=== PATIENT | male | born 1935 | race Caucasian/White ===

== ENCOUNTER 2019-12-26 06:04 | Outpatient (REF) | payer MEDICARE, SELFPAY | END 2019-12-26 06:05 | disposition home or self-care (01) | LOC: HO.LAB 06:04 | PROVIDERS: PCP Physician Assistant; Visit Provider Internal Medicine | DX: Z20.828 Contact with and (suspected) exposure to other viral communicable diseases (principal) | CPT/HCPCS: 36415; 87635 ==

== ENCOUNTER → 2020-01-07 12:23 | Outpatient (BNVA) | payer MEDICARE, SELFPAY | PROVIDERS: Visit Provider Urology | DX: C61 Malignant neoplasm of prostate (principal); N32.0 Bladder-neck obstruction; R35.0 Frequency of micturition; Z79.899 Other long term (current) drug therapy | CPT/HCPCS: 51798; 99214 ==

== ENCOUNTER → 2020-04-07 14:11 | Outpatient (BNVA) | payer MEDICARE, SELFPAY | PROVIDERS: Visit Provider Urology | DX: C61 Malignant neoplasm of prostate (principal); N32.0 Bladder-neck obstruction; R35.0 Frequency of micturition | CPT/HCPCS: 51798; 81002; 99212 ==

== ENCOUNTER → 2020-08-10 09:31 | Outpatient (BNVA) | payer MEDICARE, SELFPAY | PROVIDERS: Visit Provider Surgery | DX: K40.90 Unilateral inguinal hernia, without obstruction or gangrene, not specified as recurrent (principal) | CPT/HCPCS: 99212 ==

== ENCOUNTER 2020-10-23 09:36 | Outpatient (REF) | payer MEDICARE, SELFPAY ==
[2020-10-23 11:34] LABS: Prostate Specific Antigen 0.54 ng/mL (<0.05-4.0)
== END 2020-10-23 09:37 | disposition home or self-care (01) ==
LOC: HO.LAB 09:36
PROVIDERS: Visit Provider Urology
DX: Z12.5 Encounter for screening for malignant neoplasm of prostate (principal); C61 Malignant neoplasm of prostate
CPT/HCPCS: 36415; 84153

== ENCOUNTER → 2020-10-30 08:39 | Outpatient (BNVA) | payer MEDICARE, SELFPAY | PROVIDERS: Visit Provider Urology | DX: R97.20 Elevated prostate specific antigen [PSA] (principal); C61 Malignant neoplasm of prostate; R35.0 Frequency of micturition; N32.81 Overactive bladder; R39.15 Urgency of urination; N32.0 Bladder-neck obstruction | CPT/HCPCS: 51798; 99212 ==

== ENCOUNTER → 2020-12-01 09:46 | Outpatient (BNVA) | payer MEDICARE, SELFPAY | PROVIDERS: Visit Provider Urology | DX: C61 Malignant neoplasm of prostate (principal); N32.0 Bladder-neck obstruction; R35.0 Frequency of micturition | CPT/HCPCS: 52000; 99212 ==

== ENCOUNTER 2020-12-26 09:47 | Observation (INO) | payer MEDICARE, SELFPAY ==
[2020-12-26] VITALS (9 sets, daily range): BP systolic 118–190; BP diastolic 64–139; PULSE 36–92; RESP 12–19; TEMP 36.2–36.9; O2SAT 95–100; BMI 19.3
--- NOTE | ~2020-12-26 | MR_ITS ---
EXAMINATION: MRI OF THE BRAIN WITHOUT CONTRAST CLINICAL INFORMATION: Right lower extremity weakness. COMPARISON: CT scan of the head 12/26/2020. MRI scan the brain 02/12/2016. TECHNIQUE: MRI of the brain was obtained using routine sequences without contrast. FINDINGS: No diffusion abnormalities are identified to suggest an acute or subacute infarct. No mass effect or midline shift is seen. There is commensurate prominence of the ventricles and sulci consistent with moderate diffuse volume loss. There has been interval increase in the periventricular and subcortical white matter hyperintense T2 and FLAIR areas consistent with progressive chronic microvascular ischemic disease. The study demonstrates chronic lacunar infarcts in the basal ganglia and mai. No extra-axial fluid collections are seen. The cerebellum appears normal. No pathologic magnetic susceptibility artifact is identified on the gradient refocused acquisition. The craniovertebral junction, marrow signal, and midline structures are normal. The study redemonstrates multiple small nodules in the right parotid gland. The major intracranial flow-voids at the level of the [place] are preserved. The dural venous sinus flow-voids are maintained. There is no significant fluid in the mastoid air cells. There are bilateral maxillary sinus retention cysts. There is a cyst in the high left nasopharynx. MR/MR head/brain wo con IMPRESSION: 1. There are no acute bleeds or territorial infarcts. No masses are demonstrated. 2. There are chronic microvascular ischemic changes and there are multifocal lacunar infarcts. There is diffuse volume loss. 3. The study redemonstrates small nodules in the right parotid gland.
--- NOTE | ~2020-12-26 | CT_ITS ---
EXAMINATION: CT CERVICAL SPINE WITHOUT CONTRAST CLINICAL INFORMATION: Fall COMPARISON: None TECHNIQUE: CT cervical spine Department standard protocol without contrast. This CT examination was performed using dose optimization techniques as appropriate, variously including the following: *Automated exposure control *Adjustment of mA and/or kV according to patient size (this includes techniques or standardized protocols for targeted exams where dose is matched to indication/reason for exam; i.e. extremities or head) *Use of iterative reconstruction technique DLP: 1025 mGy-cm FINDINGS: All 7 cervical vertebrae identified maintaining proper height and alignments. The vertebrae, the pedicles, spinous processes all are intact. No fracture. Loss of disc height narrowing of intervertebral disc spaces suggest underlying degenerative disc disease at all levels. Spinal levels: C2-C3: No fracture. No central or foraminal stenosis. C3-C4: No fracture. No central or foraminal stenosis. There is DJD of facet joints. C4-C5: Bilateral facet joints arthropathy. No fracture. No central or foraminal stenosis. C5-C6: Bilateral facet joints arthropathy. No stenosis. No fracture. No central or foraminal stenosis. C6-C7: No acute fracture. Extensive facet joints arthropathy. No central or foraminal stenosis. C7-T1: No fracture. There is bilateral facet joints arthropathy. No central or foraminal stenosis. CT/CT cervical spine wo con IMPRESSION: Study somewhat limited, oblique imaging, the axials are not aligned to the bone anatomic alignment's. 1. No fracture. 2. There is extensive facet joints arthropathy at almost all levels. 3. Narrowing of disc spaces suggest underlying degenerative disc disease.
--- NOTE | ~2020-12-26 | XR_ITS ---
EXAMINATION: XR CHEST CLINICAL INFORMATION: Status post fall with dizziness. COMPARISON: 06/28/2017 chest radiographs. TECHNIQUE: Frontal view of the chest was obtained. FINDINGS: The lungs are clear. Tiny radiopaque densities are again seen overlying the right lower lung without interval change. The heart and mediastinal structures are unremarkable. XR/XR chest 1V IMPRESSION: Stable chest. No acute cardiopulmonary process.
--- NOTE | ~2020-12-26 | CT_ITS ---
CT head/brain wo con CLINICAL INFORMATION: Reason for Exam fall ?hit head COMPARISON: Prior CT January 2016 TECHNIQUE: Department standard protocol. This CT examination was performed using dose optimization techniques as appropriate, variously including the following: *Automated exposure control *Adjustment of mA and/or kV according to patient size (this includes techniques or standardized protocols for targeted exams where dose is matched to indication/reason for exam; i.e. extremities or head) *Use of iterative reconstruction technique DLP: 1025 mGy-cm FINDINGS: CEREBRAL HEMISPHERES: There is no evidence of intra-axial or extra-axial mass, hemorrhage or acute infarct. 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 SUBDURAL SPACE: No bleed. BASAL GANGLIA AND PINEAL GLAND: Lacunar infarcts in the left thalamus chronic unchanged. Lacunar infarct in the left lentiform nucleus probably old. Lacunar infarct right lentiform nucleus. VENTRICLES: Symmetric and normal in size. CEREBELLUM AND BRAINSTEM: Lacunar infarct left pontine this is old. CEREBELLOPONTINE ANGLES: No lesion found. ORBITS: No intraorbital mass. VESSELS: Unremarkable SKULL BASE: Unremarkable INCLUDED SINUSES AT SKULL BASE: Clear SKULL AND SKIN: No fracture or bone lesion found. 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 Multiple small lacunar infarct in the basal ganglia and pontine old. No intracranial hemorrhage. Normal CT scan does not rule out the possibility of hyperacute infarct in the first 12 hours. If patient symptoms persist may consider correlation with MRI, which is more sensitive for early acute infarct.
[2020-12-26 10:00] LABS: Glucose, Whole Blood 88 mg/dL (60-115)
--- NOTE | 2020-12-26 10:00 | ECG_ITS ---
Test Reason : FALL Blood Pressure : / mmHG Vent. Rate : 063 BPM Atrial Rate : 063 BPM P-R Int : 186 ms QRS Dur : 130 ms QT Int : 446 ms P-R-T Axes : 071 -77 020 degrees QTc Int : 456 ms Normal sinus rhythm Left axis deviation Right bundle branch block Abnormal ECG When compared with ECG of 28-JUN-2017 06:18, Sinus rhythm has replaced Atrial fibrillation Referred By: Marce Dozier Electronically Signed By:EH FIGUEROA
--- NOTE | 2020-12-26 10:03 | ED_ITS ---
HPI - Fall General Chief Complaint: Fall Stated Complaint: fall Time Seen by Provider: 12/26/20 09:54 Source: patient and EMS Mode of arrival: EMS Limitations: other (poor historian) History of Present Illness HPI Narrative: 85-year-old male pmhx HTN, prostate cancer, hx CVAs presents to the emergency department after a witnessed fall. He states he was walking to the department store, he felt lightheaded weak and he felt like his right knee gave out on him so he fell. He states he always has problems with his right knee. It is unclear whether not he hit his head. He is not on blood thinners. He denies pain. He denies chest pain, shortness of breath, weakness, nausea, vomiting, fevers, chills. complaint: fall Onset (ago): hour(s) (1) Fall from: standing Fall witnessed: yes, by bystander Place fall occurred: other Loss of consciousness: unsure Prolonged down time: no Symptoms prior to fall: lightheadedness and dizziness Context: tripped/slipped Associated symptoms (after fall): weakness Related Data Previous Rx's Medication Instructions Recorded oxybutynin chloride 10 mg 10 mg PO DAILY 30 Days #30 tab 10/30/20 tablet,extended release 24 hr terazosin 5 mg capsule 10 mg PO BEDTIME 30 Days #60 cap 10/30/20 Allergies Allergy/AdvReac Type Severity Reaction Status Date / Time No Known Allergies Allergy Verified 12/01/20 10:02 [No Known Allergies*] Review of Systems Review of Systems: Constitutional: No Fever, No Chills ENT/Mouth: No sore throat, No Rhinorrhea, No Swallowing Difficulty Eyes: No Eye Pain, No Swelling, No Redness Cardiovascular: No Chest Pain, No SOB, No Orthopnea, No Edema Respiratory: No Cough, No Sputum, No Wheezing, No dyspnea Gastrointestinal: No Nausea, No Vomiting, No Diarrhea, No abdominal Pain, No Hematochezia, No Melena Genitourinary: No Dysuria, No Urinary Frequency, No Hematuria Musculoskeletal: No joint pain, No Myalgias, + fall, ?LOC Skin: No Skin Lesions, No rash Neuro: No Weakness, No Numbness, No Dizziness, No Headache PMFSH Past Medical History Medical History (Updated 12/26/20 @ 16:18 by Ludin Dawson MD) Bladder outlet obstruction Bradycardia CKD (chronic kidney disease), stage III CVA (cerebral vascular accident) Hypertension Right inguinal pain Urinary frequency Surgical History History of knee replacement History of surgery Social History Social History Alcohol intake: current Alcohol intake frequency: holidays/special occasions only Alcohol type: beer Patient Tobacco Use Status: Current everyday Tobacco user Smoked in Last 30 Days: Yes Use of substances other than those prescribed or required for medical reasons: No Advance Directives: No Advance Directives Information Provided: No Physical Exam Vital Signs: Vital Signs: Last Vital Signs Temp 97.9 F 12/26/20 14:16 Pulse 42 L 12/26/20 14:16 Resp 14 12/26/20 14:16 BP 188/64 H 12/26/20 14:16 Pulse Ox 100 12/26/20 14:16 Body Mass Index 19.3 Appearance: Alert. Oriented X3. No acute distress. Eyes: Pupils equal, round and reactive to light. mild right upper eyelid droop ENT: Pharynx normal. minor abrasion on the bridge of the nose Neck: Normal inspection. Neck supple. CVS: Normal heart rate and rhythm. Pulses normal. Respiratory: No respiratory distress. Breath sounds normal. Abdomen: Soft and nontender. +BS x4 Skin: Skin warm and dry. Normal skin color. Normal skin turgor. No rashes. Extremities: No lower extremity edema. Atraumatic Neuro: Oriented to person and place. + States the president at this time is Obama. No motor deficit. No sensory deficit. Mild, intermittent, Slurred speech noted Course Course Course Narrative: 1256-Upon re-evaluation, he is still feeling well, he is denying chest pain, headaches, vision changes, shortness of breath. He denies extremity pain. He states he wants to leave. His lab show no acute infection. No UTI His EKG sinus rhythm with a RBBB which he has had before. X-ray shows no acute findings. CT scan of the head, and C-spine show no signs of bleed no fr actures. Patient ambulating with a steady gait. VSS. Reevaluation(s) Reevaluation #1: CT head without acute stroke, old lacunar infacts are noted. no focal deficits on exam. Upon re-evaluation of the patient it is noted that he is bradycardic to low 40's His orthostatic vital signs were also positive with 20 point increase in his HR. Concern for cardiac etiology of fall. A repeat EKG has been done, which shows marked sinus bradycardia, with left axis deviation and right bundle branch block. HR 30-40's. He does have a history of bradycardia to the 50s years ago. Given this patient's living situation, he lives at home by himself, it is not safe to discharge the patient home. Will reach out to hospitalist, to keep him overnight for observation, and further evaluation by Cardiology. Dr. Huff aware of patient, not concerned about troponin. TT Dr. Dawson who will admit the patient for further observation. MDM - Fall MDM Narrative Medical decision making narrative: 85-year-old male past medical history of hypertension and prostate cancer presents to the emergency department after a witnessed fall. It is unclear whether not he has had. He denies any pain. States he fell because his right knee gave out on him, but before the fall he also reports transient weakness, and dizziness. He is not on blood thinners but he is a poor historian. Upon physical examination there are no evident signs of trauma. Slurred speech is noted. There is no neuro deficits, no weakness. Pupils are equal round reactive to light. Patient keeps stating he wants to leave, and he feels okay. However due to the history, and physical exam findings a full workup will be done which includes labs, EKG, CT non-contrast of the head, and C-spine, UA. Symptoms are nondebilitating, not a tPA candidate. Lab Data Result diagrams: 12/26/20 10:30 12/26/20 10:30 Labs: Lab Results 12/26/20 12/26/20 12/26/20 Range/Units 09:56 10:30 10:30 WBC 5.4 (4.8-10.8) X10*3/uL RBC 3.89 L (4.60-5.80) X10*6/uL Hgb 12.8 L (14.0-18.0) g/dl Hct 37.9 L (42-52) % MCV 97.4 (80-98) fL MCH 32.9 (27.0-33.0) pg MCHC 33.8 (31.0-36.0) g/dl RDW 12.9 (11.0-16.0) % Plt Count 141 L (160-400) X10*3/uL MPV 10.7 (9.4-12.4) fL Immature Gran % (Auto) 0.6 H (0.0-0.4) % Neut % (Auto) 79.3 H (45-73) % Lymph % (Auto) 13.4 L (20-40) % Lyon % (Auto) 4.6 (2-11) % Eos % (Auto) 1.5 (0-4) % Baso % (Auto) 0.6 (0-2) % Lymph # (Auto) 0.7 L (1.2-4.9) X10*3/uL Lyon # (Auto) 0.3 (0.1-1.2) X10*3/uL Eos # (Auto) 0.1 (0.0-0.4) X10*3/uL Baso # (Auto) 0.0 (0.0-0.2) X10*3/uL Abs Immat Gran (auto) 0.03 (0.00-0.03) X10*3/uL Absolute Neuts (auto) 4.3 (2.0-8.3) X10*3/uL Absolute Nucleated RBC 0.000 (0.0-0.012) X10*3/uL Nucleated RBC % (auto) 0.0 (0.0-0.2) /100WBC Sodium 141 (135-145) mmol/L Potassium 4.0 (3.3-5.1) mmol/L Chloride 108 (96-108) mmol/L Carbon Dioxide 23 (22-29) mmol/L Anion Gap 14 (12-20) BUN 17 H (9-16) mg/dL Creatinine 1.45 H (0.5-1.4) mg/dL Estim Creat Clear Calc 31.7 Estimated GFR 46 POC Glucose 88 (60-115) mg/dL Random Glucose 94 (60-115) mg/dL Calcium 9.2 (8.4-10.2) mg/dL Magnesium 2.1 (1.6-2.6) mg/dL Total Bilirubin 0.7 (0.0-1.0) mg/dL Direct Bilirubin 0.3 (0.0-0.5) mg/dL AST 19 (5-37) U/L ALT 14 (0-40) U/L Alkaline Phosphatase 90 (39-117) U/L Troponin I High Sens (<3.5-35.0) ng/L Total Protein 6.2 L (6.5-8.0) g/dL Albumin 3.9 (3.5-5.0) g/dL Urine Color Urine Appearance Urine pH (5.0-8.0) Ur Specific Delta (1.005-1.025) Urine Protein (NEG-TRACE) MG/DL Urine Glucose (UA) (NEG) MG/DL Urine Ketones (NEG) MG/DL Urine Blood (NEG) Urine Nitrite (NEG) Ur Leukocyte Esterase (NEG) COVID-19 (KIRBY) (Negative) COVID-19 Clin Com 12/26/20 12/26/20 12/26/20 Range/Units 10:30 10:30 12:24 WBC (4.8-10.8) X10*3/uL RBC (4.60-5.80) X10*6/uL Hgb (14.0-18.0) g/dl Hct (42-52) % MCV (80-98) fL MCH (27.0-33.0) pg MCHC (31.0-36.0) g/dl RDW (11.0-16.0) % Plt Count (160-400) X10*3/uL MPV (9.4-12.4) fL Immature Gran % (Auto) (0.0-0.4) % Neut % (Auto) (45-73) % Lymph % (Auto) (20-40) % Lyon % (Auto) (2-11) % Eos % (Auto) (0-4) % Baso % (Auto) (0-2) % Lymph # (Auto) (1.2-4.9) X10*3/uL Lyon # (Auto) (0.1-1.2) X10*3/uL Eos # (Auto) (0.0-0.4) X10*3/uL Baso # (Auto) (0.0-0.2) X10*3/uL Abs Immat Gran (auto) (0.00-0.03) X10*3/uL Absolute Neuts (auto) (2.0-8.3) X10*3/uL Absolute Nucleated RBC (0.0-0.012) X10*3/uL Nucleated RBC % (auto) (0.0-0.2) /100WBC Sodium (135-145) mmol/L Potassium (3.3-5.1) mmol/L Chloride (96-108) mmol/L Carbon Dioxide (22-29) mmol/L Anion Gap (12-20) BUN (9-16) mg/dL Creatinine (0.5-1.4) mg/dL Estim Creat Clear Calc Estimated GFR POC Glucose (60-115) mg/dL Random Glucose (60-115) mg/dL Calcium (8.4-10.2) mg/dL Magnesium (1.6-2.6) mg/dL Total Bilirubin (0.0-1.0) mg/dL Direct Bilirubin (0.0-0.5) mg/dL AST (5-37) U/L ALT (0-40) U/L Alkaline Phosphatase (39-117) U/L Troponin I High Sens 7.4 (<3.5-35.0) ng/L Total Protein (6.5-8.0) g/dL Albumin (3.5-5.0) g/dL Urine Color YELLOW Urine Appearance CLEAR Urine pH 7.0 (5.0-8.0) Ur Specific Delta 1.010 (1.005-1.025) Urine Protein NEG (NEG-TRACE) MG/DL Urine Glucose (UA) NEG (NEG) MG/DL Urine Ketones NEG (NEG) MG/DL Urine Blood NEG (NEG) Urine Nitrite NEG (NEG) Ur Leukocyte Esterase NEG (NEG) COVID-19 (KIRBY) Negative (Negative) COVID-19 Clin Com See Note 12/26/20 Range/Units 14:15 WBC (4.8-10.8) X10*3/uL RBC (4.60-5.80) X10*6/uL Hgb (14.0-18.0) g/dl Hct (42-52) % MCV (80-98) fL MCH (27.0-33.0) pg MCHC (31.0-36.0) g/dl RDW (11.0-16.0) % Plt Count (160-400) X10*3/uL MPV (9.4-12.4) fL Immature Gran % (Auto) (0.0-0.4) % Neut % (Auto) (45-73) % Lymph % (Auto) (20-40) % Lyon % (Auto) (2-11) % Eos % (Auto) (0-4) % Baso % (Auto) (0-2) % Lymph # (Auto) (1.2-4.9) X10*3/uL Lyon # (Auto) (0.1-1.2) X10*3/uL Eos # (Auto) (0.0-0.4) X10*3/uL Baso # (Auto) (0.0-0.2) X10*3/uL Abs Immat Gran (auto) (0.00-0.03) X10*3/uL Absolute Neuts (auto) (2.0-8.3) X10*3/uL Absolute Nucleated RBC (0.0-0.012) X10*3/uL Nucleated RBC % (auto) (0.0-0.2) /100WBC Sodium (135-145) mmol/L Potassium (3.3-5.1) mmol/L Chloride (96-108) mmol/L Carbon Dioxide (22-29) mmol/L Anion Gap (12-20) BUN (9-16) mg/dL Creatinine (0.5-1.4) mg/dL Estim Creat Clear Calc Estimated GFR POC Glucose (60-115) mg/dL Random Glucose (60-115) mg/dL Calcium (8.4-10.2) mg/dL Magnesium (1.6-2.6) mg/dL Total Bilirubin (0.0-1.0) mg/dL Direct Bilirubin (0.0-0.5) mg/dL AST (5-37) U/L ALT (0-40) U/L Alkaline Phosphatase (39-117) U/L Troponin I High Sens 15.2 D (<3.5-35.0) ng/L Total Protein (6.5-8.0) g/dL Albumin (3.5-5.0) g/dL Urine Color Urine Appearance Urine pH (5.0-8.0) Ur Specific Delta (1.005-1.025) Urine Protein (NEG-TRACE) MG/DL Urine Glucose (UA) (NEG) MG/DL Urine Ketones (NEG) MG/DL Urine Blood (NEG) Urine Nitrite (NEG) Ur Leukocyte Esterase (NEG) COVID-19 (KIRBY) (Negative) COVID-19 Clin Com ECG Data Attestation: I personally reviewed and interpreted this ECG as follows: ECG interpretation date: 12/26/20 Prior ECG tracings: available for review Interpretation: 1012-normal sinus rhythm, HR 63 bpm, left axis deviation, RBBB (old) 1324- Sinus bradycardia, HR 40, left axis deviation, RBBB Discharge Plan Discharge Clinical Impression: Dizziness, Symptomatic bradycardia Fall Qualifiers: Encounter type: initial encounter Qualified Code(s): W19.XXXA - Unspecified fa ll, initial encounter Patient Disposition: Admitted As Inpatient Instructions: Fall Prevention for Older Adults (ED), Dizziness (ED), Fall Prevention (ED) Prescriptions: No Action terazosin 5 mg capsule 10 mg PO BEDTIME 30 Days Qty: 60 RF: 1 oxybutynin chloride 10 mg tablet extended release 24hr 10 mg PO DAILY 30 Days Qty: 30 RF: 1
[2020-12-26 10:36] LABS: MANUAL DIFF FLAG NO
[2020-12-26 10:39] LABS: Basophils Percent Auto 0.6 % (0-2); Eosinophils Absolute Auto 0.1 X10*3/uL (0.0-0.4); Eosinophils Percent Auto 1.5 % (0-4); Hematocrit 37.9 % (42-52); Hemoglobin 12.8 g/dl (14.0-18.0); Imm Gran Abs Auto 0.03 X10*3/uL (0.00-0.03); Imm Gran Pct Auto 0.6 % (0.0-0.4); Lymphocytes Absolute Auto 0.7 X10*3/uL (1.2-4.9); Lymphocytes Percent Auto 13.4 % (20-40); Mean Corpuscular HGB Conc 33.8 g/dl (31.0-36.0); Mean Corpuscular Hemoglobin 32.9 pg (27.0-33.0); Mean Corpuscular Volume 97.4 fL (80-98); Mean Platelet Volume 10.7 fL (9.4-12.4); Monocytes Absolute Auto 0.3 X10*3/uL (0.1-1.2); Monocytes Percent Auto 4.6 % (2-11); Neutrophils Absolute Auto 4.3 X10*3/uL (2.0-8.3); Neutrophils Percent Auto 79.3 % (45-73); Platelet Count 141 X10*3/uL (160-400); Red Blood Count 3.89 X10*6/uL (4.60-5.80); Red Cell Distribution Width 12.9 % (11.0-16.0); White Blood Count 5.4 X10*3/uL (4.8-10.8)
[2020-12-26 10:55] LABS: COVID-19 Test Negative (Negative); IDNOW Serial# 9DD0AD1C
[2020-12-26 11:06] LABS: Troponin-I High Sensitivity 7.4 ng/L (<3.5-35.0)
[2020-12-26 12:35] LABS: Appearance Urine CLEAR; Color Urine YELLOW; Glucose Urine UA NEG (NEG); Leukocyte Esterase Urine NEG (NEG); Nitrite Urine NEG (NEG); Urine Blood NEG (NEG); Urine Ketones NEG (NEG); Urine Protein NEG (NEG-TRACE)
--- NOTE | 2020-12-26 13:17 | ECG_ITS ---
Test Reason : BRADYCARDIA Blood Pressure : / mmHG Vent. Rate : 040 BPM Atrial Rate : 040 BPM P-R Int : 188 ms QRS Dur : 130 ms QT Int : 494 ms P-R-T Axes : 066 -73 002 degrees QTc Int : 402 ms Marked sinus bradycardia Left axis deviation Right bundle branch block Abnormal ECG When compared with ECG of 26-DEC-2020 10:12, Vent. rate has decreased BY 23 BPM Nonspecific T wave abnormality now evident in Lateral leads Referred By: Marce Dozier Electronically Signed By:EH FIGUEROA
[2020-12-26 14:05] LABS: Alanine Aminotransferase 14 U/L (0-40); Albumin Level 3.9 g/dL (3.5-5.0); Alkaline Phosphatase 90 U/L (39-117); Anion Gap 14 (12-20); Aspartate Amino Transferase 19 U/L (5-37); Bilirubin Direct 0.3 mg/dL (0.0-0.5); Bilirubin Total 0.7 mg/dL (0.0-1.0); Blood Urea Nitrogen 17 mg/dL (9-16); Calcium 9.2 mg/dL (8.4-10.2); Carbon Dioxide 23 mmol/L (22-29); Chloride 108 mmol/L (96-108); Creatinine Clr Calc Pharmacy 31.7; Estimated Glomerular Filt Rate 46; Glucose Random 94 mg/dL (60-115); Magnesium 2.1 mg/dL (1.6-2.6); Sodium 141 mmol/L (135-145); Total Protein 6.2 g/dL (6.5-8.0)
[2020-12-26 15:00] LABS: Troponin-I High Sensitivity 15.2 ng/L (<3.5-35.0)
--- NOTE | 2020-12-26 16:11 | PM.IMHP ---
History of Present Illness Date of Service: 12/26/20 Chief Complaint: Fall 85-year-old male presented with fall. Patient states that he was outside walking with a cart and all of sudden felt right lower extremity weakness. He has history of right knee replacement and it does bother infrequently. He felt give out on him and fell. He denies any weakness or dizziness or chest pain or shortness of breath. Denies any significant injury. He had some trouble getting up right away so bystanders called EMS and brought him to the ED. in the ED he was able to ambulate. Of note patient does have old lacunar infarcts in the left thalamus and left lentiform nucleus. He was also noticed to have sinus bradycardia in the low 40s. This was also noted on his stroke admission in 2016. And his heart rate does improve to the 60s on ambulation. Review of Systems Review of Systems: Constitutional: Denies fever, denies Chills Eyes: denies blurry vision ENT: denies sore throat CVS: denies chest pain Respiratory: Denies dyspnea GI: no abdominal pain : denies dysuria MSK: denies neck pain Skin: denies rash Neuro: denies specific motor weakness Psych: denies suicidal ideation Endocrine: denies heat/cold intolerance Hematologic: denies easy bleeding Allergy: denies hives [facility] Medical History (Updated 12/26/20 @ 16:18 by Ludin Dawson MD) Bladder outlet obstruction Bradycardia CKD (chronic kidney disease), stage III CVA (cerebral vascular accident) Hypertension Right inguinal pain Urinary frequency Pertinent family history: Denies history of stroke in either parents Surgical History History of knee replacement History of surgery Social History Alcohol intake: current Alcohol intake frequency: holidays/special occasions only Alcohol type: beer Patient Tobacco Use Status: Current everyday Tobacco user Smoked in Last 30 Days: Yes Use of substances other than those prescribed or required for medical reasons: No Advance Directives: No Advance Directives Information Provided: No Meds Allergies Allergy/AdvReac Type Severity Reaction Status Date / Time No Known Allergies Allergy Verified 12/01/20 10:02 [No Known Allergies*] Active Medications: Current Medications Non-Formulary Medication (Terazosin) 10 mg PO BEDTIME BLANCA Oxybutynin Chloride (Oxybutynin Chloride Er 5 Mg Tab.Er.24) 10 mg PO DAILY BLANCA Physical Exam Vital Signs and Narrative: Vital Signs: Last Vital Signs Temp 97.9 F 12/26/20 14:16 Pulse 42 L 12/26/20 14:16 Resp 14 12/26/20 14:16 BP 188/64 H 12/26/20 14:16 Pulse Ox 100 12/26/20 14:16 Body Mass Index 19.3 General: no acute distress HEENT: atraumatic Neck: normal to visual inspection CVS: S1, S2, RRR Resp: CTA bilateral Chest: non tender GI: soft, non tender, non distended : no CVA tenderness Skin: no rashes Extremities: no edema Neuro: Oriented X3, dysarthric, no obvious motor defecits Psych: cooperative Results Labs CBC and Chem 7: 12/26/20 10:30 12/26/20 10:30 Labs: Laboratory Results - last 24 hr 12/26/20 12/26/20 12/26/20 09:56 10:30 10:30 MCV 97.4 MCH 32.9 MCHC 33.8 RDW 12.9 Plt Count 141 L MPV 10.7 Immature Gran % (Auto) 0.6 H Neut % (Auto) 79.3 H Lymph % (Auto) 13.4 L [place] % (Auto) 4.6 Eos % (Auto) 1.5 Baso % (Auto) 0.6 Lymph # (Auto) 0.7 L [place] # (Auto) 0.3 Eos # (Auto) 0.1 Baso # (Auto) 0.0 Abs Immat Gran (auto) 0.03 Absolute Neuts (auto) 4.3 Absolute Nucleated RBC 0.000 Nucleated RBC % (auto) 0.0 Anion Gap 14 Estim Creat Clear Calc 31.7 Estimated GFR 46 POC Glucose 88 Random Glucose 94 Calcium 9.2 Magnesium 2.1 Total Bilirubin 0.7 Direct Bilirubin 0.3 AST 19 ALT 14 Alkaline Phosphatase 90 Troponin I High Sens Total Protein 6.2 L Albumin 3.9 Urine Color Urine Appearance Urine pH Ur Specific [place] Urine Protein Urine Glucose (UA) Urine Ketones Urine Blood Urine Nitrite Ur Leukocyte Esterase COVID-19 (KIRBY) COVID-19 Clin Com 12/26/20 12/26/20 12/26/20 10:30 10:30 12:24 MCV MCH MCHC RDW Plt Count MPV Immature Gran % (Auto) Neut % (Auto) Lymph % (Auto) [place] % (Auto) Eos % (Auto) Baso % (Auto) Lymph # (Auto) [place] # (Auto) Eos # (Auto) Baso # (Auto) Abs Immat Gran (auto) Absolute Neuts (auto) Absolute Nucleated RBC Nucleated RBC % (auto) Anion Gap Estim Creat Clear Calc Estimated GFR POC Glucose Random Glucose Calcium Magnesium Total Bilirubin Direct Bilirubin AST ALT Alkaline Phosphatase Troponin I High Sens 7.4 Total Protein Albumin Urine Color YELLOW Urine Appearance CLEAR Urine pH 7.0 Ur Specific [place] 1.010 Urine Protein NEG Urine Glucose (UA) NEG Urine Ketones NEG Urine Blood NEG Urine Nitrite NEG Ur Leukocyte Esterase NEG COVID-19 (KIRBY) Negative COVID-19 Clin Com See Note 12/26/20 14:15 MCV MCH MCHC RDW Plt Count MPV Immature Gran % (Auto) Neut % (Auto) Lymph % (Auto) [place] % (Auto) Eos % (Auto) Baso % (Auto) Lymph # (Auto) [place] # (Auto) Eos # (Auto) Baso # (Auto) Abs Immat Gran (auto) Absolute Neuts (auto) Absolute Nucleated RBC Nucleated RBC % (auto) Anion Gap Estim Creat Clear Calc Estimated GFR POC Glucose Random Glucose Calcium Magnesium Total Bilirubin Direct Bilirubin AST ALT Alkaline Phosphatase Troponin I High Sens 15.2 D Total Protein Albumin Urine Color Urine Appearance Urine pH Ur Specific [place] Urine Protein Urine Glucose (UA) Urine Ketones Urine Blood Urine Nitrite Ur Leukocyte Esterase COVID-19 (KIRBY) COVID-19 Clin Com Imaging Radiologist's Impressions: Impressions Cervical Spine CT 12/26/20 10:00 IMPRESSION: Study somewhat limited, oblique imaging, the axials are not aligned to the bone anatomic alignment's. 1. No fracture. 2. There is extensive facet joints arthropathy at almost all levels. 3. Narrowing of disc spaces suggest underlying degenerative disc disease. Chest X-Ray 12/26/20 10:01 IMPRESSION: Stable chest. No acute cardiopulmonary process. Head CT 12/26/20 10:01 IMPRESSION: Deep white matter and periventricular hypoattenuation, nonspecific; most likely sequela of chronic microvascular angiopathy ischemia. Multiple small lacunar infarct in the basal ganglia and pontine old. No intracranial hemorrhage. Normal CT scan does not rule out the possibility of hyperacute infarct in the first 12 hours. If patient symptoms persist may consider correlation with MRI, which is more sensitive for early acute infarct. Assessment and Plan (1) Bradycardia: Status: Acute 85M presented with fall fall, right leg giving out could be mechanical given history rule out TIA/CVA will place on observation tele, mri, asa, statin sinus bradycardia was noted in 2016 as well, with HR 40-70 on telemetry then appears to increase appropriately on exertion doubt this is the cause of fall will monitor hypertension uncontrolled continue terazosin add amlodipnie BPH terazosin CKD III appears to be stable, monitor history of CVA with residual dysarthria does not appear to be on meds will start asa, statin dvt prohpyalxis - lovenox full code Quality Stroke Does the patient have a stroke diagnosis?: No VTE Prior VTE?: No VTE Risk Level:: Medical - moderate - high VTE Device Contraindication: Treatment Not Indicated VTE Drug Contraindication: N/A - Med Ordered
[2020-12-26] MEDS: Enoxaparin Sodium 40 MG/0.4 ML SYRINGE SUBCUT (19:40)
[2020-12-26] MEDS: Doxazosin Mesylate 2 MG TABLET 8 MG PO (20:51)
[2020-12-26] MEDS: Atorvastatin Calcium 40 MG TABLET PO (20:51)
[2020-12-27] VITALS (7 sets, daily range): BP systolic 135–178; BP diastolic 67–72; PULSE 43–54; RESP 14–18; TEMP 36.5–36.9; O2SAT 96–98
[2020-12-27] MEDS: 0.9 % Sodium Chloride Flush 3 ML SYRINGE IVFLUSH ×4 (00:40→20:45)
[2020-12-27 06:38] LABS: Hematocrit 40.7 % (42-52); Hemoglobin 13.6 g/dl (14.0-18.0); Mean Corpuscular HGB Conc 33.4 g/dl (31.0-36.0); Mean Corpuscular Hemoglobin 32.6 pg (27.0-33.0); Mean Corpuscular Volume 97.6 fL (80-98); Platelet Count 149 X10*3/uL (160-400); Red Blood Count 4.17 X10*6/uL (4.60-5.80); White Blood Count 5.3 X10*3/uL (4.8-10.8)
[2020-12-27 07:01] LABS: Anion Gap 15 (12-20); Blood Urea Nitrogen 17 mg/dL (9-16); Calcium 9.1 mg/dL (8.4-10.2); Carbon Dioxide 23 mmol/L (22-29); Chloride 108 mmol/L (96-108); Creatinine Clr Calc Pharmacy 34.3; Estimated Glomerular Filt Rate 51; Glucose Random 91 mg/dL (60-115); Sodium 142 mmol/L (135-145)
[2020-12-27] MEDS: Aspirin Enteric Coated 81 MG TABLET.DR PO (08:46)
[2020-12-27] MEDS: amLODIPine Besylate 5 MG TABLET PO (08:46)
--- NOTE | 2020-12-27 11:36 | MHC.CM.PN ---
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 hcp filed naming aria spears as his agent [phone]
[2020-12-27] MEDS: Enoxaparin Sodium 40 MG/0.4 ML SYRINGE SUBCUT (15:05)
--- NOTE | 2020-12-27 15:06 | HO.PM.IMPN ---
Subjective Subjective Date of Service: 12/27/20 Interval History: cc: fall still unsteady on feet Respiratory Respiratory: Reports no additional respiratory complaints Gastrointestinal Gastrointestinal: Reports no additional gastrointestinal complaints Physical Exam Vital Signs: Vital Signs: Last Vital Signs Temp 98.3 F 12/27/20 12:00 Pulse 50 12/27/20 12:00 Resp 18 12/27/20 12:00 BP 170/67 H 12/27/20 12:00 Pulse Ox 98 12/27/20 12:00 Body Mass Index 19.3 General: AO X 3, no acute distress Resp: CTA bilateral, no accessory muscles used CVS: S1,S2,RRR GI: soft, non tender, non distended Neuro: motor grossly intact, unsteady gait Psych: appropriate affect, appropriate insight Objective Data Active Medications Acetaminophen (Acetaminophen 325 Mg Tablet) 650 mg PO Q6H PRN PRN Reason: Pain, Mild (Pain Scale 1-3) Amlodipine Besylate (Amlodipine Besylate 5 Mg Tablet) 5 mg PO DAILY [facility]; Protocol Last Admin: 12/27/20 08:46 Dose: 5 mg Documented by: ELISE Aspirin (Aspirin Enteric Coated 81 Mg Tablet.Dr) 81 mg PO DAILY [facility] Last Admin: 12/27/20 08:46 Dose: 81 mg Documented by: ELISE Atorvastatin Calcium (Atorvastatin Calcium 40 Mg Tablet) 40 mg PO BEDTIME [facility] Last Admin: 12/26/20 20:51 Dose: 40 mg Documented by: MARK Atropine Sulfate (Atropine Sulfate 1 Mg/Ml Vial) 0.5 mg IVPUSH Q2H PRN PRN Reason: symptomatic bradycardia Doxazosin Mesylate (Doxazosin Mesylate 2 Mg Tablet) 8 mg PO BEDTIME [facility] Last Admin: 12/26/20 20:51 Dose: 8 mg Documented by: MARK Enoxaparin Sodium (Enoxaparin Sodium 40 Mg/0.4 Ml Syringe) 40 mg SUBCUT Q24H [facility] Last Admin: 12/27/20 15:05 Dose: 40 mg Documented by: ELISE Oxybutynin Chloride (Oxybutynin Chloride Er 5 Mg Tab.Er.24) 10 mg PO DAILY [facility] Last Admin: 12/27/20 08:46 Dose: 10 mg Documented by: ELISE Sodium Chloride (0.9 % Sodium Chloride Flush 3 Ml Syringe) 3 ml IVFLUSH QSHIFT [facility] Last Admin: 12/27/20 15:05 Dose: 3 ml Documented by: ELISE Labs CBC & Chem 7: 12/27/20 06:12 12/27/20 06:12 Labs: Laboratory Results - last 24 hr 12/27/20 12/27/20 06:12 06:12 MCV 97.6 MCH 32.6 MCHC 33.4 RDW 13.0 Plt Count 149 L MPV 11.0 Absolute Nucleated RBC 0.000 Nucleated RBC % (auto) 0.0 Anion Gap 15 Estim Creat Clear Calc 34.3 Estimated GFR 51 Random Glucose 91 Calcium 9.1 Assessment and Plan (1) CKD (chronic kidney disease), stage III: Status: Acute (2) Bradycardia: Status: Acute (3) Hypertension: Status: Acute Assessment and Plan: ?85M presented with fall fall, right leg giving out likely mechanical friend reports patient has been declining, thinks he needs rehab MRI negative for stroke PT eval sinus bradycardia was noted in 2016 as well, with HR 40-70 on telemetry then patient heart rate appropriately increases on ambulation, noted to be unsteady even with heart rate in 90s while standing doubt this is the cause of fall will monitor hypertension uncontrolled continue terazosin added amlodipnie BPH terazosin CKD III appears to be stable, monitor history of CVA with residual dysarthria does not appear to be on meds at home started asa, statin dvt prohpyalxis - lovenox full code Quality Stroke Does the patient have a stroke diagnosis?: No VTE Prior VTE?: No VTE Risk Level:: Medical - moderate - high VTE Device Contraindication: Treatment Not Indicated VTE Drug Contraindication: N/A - Med Ordered
[2020-12-27] MEDS: Doxazosin Mesylate 2 MG TABLET 8 MG PO (20:44)
[2020-12-27] MEDS: Atorvastatin Calcium 40 MG TABLET PO (20:44)
[2020-12-28] VITALS: BP 180/78; PULSE 53; RESP 18; O2SAT 95
[2020-12-28 04:00] VITALS: BP 180/72; PULSE 45; RESP 18; TEMP 36.7; O2SAT 95
[2020-12-28 07:50] VITALS: BP 182/84; PULSE 45; RESP 18; TEMP 36.1; O2SAT 95
[2020-12-28] MEDS: 0.9 % Sodium Chloride Flush 3 ML SYRINGE IVFLUSH (08:34)
[2020-12-28 08:35] VITALS: BP 182/84; PULSE 45
[2020-12-28] MEDS: amLODIPine Besylate 5 MG TABLET PO (08:35)
[2020-12-28] MEDS: Aspirin Enteric Coated 81 MG TABLET.DR PO (08:35)
--- NOTE | 2020-12-28 09:31 | PM.DS ---
DS: Providers Provider Date of Service: 12/28/20 Date of admission: 12/26/20 16:08 Primary care physician: None Physician DS: Diagnosis Discharge Diagnosis (1) CKD (chronic kidney disease), stage III: Status: Acute (2) Bradycardia: Status: Acute (3) Hypertension: Status: Acute DS: Summary Hospital Course Hospital Course: patient was admitted for fall and feeling of legs giving out. he was observed for concern over possible tia/cva. mri was done which did not show acute infarct. His sinus bradycardia was also noted again, similar to last admission 2016. His heart rate clearly increased appropriately on ambulation and is not the cause of his symptoms. his hypertension was noted to be uncontrolled and amlodipine 5 mg daily was added. Most likely this is due to ongoing debility due to age and previous stroke. There is concern about patient's fall risk at home and need for rehab. However, patient is not interested and wants to go home. Time Spent with Patient Time attestation: Total time spent providing and/or coordinating discharge services: Discharge coordination time: Greater than 30 minutes Quality: Stroke Does the patient have a stroke diagnosis?: No Physical Exam Vital Signs: Vital Signs: Last Vital Signs Temp 97.0 F 12/28/20 07:50 Pulse 45 L 12/28/20 08:35 Resp 18 12/28/20 07:50 BP 182/84 H 12/28/20 08:35 Pulse Ox 95 12/28/20 07:50 Body Mass Index 19.3 General: AO X 3, no acute distress Resp:? CTA bilateral, no accessory muscles used CVS: S1,S2,RRR GI: soft, non tender, non distended Neuro:? motor grossly intact, unsteady gait Psych: appropriate affect, appropriate insight? Discharge Plan Discharge Patient Disposition: Home Health Service Discharge Diagnosis: fall Referrals: Physician,None [Primary Care Provider] - 1 Week Discharge Medications: New atorvastatin 40 mg Tablet 40 mg PO BEDTIME Qty: 30 RF: 0 amlodipine 5 mg Tablet 5 mg PO DAILY Qty: 30 RF: 0 aspirin 81 mg Tablet,Delayed Release (Dr/Ec) 81 mg PO DAILY Qty: 30 RF: 0 Continued terazosin 5 mg capsule 10 mg PO BEDTIME 30 Days Qty: 60 RF: 1 oxybutynin chloride 10 mg tablet extended release 24hr 10 mg PO DAILY 30 Days Qty: 30 RF: 1 Discharge Orders: Discharge Order (Routine); Ordered 12/28/20 Ordered By: Ludin Dawson Diet: advance to usual diet Activity on Discharge: As tolerated Stand Alone Forms: Patient Portal Discharge page Care Plan Goals: recovery Health Concerns: fall risk Plan of Treatment: asa, statin, Assessment: see above Patient Instructions: Fall Prevention for Older Adults (ED), Dizziness (ED), Fall Prevention (ED)
--- NOTE | 2020-12-28 09:52 | MHC.CM.PN ---
Patient has been medically cleared for dc to home today, with services. CM met with Patient at bedside, who is agreeable to a referral to [facility]. Patient states his PCP is from [facility] in [place].
[2020-12-28 10:08] VITALS: BP 182/84; PULSE 45
--- NOTE | 2020-12-28 11:05 | MHC.CM.PN ---
PCP is Dr. Ursula Floyd.
--- NOTE | 2020-12-28 13:38 | W.MHC.F2F ---
Service Date Service Date: 12/28/20 Encounter Date of encounter: 12/28/20 Reasons for Services Reason for halfway: medication management, medication treatment and teach disease management Reason for physical therapy: home safety and mobility, therapeutic exercises, gait/transfer training and energy conservation Homebound: Leaving the home is medically contraindicated at this time without the asist of a device and/or another person due th the listed conditions above and below. Certification: Based on the above findings, I certify that this patient is confined to the home and needs intermittent halfway care, physical therapy and/or speech therapy, or continues to need occupational therapy. The patient is under my care, and I have initiated the establishment of the plan of care. The patient will be followed by a physician who will periodically review the plan of care.
== END 2020-12-28 11:50 | disposition home health service (06) ==
LOC: HO.ED 16:13 → HO.EDOVER 16:20 → HO.S3 17:06 → HO.IMC 19:49
PROVIDERS: Physician Assistant; Admitting Provider Internal Medicine; Emergency Provider Emergency Medicine; PCP Internal Medicine; Visit Provider Internal Medicine
DX: R00.1 Bradycardia, unspecified (principal); S29.9XXA Unspecified injury of thorax, initial encounter; W01.0XXA Fall on same level from slipping, tripping and stumbling without subsequent striking against object, initial encounter; Y93.01 Activity, walking, marching and hiking; Y92.480 Sidewalk as the place of occurrence of the external cause; Y99.8 Other external cause status; N18.30 Chronic kidney disease, stage 3 unspecified; I10 Essential (primary) hypertension; Z20.822 Contact with and (suspected) exposure to COVID-19; Z86.73 Personal history of transient ischemic attack (TIA), and cerebral infarction without residual deficits
CPT/HCPCS: 36415; 70450; 70551; 71045; 72125; 80048; 80076; 81003; 82947; 83735; 84484; 85025; 85027; 87635; 93005; 96372; 96374; 97161; 99219; 99225; 99285; J1650

== ENCOUNTER → 2021-06-02 09:13 | Outpatient (BNVA) | payer MEDICARE, SELFPAY | PROVIDERS: Visit Provider Urology | DX: R35.0 Frequency of micturition (principal); N32.0 Bladder-neck obstruction; C61 Malignant neoplasm of prostate | CPT/HCPCS: 51798; 99212 ==

== ENCOUNTER 2021-08-06 10:47 | Outpatient (AMB) | payer MEDICARE, SELFPAY ==
--- NOTE | 2021-08-06 10:49 | MHC.OFFVIS ---
Intake Intake Visit Reasons: 6 to 8 week follow up PVR Intake Note: Patient is present for pvr follow up Inpatient Nursing Aide Required: No Accompanied by: Self / Same As Patient Allergies No Known Allergies [No Known Allergies*] Allergy (Verified 07/25/22 15:28) Medication List - Last Reconciled 08/06/21 by Vijay Serna MD amlodipine 5 mg See Protocol PO DAILY aspirin 81 mg PO DAILY atorvastatin 40 mg PO BEDTIME fesoterodine ER 8 mg PO DAILY 30 days prazosin mg PO terazosin 10 mg PO BEDTIME 90 days terazosin mg PO HPI HPI Comments History of Present Illness Details Ki is a pleasant male. He is seen for the following urologic issues - lower urinary tract symptoms - prostate cancer Continue to track PSA Persistent urinary urgency at night time Combination terazosin 10 mg and oxybutynin 10 mg Dry mouth side effects Will switch to trial of Toviaz 8 mg instead of oxybutynin Continue with terazosin 10 mg Lower urinary tract symptoms Longstanding cyst frequency Current medications terazosin 10g with Toviaz 8 mg Prior medications Flomax Cystoscopy 12/15 small bladder neck, moderate trabeculation with some diverticular Prostate cancer low-grade diagnose 2005 Initial treatment brachytherapy Has detectable PSA but remains low in acceptable range PSA 12/14 0.65, 10/14 0.54 PFSH Medical History Benign essential hypertension Bladder outlet obstruction Bradycardia CKD (chronic kidney disease), stage III CVA (cerebral vascular accident) (~2015) Hypertension Incidental pulmonary nodule Left-sided weakness Right inguinal pain Swallowing problem Urinary frequency UTI (urinary tract infection) Vitamin D deficiency Surgical History History of knee replacement History of surgery Social History Household Members: None Housing: Apartment Do you presently have visiting nurse or other home services: Yes Alcohol intake: current Alcohol intake frequency: 0-2 drinks per day Alcohol type: beer Patient Tobacco Use Status: Current someday Tobacco user Tobacco use type: Cigarette Cigarette Packs Per Day: 0.25 Cigarettes Per Day: 5 Years Smoked: 60 +/- e-Cigarette/Vaping Use: Never Used Second Hand Smoke Exposure: Yes Advance Directives Date on File: 06/06/22 service: No Current occupational status: retired Cognitive needs: No Hearing needs: No Vision needs: Yes Review of Systems Const Denies chills and Denies fever(s) Card Reports no additional complaints and Denies syncope Resp Denies cough GI Denies abdominal pain and Denies heartburn Reports as per HPI and Denies change in libido Neuro Denies syncope Psych Denies change in libido Endo Denies change in libido Physical Exam Const General: cooperative, healthy appearing, comfortable and no acute distress Orientation/consciousness: patient oriented x3 HEENT Face and sinus: Yes normal facial exam Mouth: moist mucous membranes Neck Neck: Yes normal visual inspection, Yes full ROM and Yes trachea midline Chest Chest palpation & inspection: normal inspection of the chest Resp Effort & Inspection: normal respiratory effort, able to speak in complete sentences and no respiratory distress GI Inspection: Yes normal to inspection Back/Spine/Pelvis Cervical Spine: normal cervical lordosis Thoracic/Lumbar Spine: thoracic and lumbar spine normal to inspection Skin General skin exam: no rashes or lesions noted Neuro General: patient oriented x3, gait normal, tone normal and moves all extremities Extrem General: Yes normal to inspection and Yes capillary refill normal Office Procedures Post Void Residual Post Residual Void Post Void Residual (PVR): 27 [id number]-[id number] Void Residual by ultrasound Results AMB Urinalysis, Automated UA Leukoctes 0 Azra/uL Last Edit by CORNEL Ruth on 08/06/21 10:59 UA Nitrite Negative Last Edit by Mary Shin Raciel on 08/06/21 10:59 UA Urobilinogen 0.2 mg/dL Last Edit by CORNEL Ruth on 08/06/21 10:59 UA Protein 30 mg/dL Last Edit by Mary Shin [facility] on 08/06/21 10:59 UA pH 6.0 Last Edit by CORNEL Ruth on 08/06/21 10:59 UA Blood 0 Galdino/uL Last Edit by Mary Shin [facility] on 08/06/21 10:59 UA Specific [place] 1.025 Last Edit by CORNEL Ruth on 08/06/21 10:59 UA Ketone Negative Last Edit by CORNEL Ruth on 08/06/21 10:59 UA Bilirubin 0 mg/dL Last Edit by CORNEL Ruth on 08/06/21 10:59 UA Glucose 0 mg/dL Last Edit by CORNEL Ruth on 08/06/21 10:59 Results Reviewed Results Reviewed: Laboratory Last Values Urine pH (Auto) 6.0 08/06/21 10:58 Specific [place] (Auto) 1.025 08/06/21 10:58 Urine Protein (Auto) 30 mg/dL 08/06/21 10:58 Glucose (UA)(Auto) 0 mg/dL 08/06/21 10:58 Urine Ketones (Auto) Negative 08/06/21 10:58 Urine Blood (Auto) 0 [place]/uL 08/06/21 10:58 Urine Nitrite (Auto) Negative 08/06/21 10:58 Urine Bilirubin (Auto) 0 mg/dL 08/06/21 10:58 Urine Urobilinogen (Auto) 0.2 mg/dL 08/06/21 10:58 Leukocyte Esterase (Auto) 0 Azra/uL 08/06/21 10:58 Assessment & Plan Assessment & Plan (1) Urinary frequency: Code(s): R35.0 - Frequency of micturition (2) Prostate cancer: Comment: PSA 5 Code(s): C61 - Malignant neoplasm of prostate Orders: Orders Prostate Specific Antigen 6 Months C61 - Malignant neoplasm of prostate AMB Urinalysis Automated 08/06/21 Z13.9 - Encounter for screening, unspecified AMB Post Void Residual by ultrasound 08/06/21 R32 - Unspecified urinary incontinence, N32.0 - Bladder-neck obstruction Medications: Changed From fesoterodine ER 8 mg PO DAILY 30 days 30 tabs 1RF R35.0 - Frequency of micturition To fesoterodine ER 8 mg PO DAILY 90 tabs 1RF 90 days R35.0 - Frequency of micturition Patient Instructions: Imaging studies, laboratory and physical exam results were discussed and reviewed in detail. No major barriers to patient understanding were identified. An opportunity to ask questions regarding the treatment plan was provided. All questions were answered. The patient expressed understanding and agreement with the above treatment plan. The patient is aware they should contact our office by phone for worsening of their current condition or the appearance of new urologic symptoms. Compliance is encouraged with any medications and followup testing that is ordered. It is a privilege to participate in the urologic care of your patient. If you have any questions or concerns regarding treatment for the above conditions, or other urologic issues, please do not hesitate to contact me. The office telephone contact is [phone]. This note is constructed using voice recognition software. While every effort has been made to ensure accuracy relocation counselor errors may have been included. Yours sincerely, Dr Vijay Serna MD, [facility] - Urology Providers of Expert, Compassionate Care for the Genitourinary System Coding Level of Care Code Est Pt Level 3 (46742) Diagnoses Urinary frequency R35.0 Prostate cancer C61 CPT Codes Post Residual Void - PVR CPT Code: 17035-Euam Void Residual by ultrasound ([id number])
== END 2021-08-06 12:08 | disposition home or self-care (01) ==
LOC: HO.HUSH 10:47
PROVIDERS: PCP Internal Medicine; Visit Provider Urology
DX: R35.0 Frequency of micturition (principal); C61 Malignant neoplasm of prostate
CPT/HCPCS: 99213

== ENCOUNTER → 2021-08-06 10:47 | Outpatient (BNVA) | payer MEDICARE, SELFPAY | PROVIDERS: PCP Internal Medicine; Visit Provider Urology | DX: R35.0 Frequency of micturition (principal); C61 Malignant neoplasm of prostate | CPT/HCPCS: 51798; 99212 ==

== ENCOUNTER 2021-09-17 11:43 | Outpatient (REF) | payer MEDICARE, SELFPAY ==
[2021-09-17 11:55] LABS: MANUAL DIFF FLAG NO
[2021-09-17 12:08] LABS: Basophils Absolute Auto 0.1 X10*3/uL (0.0-0.2); Basophils Percent Auto 0.8 % (0-2); Eosinophils Absolute Auto 0.1 X10*3/uL (0.0-0.4); Eosinophils Percent Auto 1.7 % (0-4); Hematocrit 42.6 % (42.0-52.0); Hemoglobin 14.2 g/dl (14.0-18.0); Imm Gran Abs Auto 0.02 X10*3/uL (0.00-0.03); Imm Gran Pct Auto 0.3 % (0.0-0.4); Lymphocytes Absolute Auto 1.4 X10*3/uL (1.2-4.9); Lymphocytes Percent Auto 21.9 % (20-40); Mean Corpuscular HGB Conc 33.3 g/dl (31.0-36.0); Mean Corpuscular Hemoglobin 32.8 pg (27.0-33.0); Mean Corpuscular Volume 98.4 fL (80.0-98.0); Mean Platelet Volume 10.4 fL (9.4-12.4); Monocytes Absolute Auto 0.3 X10*3/uL (0.1-1.2); Monocytes Percent Auto 5.1 % (2-11); Neutrophils Absolute Auto 4.5 x10*3/uL (2.0-8.3); Neutrophils Percent Auto 70.2 % (45-73); Platelet Count 185 X10*3/uL (160-400); Red Blood Count 4.33 X10*6/uL (4.60-5.80); Red Cell Distribution Width 13.2 % (11.0-16.0); White Blood Count 6.5 X10*3/uL (4.8-10.8)
[2021-09-17 13:13] LABS: Alanine Aminotransferase 14 U/L (0-40); Albumin Level 4.3 g/dL (3.5-5.0); Alkaline Phosphatase 104 U/L (39-117); Anion Gap 13 (12-20); Aspartate Amino Transferase 20 U/L (5-37); Bilirubin Total 0.9 mg/dL (0.0-1.0); Blood Urea Nitrogen 26 mg/dL (9-16); Calcium 9.5 mg/dL (8.4-10.2); Carbon Dioxide 26 mmol/L (22-29); Chloride 104 mmol/L (96-108); Cholesterol 167 mg/dL; Estimated Glomerular Filt Rate 40; Glucose Fasting 94 mg/dL (60-99); HDL Cholesterol 58 mg/dL; LDL Cholesterol Calculated 98 mg/dl; Potassium 4.9 mmol/L (3.3-5.1); Sodium 138 mmol/L (135-145); Total Protein 7.2 g/dL (6.5-8.0); Triglycerides 58 mg/dL
[2021-09-17 13:34] LABS: Vitamin D 25-OH Total 25.4 ng/mL (>30)
== END 2021-09-17 11:44 | disposition home or self-care (01) ==
LOC: HO.LAB 11:43
PROVIDERS: PCP Internal Medicine; Visit Provider Internal Medicine
DX: Z01.818 Encounter for other preprocedural examination (principal); I12.9 Hypertensive chronic kidney disease with stage 1 through stage 4 chronic kidney disease, or unspecified chronic kidney disease; N18.30 Chronic kidney disease, stage 3 unspecified; E55.9 Vitamin D deficiency, unspecified; E78.00 Pure hypercholesterolemia, unspecified
CPT/HCPCS: 36415; 80053; 80061; 82306; 85025

== ENCOUNTER 2022-01-13 06:11 | Outpatient (REF) | payer MEDICARE, SELFPAY ==
[2022-01-13 06:39] LABS: MANUAL DIFF FLAG NO
[2022-01-13 07:33] LABS: Basophils Percent Auto 0.6 % (0-2); Eosinophils Absolute Auto 0.2 X10*3/uL (0.0-0.4); Eosinophils Percent Auto 3.2 % (0-4); Hematocrit 39.6 % (42.0-52.0); Hemoglobin 13.5 g/dl (14.0-18.0); Imm Gran Abs Auto 0.02 X10*3/uL (0.00-0.03); Imm Gran Pct Auto 0.3 % (0.0-0.4); Lymphocytes Percent Auto 16.9 % (20-40); Mean Corpuscular HGB Conc 34.1 g/dl (31.0-36.0); Mean Corpuscular Hemoglobin 34.1 pg (27.0-33.0); Mean Platelet Volume 10.5 fL (9.4-12.4); Monocytes Absolute Auto 0.3 X10*3/uL (0.1-1.2); Monocytes Percent Auto 4.5 % (2-11); Neutrophils Absolute Auto 4.6 x10*3/uL (2.0-8.3); Neutrophils Percent Auto 74.5 % (45-73); Platelet Count 173 X10*3/uL (160-400); Red Blood Count 3.96 X10*6/uL (4.60-5.80); Red Cell Distribution Width 13.5 % (11.0-16.0); White Blood Count 6.2 X10*3/uL (4.8-10.8)
[2022-01-13 08:00] LABS: Alanine Aminotransferase 18 U/L (0-40); Albumin Level 4.3 g/dL (3.5-5.0); Alkaline Phosphatase 117 U/L (39-117); Anion Gap 16 (12-20); Aspartate Amino Transferase 24 U/L (5-37); Bilirubin Total 0.9 mg/dL (0.0-1.0); Blood Urea Nitrogen 20 mg/dL (9-16); Calcium 9.4 mg/dL (8.4-10.2); Carbon Dioxide 24 mmol/L (22-29); Chloride 107 mmol/L (96-108); Cholesterol 129 mg/dL; Estimated Glomerular Filt Rate 49; Glucose Fasting 93 mg/dL (60-99); HDL Cholesterol 61 mg/dL; LDL Cholesterol Calculated 59 mg/dl; Sodium 143 mmol/L (135-145); Triglycerides 46 mg/dL
[2022-01-13 08:22] LABS: TSH reflex Free T4 2.28 uIU/mL (0.32-4.0); Vitamin D 25-OH Total 20.9 ng/mL (>30)
[2022-01-13 08:26] LABS: Prostate Specific Antigen 0.26 ng/mL (<0.05-4.0)
== END 2022-01-13 06:12 | disposition home or self-care (01) ==
LOC: HO.LAB 06:11
PROVIDERS: Urology; PCP Internal Medicine; Visit Provider Internal Medicine
DX: C61 Malignant neoplasm of prostate (principal); I10 Essential (primary) hypertension; E78.00 Pure hypercholesterolemia, unspecified; E55.9 Vitamin D deficiency, unspecified
CPT/HCPCS: 36415; 80053; 80061; 82306; 84153; 84443; 85025

== ENCOUNTER 2022-01-14 10:43 | Outpatient (REF) | payer MEDICARE, SELFPAY ==
[2022-01-14 10:51] LABS: Appearance Urine Cloudy; Color Urine Yellow; Glucose Urine UA Negative (Negative); Leukocyte Esterase Urine Negative (Negative); Nitrite Urine Negative (Negative); PH 5.5 (5.0-9.0); Specific Gravity - Urine 1.015 (1.005-1.025); Urine Blood Negative (Negative); Urine Ketones Negative (Negative); Urine Protein Trace mg/dL (Neg-Trace)
== END 2022-01-14 10:44 | disposition home or self-care (01) ==
LOC: HO.LNP 10:43
PROVIDERS: Visit Provider Internal Medicine
DX: R30.0 Dysuria (principal)
CPT/HCPCS: 81003

== ENCOUNTER 2022-01-28 06:05 | Outpatient (REF) | payer MEDICARE, SELFPAY ==
[2022-01-28 08:23] LABS: Prostate Specific Antigen 0.26 ng/mL (<0.05-4.0)
== END 2022-01-28 06:06 | disposition home or self-care (01) ==
LOC: HO.LAB 06:05
PROVIDERS: PCP Internal Medicine; Visit Provider Urology
DX: Z12.5 Encounter for screening for malignant neoplasm of prostate (principal)
CPT/HCPCS: 36415; 84153

== ENCOUNTER → 2022-02-04 08:54 | Outpatient (BNVA) | payer MEDICARE, SELFPAY | PROVIDERS: PCP Internal Medicine; Visit Provider Urology | DX: C61 Malignant neoplasm of prostate (principal); R35.0 Frequency of micturition | CPT/HCPCS: 51798; 99212 ==

== ENCOUNTER 2022-06-03 10:49 | Observation (INO) | payer MEDICARE, SELFPAY ==
[2022-06-03] VITALS (7 sets, daily range): BP systolic 178–206; BP diastolic 73–108; PULSE 44–58; RESP 14–20; TEMP 36.3–36.9; O2SAT 93–98; BMI 22.8
--- NOTE | ~2022-06-03 | CT_ITS ---
EXAMINATION: CT ANGIOGRAM NECK WITH CONTRAST CT ANGIOGRAM BRAIN WITH CONTRAST CLINICAL INFORMATION: Left-sided weakness. Question TIA. COMPARISON: Brain MRI performed earlier today. TECHNIQUE: Test bolus sequences followed by intravenous administration 70 mL of Omnipaque 350. Helical imaging was performed in the axial plane from the thoracic inlet to the skull vertex. Delayed postcontrast imaging of the head was also performed. The data was processed at the medical technologist workstation for generation of MIP sequences. Angled MIPs and volume rendered reformatted images were also generated at an offline 3D workstation. Stenoses are assessed in accordance with NASCET criteria unless otherwise indicated. This CT examination was performed using dose optimization techniques as appropriate, variously including the following: *Automated exposure control *Adjustment of mA and/or kV according to patient size (this includes techniques or standardized protocols for targeted exams where dose is matched to indication/reason for exam; i.e. extremities or head) *Use of iterative reconstruction technique DLP: 1549 mGy-cm FINDINGS: Head CT: There is no intracranial hemorrhage, mass effect, extra-axial collection, or CT evidence of territorial infarction. There are changes of extensive chronic microangiopathy is noted. Chronic lacunar infarcts are seen within the left basal ganglia, left thalamus, and mai. There is mild degree of brain parenchymal volume loss. No abnormal enhancement is seen. The dural venous sinuses are normally opacified. The extracranial structures are within normal limits. Neck CTA: Atheromatous changes are seen involving the aortic arch. The great vessel origins are patent. Atheromatous changes are seen at the carotid bifurcations without significant stenosis of the proximal internal carotid arteries. The cervical ICAs are both patent. Mild atheromatous changes are seen in the right vertebral artery origin without associated stenosis. There is calcific plaque narrowing the left vertebral artery origin. Right vertebral artery appears significantly dominant. Head CTA: No large vessel occlusion is seen. The right vertebral artery is the predominant supply the basilar artery. There is -type origin of the right MINCING MACHINE OPERATOR. Both dolphin researcher are patent. Intracranial ICAs are patent. The ACAs and MCAs are patent. The collaterals appear symmetric. There is no aneurysm. Non-vascular findings: Multiple nodules are again demonstrated within the bilateral parotid glands. There is soft tissue nodularity within the left more than right paraglottic space extending into the left true vocal fold best seen on series 6 image [id number]/1346. There are small thyroid nodules for which no additional imaging follow-up is recommended based on size criteria. There is significant emphysema within the upper lungs. Multilevel degenerative changes are seen within the spine. CT/CT angio head neck IMPRESSION: No acute intracranial abnormality. Background changes of chronic microangiopathy. Chronic lacunar infarcts. No vascular occlusion or significant stenosis. Incidentally noted bilateral parotid nodules. Prominent soft tissue at the left more than right paraglottic space extending to the left true vocal fold. ENT follow-up is recommended for these findings.
--- NOTE | ~2022-06-03 | CT_ITS ---
EXAMINATION: CT HEAD/BRAIN WITHOUT IV CONTRAST CT CHEST WITHOUT IV CONTRAST CLINICAL INDICATION: Left-sided weakness, chest wall mass. COMPARISON: CT brain: Comparison is made to previous dated 12/26/2020. CT chest: No films to compare. TECHNIQUE: Axial imaging with coronal and sagittal reformatted images. DLP: 613 and 264 mGy-cm Axial imaging with coronal and sagittal reformatted images noncontrast. This CT examination was performed using dose optimization techniques as appropriate, variously including the following: *Automated exposure control *Adjustment of mA and/or kV according to patient size (this includes techniques or standardized protocols for targeted exams where dose is matched to indication/reason for exam; i.e. extremities or head) *Use of iterative reconstruction technique. FINDINGS: CT BRAIN: There is no midline shift. There is no mass effect. There is no hemorrhage. The basal cisterns appear patent. The posterior fossa is grossly within normal limits. Diffuse white matter ischemic changes. There is a new focal infarct centrally in the region of the genu of the internal capsule on left but this does not appear acute. Sinus disease is noted. Polyp formation in the maxillary sinuses. CT CHEST: The thoracic inlet is felt to be within normal limits. The axillary regions are unremarkable. Partially visualized upper abdominal structures grossly within normal limits. Some fullness of the adrenal glands is noted. Vascular calcifications are noted. Centrally coronary calcifications are noted. There is no bulky adenopathy. This is a noncontrast study but the hilar regions do not appear pathologically enlarged. Imaging of the lung lauren. Right lung: There is some apical scarring. There is no acute infiltrate or effusion. There is evidence of COPD. Scattered small nodules. There are also some small granulomas. No nodule over 3 mm. Left lung: There is no significant infiltrate or effusion. There is COPD. Scattered small nodules are noted. 5 mm nodule left base on image 441. Review of the bone windows demonstrates degenerative change in the thoracic spine. There is prominent costochondral tissue involving the fourth and fifth anterior ribs. This could be the palpable finding. As this involves two separate ribs I feel this is unlikely to represent a chondral growth/lesion but correlation would be recommended. CT/CT head/brain wo IV con IMPRESSION: Negative acute noncontrast CT of the brain. Moderate white matter ischemic changes are noted. In the chest there is no acute finding. Coronary calcifications are noted here. A few small scattered lung nodules the largest measuring 5 mm in left lower lung. Recommend low-dose noncontrast in 6 months for continued evaluation. As described prominent chondral tissue involving the fourth and fifth anterior ribs on the left. This may be posttraumatic. This may well be the palpable finding. As it does as stated involve the same appearance on two separate ribs this would be less likely to represent an underlying lesion. More likely posttraumatic deformity. Correlation however recommended clinically. If further evaluation is warranted recommend ultrasound or MR.
--- NOTE | ~2022-06-03 | MR_ITS ---
EXAMINATION: MR BRAIN WITHOUT CONTRAST CLINICAL INFORMATION: Question TIA. COMPARISON: Brain MRI 12/27/2020. TECHNIQUE: Multiplanar, multisequence imaging of the brain was performed without intravenous contrast. FINDINGS: There is no acute infarction, hemorrhage, mass, or extra-axial fluid collection. There is moderate to severe patchy T2/FLAIR hyperintensity throughout the cerebral white matter compatible with advanced chronic microangiopathy. Chronic lacunar infarcts are seen within the bilateral centrum semiovale ovale extending into the corpus callosum, left basal ganglia, left thalamus, and mai. There is mild brain parenchymal volume loss with commensurate prominence of ventricles and sulci. The major arterial flow voids appear preserved at the skull base. The left vertebral artery appears hypoplastic. Multiple nodules are again demonstrated within the left and right parotid gland, similar compared with 12/27/2020 with progressive compared with 2016. MR/MR head/brain wo con IMPRESSION: No acute intracranial abnormality identified. Specifically, no acute infarction is seen. Background changes of advanced chronic microangiopathy and chronic lacunar infarcts are seen within the bilateral centrum semiovale ovale extending into the corpus callosum, left basal ganglia, left thalamus, and mai. Redemonstration of small nodules within the right and left parotid gland, progressed compared with 2016. Nonemergent ENT follow-up could be considered.
--- NOTE | 2022-06-03 10:52 | ECG_ITS ---
Test Reason : chest pain Blood Pressure : / mmHG Vent. Rate : 049 BPM Atrial Rate : 049 BPM P-R Int : 182 ms QRS Dur : 132 ms QT Int : 486 ms P-R-T Axes : 051 -73 013 degrees QTc Int : 439 ms Sinus bradycardia Left axis deviation Right bundle branch block Abnormal ECG When compared with ECG of 26-DEC-2020 13:24, No significant change was found Referred By: Darci Madison Electronically Signed By:MAR DANIEL
--- NOTE | 2022-06-03 11:09 | ED_ITS ---
HPI - General Adult General Chief complaint: Weakness Stated complaint: Lower extremity weakness per EMS Time Seen by Provider: 06/03/22 10:52 Source: patient Mode of arrival: EMS Limitations: no limitations History of Present Illness HPI narrative: 86-year-old male with history of CVA presents with acute left lower extremity weakness. Patient woke up in his normal state of health. He went to the store cross the street using a walker or cart. Upon returning, he developed some left lower extremity weakness. He was found propped up against the wall and the stairs at his a boat. Patient denies any headache, nausea, vomiting, shortness of breath, palpitations, lightheadedness. He denies any syncope or presyncopal symptoms. He denies any other deficits neurologically. There is no clear relieving or exacerbating features. Patient reports the symptoms as severe. Patient reports the difficulty with ambulation. Related Data Previous Rx's Medication Instructions Recorded amlodipine 5 mg tablet 5 mg PO DAILY 90 days #90 tabs 09/17/21 cholecalciferol (vitamin D3) 25 25 mcg PO DAILY 90 days #90 caps 01/18/22 mcg (1,000 unit) capsule fesoterodine 8 mg tablet,extended 8 mg PO DAILY 90 days #90 tabs 02/04/22 release 24 hr terazosin 10 mg capsule 10 mg PO BEDTIME #90 caps 03/11/22 atorvastatin 40 mg tablet 40 mg PO BEDTIME 90 days #90 tabs 04/07/22 Allergies Allergy/AdvReac Type Severity Reaction Status Date / Time No Known Allergies Allergy Verified 01/31/22 15:06 [No Known Allergies*] Review of Systems Review of Systems: CONSTITUTIONAL: Denies weight loss, fever and chills. HEENT: Denies changes in vision and hearing. RESPIRATORY: Denies SOB and cough. CV: Denies palpitations no CP. GI: Denies abdominal pain, nausea, vomiting and diarrhea. : Denies dysuria and urinary frequency. MSK: Denies myalgia and joint pain. SKIN: Denies rash and pruritus. NEUROLOGICAL: Denies headache and syncope. PSYCHIATRIC: Denies recent changes in mood. Denies anxiety and depression. All other ROS are negative unless in HPI PMFSH Past Medical History Medical History Bladder outlet obstruction Bradycardia CKD (chronic kidney disease), stage III CVA (cerebral vascular accident) Hypertension Right inguinal pain Urinary frequency Vitamin D deficiency Surgical History History of knee replacement History of surgery Social History Social History Housing: Apartment Alcohol intake: current Alcohol intake frequency: 0-2 drinks per day Alcohol type: beer Patient Tobacco Use Status: Current everyday Tobacco user Tobacco use type: Cigarette Cigarette Packs Per Day: 0.5 Cigarettes Per Day: 10.0 Years Smoked: 60 Smoked in Last 30 Days: No Second Hand Smoke Exposure: Yes Advance Directives: No Advance Directives Information Provided: Yes service: No Current occupational status: retired Cognitive needs: No Hearing needs: No Vision needs: Yes Physical Exam ED Vital Signs: Vital Signs - 24 hr 06/03/22 10:57 06/03/22 13:31 06/03/22 13:42 Temperature 97.6 F 97.6 F Pulse Rate 53 53 48 L Respiratory Rate 18 16 Blood Pressure 180/73 H 180/73 H 189/108 H Pulse Oximetry 96 96 98 Oxygen Delivery Method Room Air Room Air BMI result Body Mass Index 22.8 GEN: Well developed, no acute distress, alert, oriented HEENT: Normocephalic, atraumatic, normal external ears, nose appears normal, no oropharyngeal edema or exudates Eyes: Normal to appearance Neck: Supple, no lymphadenopathy Respiratory: Talks in complete sentences, no respiratory distress, clear to auscultation bilaterally Cardiovascular: Regular rate and rhythm, no murmurs rubs or gallops Abdomen: Soft, nontender, nondistended, no guarding, no rebound Back: No CVA tenderness Extremities: No clubbing cyanosis or edema Neurologic: No focal neurologic deficits, cranial nerves 2-12 intact, strength is 5/5 bilaterally Skin: No rash Chest wall: Left-sided chest wall mass : Scrotal edema Course Course Course Narrative: 86-year-old male presents with left lower extremity weakness. Patient has h istory of CVA. Symptoms started prior to arrival. He woke up normal. My examination he has no focal neurologic deficits. Strength is 5/5 and symmetrical. Has no speech deficits. Obtain a CT scan of the head to rule out any acute intracranial process. He also is noted to have a left chest wall mass which I will review obtain a CT scan of the chest drop possible significant pathology. Patient has scrotal edema, no workup is indicated at this time. Will obtain routine laboratory analysis, EKG as well. Urinalysis has been ordered will have a straight catheter. Reevaluation(s) Reevaluation #1: Neurology will be consulted. Time: 12:46 Reevaluation #2: Will admit patient for TIA Time: 13:57 Medications Administered Discontinued Medications Generic Name Dose Route Start Last Admin Trade Name Freq PRN Reason Stop Dose Admin Lidocaine HCl 10 ml 06/03/22 12:18 06/03/22 12:27 Lidocaine Hcl 2 % Urojet 10 Ml Jel.Pf.Babita TOPICAL 06/03/22 12:19 10 ml ONCE ONE Administration Medical Decision Making Medical Decision Making [facility] Narrative: Patient presents with left lower extremity weakness. Examination revealed no focal neurologic deficits. There is no obvious stroke. Aside from obtaining CT scan of the head, routine laboratory analysis, urinalysis, CT scan of the chest for possible deformity noted on exam, will order a PT evaluation to consider our choices. Patient may require hospitalization for TIA. Differential Diagnosis Differential Diagnoses: The differential diagnosis associated with the presentation includes (TIA, CVA, intracranial mass, electrolyte abnormality, anemia, UTI) Admission/Observation Consideration of admission/observation: Escalation of care including admission/observation considered Consult Healthcare Provider Management of the patient was discussed with: Hospitalist Lab Data [facility] Lab Attestation statement: I reviewed the patient's lab results. 06/03/22 11:13 06/03/22 11:13 Labs: Lab Results 06/03/22 06/03/22 06/03/22 Range/Units 11:13 11:13 12:00 WBC 5.5 (4.8-10.8) X10*3/uL RBC 3.82 L (4.60-5.80) X10*6/uL Hgb 12.7 L (14.0-18.0) g/dl Hct 38.2 L (42.0-52.0) % MCV 100.0 H (80.0-98.0) fL MCH 33.2 H (27.0-33.0) pg MCHC 33.2 (31.0-36.0) g/dl RDW 13.3 (11.0-16.0) % Plt Count 112 L D (160-400) X10*3/uL MPV 11.4 (9.4-12.4) fL Immature Gran % (Auto) 0.4 (0.0-0.4) % Neut % (Auto) 74.2 H (45-73) % Lymph % (Auto) 18.0 L (20-40) % [place] % (Auto) 4.9 (2-11) % Eos % (Auto) 2.0 (0-4) % Baso % (Auto) 0.5 (0-2) % Lymph # (Auto) 1.0 L (1.2-4.9) X10*3/uL [place] # (Auto) 0.3 (0.1-1.2) X10*3/uL Eos # (Auto) 0.1 (0.0-0.4) X10*3/uL Baso # (Auto) 0.0 (0.0-0.2) X10*3/uL Abs Immat Gran (auto) 0.02 (0.00-0.03) X10*3/uL Absolute Neuts (auto) 4.1 (2.0-8.3) x10*3/uL Absolute Nucleated RBC 0.000 (0.0-0.012) X10*3/uL Nucleated RBC % (auto) 0.0 (0.0-0.2) /100WBC Smear Tech's Comments VERIFIED Sodium 139 (135-145) mmol/L Potassium 4.1 (3.3-5.1) mmol/L Chloride 109 H (96-108) mmol/L Carbon Dioxide 20 L (22-29) mmol/L Anion Gap 14 (12-20) BUN 28 H (9-16) mg/dL Creatinine 1.37 (0.5-1.4) mg/dL Estim Creat Clear Calc 40.2 Estimated GFR 49 Random Glucose 83 (60-115) mg/dL Calcium 8.6 D (8.4-10.2) mg/dL Urine Color Urine Appearance Urine pH (5.0-9.0) Ur Specific Milo (1.005-1.025) Urine Protein (Neg-Trace) mg/dL Urine Glucose (UA) (Negative) mg/dL Urine Ketones (Negative) mg/dL Urine Blood (Negative) Urine Nitrite (Negative) Ur Leukocyte Esterase (Negative) Urine RBC (0-2) /HPF Urine WBC (0-5) /HPF Ur Squamous Epith Cells (0-2) /HPF Urine Bacteria (None Seen) Hyaline Casts (0-2) /LPF COVID-19 ([facility]BY) Negative (Negative) COVID-19 Clin Com See Note 06/03/22 Range/Units 12:35 WBC (4.8-10.8) X10*3/uL RBC (4.60-5.80) X10*6/uL Hgb (14.0-18.0) g/dl Hct (42.0-52.0) % MCV (80.0-98.0) fL MCH (27.0-33.0) pg MCHC (31.0-36.0) g/dl RDW (11.0-16.0) % Plt Count (160-400) X10*3/uL MPV (9.4-12.4) fL Immature Gran % (Auto) (0.0-0.4) % Neut % (Auto) (45-73) % Lymph % (Auto) (20-40) % [place] % (Auto) (2-11) % Eos % (Auto) (0-4) % Baso % (Auto) (0-2) % Lymph # (Auto) (1.2-4.9) X10*3/uL [place] # (Auto) (0.1-1.2) X10*3/uL Eos # (Auto) (0.0-0.4) X10*3/uL Baso # (Auto) (0.0-0.2) X10*3/uL Abs Immat Gran (auto) (0.00-0.03) X10*3/uL Absolute Neuts (auto) (2.0-8.3) x10*3/uL Absolute Nucleated RBC (0.0-0.012) X10*3/uL Nucleated RBC % (auto) (0.0-0.2) /100WBC Smear Tech's Comments Sodium (135-145) mmol/L Potassium (3.3-5.1) mmol/L Chloride (96-108) mmol/L Carbon Dioxide (22-29) mmol/L Anion Gap (12-20) BUN (9-16) mg/dL Creatinine (0.5-1.4) mg/dL Estim Creat Clear Calc Estimated GFR Random Glucose (60-115) mg/dL Calcium (8.4-10.2) mg/dL Urine Color Yellow Urine Appearance Clear Urine pH 7.5 (5.0-9.0) Ur Specific Milo 1.020 (1.005-1.025) Urine Protein 30 (1+) H (Neg-Trace) mg/dL Urine Glucose (UA) Negative (Negative) mg/dL Urine Ketones Trace (Negative) mg/dL Urine Blood Large (3+) H (Negative) Urine Nitrite Negative (Negative) Ur Leukocyte Esterase Trace H (Negative) Urine RBC >20 H (0-2) /HPF Urine WBC 6-10 H (0-5) /HPF Ur Squamous Epith Cells 0-2 (0-2) /HPF Urine Bacteria 4+ (None Seen) Hyaline Casts 0-2 (0-2) /LPF COVID-19 ([facility]) (Negative) COVID-19 Clin Com Independent Interpretation I performed an independent interpretation of an: EKG (EKG sinus bradycardia heart rate 49, right bundle-branch block, no acute ST elevation depressions, nonspecific T-wave changes.) and CT Scan (CT brain no acute intracranial pathology, CT chest, appears to have old bony deformity of the left chest wall possible fracture with callus formation) Radiology Impression Discussion of test interpretation with radiology: I have reviewed the radiologist's reading. (IMPRESSION: Negative acute noncontrast CT of the brain. Moderate white matter ischemic changes are noted. In the chest there is no acute finding. Coronary calcifications are noted here. A few small scattered lung nodules the largest measuring 5 mm in left lower lung. Recommend low-dose noncontra) Independent Historian Clinical information obtained from an independent historian. History obtained from or confirmed by: EMS External Record Review External record reviewed: Office record (Primary care) Tests considered The following testing was considered but not selected: MRI Discharge Plan Discharge Clinical Impression: Left-sided weakness, Incidental pulmonary nodule, Brain TIA Patient Disposition: Admitted As Inpatient Prescriptions: No Action terazosin 10 mg capsule 10 mg PO BEDTIME Qty: 90 3RF atorvastatin 40 mg tablet 40 mg PO BEDTIME 90 Days Qty: 90 1RF amlodipine 5 mg tablet 5 mg PO DAILY 90 Days Qty: 90 1RF cholecalciferol (vitamin D3) 25 mcg (1,000 unit) capsule 25 mcg PO DAILY 90 Days Qty: 90 3RF fesoterodine 8 mg tablet extended release 24 hr 8 mg PO DAILY 90 Days Qty: 90 3RF
[2022-06-03 11:23] LABS: Basophils Percent Auto 0.5 % (0-2); Eosinophils Absolute Auto 0.1 X10*3/uL (0.0-0.4); Hematocrit 38.2 % (42.0-52.0); Hemoglobin 12.7 g/dl (14.0-18.0); Imm Gran Abs Auto 0.02 X10*3/uL (0.00-0.03); Imm Gran Pct Auto 0.4 % (0.0-0.4); MANUAL DIFF FLAG SCAN; Mean Corpuscular HGB Conc 33.2 g/dl (31.0-36.0); Mean Corpuscular Hemoglobin 33.2 pg (27.0-33.0); Monocytes Absolute Auto 0.3 X10*3/uL (0.1-1.2); Monocytes Percent Auto 4.9 % (2-11); Neutrophils Absolute Auto 4.1 x10*3/uL (2.0-8.3); Neutrophils Percent Auto 74.2 % (45-73); PLT CLUMP 1; Red Blood Count 3.82 X10*6/uL (4.60-5.80); Red Cell Distribution Width 13.3 % (11.0-16.0); SCAN SMEAR FLAG 1
[2022-06-03 11:30] LABS: COVID-19 Test Negative (Negative); IDNOW Serial# 16C4AD1C
[2022-06-03 11:43] LABS: Platelet Count 112 X10*3/uL (160-400); White Blood Count 5.5 X10*3/uL (4.8-10.8)
[2022-06-03 11:48] LABS: Mean Platelet Volume 11.4 fL (9.4-12.4)
--- NOTE | 2022-06-03 12:18 | PC.NURSE ---
two attempts to place straight cath as pt unable to urinate on his own at this time. informed MD. order to use coude tip with urojet
[2022-06-03 12:25] LABS: Anion Gap 14 (12-20); Blood Urea Nitrogen 28 mg/dL (9-16); Calcium 8.6 mg/dL (8.4-10.2); Carbon Dioxide 20 mmol/L (22-29); Chloride 109 mmol/L (96-108); Creatinine Clr Calc Pharmacy 40.2; Estimated Glomerular Filt Rate 49; Glucose Random 83 mg/dL (60-115); Potassium 4.1 mmol/L (3.3-5.1); Sodium 139 mmol/L (135-145)
[2022-06-03] MEDS: Lidocaine HCl 2 % Urojet 10 ML JEL.PF.APP TOPICAL (12:27)
--- NOTE | 2022-06-03 12:33 | PC.NURSE ---
bladder scanned pt for 337 - successful attempt with coude to straight cath pt
[2022-06-03 12:35] LABS: SLIDE REVIEW VERIFIED
--- NOTE | 2022-06-03 12:53 | PM.NEUROCN ---
History of Present Illness Data of Consult Service Date: 06/03/22 Primary Care Provider: Dontrell Dougherty MD [facility] Reason for consult: left leg weakness This is a 86-year-old male with history of CVA treated in the past with tpA with negative MRI, presents with acute left lower extremity weakness.? Patient woke up in his normal state of health.? He went to the store across the street using a walker.? Upon returning, he developed some left lower extremity weakness and was found propped up against the wall and the stairs. Patient denies any headache, dizziness, nausea, vomiting, shortness of breath, palpitations, lightheadedness.? He denies any syncope or presyncopal symptoms.? He denies any other deficits neurologically.? Review of Systems Review of Systems: CONSTITUTIONAL: Denies weight loss, fever and chills. HEENT: Denies changes in vision and hearing. RESPIRATORY: Denies SOB and cough. CV: Denies palpitations no CP. GI: Denies abdominal pain, nausea, vomiting and diarrhea. : Denies dysuria and urinary frequency. MSK: Denies myalgia and joint pain. SKIN: Denies rash and pruritus. NEUROLOGICAL: Denies headache and syncope. PSYCHIATRIC: Denies recent changes in mood. Denies anxiety and depression. All other ROS are negative unless in HPI PMFSH Past Medical History Medical History Bladder outlet obstruction Bradycardia CKD (chronic kidney disease), stage III CVA (cerebral vascular accident) Hypertension Right inguinal pain Urinary frequency Vitamin D deficiency Surgical History Surgical History History of knee replacement History of surgery Social History Social History Housing: Apartment Alcohol intake: current Alcohol intake frequency: 0-2 drinks per day Alcohol type: beer Patient Tobacco Use Status: Current everyday Tobacco user Tobacco use type: Cigarette Cigarette Packs Per Day: 0.5 Cigarettes Per Day: 10.0 Years Smoked: 60 Smoked in Last 30 Days: No Second Hand Smoke Exposure: Yes Advance Directives: No Advance Directives Information Provided: Yes service: No Current occupational status: retired Cognitive needs: No Hearing needs: No Vision needs: Yes Meds Allergies Allergy/AdvReac Type Severity Reaction Status Date / Time No Known Allergies Allergy Verified 01/31/22 15:06 [No Known Allergies*] Active Medications: Current Medications Pharmacy Consult (Consult Rx Perform Med Rec) 1 each MISCELLANE ONCE PRN PRN Reason: Consult order Physical Exam Vital Signs: Vital Signs: Last Vital Signs Temp 97.6 F 06/03/22 10:57 Pulse 53 06/03/22 10:57 Resp 18 06/03/22 10:57 BP 180/73 H 06/03/22 10:57 Pulse Ox 96 06/03/22 10:57 O2 Del Method 06/03/22 10:57 BMI result Body Mass Index 22.8 Neuro: Other: Nonfocal examination Results Labs 06/03/22 11:13 06/03/22 12:00 Labs: Short CBC 06/03/22 Range/Units 11:13 WBC 5.5 (4.8-10.8) X10*3/uL Hgb 12.7 L (14.0-18.0) g/dl Hct 38.2 L (42.0-52.0) % Plt Count 112 L D (160-400) X10*3/uL BMP 06/03/22 12:00 Sodium 139 Potassium 4.1 Chloride 109 H Carbon Dioxide 20 L BUN 28 H Creatinine 1.37 Calcium 8.6 D Assessment and Plan (1) Left-sided weakness: Status: Acute Vague historian who with left leg weakness and a previous history of stroke. Recommendation: MRI of the brain to see if there is a new ischemic lesion. 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 Continue current medications Time Spent With Patient Time: Total time managing care of this patient today ____ minutes. Procedures Date of Service Date of Service: 06/03/22
[2022-06-03 12:54] LABS: Appearance Urine Clear; Color Urine Yellow; Glucose Urine UA Negative (Negative); Leukocyte Esterase Urine Trace (Negative); Nitrite Urine Negative (Negative); PH 7.5 (5.0-9.0); UMIC TRIGGER UACC YES; Urine Blood Large (3+) (Negative); Urine Ketones Trace mg/dL (Negative); Urine Protein 30 (1+) mg/dL (Neg-Trace)
[2022-06-03 12:59] LABS: Bacteria Urine 4+ (None Seen); Hyaline Casts Urine 0-2 /LPF (0-2); RBC Urine >20 /HPF (0-2); Squamous Epithelial Cell Urine 0-2 /HPF (0-2); UACC Culture Trigger YES
--- NOTE | 2022-06-03 14:13 | PHA.MEDREC ---
Pharmacy Consult ? Medication Reconciliation Pharmacy has completed the medication reconciliation. Patient is a poor historian, used pharmacy claims. Previous notes by Dr. Serna also confirm that patient is on terazosin, oxybutin and festerodine.
--- NOTE | 2022-06-03 15:01 | MHC.STROKE ---
Addendum entered by Indira Whatley RN 06/03/22 16:26: 1615 I ACCOMPANIED PATIENT TO MRI, INCONT. OF URINE. UPPER DENTURE AND WATCH BROUGHT BACK TO ROOM 4. NOTIFIED TECH. Original Note: 1040 EMS PRE-NOTIFIED FOR LOWER LEG WEAKNESS, NO STROKE ALERT. ARRIVED AT 1049. NO STROKE PROTOCOL. SEEN BY PROVIDER, NIHSS = 0, CTH DONE. UNRELIABLE ONSET TIME OF THE WEAKNESS, THEREFORE EXCLUDED FROM THROMBOLYTICS PLUS NIHSS = 0, I MET WITH THE PATIENT AND HE C/O UNSTEADY GAIT. HE SAID HE WOKE AT 0200, THEN LATER HE SIAD HE WAS GOING TO THE STORE AT 0600, THEN IT CHANGED TO 0930. HE FELT WEAK ALL OVER. RECOMMENDING NEUROLOGY CONSULT. I DISCUSSED THIS WITH DR. JASSO. I DID DISCUSS CASE WITH DR. RODRÍGUEZ, SEE HIS NOTE. MRI RECOMMENDED. SCREENING FORM COMPLETED AND SIGNED. I ADVISED DR JASSO TO PUT IN THE ORDER FOR MRI AND HE COMMENTED THAT THE PATIENT WILL NOT NEED A MONITOR. PATIENT IS BRADYCARDIC AND MD AWARE. HE PASSED SWALLOW SCREEN. RECOMMENDING ASPIRIN IF TIA/STROKE DIAGNOSIS, IF ADMITTED USE STROKE ORDER SET. EXCLUDE NEUROLOGY CONSULT, PT HAS ALREADY SEEN THE PATIENT WELL. IT HAS BEEN COMPLETED. I PROVIDED STROKE EDUCATION. ANSWERED HIS QUESTIONS, EXPLAINED THE PLAN OF CARE. HE IS KNOW TO THE STROKE SERVICE ON 02/12/2016 HE RECEIVED TPA AND ABORTED HIS STROKE. PMH: CVA LACUNAR STROKES, HTN, HLD, CRF STAGE III. RIGHT TKR 5 YEARS AGO, CATARACTS, HERNIA REPAIR 2012, TRIGGER FINGER. I WILL CONTINUE TO FOLLOW.
--- NOTE | 2022-06-03 15:02 | PM.IMHP ---
History of Present Illness Date of Service: 06/03/22 Attending physician on admission: Mack Jones Chief Complaint: Left lower extremity weakness Pt is a 86-year-old male with a PMH significant for?hx of CVA with residual dysarthria, HLD, HTN, macular degeneration of both eyes, bradycardia, BPH, and CKD stage 3 who presents to the ED with?acute left lower extremity weakness. Patient states that he was walking downstairs from his apartment when his left leg suddenly felt weak and gave out. Denies falling, LOC, or any moments of confusion. Says he found it difficult to stand but was able to make his way down the stairs to his friend who waiting for him outside. Called EMS and brought to the ED. Denies any other acute complaints. No upper left extremity weakness, known facial droop, acute change in ability to speak. No numbness or tingling in extremities. Denies chest pain/pressure, palpitations. No fever, chills, nausea, vomiting, diarrhea, abdominal pain. Denies shortness of breath. No headache, change in vision. Patient states that he has a history of 2 prior CVAs 3-4 years ago. In the ED patient was afebrile with a heart beat in the low 50s and hypertensive up to 189/108. Labs were significant for H&H of 12.7/38.2 (stable, at baseline), creatinine 1.37 (at baseline), BUN 28 (at baseline). CT of head negative for acute findings. CT of chest negative for acute findings. Incidental findings include a few small scattered lung nodules with largest measuring 5 mm in left lower lung, recommendation of low-dose noncontrast CT in 6 months, and prominent chondral tissue involving the 4th and 5th anterior ribs on the left possibly posttraumatic deformity. EKG demonstrated sinus bradycardia with no evidence of ST elevations or depressions. Pt will be admitted to observation on telemetry further workup and evaluation of possible TIA. Review of Systems Review of Systems: Left lower extremity weakness No upper left extremity weakness, Denies known facial droop, acute change in ability to speak No numbness or tingling in extremities Denies headache, changes in vision Yes all other systems are reviewed and are negative [facility] [place] Medical History Bladder outlet obstruction Bradycardia CKD (chronic kidney disease), stage III CVA (cerebral vascular accident) Hypertension Right inguinal pain Urinary frequency Vitamin D deficiency Surgical History History of knee replacement History of surgery Social History Housing: Apartment Alcohol intake: current Alcohol intake frequency: 0-2 drinks per day Alcohol type: beer Patient Tobacco Use Status: Current everyday Tobacco user Tobacco use type: Cigarette Cigarette Packs Per Day: 0.5 Cigarettes Per Day: 8 Years Smoked: 60 Smoked in Last 30 Days: Yes Patient Interested in Nicotine Replacement: No Second Hand Smoke Exposure: Yes Advance Directives: No Advance Directives Information Provided: Yes Nutrition Risks: No Nutritional Risk service: No Current occupational status: retired Cognitive needs: No Hearing needs: No Vision needs: Yes Meds Allergies Allergy/AdvReac Type Severity Reaction Status Date / Time No Known Allergies Allergy Verified 01/31/22 15:06 [No Known Allergies*] Active Medications: Current Medications Pharmacy Consult (Consult Rx Perform Med Rec) 1 each MISCELLANE ONCE PRN PRN Reason: Consult order Home Medications Medication Instructions Recorded Confirmed Last Taken Type oxybutynin chloride 10 mg 1 tab PO DAILY 06/03/22 06/03/22 Unknown History tablet,extended release 24 hr Physical Exam Vital Signs and Narrative: Vital Signs: Last Vital Signs Temp 97.6 F 06/03/22 13:42 Pulse 48 L 06/03/22 13:42 Resp 16 06/03/22 13:42 BP 189/108 H 06/03/22 13:42 Pulse Ox 98 06/03/22 13:42 O2 Del Method 06/03/22 13:42 BMI result Body Mass Index 22.8 Constitutional: Alert, in no acute distress. Mental Status: Oriented to person, place and time. Eyes: Pupils are equal, round, and reactive to light. Ear, Nose, and Throat: Oropharynx clear, mucous membranes moist. Ears and nose without deformities. Trachea midline. Respiratory: Clear to auscultation bilaterally. No wheezing, rales, or rhonchi. Cardiovascular: S1, S2 regular. No murmurs, rubs, or gallops. Gastrointestinal: Abdomen soft, non-tender, non-distended. Normal bowel sounds. Neurologic: Pt with chronic dysarthria. No focal neurological deficits noted. Moves all extremities spontaneously. 5/5 strength of both upper and lower extremities bilaterally. Skin: No rashes or lesions noted. Musculoskeletal: Anterior chest wall nontender to palpation. Extremities: No edema. Psychiatric: Normal mood and affect. Results Labs 06/03/22 11:13 06/03/22 12:00 Labs: Laboratory Results - last 24 hr 06/03/22 06/03/22 06/03/22 11:13 11:13 12:00 MCV 100.0 H MCH 33.2 H MCHC 33.2 RDW 13.3 Plt Count 112 L D MPV 11.4 Immature Gran % (Auto) 0.4 Neut % (Auto) 74.2 H Lymph % (Auto) 18.0 L Dare % (Auto) 4.9 Eos % (Auto) 2.0 Baso % (Auto) 0.5 Lymph # (Auto) 1.0 L Dare # (Auto) 0.3 Eos # (Auto) 0.1 Baso # (Auto) 0.0 Abs Immat Gran (auto) 0.02 Absolute Neuts (auto) 4.1 Absolute Nucleated RBC 0.000 Nucleated RBC % (auto) 0.0 Smear Tech's Comments VERIFIED Anion Gap 14 Estim Creat Clear Calc 40.2 Estimated GFR 49 Random Glucose 83 Calcium 8.6 D Urine Color Urine Appearance Urine pH Ur Specific [place] Urine Protein Urine Glucose (UA) Urine Ketones Urine Blood Urine Nitrite Ur Leukocyte Esterase Urine RBC Urine WBC Ur Squamous Epith Cells Urine Bacteria Hyaline Casts COVID-19 (KIRBY) Negative COVID-19 Clin Com See Note 06/03/22 12:35 MCV MCH MCHC RDW Plt Count MPV Immature Gran % (Auto) Neut % (Auto) Lymph % (Auto) Dare % (Auto) Eos % (Auto) Baso % (Auto) Lymph # (Auto) Dare # (Auto) Eos # (Auto) Baso # (Auto) Abs Immat Gran (auto) Absolute Neuts (auto) Absolute Nucleated RBC Nucleated RBC % (auto) Smear Tech's Comments Anion Gap Estim Creat Clear Calc Estimated GFR Random Glucose Calcium Urine Color Yellow Urine Appearance Clear Urine pH 7.5 Ur Specific [place] 1.020 Urine Protein 30 (1+) H Urine Glucose (UA) Negative Urine Ketones Trace Urine Blood Large (3+) H Urine Nitrite Negative Ur Leukocyte Esterase Trace H Urine RBC >20 H Urine WBC 6-10 H Ur Squamous Epith Cells 0-2 Urine Bacteria 4+ Hyaline Casts 0-2 COVID-19 (KIRBY) COVID-19 Clin Com Imaging Radiologist's Impressions: Impressions Head CT 06/03/22 11:25 IMPRESSION: Negative acute noncontrast CT of the brain. Moderate white matter ischemic changes are noted. In the chest there is no acute finding. Coronary calcifications are noted here. A few small scattered lung nodules the largest measuring 5 mm in left lower lung. Recommend low-dose noncontrast in 6 months for continued evaluation. As described prominent chondral tissue involving the fourth and fifth anterior ribs on the left. This may be posttraumatic. This may well be the palpable finding. As it does as stated involve the same appearance on two separate ribs this would be less likely to represent an underlying lesion. More likely posttraumatic deformity. Correlation however recommended clinically. If further evaluation is warranted recommend ultrasound or MR. Chest CT 06/03/22 11:30 IMPRESSION: Negative acute noncontrast CT of the brain. Moderate white matter ischemic changes are noted. In the chest there is no acute finding. Coronary calcifications are noted here. A few small scattered lung nodules the largest measuring 5 mm in left lower lung. Recommend low-dose noncontrast in 6 months for continued evaluation. As described prominent chondral tissue involving the fourth and fifth anterior ribs on the left. This may be posttraumatic. This may well be the palpable finding. As it does as stated involve the same appearance on two separate ribs this would be less likely to represent an underlying lesion. More likely posttraumatic deformity. Correlation however recommended clinically. If further evaluation is warranted recommend ultrasound or MR. Assessment and Plan (1) Left-sided weakness: Status: Acute Plan Pt is a 86-year-old male with a PMH significant for?hx of CVA with residual dysarthria, HLD, HTN, macular degeneration of both eyes, bradycardia, BPH, and CKD stage 3 who presents to the ED with?acute left lower extremity weakness. Pt will be admitted to observation on telemetry further workup and evaluation of possible TIA Left lower extremity weakness Question of TIA Patient no similar back to baseline with no focal deficits noted Patient with hx of two prior CVAs CT of head and chest negative for acute findings Continue statin, start aspirin 81 mg q.d. CTA of head and neck MRI of the head brain without contrast Neurology consult Lipid panel Cardiac diet PT eval with possible rebah upon discharge Admit to telemetry Lung nodules Incidental finding on CT of chest Follow-up outpatient with low-dose noncontrast CT in 6 months BPH Continue terazosin Overactive bladder Continue oxybutynin, fesoterodine HTN Continue amlodipine Full Code Attending:?Dr. Jones DVT Prophylaxis: Heparin Patient will be admitted to observation on telemetry for further workup and evaluation of possible TIA. Time Spent With Patient Time: Total time managing care of this patient today ____ minutes. Quality Stroke Does the patient have a stroke diagnosis?: No Reason for No Anti-thrombotic by Day Two: Not indicated (Pt now back to baseline, tPA not indicated) VTE Prior VTE?: No VTE Risk Level:: Medical - moderate - high VTE Device Contraindication: Treatment Not Indicated VTE Drug Contraindication: N/A - Med Ordered
--- NOTE | 2022-06-03 15:52 | PM.EVENT ---
Event Note Date of Service: 06/03/22 Event Note: the patient was seen and evaluated with JAZMYN Parker. I agree with his note, assessment and plan with the following. An 86 years old male with PMH of CVA, CKD, HTN among others presenting with acute left lower extremity weakness. The patient reported that he was ambulating using a walker earlier this morning but suddenly noticed of weakness in his left lower extremity. Denies any headache, double vision, pain, change in bowel habit, fever, chills or lightheadedness. No reported syncope. Reported 1 fall areas this year. Left lower extremity weakness Concerning for TIA VS stroke Do MRI Carotid ultrasound Start baby aspirin continue statin Rest of evaluations by JAZMYN note. Time Spent With Patient Time: Total time managing care of this patient today ____ minutes.
--- NOTE | 2022-06-03 16:34 | PC.NURSE ---
1545 pt off unit to MRI
[2022-06-03] MEDS: iohexoL 350 MG/ML 100 ML INFUS..BTL IV (17:18)
[2022-06-03] MEDS: 0.9 % Sodium Chloride Flush 3 ML SYRINGE IVFLUSH ×2 (17:28→20:35)
[2022-06-03] MEDS: Aspirin 81 MG TAB.CHEW PO (17:29)
[2022-06-03] MEDS: Heparin Sodium,Porcine 5,000 UNIT/ML VIAL 5000 UNIT SUBCUT (17:29)
--- NOTE | 2022-06-03 18:07 | PC.NURSE ---
pt with $264 in his wallet he refused to have it sent to security.
[2022-06-03] MEDS: Doxazosin Mesylate 2 MG TABLET 8 MG PO (20:35)
[2022-06-03] MEDS: Atorvastatin Calcium 40 MG TABLET PO (20:35)
[2022-06-04] VITALS (8 sets, daily range): BP systolic 119–189; BP diastolic 52–120; PULSE 51–72; RESP 18–20; TEMP 36.4–37.2; O2SAT 92–95
[2022-06-04] MEDS: Heparin Sodium,Porcine 5,000 UNIT/ML VIAL 5000 UNIT SUBCUT ×2 (06:15→16:53)
[2022-06-04 08:18] LABS: Cholesterol 110 mg/dL; HDL Cholesterol 50 mg/dL; LDL Cholesterol Calculated 52 mg/dl; Triglycerides 42 mg/dL
--- NOTE | 2022-06-04 09:05 | MHC.CM.PN ---
Lives alone in second floor apartment. Owns cane, no recent services and no other equipment. Does not drive; his friend and HCP Tanvi drive him where he needs to go. HCP document completed today w/patient and copy furnished in chart. Original given to patient w/another copy given to patient for Tanvi; both added to patient's belongings bag so they are not misplaced per his request. D/C plan is home w/services VS SNF. PT to see him today, potentially may also require MINUTE CLERK FOR BASIC TRAFFIC evaluation. CM to follow.
--- NOTE | 2022-06-04 09:10 | MHC.CM.PN ---
Patient indicates he has been in SNF before, quite a long time ago and could not recall which one; but he states several years back. This RNCM noted patient on aspiration precautions but did not see order for MEDICARE SALES EXECUTIVE/swallow eval; observed patient attempting to eat and drink; noted difficulty with process. Messaged doctor. CM to follow.
[2022-06-04] MEDS: amLODIPine Besylate 10 MG TABLET PO (09:47)
[2022-06-04] MEDS: oxyBUTYnin chloride ER 5 MG TAB.ER.24 10 MG PO (09:47)
[2022-06-04] MEDS: Aspirin 81 MG TAB.CHEW PO (09:47)
[2022-06-04] MEDS: hydrALAZINE HCl 20 MG/ML VIAL 5 MG IVPUSH (09:48)
[2022-06-04] MEDS: Cholecalciferol (Vitamin D3) 25 MCG TABLET PO (09:48)
[2022-06-04] MEDS: 0.9 % Sodium Chloride Flush 3 ML SYRINGE IVFLUSH ×3 (09:48→20:27)
--- NOTE | 2022-06-04 13:07 | P.PNIM_ITS ---
Subjective Subjective Date of Service: 06/04/22 Interval History: Feels comfortable no specific weakness , feels left side back to baseline noted to have difficulties swallowing no reported overnight events Review of Systems Review of Systems: Yes all other systems are reviewed and are negative Physical Exam Vital Signs: Vital Signs: Last Vital Signs Temp 98.5 F 06/04/22 11:14 Pulse 72 06/04/22 11:14 Resp 20 06/04/22 11:14 BP 132/59 L 06/04/22 11:14 Pulse Ox 94 06/04/22 11:14 O2 Del Method 06/04/22 11:14 BMI result Body Mass Index 22.8 Const: Other: Constitutional : Awake, interactive, not in distress Neck : Normal inspection, Supple Cardiovascular : RRR, no JVP, no lower extremity edema Respiratory : good bilateral air entry, no crackles, wheezes or rhonchi Gastrointestinal: soft, lax, Normal bowel sounds, Non tender Skin : Warm, Dry Neurological : Alert & oriented x3, No focal deficit but overall weak in LE bilaterally Objective Data Active Medications Acetaminophen (Acetaminophen 325 Mg Tablet) 650 mg PO Q6H PRN PRN Reason: Pain, Mild (Pain Scale 1-3) Amlodipine Besylate (Amlodipine Besylate 10 Mg Tablet) 10 mg PO DAILY [facility]; Protocol Last Admin: 06/04/22 09:47 Dose: 10 mg Documented By: MARILOU Aspirin (Aspirin 81 Mg Tab.Chew) 81 mg PO DAILY [facility] Last Admin: 06/04/22 09:47 Dose: 81 mg Documented By: MARILOU Atorvastatin Calcium (Atorvastatin Calcium 40 Mg Tablet) 40 mg PO BEDTIME [facility] Last Admin: 06/03/22 20:35 Dose: 40 mg Documented By: ANTHAJA Doxazosin Mesylate (Doxazosin Mesylate 2 Mg Tablet) 8 mg PO BEDTIME [facility] Last Admin: 06/03/22 20:35 Dose: 8 mg Documented By: ANTOIC Heparin Sodium (Porcine) (Heparin Sodium,Porcine 5,000 Unit/Ml Vial) 5,000 unit SUBCUT Q12H [facility] Last Admin: 06/04/22 06:15 Dose: 5,000 unit Documented By: ANTOIC Non-Formulary Medication (Fesoterodine) 8 mg PO DAILY [facility] Oxybutynin Chloride (Oxybutynin Chloride Er 5 Mg Tab.Er.24) 10 mg PO DAILY [facility] Last Admin: 06/04/22 09:47 Dose: 10 mg Documented By: MARILOU Pharmacy Consult (Consult Rx Perform Med Rec) 1 each MISCELLANE ONCE PRN PRN Reason: Consult order Sodium Chloride (0.9 % Sodium Chloride Flush 3 Ml Syringe) 3 ml IVFLUSH QSHIFT [facility] Last Admin: 06/04/22 09:48 Dose: 3 ml Documented By: MARILOU Vitamin D (Cholecalciferol (Vitamin D3) 25 Mcg Tablet) 25 mcg PO DAILY [facility] Last Admin: 06/04/22 09:48 Dose: 25 mcg Documented By: MARILOU Labs 06/03/22 11:13 06/03/22 12:00 Labs: Laboratory Results - last 24 hr 06/04/22 07:22 Triglycerides 42 Cholesterol 110 LDL Cholesterol, Calc 52 HDL Cholesterol 50 Microbiology Microbiology Results: Microbiology 06/03/22 Unknown Urine Culture - Preliminary Urine Catheterized - Victor Catheter Gram positive cocci Assessment and Plan (1) Brain TIA: Status: Acute (2) Swallowing problem: Status: Acute Plan Pt is a 86-year-old male with a PMH significant for?hx of CVA with residual dysarthria, HLD, HTN, macular degeneration of both eyes, bradycardia, BPH, and CKD stage 3 who presents to the ED with?acute left lower extremity weakness. Pt will be admitted to observation on telemetry further workup and evaluation of possible TIA Left lower extremity weakness could be TIA CT of head and chest negative for acute findings CTA of head and neck MRI showing chronic lacunar infarcts with no acute stroke Continue statin, aspirin 81 mg q.d. Neurology input appreciated Cardiac diet PT eval rec STR on DC Swallowing problem noticed to struggle eating and drinking aspiration risk modified diet IRRIGATOR eval Lung nodules Incidental finding on CT of chest Follow-up outpatient with low-dose noncontrast CT in 6 months BPH Continue terazosin Overactive bladder Continue oxybutynin, fesoterodine HTN Continue amlodipine DVT Prophylaxis: Heparin Patient will be admitted to observation on telemetry for further workup and evaluation of possible TIA. Time Spent With Patient Time: Total time managing care of this patient today ____ minutes. Quality Stroke Does the patient have a stroke diagnosis?: No Reason for No Anti-thrombotic by Day Two: Not indicated (Pt now back to baseline, tPA not indicated) VTE Prior VTE?: No VTE Risk Level:: Medical - moderate - high VTE Device Contraindication: Treatment Not Indicated VTE Drug Contraindication: N/A - Med Ordered
[2022-06-04] MEDS: Doxazosin Mesylate 2 MG TABLET 8 MG PO (20:27)
[2022-06-04] MEDS: Atorvastatin Calcium 40 MG TABLET PO (20:27)
[2022-06-05 03:58] VITALS: BP 135/65; PULSE 50; RESP 14; TEMP 37.2; O2SAT 97
[2022-06-05] MEDS: Heparin Sodium,Porcine 5,000 UNIT/ML VIAL 5000 UNIT SUBCUT (05:51)
[2022-06-05 07:32] VITALS: BP 148/67; PULSE 44; RESP 20; TEMP 36.7; O2SAT 96
[2022-06-05] MEDS: Cholecalciferol (Vitamin D3) 25 MCG TABLET PO (09:40)
[2022-06-05] MEDS: amLODIPine Besylate 10 MG TABLET PO (09:40)
[2022-06-05] MEDS: oxyBUTYnin chloride ER 5 MG TAB.ER.24 10 MG PO (09:40)
[2022-06-05] MEDS: Aspirin 81 MG TAB.CHEW PO (09:40)
[2022-06-05] MEDS: 0.9 % Sodium Chloride Flush 3 ML SYRINGE IVFLUSH (09:41)
[2022-06-05] MEDS: cefTRIAXone sodium 1 GM in 0.9 % Sodium Chloride 50 ML IV (09:41)
[2022-06-05 11:21] VITALS: BP 139/63; PULSE 50; RESP 20; TEMP 36.6; O2SAT 96
--- NOTE | 2022-06-05 11:27 | P.DS_ITS ---
DS: Providers Provider Date of Service: 06/05/22 Date of admission: 06/03/22 15:56 Primary care physician: Dontrell Dougherty MD Consults: 06/03/22 16:03 Consult to Neurology Routine Consulting Provider: [facility] Reason for consultation: ?TIA DS: Diagnosis Discharge Diagnosis (1) Left-sided weakness: Status: Acute (2) UTI (urinary tract infection): Status: Acute DS: Summary Hospital Course Hospital Course: Admission note HPI Pt is a 86-year-old male with a PMH significant for?hx of CVA with residual dysarthria, HLD, HTN, macular degeneration of both eyes, bradycardia, BPH, and CKD stage 3 who presents to the ED with?acute left lower extremity weakness.? Patient states that he was walking downstairs from his apartment when his left leg suddenly felt weak and gave out. Denies falling, LOC, or any moments of confusion. Says he found it difficult to stand but was able to make his way down the stairs to his friend who waiting for him outside. Called EMS and brought to the ED. Denies any other acute complaints. No upper left extremity weakness, known facial droop, acute change in ability to speak. No numbness or tingling in extremities.? Denies chest pain/pressure, palpitations.? No fever, chills, nausea, vomiting, diarrhea, abdominal pain.? Denies shortness of breath.? No headache, change in vision.? Patient states that he has a history of 2 prior CVAs 3-4 years ago. In the ED patient was afebrile with a heart beat in the low 50s and hypertensive up to 189/108. Labs were significant for H&H of 12.7/38.2 (stable, at baseline), creatinine 1.37 (at baseline), BUN 28 (at baseline). CT of head negative for acute findings.? CT of chest negative for acute findings. Incidental findings include a few small scattered lung nodules with largest measuring 5 mm in left lower lung, recommendation of low-dose noncontrast CT in 6 months, and prominent chondral tissue involving the 4th and 5th anterior ribs on the left possibly posttraumatic deformity. EKG demonstrated sinus bradycardia with no evidence of ST elevations or depressions. Pt will be admitted to observation on telemetry further workup and evaluation of possible TIA. Hospital course The patient was observed for evaluation of LLE weakness. CT of head and chest negative for acute findings. CTA of head and neck. MRI showing chronic lacunar infarcts with no acute stroke. seen by neurology who recommended continue statin, aspirin 81 mg q.d. Tolerated diet as he passed swallowing screening. might need further eval as OP with PCP and DEVELOPMENT MANAGER team. no evidence of aspiration. Seen by physical therapy who recommended short term rehab but patient would prefer to go back home with VNA. Passed bedside swallowing screening. Tolerated modiefied diet with no evidence of aspiration, to follow with PCP for further eval of needed for swallowing. restart Baby aspirin daily and rest of home meds continue Ceftin for 4 more days to follow up with PCP as outpatient Time Spent with Patient Time attestation: Total time managing care of this patient today ____ minutes. Discharge coordination time: Less than 30 minutes Quality: Safe Use of Opioids Does Pt have an Active Cancer Diagnosis on the Problem List?: No Quality: Stroke Does the patient have a stroke diagnosis?: No Physical Exam Vital Signs: Vital Signs: Last Vital Signs Temp 97.9 F 06/05/22 11:21 Pulse 50 06/05/22 11:21 Resp 20 06/05/22 11:21 BP 139/63 06/05/22 11:21 Pulse Ox 96 06/05/22 11:21 O2 Del Method 06/05/22 11:21 BMI result Body Mass Index 22.8 Const: Other: Constitutional : Awake, interactive, not in distress Neck : Normal inspection, Supple Cardiovascular : RRR, no JVP, no lower extremity edema Respiratory : good bilateral air entry, no crackles, wheezes or rhonchi Gastrointestinal: soft, lax, Normal bowel sounds, Non tender Skin : Warm, Dry Neurological : Alert & oriented x3, No focal deficit DS: Data Imaging MRI - head: Radiologist's impression: ITS Impressions Head CT 06/03/22 11:25 IMPRESSION: Negative acute noncontrast CT of the brain. Moderate white matter ischemic changes are noted. In the chest there is no acute finding. Coronary calcifications are noted here. A few small scattered lung nodules the largest measuring 5 mm in left lower lung. Recommend low-dose noncontrast in 6 months for continued evaluation. As described prominent chondral tissue involving the fourth and fifth anterior ribs on the left. This may be posttraumatic. This may well be the palpable finding. As it does as stated involve the same appearance on two separate ribs this would be less likely to represent an underlying lesion. More likely posttraumatic deformity. Correlation however recommended clinically. If further evaluation is warranted recommend ultrasound or MR. Chest CT 06/03/22 11:30 IMPRESSION: Negative acute noncontrast CT of the brain. Moderate white matter ischemic changes are noted. In the chest there is no acute finding. Coronary calcifications are noted here. A few small scattered lung nodules the largest measuring 5 mm in left lower lung. Recommend low-dose noncontrast in 6 months for continued evaluation. As described prominent chondral tissue involving the fourth and fifth anterior ribs on the left. This may be posttraumatic. This may well be the palpable finding. As it does as stated involve the same appearance on two separate ribs this would be less likely to represent an underlying lesion. More likely posttraumatic deformity. Correlation however recommended clinically. If further evaluation is warranted recommend ultrasound or MR. Brain MRI 06/03/22 16:34 IMPRESSION: No acute intracranial abnormality identified. Specifically, no acute infarction is seen. Background changes of advanced chronic microangiopathy and chronic lacunar infarcts are seen within the bilateral centrum semiovale ovale extending into the corpus callosum, left basal ganglia, left thalamus, and mai. Redemonstration of small nodules within the right and left parotid gland, progressed compared with 2016. Nonemergent ENT follow-up could be considered. Head/Neck CTA 06/03/22 17:29 IMPRESSION: No acute intracranial abnormality. Background changes of chronic microangiopathy. Chronic lacunar infarcts. No vascular occlusion or significant stenosis. Incidentally noted bilateral parotid nodules. Prominent soft tissue at the left more than right paraglottic space extending to the left true vocal fold. ENT follow-up is recommended for these findings. Discharge Plan Discharge Anticipated Discharge Date/Time: 06/05/22 11:21 Patient Disposition: Home Health Service Discharge Diagnosis: Left sided weakness Urine infection Referrals: Dontrell Dougherty MD [Primary Care Provider] - 1 Week Discharge Medications: New aspirin 81 mg Tablet,Chewable 81 mg PO DAILY Qty: 90 0RF cefuroxime axetil 500 mg tablet 500 mg PO BID Qty: 8 0RF Continued terazosin 10 mg capsule 10 mg PO BEDTIME Qty: 90 3RF atorvastatin 40 mg tablet 40 mg PO BEDTIME 90 Days Qty: 90 1RF oxybutynin chloride 10 mg tablet extended release 24hr 1 tab PO DAILY amlodipine 5 mg tablet 5 mg PO DAILY 90 Days Qty: 90 1RF cholecalciferol (vitamin D3) 25 mcg (1,000 unit) capsule 25 mcg PO DAILY 90 Days Qty: 90 3RF fesoterodine 8 mg tablet extended release 24 hr 8 mg PO DAILY 90 Days Qty: 90 3RF Discharge Orders: Discharge Order (Routine); Ordered 06/05/22 Ordered By: Mack Jones Diet: Advance to usual diet Activity on Discharge: As tolerated Stand Alone Forms: Patient Portal Discharge page Care Plan Goals: Read below Health Concerns: Read below Plan of Treatment: Read below Assessment: you were admitted to the hospital for evaluation of left sided weakness. brain images did not show any new insults or evidence of stroke. seen by neurologist who recommended restarting your baby aspirin. evaluated by physical therapy who recommended short term rehab but you prefer to go back home. noticed to have urine infection treated with antibiotics Baby aspirin daily continue Ceftin for 4 more days to follow up with PCP as outpatient
--- NOTE | 2022-06-05 11:59 | MHC.CM.PN ---
DP: PT HAS BEEN MEDICALLY CLEARED FOR DC HOME WITH NEW [facility] WITH [facility]. RN AWARE. FRIEND JANE NOTIFIED AND WILL BE TRANSPORTING PT HOME.
--- NOTE | 2022-06-05 12:03 | P.F2F_ITS ---
Service Date Service Date: 06/05/22 Encounter Date of encounter: 06/05/22 Reasons for Services Signs and symptoms assessed: physical deconditioning Swallowing and speech Reason for penitentiary: medication management and teach disease management Reason for physical therapy: home safety and mobility and therapeutic exercises Reason for speech therapy: other (Modified diet, aspiration risk ) Homebound: Leaving the home is medically contraindicated at this time without the asist of a device and/or another person due th the listed conditions above and below. Reason homebound: unsteady gait / fall risk Certification: Based on the above findings, I certify that this patient is confined to the home and needs intermittent penitentiary care, physical therapy and/or speech therapy, or continues to need occupational therapy. The patient is under my care, and I have initiated the establishment of the plan of care. The patient will be followed by a physician who will periodically review the plan of care. Time Spent With Patient Time: Total time managing care of this patient today ____ minutes.
== END 2022-06-05 13:45 | disposition home health service (06) ==
LOC: HO.ED 13:57 → HO.EDOVER 16:27 → HO.IMC 16:29
PROVIDERS: Admitting Provider Student in an Organized Health Care Education/Training Program; Emergency Provider Emergency Medicine; PCP Internal Medicine; Visit Provider Student in an Organized Health Care Education/Training Program
DX: R53.1 Weakness (principal); N39.0 Urinary tract infection, site not specified; R91.1 Solitary pulmonary nodule; E78.5 Hyperlipidemia, unspecified; N40.0 Benign prostatic hyperplasia without lower urinary tract symptoms; N32.81 Overactive bladder; Z86.73 Personal history of transient ischemic attack (TIA), and cerebral infarction without residual deficits; I12.9 Hypertensive chronic kidney disease with stage 1 through stage 4 chronic kidney disease, or unspecified chronic kidney disease; N18.30 Chronic kidney disease, stage 3 unspecified; H35.30 Unspecified macular degeneration; Z20.822 Contact with and (suspected) exposure to COVID-19
CPT/HCPCS: 36415; 70450; 70496; 70498; 70551; 71250; 80048; 80061; 81001; 85025; 87086; 87088; 87635; 93005; 96365; 96372; 96375; 97116; 97162; 97530; 99222; 99285; J0696; J1643; Q9967

== ENCOUNTER 2022-06-18 10:09 | Inpatient (IN) | payer MEDICARE, SELFPAY ==
--- NOTE | ~2022-06-18 | FL_ITS ---
EXAMINATION: XR FLUOROSCOPY WITH IMAGES CLINICAL INFORMATION: Pacemaker insertion COMPARISON: None available. TECHNIQUE: Fluoroscopy Supervised By: Dr. Fitzpatrick. Fluoroscopy Time: 923.4 seconds. Cumulative Dose: 263.60 mGy. Images: 1. FINDINGS : A single digital image of left chest was obtained. No gross findings. FL/FL guidance in OR IMPRESSION: Fluoroscopy was provided to referring physician for left chest pain management.
--- NOTE | ~2022-06-18 | XR_ITS ---
EXAMINATION: XR CHEST CLINICAL INFORMATION: Postop pacemaker placement COMPARISON: 12/26/2020 TECHNIQUE: Frontal view of the chest was obtained. FINDINGS: Left chest pacer device with leads terminating in the right atrium and right ventricle. There are skin nel overlying the pacer device. Stable cardiac silhouette. Aortic atherosclerosis is present. Minimal streaky and hazy opacities of the bilateral lung bases, left greater than right. No evidence of a pleural effusion or pneumothorax. Tiny radiodensities projecting over the right lower lung again seen. XR/XR chest 1V IMPRESSION: Postoperative chest as above.
--- NOTE | ~2022-06-18 | CT_ITS ---
Ration: CT brain and CT cervical spine without contrast. TECHNIQUE: 5 mm thin axial and reformatted 2 mm thin sagittal and coronal images of brain were obtained without contrast. Subsequently axial 3 mm thin and reformatted 2 mm thin sagittal an coronal images of cervical spine were obtained. DLP [id number]. This CT examination was performed using dose optimization technique as appropriate, variously including the following: Automated exposure control Adjustment of MA and/or KV according to patient size(this includes techniques or standardized protocols for targeted exams where dose is matched to indication/reason for exam; extremities or head. Use of iterative reconstruction techniques. FINDINGS: There is no acute intra-axial, extra-axial bleed, masses or midline shift. There is no acute infarction evolution. There is no edema. There is diffuse periventricular hypodensity in both cerebral C is without mass effect. The lateral ventricles are symmetrical in size but moderately enlarged. No abnormality seen in the posterior fossa. The sarmiento to white matter differentiation is maintained in the cerebral cortex. Bone windows reveal no calvarial abnormality. There is mild mucoperiosteal thickening bilateral maxillary sinuses. Rest of the paranasal sinuses and mastoid air cells are well-aerated. Cervical spine: There is maintained cervical lordosis. The vertebral heights, alignment and disc heights are normal. There is mild ventral spondylosis mid to lower cervical spine. The craniovertebral junction and C1-C2 alignment is normal. There is a small loose body posterior and to the right of the dense likely old avulsion injury. No visible acute fracture or dislocation seen. There is bilateral C3-C4, C4-C5 and C5-C6 facet joint arthropathy. The prevertebral and paravertebral soft tissues are normal. CT/CT cervical spine wo IV con IMPRESSION: 1. No acute intracranial process seen. 2. Age-related cerebral volume loss with chronic small vessel ischemic changes. 3. There is no visible acute fracture, dislocation or subluxation seen.
--- NOTE | ~2022-06-18 | XR_ITS ---
EXAMINATION: XR CHEST CLINICAL INFORMATION: Pacemaker placement COMPARISON: 06/21/2012 TECHNIQUE: Frontal view of the chest was obtained. FINDINGS: Left chest wall pacer with leads over the right atrium and right ventricle. The leads appear intact. Cardiac leads overlie the chest. The lungs are well expanded. There is no focal consolidation, edema, or effusion. No pneumothorax. The cardiomediastinal silhouette is within normal limits. No acute osseous abnormality. XR/XR chest 1V IMPRESSION: Left chest wall pacer with leads over the right atrium and right ventricle. No pneumothorax.
[2022-06-18 10:21] VITALS: BP 149/52; PULSE 52; RESP 16; TEMP 36.7; O2SAT 95; BMI 22.5
--- NOTE | 2022-06-18 10:38 | PC.NURSE ---
Patient in after a fall this morning. Patient is alert and oriented, no deficits noted at this time. Patient calm and cooperative on stretcher.
--- NOTE | 2022-06-18 10:58 | ECG_ITS ---
Test Reason : CP Blood Pressure : / mmHG Vent. Rate : 047 BPM Atrial Rate : 047 BPM P-R Int : 170 ms QRS Dur : 124 ms QT Int : 482 ms P-R-T Axes : 064 -69 -78 degrees QTc Int : 426 ms Sinus bradycardia Right bundle branch block Left anterior fascicular block Bifascicular block T wave abnormality, consider lateral ischemia Abnormal ECG When compared with ECG of 03-JUN-2022 11:11, Nonspecific T wave abnormality, worse in Inferior leads T wave inversion now evident in Lateral leads Referred By: David Wynn Electronically Signed By:ARACELI VIZCAINO MD
--- NOTE | 2022-06-18 11:06 | ED.FALL ---
HPI - Fall General Chief Complaint: Fall Stated Complaint: UNWIT FALL @ HOME,HIT HEAD ON DOORKNOB Time Seen by Provider: 06/18/22 10:40 Source: EMS Mode of arrival: EMS Limitations: no limitations History of Present Illness HPI Narrative: This is a 86 years old male presented to emergency department by ambulance after a fall, he hit the head against the door knob. He was admitted recently to [facility] on discharged on 06/05 the admission was for generalized weakness MD complaint: fall Onset (ago): hour(s) (1) Fall from: standing Fall witnessed: no Place fall occurred: home Loss of consciousness: none Prolonged down time: no Symptoms prior to fall: none Related Data Home Medications Medication Instructions Recorded Confirmed oxybutynin chloride 10 mg 1 tab PO DAILY 06/03/22 06/09/22 tablet,extended release 24 hr Previous Rx's Medication Instructions Recorded amlodipine 5 mg tablet 5 mg PO DAILY 90 days #90 tabs 09/17/21 cholecalciferol (vitamin D3) 25 25 mcg PO DAILY 90 days #90 caps 01/18/22 mcg (1,000 unit) capsule fesoterodine 8 mg tablet,extended 8 mg PO DAILY 90 days #90 tabs 02/04/22 release 24 hr terazosin 10 mg capsule 10 mg PO BEDTIME #90 caps 03/11/22 atorvastatin 40 mg tablet 40 mg PO BEDTIME 90 days #90 tabs 04/07/22 aspirin 81 mg chewable tablet 81 mg PO DAILY #90 tabs 06/05/22 cefuroxime axetil 500 mg tablet 500 mg PO BID #8 tabs 06/05/22 Allergies Allergy/AdvReac Type Severity Reaction Status Date / Time No Known Allergies Allergy Verified 06/09/22 09:12 [No Known Allergies*] Review of Systems Constitutional: Constitutional: Reports no additional constitutional complaints Eyes: Eyes: Reports no additional eye complaints Cardiovascular: Cardiovascular: Reports no additional cardiovascular complaints Neurologic: Reports system reviewed and no additional complaints, except as documented PMFSH Past Medical History Medical History Bladder outlet obstruction Bradycardia CKD (chronic kidney disease), stage III CVA (cerebral vascular accident) (~2015) Hypertension Incidental pulmonary nodule Left-sided weakness Right inguinal pain Swallowing problem Urinary frequency Vitamin D deficiency Surgical History History of knee replacement History of surgery Social History Social History Housing: Apartment Alcohol intake: never Patient Tobacco Use Status: Current everyday Tobacco user Tobacco use type: Cigarette Cigarette Packs Per Day: 0.5 Cigarettes Per Day: 8 Years Smoked: 60 Smoked in Last 30 Days: Yes e-Cigarette/Vaping Use: Never Used Second Hand Smoke Exposure: Yes Use of substances other than those prescribed or required for medical reasons: No Advance Directives: Yes Advance Directives on File: Yes Advance Directives Date on File: 06/06/22 service: No Current occupational status: retired Cognitive needs: No Hearing needs: No Vision needs: Yes Physical Exam Vital Signs: Vital Signs: Last Vital Signs Temp 98.1 F 06/18/22 15:36 Pulse 48 L 06/18/22 15:36 Resp 14 06/18/22 15:36 BP 156/51 H 06/18/22 15:36 Pulse Ox 93 06/18/22 15:36 O2 Del Method Room Air 06/18/22 15:36 BMI result Body Mass Index 22.5 Const: General: cooperative Nutritional Appearance: average body habitus Orientation/consciousness: patient oriented x3 HEENT: Other: hematoma occicipital area Ears: hearing grossly normal bilaterally General nose exam: Normal external nose present Face and sinus: Yes normal facial exam Throat: Yes posterior oropharynx normal Neck: Neck: Yes normal visual inspection Chest: Chest palpation & inspection: normal inspection of the chest Resp: Effort & Inspection: normal respiratory effort Auscultation: clear to auscultation bilaterally Cardio: Jugular venous distension: no JVD Rate: regular rate GI: Inspection: Yes normal to inspection Palpation (GI): Soft to palpation, not firm and nontender Auscultation: normal bowel sounds Skin: General skin exam: no rashes or lesions noted, elasticity normal and turgor normal Neuro: General: patient oriented x3 Course Reevaluation(s) Reevaluation #1: Remained hemodynamically stable sinus in the monitor Medications Administered Generic Name Dose Route Start Last Admin Trade Name Freq PRN Reason Stop Dose Admin Sodium Chloride 1,000 mls @ 100 mls/hr 06/18/22 14:45 06/18/22 14:58 Ns IVCONT 100 mls/hr .Q10H BLANCA Administration Sodium Chloride 3 ml 06/18/22 16:00 06/18/22 15:37 0.9 % Sodium Chloride Flush 3 Ml Syringe IVFLUSH Not Given QSHIFT BLANCA Discontinued Medications Generic Name Dose Route Start Last Admin Trade Name Freq PRN Reason Stop Dose Admin Sodium Chloride 1,000 mls @ 999 mls/hr 06/18/22 12:45 06/18/22 14:58 Ns IVCONT 06/18/22 13:45 Infused .Q1H1M BLANCA Infusion Medical Decision Making Medical Decision Making [facility] Narrative: Patient presented with the head injury after a fall we check CT of the head labs EKG and reassess Differential Diagnosis Differential Diagnoses: The differential diagnosis associated with the presentation includes Subdural hematoma/epidural hematoma/concussion Admission/Observation Consideration of admission/observation: Escalation of care including admission/observation considered Consult Healthcare Provider Management of the patient was discussed with: Hospitalist Lab Data [facility] Lab Attestation statement: I reviewed the patient's lab results. 06/18/22 11:32 06/18/22 11:32 Labs: Lab Results 06/18/22 06/18/22 06/18/22 Range/Units 11:32 11:32 11:32 WBC 13.5 H (4.8-10.8) X10*3/uL RBC 3.30 L (4.60-5.80) X10*6/uL Hgb 10.7 L (14.0-18.0) g/dl Hct 32.6 L (42.0-52.0) % MCV 98.8 H (80.0-98.0) fL MCH 32.4 (27.0-33.0) pg MCHC 32.8 (31.0-36.0) g/dl RDW 13.2 (11.0-16.0) % Plt Count 160 D (160-400) X10*3/uL MPV 9.6 (9.4-12.4) fL Immature Gran % (Auto) 0.5 H (0.0-0.4) % Neut % (Auto) 87.2 H (45-73) % Lymph % (Auto) 7.1 L (20-40) % Rooks % (Auto) 5.0 (2-11) % Eos % (Auto) 0.1 (0-4) % Baso % (Auto) 0.1 (0-2) % Lymph # (Auto) 1.0 L (1.2-4.9) X10*3/uL Rooks # (Auto) 0.7 (0.1-1.2) X10*3/uL Eos # (Auto) 0.0 (0.0-0.4) X10*3/uL Baso # (Auto) 0.0 (0.0-0.2) X10*3/uL Abs Immat Gran (auto) 0.07 H (0.00-0.03) X10*3/uL Absolute Neuts (auto) 11.7 H (2.0-8.3) x10*3/uL Absolute Nucleated RBC 0.000 (0.0-0.012) X10*3/uL Nucleated RBC % (auto) 0.0 (0.0-0.2) /100WBC Sodium 142 (135-145) mmol/L Potassium 4.2 (3.3-5.1) mmol/L Chloride 105 (96-108) mmol/L Carbon Dioxide 28 (22-29) mmol/L Anion Gap 13 (12-20) BUN 69 H (9-16) mg/dL Creatinine 2.12 H (0.5-1.4) mg/dL Estim Creat Clear Calc 25.6 Estimated GFR 30 Random Glucose 99 (60-115) mg/dL Calcium 9.0 (8.4-10.2) mg/dL Total Bilirubin 1.2 H (0.0-1.0) mg/dL AST 215 H (5-37) U/L ALT 72 H (0-40) U/L Alkaline Phosphatase 89 (39-117) U/L Troponin I High Sens 217.6 H* (<3.5-35.0) ng/L Total Protein 5.8 L (6.5-8.0) g/dL Albumin 3.4 L (3.5-5.0) g/dL 06/18/22 Range/Units 12:51 WBC (4.8-10.8) X10*3/uL RBC (4.60-5.80) X10*6/uL Hgb (14.0-18.0) g/dl Hct (42.0-52.0) % MCV (80.0-98.0) fL MCH (27.0-33.0) pg MCHC (31.0-36.0) g/dl RDW (11.0-16.0) % Plt Count (160-400) X10*3/uL MPV (9.4-12.4) fL Immature Gran % (Auto) (0.0-0.4) % Neut % (Auto) (45-73) % Lymph % (Auto) (20-40) % Rooks % (Auto) (2-11) % Eos % (Auto) (0-4) % Baso % (Auto) (0-2) % Lymph # (Auto) (1.2-4.9) X10*3/uL Rooks # (Auto) (0.1-1.2) X10*3/uL Eos # (Auto) (0.0-0.4) X10*3/uL Baso # (Auto) (0.0-0.2) X10*3/uL Abs Immat Gran (auto) (0.00-0.03) X10*3/uL Absolute Neuts (auto) (2.0-8.3) x10*3/uL Absolute Nucleated RBC (0.0-0.012) X10*3/uL Nucleated RBC % (auto) (0.0-0.2) /100WBC Sodium (135-145) mmol/L Potassium (3.3-5.1) mmol/L Chloride (96-108) mmol/L Carbon Dioxide (22-29) mmol/L Anion Gap (12-20) BUN (9-16) mg/dL Creatinine (0.5-1.4) mg/dL Estim Creat Clear Calc Estimated GFR Random Glucose (60-115) mg/dL Calcium (8.4-10.2) mg/dL Total Bilirubin (0.0-1.0) mg/dL AST (5-37) U/L ALT (0-40) U/L Alkaline Phosphatase (39-117) U/L Troponin I High Sens 188.5 H* (<3.5-35.0) ng/L Total Protein (6.5-8.0) g/dL Albumin (3.5-5.0) g/dL Independent Interpretation I performed an independent interpretation of an: EKG (sinus bradycardia) Radiology Impression Discussion of test interpretation with radiology: I have reviewed the radiologist's reading. Discharge Plan Discharge Clinical Impression: Acute renal failure, Elevated troponin, Fall, Head injury Patient Disposition: Admitted As Inpatient
[2022-06-18 11:36] LABS: MANUAL DIFF FLAG NO
[2022-06-18 11:38] LABS: Basophils Percent Auto 0.1 % (0-2); Eosinophils Percent Auto 0.1 % (0-4); Hematocrit 32.6 % (42.0-52.0); Hemoglobin 10.7 g/dl (14.0-18.0); Imm Gran Abs Auto 0.07 X10*3/uL (0.00-0.03); Imm Gran Pct Auto 0.5 % (0.0-0.4); Lymphocytes Percent Auto 7.1 % (20-40); Mean Corpuscular HGB Conc 32.8 g/dl (31.0-36.0); Mean Corpuscular Hemoglobin 32.4 pg (27.0-33.0); Mean Corpuscular Volume 98.8 fL (80.0-98.0); Mean Platelet Volume 9.6 fL (9.4-12.4); Monocytes Absolute Auto 0.7 X10*3/uL (0.1-1.2); Neutrophils Absolute Auto 11.7 x10*3/uL (2.0-8.3); Neutrophils Percent Auto 87.2 % (45-73); Platelet Count 160 X10*3/uL (160-400); Red Cell Distribution Width 13.2 % (11.0-16.0); White Blood Count 13.5 X10*3/uL (4.8-10.8)
[2022-06-18 12:00] LABS: Alanine Aminotransferase 72 U/L (0-40); Albumin Level 3.4 g/dL (3.5-5.0); Alkaline Phosphatase 89 U/L (39-117); Anion Gap 13 (12-20); Aspartate Amino Transferase 215 U/L (5-37); Bilirubin Total 1.2 mg/dL (0.0-1.0); Blood Urea Nitrogen 69 mg/dL (9-16); Carbon Dioxide 28 mmol/L (22-29); Chloride 105 mmol/L (96-108); Creatinine Clr Calc Pharmacy 25.6; Estimated Glomerular Filt Rate 30; Glucose Random 99 mg/dL (60-115); Potassium 4.2 mmol/L (3.3-5.1); Sodium 142 mmol/L (135-145); Total Protein 5.8 g/dL (6.5-8.0)
--- NOTE | 2022-06-18 12:00 | PC.NURSE ---
Patient taken out of C-collar per MD. Patient given water per request.
[2022-06-18 12:14] LABS: Troponin-I High Sensitivity 217.6 ng/L (<3.5-35.0)
[2022-06-18] MEDS: 0.9 % Sodium Chloride 1,000 ML 999 ML IVCONT (13:36)
[2022-06-18 14:01] LABS: Troponin-I High Sensitivity 188.5 ng/L (<3.5-35.0)
--- NOTE | 2022-06-18 14:55 | MHC.CM.ED ---
Received consult for assessment of d/c needs: review of EMR notes pt with elevated WBC at 13, no imaging or UA to defer to, elevated Troponin and mild JANET: ? Pt being admitted for continued w/u and care. Awaiting ED MD notification. Met briefly w/pt in the interim: pt lives alone, has a friend/HCP named Jordon Lutz who assists him w/transportation and housekeeping needs: he states he is trying to get Jordon, his friend, to be a compensated [employer] but this has not yet occurred. Pt uses a walker, has no additional services and sees Dr. Dougherty. Received message from ED MD: pt to be admitted - CM to follow for finalization of d/c needs
[2022-06-18] MEDS: 0.9 % Sodium Chloride 1,000 ML 100 ML IVCONT (14:58)
[2022-06-18 15:06] VITALS: BP 165/65; PULSE 47; RESP 18; O2SAT 96
--- NOTE | 2022-06-18 15:18 | P.HPHOSP_ITS ---
History of Present Illness Date of Service: 06/18/22 Attending physician on admission: Mack Jones Chief Complaint: Fall This is an 86-year-old male with history of stroke and residual dysarthria who presents to the emergency department after fall. Patient has had multiple admissions for falls, as recently as last week. He was evaluated by Physical therapy at that time who recommended short-term rehab however patient declined and opted to return home with VNA. Today he states that he was walking out of the bathroom when he lost his balance and fell down hitting his head on the door knob. He denies any dizziness chest pain, palpitations prior to his fall. He denies any loss of consciousness. He has no vision changes, headache. He was unable to get up off the floor. His healthcare proxy came to check on him approximately 3 hours after he fell and called the ambulance. He also states he had multiple episodes of vomiting today. He denies any associated abdominal emmett n or diarrhea. Appears to have dried, dark material in his mouth/on his tongue however he denies coffee-ground emesis. In the emergency department workup revealed acute kidney injury with serum creatinine of 2.12, increased from last admission. Troponin was elevated at 217.6 but remained flat and decreasd to 188.5. His EKG did show new twave inversions in leads V4-V6. He was noted to have white count of 13.5, although no source of infection was identified. H/H has dropped somewhat since last admission but he denies any rectal bleeding. Review of Systems Review of Systems: Yes all other systems are reviewed and are negative Constitutional: Constitutional: Denies chills and Denies fever(s) ENT: Denies dizziness Cardiovascular: Cardiovascular: Denies chest pain, Denies palpitations and Denies dyspnea Respiratory: Respiratory: Denies cough and Denies dyspnea Gastrointestinal: Gastrointestinal: Denies abdominal pain and Reports vomiting Neurologic: Denies dizziness Endocrine: Endocrine: Denies palpitations [facility] Medical History Bladder outlet obstruction Bradycardia CKD (chronic kidney disease), stage III CVA (cerebral vascular accident) (~2016) Hypertension Incidental pulmonary nodule Left-sided weakness Right inguinal pain Swallowing problem Urinary frequency Vitamin D deficiency Surgical History History of knee replacement History of surgery Social History Housing: Apartment Alcohol intake: never Patient Tobacco Use Status: Current everyday Tobacco user Tobacco use type: Cigarette Cigarette Packs Per Day: 0.5 Cigarettes Per Day: 8 Years Smoked: 60 Smoked in Last 30 Days: Yes e-Cigarette/Vaping Use: Never Used Second Hand Smoke Exposure: Yes Use of substances other than those prescribed or required for medical reasons: No Advance Directives: Yes Advance Directives on File: Yes Advance Directives Date on File: 06/06/22 service: No Current occupational status: retired Cognitive needs: No Hearing needs: No Vision needs: Yes Meds Allergies Allergy/AdvReac Type Severity Reaction Status Date / Time No Known Allergies Allergy Verified 06/09/22 09:12 [No Known Allergies*] Active Medications: Current Medications Acetaminophen (Acetaminophen 325 Mg Tablet) 650 mg PO Q6H PRN PRN Reason: Pain, Mild (Pain Scale 1-3) Docusate Sodium (Docusate Sodium 100 Mg Capsule) 100 mg PO DAILY PRN PRN Reason: Constipation Sodium Chloride (Ns) 1,000 mls @ 100 mls/hr IVCONT .Q10H [facility] Last Admin: 06/18/22 14:58 Dose: 100 mls/hr Ondansetron HCl (Ondansetron Hcl 4 Mg/2 Ml Vial) 4 mg IVPUSH Q8H PRN PRN Reason: Nausea and Vomiting Pharmacy Consult (Consult Rx Perform Med Rec) 1 each MISCELLANE ONCE PRN PRN Reason: Consult order Sodium Chloride (0.9 % Sodium Chloride Flush 3 Ml Syringe) 3 ml IVFLUSH QSHIFT [facility] Home Medications Medication Instructions Recorded Confirmed Last Taken Type oxybutynin chloride 10 mg 1 tab PO DAILY 06/03/22 06/09/22 Unknown History tablet,extended release 24 hr Physical Exam Vital Signs and Narrative: Vital Signs: Last Vital Signs Temp 98.1 F 06/18/22 10:21 Pulse 47 L 06/18/22 15:06 Resp 18 06/18/22 15:06 BP 165/65 H 06/18/22 15:06 Pulse Ox 96 06/18/22 15:06 O2 Del Method Room Air 06/18/22 15:06 BMI result Body Mass Index 22.5 Const: Other: Frail elderly male lying in bed, awake, alert; appears comfortable HEENT: Other: dry MM; dark, dry material in mouth and on tongue Resp: Effort & Inspection: normal respiratory effort and able to speak in complete sentences Cardio: Rate: bradycardic Heart sounds: S1 normal heart sound present and S2 normal heart sound present GI: Inspection: No distended Palpation (GI): Soft to palpation and nontender Skin: Other: abrasions to b/l knees - reportedly from previous fall Neuro: General: CN's II-XI intact bilaterally Results Labs 06/18/22 11:32 06/18/22 11:32 Labs: Laboratory Results - last 24 hr 06/18/22 06/18/22 06/18/22 11:32 11:32 11:32 MCV 98.8 H MCH 32.4 MCHC 32.8 RDW 13.2 Plt Count 160 D MPV 9.6 Immature Gran % (Auto) 0.5 H Neut % (Auto) 87.2 H Lymph % (Auto) 7.1 L Woodruff % (Auto) 5.0 Eos % (Auto) 0.1 Baso % (Auto) 0.1 Lymph # (Auto) 1.0 L Woodruff # (Auto) 0.7 Eos # (Auto) 0.0 Baso # (Auto) 0.0 Abs Immat Gran (auto) 0.07 H Absolute Neuts (auto) 11.7 H Absolute Nucleated RBC 0.000 Nucleated RBC % (auto) 0.0 Anion Gap 13 Estim Creat Clear Calc 25.6 Estimated GFR 30 Random Glucose 99 Calcium 9.0 Total Bilirubin 1.2 H AST 215 H ALT 72 H Alkaline Phosphatase 89 Troponin I High Sens 217.6 H* Total Protein 5.8 L Albumin 3.4 L 06/18/22 12:51 MCV MCH MCHC RDW Plt Count MPV Immature Gran % (Auto) Neut % (Auto) Lymph % (Auto) Woodruff % (Auto) Eos % (Auto) Baso % (Auto) Lymph # (Auto) Woodruff # (Auto) Eos # (Auto) Baso # (Auto) Abs Immat Gran (auto) Absolute Neuts (auto) Absolute Nucleated RBC Nucleated RBC % (auto) Anion Gap Estim Creat Clear Calc Estimated GFR Random Glucose Calcium Total Bilirubin AST ALT Alkaline Phosphatase Troponin I High Sens 188.5 H* Total Protein Albumin Imaging Radiologist's Impressions: Impressions Cervical Spine CT 06/18/22 11:29 IMPRESSION: 1. No acute intracranial process seen. 2. Age-related cerebral volume loss with chronic small vessel ischemic changes. 3. There is no visible acute fracture, dislocation or subluxation seen. Head CT 06/18/22 11:29 IMPRESSION: 1. No acute intracranial process seen. 2. Age-related cerebral volume loss with chronic small vessel ischemic changes. 3. There is no visible acute fracture, dislocation or subluxation seen. Assessment and Plan (1) Acute renal failure: Status: Acute (2) Elevated troponin: Status: Acute Plan This is an 86-year-old male with history of stroke with resultant dysarthria and recurrent falls who presents to the emergency department with fall found to have JANET and elevated troponin JAENT r/t volume depletion/vomiting IVF follow renal function Vomiting thinks r/t bad fish he ate. no abdominal pain seems to have resolved elevated troponin no chest pain new t wave inversions V4-v6 tele monitoring cardiology eval bradycardia chronic. HR chronically in 40s upon chart review asymptomatic leukocytosis afebrile. No obvious source of infection follow cbc Acute on chronic normocytic anemia dark material around mouth and slight drop in H/H denies overt bleeding but overall not a great historian will check stool occult follow CBC Fall seems mechanical. no syncope. doubt r/t to bradycardia as this appears chronic PT rec STR last admission but pt declined multiple admissions for falls PT eval check CPK med rec pending at time of admission dvt ppx - mechanical devices until GI bleed ruled out HCP - HCP form from previous admission indicates Tanvi Quintanilla as HCP CODE status - full code attending - dr. long pt will likely require two midnight stay for management of JANET Time Spent With Patient Time: Total time managing care of this patient today ____ minutes. Quality Stroke Does the patient have a stroke diagnosis?: No VTE Prior VTE?: No VTE Risk Level:: Medical - moderate - high VTE Device Contraindication: N/A - Device Ordered VTE Drug Contraindication: Treatment Not Indicated
[2022-06-18 15:36] VITALS: BP 156/51; PULSE 48; RESP 14; TEMP 36.7; O2SAT 93
[2022-06-18 16:08] LABS: COVID-19 Test Negative (Negative); IDNOW Serial# BCCEAD1C
--- NOTE | 2022-06-18 17:08 | PHA.MEDREC ---
Pharmacy Consult ? Medication Reconciliation Pharmacy has completed the medication reconciliation. Spoke to patient's HCP Jordon to confirm meds.
--- NOTE | 2022-06-18 18:16 | PC.NURSE ---
report give to fermin campoverde on imc
[2022-06-18 18:37] VITALS: BMI 22.4
[2022-06-18 19:35] VITALS: BP 170/72; PULSE 42; RESP 18; TEMP 36.4; O2SAT 95
[2022-06-18 23:38] VITALS: BP 165/62; PULSE 40; RESP 18; TEMP 36.9; O2SAT 93
[2022-06-19 04:00] VITALS: BP 156/65; PULSE 42; RESP 16; TEMP 36.7; O2SAT 95
[2022-06-19 07:13] LABS: Hemoglobin 10.1 g/dl (14.0-18.0); Mean Corpuscular HGB Conc 31.6 g/dl (31.0-36.0); Mean Corpuscular Hemoglobin 32.5 pg (27.0-33.0); Mean Corpuscular Volume 102.9 fL (80.0-98.0); Mean Platelet Volume 10.6 fL (9.4-12.4); Platelet Count 147 X10*3/uL (160-400); Red Blood Count 3.11 X10*6/uL (4.60-5.80); Red Cell Distribution Width 13.6 % (11.0-16.0); White Blood Count 8.1 X10*3/uL (4.8-10.8)
[2022-06-19 07:33] VITALS: BP 182/74; PULSE 37; RESP 20; TEMP 37.1; O2SAT 95
[2022-06-19 07:54] LABS: Anion Gap 11 (12-20); Blood Urea Nitrogen 56 mg/dL (9-16); Calcium 8.3 mg/dL (8.4-10.2); Carbon Dioxide 25 mmol/L (22-29); Chloride 110 mmol/L (96-108); Creatinine Clr Calc Pharmacy 38.1; Estimated Glomerular Filt Rate 47; Glucose Random 90 mg/dL (60-115); Sodium 142 mmol/L (135-145)
--- NOTE | 2022-06-19 09:52 | HO.PM.IMPN ---
Subjective Subjective Date of Service: 06/19/22 Interval History: f/u on fall, janet elevated trop Physical Exam Vital Signs: Vital Signs: Last Vital Signs Temp 98.7 F 06/19/22 07:33 Pulse 37 L 06/19/22 07:33 Resp 20 06/19/22 07:33 BP 182/74 H 06/19/22 07:33 Pulse Ox 95 06/19/22 07:33 O2 Del Method Room Air 06/19/22 07:33 BMI result Body Mass Index 22.4 Const: Other: General: AO X 3, no acute distress Resp: CTA bilateral CVS: S1,S2,RRR GI: +BS, NT, no distention Skin: No rash Neuro: motor grossly intact Psych: appropriate affect Objective Data Active Medications Acetaminophen (Acetaminophen 325 Mg Tablet) 650 mg PO Q6H PRN PRN Reason: Pain, Mild (Pain Scale 1-3) Amlodipine Besylate (Amlodipine Besylate 5 Mg Tablet) 5 mg PO DAILY [facility]; Protocol Aspirin (Aspirin 81 Mg Tab.Chew) 81 mg PO DAILY [facility] Atorvastatin Calcium (Atorvastatin Calcium 40 Mg Tablet) 40 mg PO BEDTIME [facility] Docusate Sodium (Docusate Sodium 100 Mg Capsule) 100 mg PO DAILY PRN PRN Reason: Constipation Sodium Chloride (Ns) 1,000 mls @ 100 mls/hr IVCONT .Q10H [facility] Last Admin: 06/19/22 06:00 Dose: Not Given Documented By: FRANK Non-Admin Reason: IV Running Non-Formulary Medication (Fesoterodine) 8 mg PO DAILY [facility] Non-Formulary Medication (Terazosin) 10 mg PO BEDTIME [facility] Ondansetron HCl (Ondansetron Hcl 4 Mg/2 Ml Vial) 4 mg IVPUSH Q8H PRN PRN Reason: Nausea and Vomiting Oxybutynin Chloride (Oxybutynin Chloride Er 5 Mg Tab.Er.24) 10 mg PO DAILY [facility] Pharmacy Consult (Consult Rx Perform Med Rec) 1 each MISCELLANE ONCE PRN PRN Reason: Consult order Prazosin HCl (Prazosin Hcl 5 Mg Capsule) 5 mg PO BID [facility]; Protocol Sodium Chloride (0.9 % Sodium Chloride Flush 3 Ml Syringe) 3 ml IVFLUSH QSHIFT [facility] Last Admin: 06/19/22 02:59 Dose: Not Given Documented By: FRANK Non-Admin Reason: IV Running Vitamin D (Cholecalciferol (Vitamin D3) 25 Mcg Tablet) 25 mcg PO DAILY [facility] Labs 06/19/22 06:18 06/19/22 06:19 Labs: Laboratory Results - last 24 hr 06/18/22 06/18/22 06/18/22 11:32 11:32 11:32 MCV 98.8 H MCH 32.4 MCHC 32.8 RDW 13.2 Plt Count 160 D MPV 9.6 Immature Gran % (Auto) 0.5 H Neut % (Auto) 87.2 H Lymph % (Auto) 7.1 L Faulk % (Auto) 5.0 Eos % (Auto) 0.1 Baso % (Auto) 0.1 Lymph # (Auto) 1.0 L Faulk # (Auto) 0.7 Eos # (Auto) 0.0 Baso # (Auto) 0.0 Abs Immat Gran (auto) 0.07 H Absolute Neuts (auto) 11.7 H Absolute Nucleated RBC 0.000 Nucleated RBC % (auto) 0.0 Anion Gap 13 Estim Creat Clear Calc 25.6 Estimated GFR 30 Random Glucose 99 Calcium 9.0 Total Bilirubin 1.2 H AST 215 H ALT 72 H Alkaline Phosphatase 89 Total Creatine Kinase 9780 H Troponin I High Sens 217.6 H* Total Protein 5.8 L Albumin 3.4 L COVID-19 ([facility]) COVID-[employer] Com 06/18/22 06/18/22 06/19/22 12:51 15:38 06:18 MCV 102.9 H MCH 32.5 MCHC 31.6 RDW 13.6 Plt Count 147 L MPV 10.6 Immature Gran % (Auto) Neut % (Auto) Lymph % (Auto) Faulk % (Auto) Eos % (Auto) Baso % (Auto) Lymph # (Auto) Faulk # (Auto) Eos # (Auto) Baso # (Auto) Abs Immat Gran (auto) Absolute Neuts (auto) Absolute Nucleated RBC 0.000 Nucleated RBC % (auto) 0.0 Anion Gap Estim Creat Clear Calc Estimated GFR Random Glucose Calcium Total Bilirubin AST ALT Alkaline Phosphatase Total Creatine Kinase Troponin I High Sens 188.5 H* Total Protein Albumin COVID-19 ([facility]) Negative COVID-19 Clin Com See Note 06/19/22 06:19 MCV MCH MCHC RDW Plt Count MPV Immature Gran % (Auto) Neut % (Auto) Lymph % (Auto) Faulk % (Auto) Eos % (Auto) Baso % (Auto) Lymph # (Auto) Faulk # (Auto) Eos # (Auto) Baso # (Auto) Abs Immat Gran (auto) Absolute Neuts (auto) Absolute Nucleated RBC Nucleated RBC % (auto) Anion Gap 11 L Estim Creat Clear Calc 38.1 Estimated GFR 47 Random Glucose 90 Calcium 8.3 L D Total Bilirubin AST ALT Alkaline Phosphatase Total Creatine Kinase Troponin I High Sens Total Protein Albumin COVID-19 ([facility]) COVID-19 Clin Com Assessment and Plan (1) Acute renal failure: Status: Acute Plan 86-year-old male with history of stroke with resultant dysarthria and recurrent falls who presents to the emergency department with fall found to have JANET and elevated troponin JANET on CKD3, Cr 1.42 today, close to baseline follow renal function, dc IVF Vomiting thinks r/t bad fish he ate. no abdominal pain seems to have resolved elevated troponin no chest pain new t wave inversions V4-v6 tele monitoring cardiology eval pending bradycardia, no sinus pause chronic. HR chronically in 40s upon chart review asymptomatic leukocytosis afebrile.? No obvious source of infection resolved without Abx Acute on chronic normocytic anemia dark material around mouth and slight drop in H/H denies overt bleeding but overall not a great historian will check stool occult, H/H unchanged Fall seems mechanical. no syncope. doubt r/t to bradycardia as this appears chronic PT rec STR last admission but pt declined multiple admissions for falls PT eval before discharge dvt ppx - mechanical devices until GI bleed ruled out HCP - HCP form from previous admission indicates Tanvi Quintanilla as HCP CODE status - full code need for inpatient: janet, recurrent falls, need pt eval for safe dispo Time Spent With Patient Time: Total time managing care of this patient today ____ minutes. Quality Stroke Does the patient have a stroke diagnosis?: No VTE Prior VTE?: No VTE Risk Level:: Medical - moderate - high VTE Device Contraindication: N/A - Device Ordered VTE Drug Contraindication: Treatment Not Indicated
--- NOTE | 2022-06-19 10:00 | MHC.CM.PN ---
CM met with Patient at bedside and addressed IMM with him, providing him with the original and placing a copy on the chart. Patient lives alone in an apartment and he uses a cane to assist with mobility. Patient states that a Nurse visits from [facility] to assist with med management and despite recent fall, Patient has declined VNA and STR. Home self care is Patient's goal and CM has initiated and will follow for dc planning. Patient has received Moderna/Covid vax x2 and his PCP is Dr. Dontrell Dougherty.
[2022-06-19 11:08] VITALS: BP 180/68; PULSE 41; RESP 20; TEMP 36.8; O2SAT 98
[2022-06-19] MEDS: Aspirin 81 MG TAB.CHEW PO (11:09)
[2022-06-19] MEDS: Prazosin HCL 5 MG CAPSULE PO ×2 (11:09→20:04)
[2022-06-19] MEDS: 0.9 % Sodium Chloride Flush 3 ML SYRINGE IVFLUSH (11:10)
[2022-06-19] MEDS: Cholecalciferol (Vitamin D3) 25 MCG TABLET PO (11:10)
[2022-06-19] MEDS: amLODIPine Besylate 5 MG TABLET PO (11:10)
[2022-06-19] MEDS: oxyBUTYnin chloride ER 5 MG TAB.ER.24 10 MG PO (11:10)
--- NOTE | 2022-06-19 11:58 | P.CONCA_ITS ---
History of Present Illness History of Present Illness Date of Service: 06/19/22 Requesting physician: [facility] Consult reason: troponin elevation and other (Bradycardia) Chief complaint: Fall Janet Narrative: I was consulted to see Ki in cardiology consultation today. He is a poor historian and just says that he wants to go home. He was brought or came to the hospital because he says he fell down. He shows an ostomy said he felt lightheaded and then subsequently fell down. Subsequently he tells me that he fell down because he loses his balance. He has follow non 2nd time. He has prior history of CVA, hypertension, poor balance, chronic kidney disease, no known coronary artery disease or valvular heart disease. Patient came to the hospital and was noted to have JANET and also mild troponin elevation. Troponin elevation is flat. He had no significant EKG changes noted except for sinus bradycardia with first-degree AV block with right bundle-branch block and left anterior fascicular block. Overnight he was admitted for observation he has been given IV fluids. His kidney functions have improved. However remains significantly bradycardic with heart rate in the 30s. There are no significant pauses noted. No significant AV block noted. Review of Systems Constitutional: Constitutional: Reports frequent falls and Reports weakness Cardiovascular: Cardiovascular: Denies chest pain, Denies rapid heart rate, Denies leg edema, Reports lightheadedness, Denies Loss of Consciousness and Denies dyspnea Respiratory: Respiratory: Reports no additional respiratory complaints and Denies dyspnea Gastrointestinal: Gastrointestinal: Reports no additional gastrointestinal complaints Genitourinary: Genitourinary: Reports no additional male genitourinary complaints Neurologic: Reports system reviewed and no additional complaints, except as documented, Reports frequent falls and Reports weakness Psychiatric: Psychiatric: Reports no additional psychiatric complaints Endocrine: Endocrine: Reports no additional endocrine complaints [facility] Past Medical History Medical History Bladder outlet obstruction Bradycardia CKD (chronic kidney disease), stage III CVA (cerebral vascular accident) (~2016) Hypertension Incidental pulmonary nodule Left-sided weakness Right inguinal pain Swallowing problem Urinary frequency Vitamin D deficiency Surgical History Surgical History History of knee replacement History of surgery Social History Social History Household Members: None Housing: Apartment Do you presently have visiting nurse or other home services: Yes Alcohol intake: never Patient Tobacco Use Status: Never used Tobacco Tobacco use type: Cigarette Cigarette Packs Per Day: 0.5 Cigarettes Per Day: 8 Years Smoked: 60 e-Cigarette/Vaping Use: Never Used Second Hand Smoke Exposure: Yes Advance Directives Date on File: 06/06/22 service: No Current occupational status: retired Cognitive needs: No Hearing needs: No Vision needs: Yes Meds Allergies Allergy/AdvReac Type Severity Reaction Status Date / Time No Known Allergies Allergy Verified 06/09/22 09:12 [No Known Allergies*] Active Medications: Current Medications Acetaminophen (Acetaminophen 325 Mg Tablet) 650 mg PO Q6H PRN PRN Reason: Pain, Mild (Pain Scale 1-3) Amlodipine Besylate (Amlodipine Besylate 5 Mg Tablet) 5 mg PO DAILY [facility]; Protocol Last Admin: 06/19/22 11:10 Dose: 5 mg Aspirin (Aspirin 81 Mg Tab.Chew) 81 mg PO DAILY [facility] Last Admin: 06/19/22 11:09 Dose: 81 mg Atorvastatin Calcium (Atorvastatin Calcium 40 Mg Tablet) 40 mg PO BEDTIME [facility] Docusate Sodium (Docusate Sodium 100 Mg Capsule) 100 mg PO DAILY PRN PRN Reason: Constipation Doxazosin Mesylate (Doxazosin Mesylate 2 Mg Tablet) 8 mg PO BEDTIME [facility] Sodium Chloride (Ns) 1,000 mls @ 100 mls/hr IVCONT .Q10H [facility] Last Admin: 06/19/22 06:00 Dose: Not Given Non-Formulary Medication (Fesoterodine) 8 mg PO DAILY [facility] Ondansetron HCl (Ondansetron Hcl 4 Mg/2 Ml Vial) 4 mg IVPUSH Q8H PRN PRN Reason: Nausea and Vomiting Oxybutynin Chloride (Oxybutynin Chloride Er 5 Mg Tab.Er.24) 10 mg PO DAILY [facility] Last Admin: 06/19/22 11:10 Dose: 10 mg Pharmacy Consult (Consult Rx Perform Med Rec) 1 each MISCELLANE ONCE PRN PRN Reason: Consult order Prazosin HCl (Prazosin Hcl 5 Mg Capsule) 5 mg PO BID [facility]; Protocol Last Admin: 06/19/22 11:09 Dose: 5 mg Sodium Chloride (0.9 % Sodium Chloride Flush 3 Ml Syringe) 3 ml IVFLUSH QSHIFT [facility] Last Admin: 06/19/22 11:10 Dose: 3 ml Vitamin D (Cholecalciferol (Vitamin D3) 25 Mcg Tablet) 25 mcg PO DAILY [facility] Last Admin: 06/19/22 11:10 Dose: 25 mcg Home Medications Medication Instructions Recorded Confirmed Last Taken Type oxybutynin chloride 10 mg 1 tab PO DAILY 06/03/22 06/18/22 06/17/22 History tablet,extended release 24 hr prazosin 5 mg capsule 5 mg PO BID 06/18/22 06/18/22 06/17/22 History Physical Exam Vital Signs: Vital Signs: Last Vital Signs Temp 98.2 F 06/19/22 11:08 Pulse 41 L 06/19/22 11:08 Resp 20 06/19/22 11:08 BP 180/68 H 06/19/22 11:08 Pulse Ox 98 06/19/22 11:08 O2 Del Method Room Air 06/19/22 11:08 BMI result Body Mass Index 22.4 Const: General: cooperative, comfortable, no acute distress, alert and awake Nutritional Appearance: underweight Orientation/consciousness: patient oriented x3 HEENT: Head: Yes normocephalic and Yes atraumatic Neck: Neck: Yes trachea midline, Yes supple and Yes no JVD Chest: Chest palpation & inspection: normal inspection of the chest Resp: Effort & Inspection: normal respiratory effort Auscultation: clear to auscultation bilaterally Cardio: Jugular venous distension: no JVD Palpation: normal PMI Rate: bradycardic Rhythm: regular rhythm Heart sounds: S1 normal heart sound present, S2 normal heart sound present, no click, no gallops and Murmur heart sound present systolic early Skin: General skin exam: no rashes or lesions noted and ecchymosis Neuro: General: patient oriented x3 and no focal motor deficits Extrem: General: Yes no clubbing, cyanosis or edema Psych: Appearance: grossly normal Objective Labs and Meds 06/19/22 06:18 06/19/22 06:19 Lab results: Laboratory Results - last 24 hr 06/18/22 06/18/22 06/18/22 11:32 11:32 12:51 WBC RBC Hgb Hct MCV MCH MCHC RDW Plt Count MPV Absolute Nucleated RBC Nucleated RBC % (auto) Sodium 142 Potassium 4.2 Chloride 105 Carbon Dioxide 28 Anion Gap 13 BUN 69 H Creatinine 2.12 H Estim Creat Clear Calc 25.6 Estimated GFR 30 Random Glucose 99 Calcium 9.0 Total Bilirubin 1.2 H AST 215 H ALT 72 H Alkaline Phosphatase 89 Total Creatine Kinase 9780 H Troponin I High Sens 217.6 H* 188.5 H* Total Protein 5.8 L Albumin 3.4 L COVID-19 ([facility]) COVID-19 Clin Com 06/18/22 06/19/22 06/19/22 15:38 06:18 06:19 WBC 8.1 RBC 3.11 L Hgb 10.1 L Hct 32.0 L MCV 102.9 H MCH 32.5 MCHC 31.6 RDW 13.6 Plt Count 147 L MPV 10.6 Absolute Nucleated RBC 0.000 Nucleated RBC % (auto) 0.0 Sodium 142 Potassium 4.0 Chloride 110 H Carbon Dioxide 25 Anion Gap 11 L BUN 56 H Creatinine 1.42 H Estim Creat Clear Calc 38.1 Estimated GFR 47 Random Glucose 90 Calcium 8.3 L D Total Bilirubin AST ALT Alkaline Phosphatase Total Creatine Kinase Troponin I High Sens Total Protein Albumin COVID-19 ([facility]) Negative COVID-19 Clin Com See Note Assessment and Plan (1) Sick sinus syndrome: Status: Acute Sick sinus syndrome in this elderly gentleman with frequent falls an episode of lightheadedness. Also present effusion with JANET and troponin leak overall may be suggestive of poor cardiac output. I think he will benefit from pacemaker placement to improve his cardiac output and improve his heart rate. He is not on any rate lowering medication. This was discussed with him. He was very adamant on wanting to go home. However and I discussed with him the need for pacemaker any eventually agreed. Please keep him NPO past midnight. Will also obtain an echocardiogram. Will try to [place] mom to pacemaker list for tomorrow. He will require hospitalization till Monday. This was discussed with him. Will continue to follow with you. Time Spent With Patient Time: Total time managing care of this patient today ____ minutes. Procedures Date of Service Date of Service: 06/19/22
[2022-06-19] MEDS: 0.9 % Sodium Chloride 1,000 ML 100 ML IVCONT ×2 (12:24→20:04)
[2022-06-19 15:35] VITALS: BP 154/76; PULSE 45; RESP 18; TEMP 37; O2SAT 97
[2022-06-19 20:00] VITALS: BP 180/70; PULSE 60; RESP 18; TEMP 36.6; O2SAT 93
[2022-06-19] MEDS: Doxazosin Mesylate 2 MG TABLET 8 MG PO (20:03)
[2022-06-19] MEDS: Atorvastatin Calcium 40 MG TABLET PO (20:04)
[2022-06-19 23:03] VITALS: BP 181/77; PULSE 63; RESP 20; TEMP 36.8; O2SAT 92
[2022-06-20] VITALS (7 sets, daily range): BP systolic 134–184; BP diastolic 75–87; PULSE 53–158; RESP 16–20; TEMP 36.8–37.3; O2SAT 91–95
--- NOTE | 2022-06-20 07:00 | CA_ITS ---
Transthoracic Echocardiogram Patient (Last, First, Middle): Ki Jordan F Gender: Male Date of : 1935 Age: 86 Procedure Date: 06/20/2022 Procedure Type: Transthoracic Echocardiogram [place] [facility] [place]: 177.8 cm Weight: 70.76 kg BSA: 1.88 m2 Heart Rate: 51 bpm BP: 140 / 75 mmHg Water Quality Assistant: AMY Referring MD: Sebastián Peraza MD Symptoms: Bradycardia Study Quality: Adequate ECG Rhythm: Bradycardia Conclusions: - The left ventricular systolic function is mildly decreased. The calculated ejection fraction is 51% by biplane method. - No obvious valvular pathology seen on this study. - Mild pulmonary hypertension is present. - The inferior vena cava is mildly dilated and collapses less than 50% with inspiration. Findings Procedure Information The study quality is limited by the patients inability to tolerate the test. Left Ventricle Mildly increased left ventricular cavity size. There is normal left ventricular wall thickness. The left ventricular systolic function is mildly decreased. The calculated ejection fraction is 51% by biplane method. There is mild global hypokinesis. E/E prime ratio is between 8 and 15 consistent with indeterminate filling pressures. Evidence suggests grade I (mild) diastolic dysfunction. Right Ventricle Normal right ventricular cavity size and systolic function. Atria Both atria are normal in size. Aortic Valve There is a normal trileaflet aortic valve. There is mild calcification of the aortic valve. There is no aortic valve stenosis. There is no aortic valve regurgitation. Mitral Valve The mitral valve appears normal. There is no mitral valve regurgitation. There is no mitral valve stenosis. Pulmonic Valve The pulmonic valve is likely normal. Tricuspid Valve There is mild tricuspid valve regurgitation. The right ventricular systolic pressure is 42 mmHg. Mild pulmonary hypertension is present. Great Vessels The aortic annulus and sinuses of valsalva are normal in size. Venous The inferior vena cava is mildly dilated and collapses less than 50% with inspiration. Pericardium/Pleural There is no evidence of pericardial effusion. Prior Study Comparison Changes noted compared to prior study dated: 02/15/2016. LVEF decreased. Recommendations, Care & Conclusions No obvious valvular pathology seen on this study. Measurements 2D Linear Measurements IVSd: 0.97 0.6-0.9/0.6-1.0 cm LVIDd: 5.63 3.9-5.3/4.2-5.9 cm LVIDd Index: 2.99 2.4-3.2/2.2-3.1 cm/m2 LVIDs: 4.41 2.0-3.6 cm LVPWd: 0.66 0.7-1.1 cm LA Diam: 3.70 2.7-3.8/3.0-4.0 cm LAIDs Index: 1.97 1.5-2.3 cm/m2 LV Mass: 212.04 67-162/88-224 g LV Mass Index: 112.79 43-95/49-115 g/m2 LVOT Diam: 2.40 3.0+(-)1.3 cm 2D Systolic Function EF 4C: 42.20 >55% EF 2C: 58.80 >55% EF BiP: 50.50 >55% Mitral Valve MV Pk E: 0.53 MV PK A: 0.52 MV Decel Time: 259.00 E/A: 1.00 E'Lateral: 4.35 E'Medial: 4.46 E/E' Med: 11.80 E/E' Lat: 12.10 PHT: 76.00 MVA PHT: 2.89 Decel [place]: 2.03 Aortic Valve AoV Pk Edgar: 1.17 AoV Mn Edgar: 0.73 AoV VTI: 0.24 AoV Pk Grad: 5.00 Aov Mn Grad: 2.00 CHELO Cont.VTI: 3.32 LVOT LVOT Pk Edgar: 0.83 LVOT Mn Edgar: 0.51 LVOT VTI: 0.18 LVOT Pk Grad: 3.00 LVOT Mn Grad: 1.00 LVOT Diam: 2.40 LVOT Area: 4.52 Diastolic Function MV Pk E: 0.53 MV Pk A: 0.52 E/A: 1.00 E'Medial: 4.46 E/E' Med: 11.80 E' Laterial: 4.35 E/E' Lat: 12.10 Right Ventricle TAPSE (mm): 22.60 TVS' Edgar: 11.60 Tricuspid Valve TR Pk Edgar: 2.59 TR Pk Grad: 27.00 RA Press: 15.00 RVSP: 42.00 Great Vessels Aorta Sinus of Valsalva: 3.50 2.0-3.5 cm Pulmonary Valve PV Pk Edgar: 0.87 Peak PV Grad: 3.00 Updated in Other Vendor System with Status of Final London Huff MD electronically signed on 06/20/2022 11:47:24 AM with status of Final
--- NOTE | 2022-06-20 10:04 | PM.PNCARD ---
Subjective Subjective Date of Service: 06/20/22 Interval history: He states that he feels okay. No new complaints from cardiac. Review of Systems Review of Systems Yes all other systems are reviewed and are negative Constitutional: Reports as per HPI and Reports no additional constitutional complaints Eyes: Reports as per HPI and Denies no additional eye complaints Denies system reviewed and no additional complaints, except as documented and Reports as per HPI Cardiovascular: Reports as per HPI, Reports no additional cardiovascular complaints, Denies acrocyanosis, Denies cool extremities, Denies chest pain, Denies leg edema, Denies lightheadedness, Denies palpitations and Denies dyspnea Respiratory: Reports as per HPI, Denies no additional respiratory complaints and Denies dyspnea Gastrointestinal: Reports as per HPI and Denies no additional gastrointestinal complaints Genitourinary: Reports no additional male genitourinary complaints and Reports as per HPI Musculoskeletal: Reports no additional musculoskeletal complaints and Reports as per HPI Skin/Breast: Reports system reviewed and no additional complaints, except as docu Reports system reviewed and no additional complaints, except as documented and Reports as per HPI Psychiatric: Reports no additional psychiatric complaints and Reports as per HPI Endocrine: Reports no additional endocrine complaints, Reports as per HPI and Denies palpitations Hematologic/Lymphatic: Reports no additional hematologic/lymphatic complaints and Reports as per HPI Allergic/Immunologic: Reports no additional allergic/immunologic complaints and Reports as per HPI Physical Exam Vital Signs: Last Vital Signs Temp 98.3 F 06/20/22 08:00 Pulse 56 06/20/22 08:00 Resp 20 06/20/22 08:00 BP 164/76 H 06/20/22 08:00 Pulse Ox 95 06/20/22 08:00 O2 Del Method Room Air 06/20/22 08:00 BMI result Body Mass Index 22.4 Const General: comfortable and no acute distress Orientation/consciousness: patient oriented x3 HEENT Other: Unremarkable Head: Yes normal to inspection Neck Neck: Yes normal visual inspection Chest Chest palpation & inspection: normal inspection of the chest Resp Auscultation: clear to auscultation bilaterally Cardio Palpation: normal PMI Heart sounds: S1 normal heart sound present, S2 normal heart sound present, no gallops, no murmurs and no rubs GI Palpation (GI): Soft to palpation Back/Spine/Pelvis Other: unremarkable Skin General skin exam: no rashes or lesions noted Neuro General: patient oriented x3 Extrem General: Yes normal to inspection Psych Mental Status: mental status grossly normal Objective Labs and Meds 06/19/22 06:18 06/19/22 06:19 Progress Note: A&P Assessment and plan (1) Sick sinus syndrome: Status: Acute (2) Fall: Status: Acute (3) Bradycardia: Status: Acute Plan Per discussion with Dr. Peraza, patient needs to be scheduled for a pacemaker. He has already discussed with Dr. Fitzpatrick who will be implanting the pacemaker today. Currently patient denies any acute symptoms but based on presenting history as well as documentation, seems that he has a history of frequent falls/lightheadedness. Thought to be from poor cardiac output as was also AK and elevated troponins. Hence may proceed as planned. Discussed with hospitalist. Time Spent With Patient Time: Total time managing care of this patient today ____ minutes. Progress Note: Quality Stroke Does the patient have a stroke diagnosis?: No Procedures Date of Service Date of Service: 06/20/22
[2022-06-20] MEDS: Prazosin HCL 5 MG CAPSULE PO ×2 (10:12→21:06)
[2022-06-20] MEDS: Cholecalciferol (Vitamin D3) 25 MCG TABLET PO (10:12)
[2022-06-20] MEDS: Aspirin 81 MG TAB.CHEW PO (10:12)
[2022-06-20] MEDS: amLODIPine Besylate 5 MG TABLET PO (10:12)
[2022-06-20] MEDS: 0.9 % Sodium Chloride 1,000 ML 100 ML IVCONT (10:13)
[2022-06-20] MEDS: oxyBUTYnin chloride ER 5 MG TAB.ER.24 10 MG PO (10:13)
--- NOTE | 2022-06-20 10:20 | P.PNIM_ITS ---
Subjective Subjective Date of Service: 06/20/22 Interval History: f/u on fall, janet elevated trop and bradycardia no syncope, no pause on tele Physical Exam Vital Signs: Vital Signs: Last Vital Signs Temp 98.3 F 06/20/22 08:00 Pulse 56 06/20/22 08:00 Resp 20 06/20/22 08:00 BP 164/76 H 06/20/22 08:00 Pulse Ox 95 06/20/22 08:00 O2 Del Method Room Air 06/20/22 08:00 BMI result Body Mass Index 22.4 Const: Other: General: AO X 3, no acute distress Resp: CTA bilateral CVS: S1,S2,RRR GI: +BS, NT, no distention Skin: No rash Neuro: motor grossly intact Psych: appropriate affect Objective Data Active Medications Acetaminophen (Acetaminophen 325 Mg Tablet) 650 mg PO Q6H PRN PRN Reason: Pain, Mild (Pain Scale 1-3) Amlodipine Besylate (Amlodipine Besylate 5 Mg Tablet) 5 mg PO DAILY [facility]; Protocol Last Admin: 06/20/22 10:12 Dose: 5 mg Documented By: MARILOU Aspirin (Aspirin 81 Mg Tab.Chew) 81 mg PO DAILY [facility] Last Admin: 06/20/22 10:12 Dose: 81 mg Documented By: MARILOU Atorvastatin Calcium (Atorvastatin Calcium 40 Mg Tablet) 40 mg PO BEDTIME [facility] Last Admin: 06/19/22 20:04 Dose: 40 mg Documented By: FRANK Docusate Sodium (Docusate Sodium 100 Mg Capsule) 100 mg PO DAILY PRN PRN Reason: Constipation Doxazosin Mesylate (Doxazosin Mesylate 2 Mg Tablet) 8 mg PO BEDTIME [facility] Last Admin: 06/19/22 20:03 Dose: 8 mg Documented By: FRANK Sodium Chloride (Ns) 1,000 mls @ 100 mls/hr IVCONT .Q10H [facility] Last Admin: 06/20/22 10:13 Dose: 100 mls/hr Documented By: MARILOU Cefazolin Sodium/Dextrose (Ancef) 2 gm in 50 mls @ 100 mls/hr IV PREOP ONE Stop: 06/21/22 10:19 Fesoterodine 8 Mg Tablet Extended Release 24 Hr 8 mg PO DAILY [facility] Last Admin: 06/20/22 10:13 Dose: 8 mg Documented By: MARILOU Ondansetron HCl (Ondansetron Hcl 4 Mg/2 Ml Vial) 4 mg IVPUSH Q8H PRN PRN Reason: Nausea and Vomiting Oxybutynin Chloride (Oxybutynin Chloride Er 5 Mg Tab.Er.24) 10 mg PO DAILY [facility] Last Admin: 06/20/22 10:13 Dose: 10 mg Documented By: MARILOU Pharmacy Consult (Consult Rx Perform Med Rec) 1 each MISCELLANE ONCE PRN PRN Reason: Consult order Prazosin HCl (Prazosin Hcl 5 Mg Capsule) 5 mg PO BID [facility]; Protocol Last Admin: 06/20/22 10:12 Dose: 5 mg Documented By: MARILOU Sodium Chloride (0.9 % Sodium Chloride Flush 3 Ml Syringe) 3 ml IVFLUSH QSHIFT [facility] Last Admin: 06/20/22 01:54 Dose: Not Given Documented By: FRANK Non-Admin Reason: IV Running Vitamin D (Cholecalciferol (Vitamin D3) 25 Mcg Tablet) 25 mcg PO DAILY [facility] Last Admin: 06/20/22 10:12 Dose: 25 mcg Documented By: MARILOU Labs 06/19/22 06:18 06/19/22 06:19 Assessment and Plan (1) Sick sinus syndrome: Status: Acute Plan 86-year-old male with history of stroke with resultant dysarthria and recurrent falls who presents to the emergency department with fall found to have JANET and elevated troponin bradycardiad d/t sick sinus syndrome, no sinus pause but HR in 30s 40 and likely causing recurrent falls plan for permanent pace maker JANET on CKD3, Cr 1.42 today, close to baseline follow renal function, DC IVF Vomiting thinks r/t bad fish he ate. no abdominal pain seems to have resolved elevated troponin no chest pain new t wave inversions V4-v6 tele monitoring cardiology eval pending leukocytosis afebrile.? No obvious source of infection resolved without Abx Acute on chronic normocytic anemia dark material around mouth and slight drop in H/H denies overt bleeding but overall not a great historian will check stool occult, H/H unchanged Fall seems mechanical. no syncope. doubt r/t to bradycardia as this appears chronic PT rec STR last admission but pt declined multiple admissions for falls PT eval before discharge dvt ppx - mechanical devices until GI bleed ruled out HCP - HCP form from previous admission indicates Tanvi Quintanilla as HCP CODE status - full code need for inpatient:Bradycardia that needs pacemaker Time Spent With Patient Time: Total time managing care of this patient today ____ minutes. Quality Stroke Does the patient have a stroke diagnosis?: No VTE Prior VTE?: No VTE Risk Level:: Medical - moderate - high VTE Device Contraindication: N/A - Device Ordered VTE Drug Contraindication: Treatment Not Indicated
[2022-06-20] MEDS: 0.9 % Sodium Chloride Flush 3 ML SYRINGE IVFLUSH (11:04)
--- NOTE | 2022-06-20 13:35 | MHC.CM.PN ---
per rounds pt will have a pacemaker tomorrow plan remains homei
--- NOTE | 2022-06-20 14:42 | P.CONCC_ITS ---
Note reviewed for pre-anesthetic review History of Present Illness Data of Consult Service Date: 06/20/22 Requesting physician: Sebastián Peraza Primary Care Provider: Dontrell Dougherty MD HPI Reason for consult: symptomatic jonathan/ycardia underlying bifascicular block/ near-syncope 86-year-old male no other prior cardiac history no history of ischemic heart disease been noticing episodes of weakness and and dizziness with near syncope heart rate dropping periodically with symptom into the 30s but underlying normal sinus rhythm and bifascicular block Also signs of frequent falling his EKG had but just minor nonspecific ST-T changes compared to 2 weeks earlier with T-wave inversion V4 to V6 he has got the underlying left axis and right intraventricular conduction defect and by echo he has just got mild reduction of systolic reserve ejection fraction approximating 50% without segmental wall motion abnormality but some mild diffuse issue and he has acute renal insufficiency with BUN and creatinine of 69/2 empirically Review of Systems Review of Systems: Yes all other systems are reviewed and are negative PMFSH Past Medical History Medical History Bladder outlet obstruction Bradycardia CKD (chronic kidney disease), stage III CVA (cerebral vascular accident) (~2016) Hypertension Incidental pulmonary nodule Left-sided weakness Right inguinal pain Swallowing problem Urinary frequency Vitamin D deficiency Surgical History Surgical History History of knee replacement History of surgery Social History Social History Household Members: None Housing: Apartment Do you presently have visiting nurse or other home services: Yes Alcohol intake: never Patient Tobacco Use Status: Current someday Tobacco user Tobacco use type: Cigarette Cigarette Packs Per Day: 0.5 Cigarettes Per Day: 1 Years Smoked: 60 e-Cigarette/Vaping Use: Never Used Second Hand Smoke Exposure: Yes Advance Directives Date on File: 06/06/22 service: No Current occupational status: retired Cognitive needs: No Hearing needs: No Vision needs: Yes Meds Allergies Allergy/AdvReac Type Severity Reaction Status Date / Time No Known Allergies Allergy Verified 06/09/22 09:12 [No Known Allergies*] Active Medications: Current Medications Acetaminophen (Acetaminophen 325 Mg Tablet) 650 mg PO Q6H PRN PRN Reason: Pain, Mild (Pain Scale 1-3) Amlodipine Besylate (Amlodipine Besylate 5 Mg Tablet) 5 mg PO DAILY [facility]; Protocol Last Admin: 06/20/22 10:12 Dose: 5 mg Aspirin (Aspirin 81 Mg Tab.Chew) 81 mg PO DAILY [facility] Last Admin: 06/20/22 10:12 Dose: 81 mg Atorvastatin Calcium (Atorvastatin Calcium 40 Mg Tablet) 40 mg PO BEDTIME [facility] Last Admin: 06/19/22 20:04 Dose: 40 mg Docusate Sodium (Docusate Sodium 100 Mg Capsule) 100 mg PO DAILY PRN PRN Reason: Constipation Doxazosin Mesylate (Doxazosin Mesylate 2 Mg Tablet) 8 mg PO BEDTIME [facility] Last Admin: 06/19/22 20:03 Dose: 8 mg Sodium Chloride (Ns) 1,000 mls @ 100 mls/hr IVCONT .Q10H [facility] Last Admin: 06/20/22 10:13 Dose: 100 mls/hr Cefazolin Sodium/Dextrose (Ancef) 2 gm in 50 mls @ 100 mls/hr IV PREOP ONE Stop: 06/21/22 10:19 Fesoterodine 8 Mg Tablet Extended Release 24 Hr 8 mg PO DAILY [facility] Last Admin: 06/20/22 10:13 Dose: 8 mg Ondansetron HCl (Ondansetron Hcl 4 Mg/2 Ml Vial) 4 mg IVPUSH Q8H PRN PRN Reason: Nausea and Vomiting Oxybutynin Chloride (Oxybutynin Chloride Er 5 Mg Tab.Er.24) 10 mg PO DAILY [facility] Last Admin: 06/20/22 10:13 Dose: 10 mg Pharmacy Consult (Consult Rx Perform Med Rec) 1 each MISCELLANE ONCE PRN PRN Reason: Consult order Prazosin HCl (Prazosin Hcl 5 Mg Capsule) 5 mg PO BID [facility]; Protocol Last Admin: 06/20/22 10:12 Dose: 5 mg Sodium Chloride (0.9 % Sodium Chloride Flush 3 Ml Syringe) 3 ml IVFLUSH QSHIFT [facility] Last Admin: 06/20/22 11:04 Dose: 3 ml Vitamin D (Cholecalciferol (Vitamin D3) 25 Mcg Tablet) 25 mcg PO DAILY [facility] Last Admin: 06/20/22 10:12 Dose: 25 mcg Home Medications Medication Instructions Recorded Confirmed Last Taken Type oxybutynin chloride 10 mg 1 tab PO DAILY 06/03/22 06/18/22 06/17/22 History tablet,extended release 24 hr prazosin 5 mg capsule 5 mg PO BID 06/18/22 06/18/22 06/17/22 History Physical Exam Vital Signs: Vital Signs: Last Vital Signs Temp 98.9 F 06/20/22 11:17 Pulse 53 06/20/22 11:17 Resp 17 06/20/22 11:17 BP 159/81 H 06/20/22 11:17 Pulse Ox 94 06/20/22 11:17 O2 Del Method Room Air 06/20/22 11:17 BMI result Body Mass Index 22.4 Awake alert and appropriate and nonfocal neurologically Abdomen soft with no organomegaly Chest is clear with no accessory muscle or diaphragm effort Cardiac exam as described by bedside echo Results Labs 06/19/22 06:18 06/19/22 06:19 Assessment and Plan (1) Sick sinus syndrome: Status: Acute (2) Acute renal failure: Status: Acute (3) Elevated troponin: Status: Acute (4) Fall: Status: Acute (5) Head injury: Status: Acute (6) CVA (cerebral vascular accident): Qualifiers: CVA mechanism: unspecified Qualified Code(s): I63.9 - Cerebral infarction, unspecified Status: Acute (7) UTI (urinary tract infection): Qualifiers: Urinary tract infection type: site unspecified Hematuria presence: without hematuria Qualified Code(s): N39.0 - Urinary tract infection, site not specified Status: Acute (8) Vitamin D deficiency: Status: Acute (9) Benign essential hypertension: Status: Acute (10) CKD (chronic kidney disease), stage III: Qualifiers: Chronic kidney disease stage 3 subtype: unspecified whether 3a or 3b Qualified Code(s): N18.30 - Chronic kidney disease, stage 3 unspecified Status: Acute (11) Near syncope: Status: Acute Plan So it appears with his acute renal insufficiency along with the circumstances surrounding his falls and is progressive weakness that this is a manifestation of symptomatic bradycardia and as such permanent dual-chamber pacing is probably called for it will be somewhat empiric but data seems to be sufficient and prove the putting would be diuresis and improvement in renal function initially and then of course symptomatic improvement once he is on his feet Time Spent With Patient Time: Total time managing care of this patient today _35___ minutes.
[2022-06-20] MEDS: Atorvastatin Calcium 40 MG TABLET PO (21:06)
[2022-06-20] MEDS: Doxazosin Mesylate 2 MG TABLET 8 MG PO (21:06)
[2022-06-21] VITALS (9 sets, daily range): BP systolic 131–182; BP diastolic 62–83; PULSE 52–70; RESP 12–20; TEMP 37–37.5; O2SAT 95–97; BMI 22.4
[2022-06-21] MEDS: Prazosin HCL 5 MG CAPSULE PO ×2 (08:08→21:09)
[2022-06-21] MEDS: amLODIPine Besylate 5 MG TABLET PO (08:08)
--- NOTE | 2022-06-21 09:22 | P.PNIM_ITS ---
Subjective Subjective Date of Service: 06/21/22 Interval History: f/u on fall, janet elevated trop and bradycardia no syncope, no pause on tele, HR 50s overnight Physical Exam Vital Signs: Vital Signs: Last Vital Signs Temp 98.9 F 06/21/22 07:33 Pulse 55 06/21/22 07:33 Resp 20 06/21/22 07:33 BP 174/62 H 06/21/22 07:33 Pulse Ox 96 06/21/22 07:33 O2 Del Method Room Air 06/21/22 07:33 BMI result Body Mass Index 22.4 Const: Other: General: AO X 3, no acute distress Resp: CTA bilateral CVS: S1,S2,RRR GI: +BS, NT, no distention Skin: No rash Neuro: motor grossly intact Psych: appropriate affect Objective Data Active Medications Acetaminophen (Acetaminophen 325 Mg Tablet) 650 mg PO Q6H PRN PRN Reason: Pain, Mild (Pain Scale 1-3) Amlodipine Besylate (Amlodipine Besylate 5 Mg Tablet) 5 mg PO DAILY [facility]; Protocol Last Admin: 06/21/22 08:08 Dose: 5 mg Documented By: SHAHIDA Aspirin (Aspirin 81 Mg Tab.Chew) 81 mg PO DAILY [facility] Last Admin: 06/21/22 08:13 Dose: Not Given Documented By: SHAHIDA Non-Admin Reason: pt. going for pacemaker Atorvastatin Calcium (Atorvastatin Calcium 40 Mg Tablet) 40 mg PO BEDTIME [facility] Last Admin: 06/20/22 21:06 Dose: 40 mg Documented By: FRANK Docusate Sodium (Docusate Sodium 100 Mg Capsule) 100 mg PO DAILY PRN PRN Reason: Constipation Doxazosin Mesylate (Doxazosin Mesylate 2 Mg Tablet) 8 mg PO BEDTIME [facility] Last Admin: 06/20/22 21:06 Dose: 8 mg Documented By: FRANK Cefazolin Sodium/Dextrose (Ancef) 2 gm in 50 mls @ 100 mls/hr IV PREOP ONE Stop: 06/21/22 10:19 Fesoterodine 8 Mg Tablet Extended Release 24 Hr 8 mg PO DAILY [facility] Last Admin: 06/21/22 08:15 Dose: Not Given Documented By: SHAHIDA Non-Admin Reason: NPO Ondansetron HCl (Ondansetron Hcl 4 Mg/2 Ml Vial) 4 mg IVPUSH Q8H PRN PRN Reason: Nausea and Vomiting Oxybutynin Chloride (Oxybutynin Chloride Er 5 Mg Tab.Er.24) 10 mg PO DAILY [facility] Last Admin: 06/21/22 08:15 Dose: Not Given Documented By: SHAHIDA Non-Admin Reason: NPO Pharmacy Consult (Consult Rx Perform Med Rec) 1 each MISCELLANE ONCE PRN PRN Reason: Consult order Prazosin HCl (Prazosin Hcl 5 Mg Capsule) 5 mg PO BID [facility]; Protocol Last Admin: 06/21/22 08:08 Dose: 5 mg Documented By: SHAHIDA Sodium Chloride (0.9 % Sodium Chloride Flush 3 Ml Syringe) 3 ml IVFLUSH QSHIFT [facility] Last Admin: 06/21/22 08:08 Dose: Not Given Documented By: SHAHIDA Non-Admin Reason: IV Running Vitamin D (Cholecalciferol (Vitamin D3) 25 Mcg Tablet) 25 mcg PO DAILY [facility] Last Admin: 06/21/22 08:14 Dose: Not Given Documented By: SHAHIDA Non-Admin Reason: NPO Labs 06/19/22 06:18 06/19/22 06:19 Assessment and Plan (1) Sick sinus syndrome: Status: Acute (2) Acute renal failure: Status: Acute Plan 86-year-old male with history of stroke with resultant dysarthria and recurrent falls who presents to the emergency department with fall found to have JANET and elevated troponin bradycardiad d/t sick sinus syndrome, no sinus pause but HR in 30s 40 and likely causing recurrent falls plan for permanent pace maker today JANET on CKD3, Cr 1.42 today, close to baseline follow renal function, DC IVF Vomiting thinks r/t bad fish he ate. no abdominal pain seems to have resolved elevated troponin no chest pain new t wave inversions V4-v6 tele monitoring likely related to bradycardia no further testing leukocytosis afebrile.? No obvious source of infection resolved without Abx Acute on chronic normocytic anemia dark material around mouth and slight drop in H/H denies overt bleeding but overall not a great historian will check stool occult, H/H unchanged Fall--concern that related to bradycardia given recurrent episodes dvt ppx - mechanical devices until GI bleed ruled out HCP - HCP form from previous admission indicates Tanvi Quintanilla as HCP CODE status - full code need for inpatient:Bradycardia that needs pacemaker Time Spent With Patient Time: Total time managing care of this patient today ____ minutes. Quality Stroke Does the patient have a stroke diagnosis?: No VTE Prior VTE?: No VTE Risk Level:: Medical - moderate - high VTE Device Contraindication: N/A - Device Ordered VTE Drug Contraindication: Treatment Not Indicated
--- NOTE | 2022-06-21 10:07 | P.CONAN_ITS ---
HPI - Anesthesia Eval Consult details Narrative: 86 [facility] Active Problems Active Problems: All Active Problems (Updated 06/19/22 @ 12:01 by Sebastián Peraza MD) Sick sinus syndrome (Acute) Acute renal failure (Acute) Elevated troponin (Acute) Fall (Acute) Head injury (Acute) CVA (cerebral vascular accident) (Acute ~2016) UTI (urinary tract infection) (Acute) Vitamin D deficiency (Acute) Pre-operative clearance (Acute) Macular degeneration of both eyes (Acute) Preoperative examination (Acute) Pure hypercholesterolemia (Acute) Benign essential hypertension (Acute) Impacted cerumen of both ears (Acute) CKD (chronic kidney disease), stage III (Acute) Bradycardia (Acute) Fall (Acute) Hypertension (Acute) Bladder outlet obstruction (Acute) Urinary frequency (Acute) Prostate cancer (Acute) Past Medical History Medical History Bladder outlet obstruction Bradycardia CKD (chronic kidney disease), stage III CVA (cerebral vascular accident) (~2015) Hypertension Incidental pulmonary nodule Left-sided weakness Right inguinal pain Swallowing problem Urinary frequency Vitamin D deficiency Family History Family history of problems with anesthesia: No Surgical History Surgical History History of knee replacement History of surgery History of Problems with Anesthesia: No Social History Social History Household Members: None Housing: Apartment Do you presently have visiting nurse or other home services: Yes Alcohol intake: never Patient Tobacco Use Status: Current someday Tobacco user Tobacco use type: Cigarette Cigarette Packs Per Day: 0.5 Cigarettes Per Day: 1 Years Smoked: 60 e-Cigarette/Vaping Use: Never Used Second Hand Smoke Exposure: Yes Advance Directives Date on File: 06/06/22 service: No Current occupational status: retired Cognitive needs: No Hearing needs: No Vision needs: Yes Meds Allergies Allergy/AdvReac Type Severity Reaction Status Date / Time No Known Allergies Allergy Verified 06/09/22 09:12 [No Known Allergies*] Active Medications: Current Medications Acetaminophen (Acetaminophen 325 Mg Tablet) 650 mg PO Q6H PRN PRN Reason: Pain, Mild (Pain Scale 1-3) Amlodipine Besylate (Amlodipine Besylate 5 Mg Tablet) 5 mg PO DAILY [facility]; P rotocol Last Admin: 06/21/22 08:08 Dose: 5 mg Aspirin (Aspirin 81 Mg Tab.Chew) 81 mg PO DAILY [facility] Last Admin: 06/21/22 08:13 Dose: Not Given Atorvastatin Calcium (Atorvastatin Calcium 40 Mg Tablet) 40 mg PO BEDTIME [facility] Last Admin: 06/20/22 21:06 Dose: 40 mg Docusate Sodium (Docusate Sodium 100 Mg Capsule) 100 mg PO DAILY PRN PRN Reason: Constipation Doxazosin Mesylate (Doxazosin Mesylate 2 Mg Tablet) 8 mg PO BEDTIME [facility] Last Admin: 06/20/22 21:06 Dose: 8 mg Cefazolin Sodium/Dextrose (Ancef) 2 gm in 50 mls @ 100 mls/hr IV PREOP ONE Stop: 06/21/22 10:19 Fesoterodine 8 Mg Tablet Extended Release 24 Hr 8 mg PO DAILY [facility] Last Admin: 06/21/22 08:15 Dose: Not Given Ondansetron HCl (Ondansetron Hcl 4 Mg/2 Ml Vial) 4 mg IVPUSH Q8H PRN PRN Reason: Nausea and Vomiting Oxybutynin Chloride (Oxybutynin Chloride Er 5 Mg Tab.Er.24) 10 mg PO DAILY [facility] Last Admin: 06/21/22 08:15 Dose: Not Given Pharmacy Consult (Consult Rx Perform Med Rec) 1 each MISCELLANE ONCE PRN PRN Reason: Consult order Prazosin HCl (Prazosin Hcl 5 Mg Capsule) 5 mg PO BID [facility]; Protocol Last Admin: 06/21/22 08:08 Dose: 5 mg Sodium Chloride (0.9 % Sodium Chloride Flush 3 Ml Syringe) 3 ml IVFLUSH QSHIFT [facility] Last Admin: 06/21/22 08:08 Dose: Not Given Vitamin D (Cholecalciferol (Vitamin D3) 25 Mcg Tablet) 25 mcg PO DAILY [facility] Last Admin: 06/21/22 08:14 Dose: Not Given Home Medications Medication Instructions Recorded Confirmed Last Taken Type oxybutynin chloride 10 mg 1 tab PO DAILY 06/03/22 06/18/22 06/17/22 History tablet,extended release 24 hr prazosin 5 mg capsule 5 mg PO BID 06/18/22 06/18/22 06/17/22 History Exam Exam Date and Time: June 21, 2022 1007 Height,Weight and Vital Signs: Height 5 ft 10 in Weight 156 lb 4.924 oz Last Vital Signs Temp 99.5 F 06/21/22 09:25 Pulse 52 06/21/22 09:25 Resp 18 06/21/22 09:25 BP 170/74 H 06/21/22 09:25 Pulse Ox 97 06/21/22 09:25 O2 Del Method Room Air 06/21/22 09:25 Pertinent Lab Results Pertinent Lab Results: Laboratory Tests 06/18/22 06/18/22 06/18/22 11:32 11:32 11:32 WBC 13.5 H RBC 3.30 L Hgb 10.7 L Hct 32.6 L MCV 98.8 H MCH 32.4 MCHC 32.8 RDW 13.2 Plt Count 160 D MPV 9.6 Immature Gran % (Auto) 0.5 H Neut % (Auto) 87.2 H Lymph % (Auto) 7.1 L [place] % (Auto) 5.0 Eos % (Auto) 0.1 Baso % (Auto) 0.1 Lymph # (Auto) 1.0 L [place] # (Auto) 0.7 Eos # (Auto) 0.0 Baso # (Auto) 0.0 Abs Immat Gran (auto) 0.07 H Absolute Neuts (auto) 11.7 H Absolute Nucleated RBC 0.000 Nucleated RBC % (auto) 0.0 Sodium 142 Potassium 4.2 Chloride 105 Carbon Dioxide 28 Anion Gap 13 BUN 69 H Creatinine 2.12 H Estim Creat Clear Calc 25.6 Estimated GFR 30 Random Glucose 99 Calcium 9.0 Total Bilirubin 1.2 H AST 215 H ALT 72 H Alkaline Phosphatase 89 Total Creatine Kinase 9780 H Troponin I High Sens 217.6 H* Total Protein 5.8 L Albumin 3.4 L COVID-19 ([facility]) COVID-19 Clin Com Blood Type 06/18/22 06/18/22 06/19/22 12:51 15:38 06:18 WBC 8.1 RBC 3.11 L Hgb 10.1 L Hct 32.0 L MCV 102.9 H MCH 32.5 MCHC 31.6 RDW 13.6 Plt Count 147 L MPV 10.6 Immature Gran % (Auto) Neut % (Auto) Lymph % (Auto) [place] % (Auto) Eos % (Auto) Baso % (Auto) Lymph # (Auto) [place] # (Auto) Eos # (Auto) Baso # (Auto) Abs Immat Gran (auto) Absolute Neuts (auto) Absolute Nucleated RBC 0.000 Nucleated RBC % (auto) 0.0 Sodium Potassium Chloride Carbon Dioxide Anion Gap BUN Creatinine Estim Creat Clear Calc Estimated GFR Random Glucose Calcium Total Bilirubin AST ALT Alkaline Phosphatase Total Creatine Kinase Troponin I High Sens 188.5 H* Total Protein Albumin COVID-19 ([facility]) Negative COVID-19 Clin Com See Note Blood Type 06/19/22 06/21/22 06:19 09:44 WBC RBC Hgb Hct MCV MCH MCHC RDW Plt Count MPV Immature Gran % (Auto) Neut % (Auto) Lymph % (Auto) [place] % (Auto) Eos % (Auto) Baso % (Auto) Lymph # (Auto) [place] # (Auto) Eos # (Auto) Baso # (Auto) Abs Immat Gran (auto) Absolute Neuts (auto) Absolute Nucleated RBC Nucleated RBC % (auto) Sodium 142 Potassium 4.0 Chloride 110 H Carbon Dioxide 25 Anion Gap 11 L BUN 56 H Creatinine 1.42 H Estim Creat Clear Calc 38.1 Estimated GFR 47 Random Glucose 90 Calcium 8.3 L D Total Bilirubin AST ALT Alkaline Phosphatase Total Creatine Kinase Troponin I High Sens Total Protein Albumin COVID-19 ([facility]) COVID-19 Clin Com Blood Type B Positive Airway Mallampati Class: IV TM Dist: >3cm Neck ROM: Full Denture: Upper and Lower Assessment and Plan Assessment Anesthesia Assessment: Anesthesia Plan Discussed and Chart Reviewed Final Anesthetic Review Family History of Problems with Anesthesia: No History of Problems with Anesthesia: No NPO: Yes ASA Class: IV Final Preanesthetic Review: No Changes in Pt Med Stat, Meds/Allgs Chart Reviewed, Consent Obtained/Reviewed and Anes Risks/Benef Reviewed Patient Risk: High Procedure Risk: Intermediate Anesthetic Plan Anesthetic Plan: MAC: Disposition: Standard PACU
--- NOTE | 2022-06-21 13:18 | W.PM.OPN ---
Operative Note Operative Note Date of Service: 06/21/22 Narrative: dictating for on 06/21/2022 insertion of a appetite dual-chamber permanent pacemaker for symptomatic bradycardia manifested by weakness with several near syncopal episodes documentation of heart rate dropping into the 30s 1st perform subclavian venography without complication documenting patency and normal flow and after that sterile preparation and draping in the usual fashion made incision in the skin in the subclavicular area on the left side carefully dissecting down with control of all bleeders to the prepectoral fascia partially creating a pocket along the plane of prepectoral fascia and gained then separate entry under fluoroscopic guidance x2 into the subclavian venous system without complication advancing 2 J tipped guidewires to the right atrium over which 7 [place] introduce is within placed and 1st an active fixation right ventricular lead and after failing in the apex of the right ventricle we documented going up onto the right ventricular septum in the [place] position with the pleura did the of screw deployed the device was well tethered excellent impedance of 572 Ohms with excellent injury current and sensing at 5.1 mV capture 0.75 volts so that lead was sewn and tethered to the pectoral muscle in the floor of the pocket I then passed an active fixation right atrial lead to the right atrial appendage with a screw was deployed documenting that was well tethered and with that capture was 1.2 volts sensing 2.6 mV excellent injury current with impedance of 410 Ohms so that lead was sewn in tethered to the pectoral muscle in the floor of the pocket we tested both leads at 10 volts there was no diaphragmatic capture both leads were then placed into the generator S secured and there were well tethered no change in impedance and then the lead and generator is a where were placed in the pocket and the wound was closed in 3 layers in in sterilely dressed patient was was removed awake and alert from the table without complication and brought to the recovery area and chest x-ray is pending
[2022-06-21] MEDS: 0.9 % Sodium Chloride Flush 3 ML SYRINGE IVFLUSH (16:49)
[2022-06-21] MEDS: Atorvastatin Calcium 40 MG TABLET PO (21:09)
[2022-06-21] MEDS: Doxazosin Mesylate 2 MG TABLET 8 MG PO (21:09)
[2022-06-22] VITALS (10 sets, daily range): BP systolic 139–184; BP diastolic 64–83; PULSE 60–76; RESP 14–20; TEMP 36.6–37.4; O2SAT 94–100
--- NOTE | 2022-06-22 09:39 | PM.PNCARD ---
Subjective Subjective Date of Service: 06/22/22 Interval history: Patient states he feels okay. Underwent pacemaker as today. Review of Systems Review of Systems Yes all other systems are reviewed and are negative Constitutional: Reports as per HPI and Reports no additional constitutional complaints Eyes: Reports as per HPI and Denies no additional eye complaints Denies system reviewed and no additional complaints, except as documented and Reports as per HPI Cardiovascular: Reports as per HPI, Reports no additional cardiovascular complaints, Denies acrocyanosis, Denies cool extremities, Denies chest pain, Denies leg edema, Denies lightheadedness, Denies palpitations and Denies dyspnea Respiratory: Reports as per HPI, Denies no additional respiratory complaints and Denies dyspnea Gastrointestinal: Reports as per HPI and Denies no additional gastrointestinal complaints Genitourinary: Reports no additional male genitourinary complaints and Reports as per HPI Musculoskeletal: Reports no additional musculoskeletal complaints and Reports as per HPI Skin/Breast: Reports system reviewed and no additional complaints, except as docu Reports system reviewed and no additional complaints, except as documented and Reports as per HPI Psychiatric: Reports no additional psychiatric complaints and Reports as per HPI Endocrine: Reports no additional endocrine complaints, Reports as per HPI and Denies palpitations Hematologic/Lymphatic: Reports no additional hematologic/lymphatic complaints and Reports as per HPI Allergic/Immunologic: Reports no additional allergic/immunologic complaints and Reports as per HPI Physical Exam Vital Signs: Last Vital Signs Temp 99.0 F 06/22/22 07:33 Pulse 60 06/22/22 07:33 Resp 20 06/22/22 07:33 BP 168/74 H 06/22/22 07:33 Pulse Ox 95 06/22/22 07:33 O2 Del Method Room Air 06/22/22 07:33 O2 Flow Rate 2 06/21/22 19:25 BMI result Body Mass Index 22.4 Const General: comfortable and no acute distress Orientation/consciousness: patient oriented x3 HEENT Other: Unremarkable Head: Yes normal to inspection Neck Neck: Yes normal visual inspection Chest Chest palpation & inspection: normal inspection of the chest Resp Auscultation: clear to auscultation bilaterally Cardio Palpation: normal PMI Heart sounds: S1 normal heart sound present, S2 normal heart sound present, no gallops, no murmurs and no rubs GI Palpation (GI): Soft to palpation Back/Spine/Pelvis Other: unremarkable Skin General skin exam: no rashes or lesions noted Neuro General: patient oriented x3 Extrem General: Yes normal to inspection Psych Mental Status: mental status grossly normal Objective Labs and Meds 06/19/22 06:18 06/19/22 06:19 Lab results: Laboratory Results - last 24 hr 06/21/22 09:44 Blood Type B Positive Antibody Screen NEGATIVE Imaging Radiologist's impression: Impressions Guidance Fluoroscopy 06/21/22 12:18 IMPRESSION: Fluoroscopy was provided to referring physician for left chest pain management. Chest X-Ray 06/21/22 13:33 IMPRESSION: Postoperative chest as above. Chest X-Ray 06/22/22 05:34 IMPRESSION: Left chest wall pacer with leads over the right atrium and right ventricle. No pneumothorax. Progress Note: A&P Assessment and plan (1) Sick sinus syndrome: Status: Acute (2) Fall: Status: Acute (3) Bradycardia: Status: Acute Plan Overall, doing well. Pacemaker interrogated today and seems to be normally functioning. Chest x-ray reported to have left chest wall pacer with leads over the right atrium/right ventricle. No pneumothorax. Discussed with Dr. Fitzpatrick. According to him, may be discharged from pacemaker standpoint. Otherwise, when medically clear, discharge planning. Follow-up will be arranged. Discussed with Dr. Perla. Time Spent With Patient Time: Total time managing care of this patient today 34 minutes. This included discussion with patient, pacemaker retention representative, hospitalist, surgeon, review of chart, documentation, coordination of care, arranging follow-up. Progress Note: Quality Stroke Does the patient have a stroke diagnosis?: No Procedures Date of Service Date of Service: 06/22/22
[2022-06-22] MEDS: oxyBUTYnin chloride ER 5 MG TAB.ER.24 10 MG PO (09:45)
[2022-06-22] MEDS: amLODIPine Besylate 10 MG TABLET PO (09:46)
[2022-06-22] MEDS: Prazosin HCL 5 MG CAPSULE PO ×2 (09:46→22:20)
[2022-06-22] MEDS: Cholecalciferol (Vitamin D3) 25 MCG TABLET PO (09:46)
[2022-06-22] MEDS: Aspirin 81 MG TAB.CHEW PO (09:47)
[2022-06-22] MEDS: 0.9 % Sodium Chloride Flush 3 ML SYRINGE IVFLUSH ×3 (09:48→22:20)
[2022-06-22 10:19] LABS: Hematocrit 30.6 % (42.0-52.0); Hemoglobin 10.3 g/dl (14.0-18.0); Mean Corpuscular HGB Conc 33.7 g/dl (31.0-36.0); Mean Corpuscular Hemoglobin 33.3 pg (27.0-33.0); Mean Platelet Volume 10.6 fL (9.4-12.4); Platelet Count 142 X10*3/uL (160-400); Red Blood Count 3.09 X10*6/uL (4.60-5.80); White Blood Count 5.9 X10*3/uL (4.8-10.8)
[2022-06-22 10:36] LABS: Anion Gap 10 (12-20); Blood Urea Nitrogen 26 mg/dL (9-16); Calcium 8.1 mg/dL (8.4-10.2); Carbon Dioxide 22 mmol/L (22-29); Chloride 111 mmol/L (96-108); Creatinine Clr Calc Pharmacy 46.2; Estimated Glomerular Filt Rate 59; Glucose Random 154 mg/dL (60-115); Potassium 3.7 mmol/L (3.3-5.1); Sodium 139 mmol/L (135-145)
--- NOTE | 2022-06-22 12:03 | MHC.CM.PN ---
PT continues to strongly recommend STR but Patient is refusing. CM will follow.
[2022-06-22 12:23] LABS: Alanine Aminotransferase 38 U/L (0-40); Albumin Level 2.7 g/dL (3.5-5.0); Alkaline Phosphatase 83 U/L (39-117); Aspartate Amino Transferase 55 U/L (5-37); Bilirubin Direct 0.2 mg/dL (0.0-0.5); Bilirubin Total 0.7 mg/dL (0.0-1.0); Total Protein 4.7 g/dL (6.5-8.0)
--- NOTE | 2022-06-22 15:14 | PM.EVENT ---
Event Note Date of Service: 06/22/22 Event Note: Do not touch wound See cardiology in 2 weeks NOt wet the the pace Wash face in sink if need too Can rinse rest of body with soap and water You can drive and after 2 weeks go to your [place] Time Spent With Patient Time: Total time managing care of this patient today ____ minutes.
--- NOTE | 2022-06-22 15:16 | HO.POSTANES ---
Post Anesthesia Evaluation Post Anesthesia Evaluation Vital Signs: Vital Signs Temp Pulse Resp BP Pulse Ox O2 Del Method 06/22/22 15:07 98.0 F 70 20 158/70 H 94 Room Air 06/22/22 11:43 68 06/22/22 11:32 98.5 F 65 20 139/64 94 Room Air 06/22/22 10:18 96 Room Air 06/22/22 07:33 99.0 F 60 20 168/74 H 95 Room Air 06/22/22 03:18 99.3 F 68 15 168/70 H 95 Room Air Anesthesia: Monitored Mental Status: Awake Pain Control: Satisfactory Nausea/Vomiting: None Hydration: Adequate Anesthesia-Related Issues: No Anes. Related Issues
--- NOTE | 2022-06-22 15:31 | HO.PM.IMPN ---
Subjective Subjective Date of Service: 06/22/22 Interval History: f/u on fall, janet elevated trop and bradycardia no syncope, no pause on tele, HR is in 70s, hasd pace maker yesterday Physical Exam Vital Signs: Vital Signs: Last Vital Signs Temp 98.0 F 06/22/22 15:07 Pulse 70 06/22/22 15:07 Resp 20 06/22/22 15:07 BP 158/70 H 06/22/22 15:07 Pulse Ox 94 06/22/22 15:07 O2 Del Method Room Air 06/22/22 15:07 O2 Flow Rate 2 06/21/22 19:25 BMI result Body Mass Index 22.4 Const: Other: General: AO X 3, no acute distress Resp: CTA bilateral CVS: S1,S2,RRR GI: +BS, NT, no distention Skin: No rash Neuro: motor grossly intact Psych: appropriate affect Objective Data Active Medications Acetaminophen (Acetaminophen 325 Mg Tablet) 650 mg PO Q6H PRN PRN Reason: Pain, Mild (Pain Scale 1-3) Acetaminophen (Acetaminophen 325 Mg Tablet) 650 mg PO ONCE PRN PRN Reason: Pain, Mild (Pain Scale 1-3) Amlodipine Besylate (Amlodipine Besylate 10 Mg Tablet) 10 mg PO DAILY [facility]; Protocol Last Admin: 06/22/22 09:46 Dose: 10 mg Documented By: ISAAC Aspirin (Aspirin 81 Mg Tab.Chew) 81 mg PO DAILY [facility] Last Admin: 06/22/22 09:47 Dose: 81 mg Documented By: ISAAC Atorvastatin Calcium (Atorvastatin Calcium 40 Mg Tablet) 40 mg PO BEDTIME [facility] Last Admin: 06/21/22 21:09 Dose: 40 mg Documented By: SHAHBAZ Docusate Sodium (Docusate Sodium 100 Mg Capsule) 100 mg PO DAILY PRN PRN Reason: Constipation Doxazosin Mesylate (Doxazosin Mesylate 2 Mg Tablet) 8 mg PO BEDTIME [facility] Last Admin: 06/21/22 21:09 Dose: 8 mg Documented By: SHAHBAZ Fesoterodine 8 Mg Tablet Extended Release 24 Hr 8 mg PO DAILY [facility] Last Admin: 06/22/22 09:47 Dose: 8 mg Documented By: ISAAC Ondansetron HCl (Ondansetron Hcl 4 Mg/2 Ml Vial) 4 mg IVPUSH Q8H PRN PRN Reason: Nausea and Vomiting Oxybutynin Chloride (Oxybutynin Chloride Er 5 Mg Tab.Er.24) 10 mg PO DAILY [facility] Last Admin: 06/22/22 09:45 Dose: 10 mg Documented By: ISAAC Oxycodone HCl (Oxycodone Hcl Immed Release 5 Mg Tablet) 2.5 mg PO ONCE PRN PRN Reason: Pain, Severe (Pain Scale 7-10) Pharmacy Consult (Consult Rx Perform Med Rec) 1 each MISCELLANE ONCE PRN PRN Reason: Consult order Prazosin HCl (Prazosin Hcl 5 Mg Capsule) 5 mg PO BID [facility]; Protocol Last Admin: 06/22/22 09:46 Dose: 5 mg Documented By: ISAAC Sodium Chloride (0.9 % Sodium Chloride Flush 3 Ml Syringe) 3 ml IVFLUSH QSHIFT [facility] Last Admin: 06/22/22 09:48 Dose: 3 ml Documented By: ISAAC Vitamin D (Cholecalciferol (Vitamin D3) 25 Mcg Tablet) 25 mcg PO DAILY [facility] Last Admin: 06/22/22 09:46 Dose: 25 mcg Documented By: ISAAC Labs 06/22/22 10:07 06/22/22 10:07 Labs: Laboratory Results - last 24 hr 06/22/22 06/22/22 10:07 10:07 MCV 99.0 H MCH 33.3 H MCHC 33.7 RDW 13.0 Plt Count 142 L MPV 10.6 Absolute Nucleated RBC 0.000 Nucleated RBC % (auto) 0.0 Anion Gap 10 L Estim Creat Clear Calc 46.2 Estimated GFR 59 Random Glucose 154 H Calcium 8.1 L Total Bilirubin 0.7 Direct Bilirubin 0.2 AST 55 H ALT 38 Alkaline Phosphatase 83 Total Creatine Kinase 303 H Total Protein 4.7 L Albumin 2.7 L Assessment and Plan (1) Sick sinus syndrome: Status: Acute (2) Acute renal failure: Status: Acute Plan 86-year-old male with history of stroke with resultant dysarthria and recurrent falls who presents to the emergency department with fall found to have JANET and elevated troponin bradycardiad d/t sick sinus syndrome, no sinus pause but HR in 30s 40 and likely causing recurrent falls had pacemaker 06/21 without complicated JANET on CKD3, Cr 1.42 today, close to baseline Vomiting thinks r/t bad fish he ate. no abdominal pain seems to have resolved elevated troponin no chest pain new t wave inversions V4-v6 tele monitoring likely related to bradycardia no further testing leukocytosis afebrile.? No obvious source of infection resolved without Abx Acute on chronic normocytic anemia dark material around mouth and slight drop in H/H denies overt bleeding but overall not a great historian will check stool occult, H/H unchanged Fall--concern that related to bradycardia given recurrent episodes dvt ppx - mechanical devices until GI bleed ruled out HCP - HCP form from previous admission indicates Tanvi Quintanilla as HCP CODE status - full code need for inpatient:Bradycardia that needs pacemaker PT is recommending STR, but doesn't want to go there is serious concern about falling and possibly messing the pacemkaer, he's lucid and making his own decision, i reached out to HCP who is friend but could not reach them Time Spent With Patient Time: Total time managing care of this patient today ____ minutes. Quality Stroke Does the patient have a stroke diagnosis?: No VTE Prior VTE?: No VTE Risk Level:: Medical - moderate - high VTE Device Contraindication: N/A - Device Ordered VTE Drug Contraindication: Treatment Not Indicated
[2022-06-22] MEDS: Doxazosin Mesylate 2 MG TABLET 8 MG PO (22:19)
[2022-06-22] MEDS: Atorvastatin Calcium 40 MG TABLET PO (22:19)
[2022-06-23 03:18] VITALS: BP 161/75; PULSE 69; RESP 19; TEMP 36.6; O2SAT 94
[2022-06-23 08:00] VITALS: BP 160/70; PULSE 63; RESP 14; TEMP 36.5; O2SAT 96
[2022-06-23] MEDS: oxyBUTYnin chloride ER 5 MG TAB.ER.24 10 MG PO (08:15)
[2022-06-23] MEDS: 0.9 % Sodium Chloride Flush 3 ML SYRINGE IVFLUSH (08:15)
[2022-06-23] MEDS: amLODIPine Besylate 10 MG TABLET PO (08:16)
[2022-06-23] MEDS: Cholecalciferol (Vitamin D3) 25 MCG TABLET PO (08:16)
[2022-06-23] MEDS: Aspirin 81 MG TAB.CHEW PO (08:16)
[2022-06-23] MEDS: Prazosin HCL 5 MG CAPSULE PO (08:16)
--- NOTE | 2022-06-23 10:35 | MHC.CM.PN ---
Patient has been medically cleared for dc to STR/SNF today. Patient has chosen [facility] and he will go there today at 1PM, via [facility]. Patient and his Friend/HCP are at bedside and IMM was addressed with them (providing Patient with the original and placing a copy on the chart).
--- NOTE | 2022-06-23 10:55 | PM.DS ---
DS: Providers Provider Date of Service: 06/23/22 Date of admission: 06/18/22 15:13 Primary care physician: Dontrell Dougherty MD Consults: 06/18/22 15:17 Consult to Cardiology Routine Consulting Provider: [facility] [place] Cardiovascular Services Reason for consultation: EKG changes, elevated trop Has provider been notified: No 06/22/22 13:27 Consult to General Surgery Routine Consulting Provider: Bryanna Varela Reason for consultation: chest wall mass Has provider been notified: Yes DS: Diagnosis Discharge Diagnosis (1) Sick sinus syndrome: Status: Resolved (2) Acute renal failure: Status: Resolved (3) Elevated troponin: Status: Resolved (4) Fall: Status: Resolved (5) Head injury: Status: Resolved (6) CVA (cerebral vascular accident): Status: Inactive (7) UTI (urinary tract infection): Status: Inactive (8) Vitamin D deficiency: Status: Inactive (9) Benign essential hypertension: Status: Inactive (10) CKD (chronic kidney disease), stage III: Status: Inactive (11) Near syncope: Status: Resolved DS: Summary Hospital Course Hospital Course: Chief Complaint: Fall This is an 86-year-old male with history of stroke and residual dysarthria who presents to the emergency department after fall.? Patient has had multiple admissions for falls, as recently as last week. He was evaluated by Physical therapy at that time who recommended short-term rehab however patient declined and opted to return home with [facility].? Today he states that he was walking out of the bathroom when he lost his balance and fell down hitting his head on the door knob.? He denies any dizziness chest pain, palpitations prior to his fall.? He denies any loss of consciousness.? He has no vision changes, headache.? He was unable to get up off the floor.? His healthcare proxy came to check on him approximately 3 hours after he fell and called the ambulance.? He also states he had multiple episodes of vomiting today.? He denies any associated abdominal pain or diarrhea.? Appears to have dried, dark material in his mouth/on his tongue however he denies coffee-ground emesis.? In the emergency department workup revealed acute kidney injury with serum creatinine of 2.12,? increased from last admission.? Troponin was elevated at 217.6 but remained flat and decreasd to 188.5. His EKG did show new twave inversions in leads V4-V6. He was noted to have white count of 13.5, although no source of infection was identified. H/H has dropped somewhat since last admission but he denies any rectal bleeding. Hospital course: The patient presented with recurrent falls of unclear circumstances and was found to be bradycardic in the 30s, with [id number] renal failure, vomiting, and a mild increase in troponin I. His clinical presentation was consistent with a syncopal episode related to bradycardia, and his heart rate alternated between bradycardia in the 30s and a high heart rate. He underwent a pacemaker insertion by Dr. Fitzpatrick on 06/21/22 without complicatation. JANET on CKD3, JANET probably related to dehydration and bradycardia Vomiting thinks r/t bad fish he ate. no abdominal pain seems to have resolved leukocytosis--reactive and resolved Acute on chronic normocytic anemia--stable Fall--concern that related to bradycardia given recurrent episodes, his is very weak and unsteady and PT is recommending short term rehab. He was reluctant but is now agreale. A right chest wall mass--patient didn't want intervention at this time. Recommend further imaging on outpatient basis and may follow up with surgeon Time Spent with Patient Time attestation: Total time managing care of this patient today ____ minutes. Discharge coordination time: Greater than 30 minutes Quality: Safe Use of Opioids Does Pt have an Active Cancer Diagnosis on the Problem List?: No Quality: Stroke Does the patient have a stroke diagnosis?: No Physical Exam Vital Signs: Vital Signs: Last Vital Signs Temp 97.7 F 06/23/22 08:00 Pulse 63 06/23/22 08:00 Resp 14 06/23/22 08:00 BP 160/70 H 06/23/22 08:00 Pulse Ox 96 06/23/22 08:00 O2 Del Method Room Air 06/23/22 08:00 O2 Flow Rate 2 06/21/22 19:25 BMI result Body Mass Index 22.4 DS: Data Data Completed and Pending Labs on day of discharge: Laboratory Results - last 24 hr 06/22/22 10:07 Total Bilirubin 0.7 Direct Bilirubin 0.2 AST 55 H ALT 38 Alkaline Phosphatase 83 Total Protein 4.7 L Albumin 2.7 L Discharge Plan Discharge Anticipated Discharge Date/Time: 06/23/22 10:42 Patient Disposition: Xfer SNF Discharge Diagnosis: Sick sinues syndrome, bradycardia, acute renal failure and fall Referrals: [facility] [place] [Outside] - 1 Week Dontrell Dougherty MD [Primary Care Provider] - 1 Week Discharge Medications: Continued terazosin 10 mg capsule 10 mg PO BEDTIME Qty: 90 3RF atorvastatin 40 mg tablet 40 mg PO BEDTIME 90 Days Qty: 90 1RF oxybutynin chloride 10 mg tablet extended release 24hr 1 tab PO DAILY aspirin 81 mg Tablet,Chewable 81 mg PO DAILY Qty: 90 0RF prazosin 5 mg capsule 5 mg PO BID amlodipine 5 mg tablet 5 mg PO DAILY 90 Days Qty: 90 1RF cholecalciferol (vitamin D3) 25 mcg (1,000 unit) capsule 25 mcg PO DAILY 90 Days Qty: 90 3RF fesoterodine 8 mg tablet extended release 24 hr 8 mg PO DAILY 90 Days Qty: 90 3RF No Action cholecalciferol (vitamin D3) 25 mcg (1,000 unit) tablet 25 mcg PO DAILY Discharge Orders: Discharge Order (Routine); Ordered 06/23/22 Ordered By: Javad Perla Diet: Advance to usual diet Activity on Discharge: As tolerated Stand Alone Forms: Patient Portal Discharge page Care Plan Goals: Full recovery from fall, weakness and bradycardia Health Concerns: Falls, Bradycardia, syncope, renal failure Plan of Treatment: Do not touch the wound. You can wash your face and head in the sink but do not get the wound wet. You may rinse off with soap and water below the wound for the rest of your body. Driving is allowed. After two weeks, visit Dr. Huff, the spindraw operator, and then you can resume your normal habits. Do not raise you left hand above should level and Do not reach out the left hand to grab things Assessment: As above Discharge Date/Time: 06/23/22 13:08
[2022-06-23 11:29] VITALS: BP 172/80; PULSE 79; RESP 17; TEMP 36.3; O2SAT 98
[2022-06-23 11:34] LABS: COVID-19 Test Negative (Negative); IDNOW Serial# 08D9AD1C
== END 2022-06-23 13:08 | disposition skilled nursing facility (03) | DRG 243 ==
LOC: HO.ED 14:49 → HO.EDOVER 15:25 → HO.IMC 17:55
PROVIDERS: Internal Medicine Cardiovascular Disease; Admitting Provider Physician Assistant Medical; Emergency Provider Emergency Medicine; PCP Internal Medicine; Visit Provider Internal Medicine
PROC: 0JH606Z Insertion of Pacemaker, Dual Chamber into Chest Subcutaneous Tissue and Fascia, Open Approach (ICD-10-PCS; principal; 2022-06-21 10:00)
DX: I49.5 Sick sinus syndrome (principal); N17.9 Acute kidney failure, unspecified; N39.0 Urinary tract infection, site not specified; I69.322 Dysarthria following cerebral infarction; I12.9 Hypertensive chronic kidney disease with stage 1 through stage 4 chronic kidney disease, or unspecified chronic kidney disease; D72.829 Elevated white blood cell count, unspecified; R29.6 Repeated falls; E86.0 Dehydration; R22.2 Localized swelling, mass and lump, trunk; E55.9 Vitamin D deficiency, unspecified; Z91.81 History of falling; N18.30 Chronic kidney disease, stage 3 unspecified; D63.1 Anemia in chronic kidney disease; F17.210 Nicotine dependence, cigarettes, uncomplicated; Z71.6 Tobacco abuse counseling; Z79.82 Long term (current) use of aspirin; Z79.899 Other long term (current) drug therapy
CPT/HCPCS: 36415; 70450; 71045; 72125; 80048; 80053; 80076; 82550; 84484; 85025; 85027; 86850; 86900; 86901; 87635; 93005; 93306; 97110; 97116; 97162; 99285; C1785; C1892; C1898; J0690; J2370; J3010; Q9957; Q9965

== ENCOUNTER → 2022-06-30 13:02 | Outpatient (BNVA) | payer OTHER, MEDICARE, SELFPAY | PROVIDERS: PCP Internal Medicine; Visit Provider Nurse Practitioner Family | DX: Z45.018 Encounter for adjustment and management of other part of cardiac pacemaker (principal); I49.5 Sick sinus syndrome; I10 Essential (primary) hypertension | CPT/HCPCS: 93005; 93280; 99212 ==

== ENCOUNTER 2022-07-12 10:34 | Outpatient (AMB) | payer MEDICARE, SELFPAY ==
[2022-07-12 10:46] VITALS: BP 136/90; PULSE 67; O2SAT 99; BMI 23.1
--- NOTE | 2022-07-12 10:46 | A.OFFPC_ITS ---
Vital Signs 07/12/22 10:46 Height 5 ft 10 in Weight 160 lb 14.999 oz BMI 23.1 BP 136/90 H Blood Pressure Location Lt brachial Position Sitting Pulse 67 Pulse Source Pulse Oximeter Pulse Oximetry (%) 99 Oxygen Delivery Method Room Air Intake Visit Reasons: uncontrolled BP, TIA Intake Note: Patient is here to discuss uncontrolled BP and TIA. 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: No Accompanied by: Friend Allergies No Known Allergies (No Known Allergies*) Allergy (Verified 08/04/24 00:31) Tobacco use date assessed: 07/12/22 Fall risk assessment: 1 Fall in past year [facility] [place] Medical History Sick sinus syndrome Vitamin D deficiency Benign essential hypertension CVA (cerebral vascular accident) (~2016) CKD (chronic kidney disease), stage III Urinary frequency Left-sided weakness Anemia Pacemaker UTI (urinary tract infection) Swallowing problem Incidental pulmonary nodule Bradycardia Right inguinal pain Hypertension Bladder outlet obstruction Surgical History S/P excision of lipoma History of surgery History of knee replacement Social History Household Members: None Housing: Apartment Housing Other:: 2nd floor Are you a primary respite care provider to a significant other at home: No Do you presently have visiting nurse or other home services: No Alcohol intake: never Patient Tobacco Use Status: Tobacco use Unknown Tobacco use type: Cigarette Cigarette Packs Per Day: 0.5 Cigarettes Per Day: 8 Years Smoked: 60 +/- e-Cigarette/Vaping Use: Never Used Second Hand Smoke Exposure: No Advance Directives Date on File: 06/06/22 service: No Current occupational status: retired Cognitive needs: Yes (wheelchair) Hearing needs: No Vision needs: Yes Questionnaire PHQ-9 Over the last 2 weeks, how often have you been bothered by any of the following problems? 1. Little interest or pleasure in doing things: several days 2. Feeling down, depressed, or hopeless: several days 3. Trouble falling or staying asleep, or sleeping too much: not at all 4. Feeling tired or having little energy: not at all 5. Poor appetite or overeating: not at all 6. Feeling bad about yourself - or that you are a failure or have let yourself or your family down: not at all 7. Trouble concentrating on things, such as reading the newspaper or watching television: not at all 8. Moving or speaking so slowly that other people could have noticed. Or the opposite - being so fidgety or restless that you have been moving around a lot more than usual: not at all 9. Thoughts that you would be better off or of hurting yourself in some way: not at all Total score: 2 Depression Screening Interpretation: Negative 61871 - PHQ-9 Billing: Yes Source: Developed by Drs. Meir Fan, Sadia Vázquez, Iglesia Howell and colleagues, with an educational rosangela from [employer]. Thrive Questionnaire Declines Thrive assessment: No Date Thrive assessed: 07/12/22 I am a: Patient What is your living situation today?: I have a steady place to live Within the past 12 months, did the food you bought not last and you didn't have the money to get more?: Never true Within the past 12 months, did you worry whether your food would run out before you got money to buy more?: Never true Do you have trouble paying for medicines?: No Do you have trouble getting transportation to medical appointments?: No Do you have trouble paying your heating and electricity bill?: No Do you have trouble taking care of your child, family member or friend?: No Do you have trouble with day-to-day activities such as bathing, preparing meals, shopping, managing finances, etc.?: No Are you currently unemployed and looking for a job?: No Are you interested in more education?: No Currently or been in a relationship where the following occur: no concerns reported AUDIT C Alcohol Use Questionnaire (AUDIT-C) 1. How often do you have a drink containing alcohol?: Never 3. How often do you have six or more drinks on one occasion?: Never Total Score: 0 Score Reviewed/Action Taken: Yes GÓMEZ-7 AMB Questionnaire GÓMEZ-7 Date GÓMEZ - 7 assessed: 07/12/22 Feeling nervous, anxious, or on edge: 0 = Not at all Not being able to stop or control worryin = Not at all Worrying too much about different things: 0 = Not at all Trouble relaxin = Not at all Being so restless that it is hard to sit still: 0 = Not at all Becoming easily annoyed or irritable: 0 = Not at all Feeling afraid as if something awful might happen: 0 = Not at all Total GÓMEZ-7 score (0-4 normal; 5-9 mild; 10-14 moderate; 15-21 severe): 0 Source: Developed by Drs. Meir Fan, Sadia Vázquez, Iglesia Howell and colleagues, with an educational rosangela from [employer]. Physical exam (Primary Care) Vital Signs: Last Vital Signs Pulse 67 07/12/22 10:46 BP 136/90 H 07/12/22 10:46 Pulse Ox 99 07/12/22 10:46 Oxygen Delivery Method Room Air 07/12/22 10:46 BMI result Body Mass Index 23.1 Tobacco/Smoking Status: Tobacco use Status Tobacco use date assessed 07/12/22 07/12/22 10:48 Patient Tobacco Use Status Current someday Tobacco 07/12/22 10:48 Tobacco use type Cigarette 07/12/22 10:48 e-Cigarette/Vaping Use Never Used 07/12/22 10:48 PHQ-9: PHQ-9 Score PHQ-9: Total score 2 07/12/22 11:33 Depression Screening Interpretation: Negative Thrive Assessment: Date of Thrive Assessment Date Thrive assessed 07/12/22 07/12/22 10:48 Currently or been in a relationship where the following occur: no concerns reported Coding Level of Care Code Admin Sign Off/No Billing Diagnoses Left-sided weakness R53.1 Cerebrovascular accident (CVA), unspecified mechanism I63.9 CVA mechanism: unspecified Benign essential hypertension I10 Pure hypercholesterolemia E78.00 Stage 3 chronic kidney disease, unspecified whether stage 3a or 3b CKD N18.30 Chronic kidney disease stage 3 subtype: unspecified whether 3a or 3b Vitamin D deficiency E55.9 Bladder outlet obstruction N32.0 Urinary frequency R35.0
== END 2022-07-12 11:36 | disposition home or self-care (01) ==
LOC: HO.HMGH 10:34
PROVIDERS: PCP Internal Medicine; Visit Provider Internal Medicine
DX: R53.1 Weakness (principal); I63.9 Cerebral infarction, unspecified; I10 Essential (primary) hypertension; E78.00 Pure hypercholesterolemia, unspecified; N18.30 Chronic kidney disease, stage 3 unspecified; E55.9 Vitamin D deficiency, unspecified; N32.0 Bladder-neck obstruction; R35.0 Frequency of micturition
CPT/HCPCS: 99499

== ENCOUNTER → 2022-07-25 14:57 | Outpatient (BNVA) | payer MEDICARE, SELFPAY | PROVIDERS: PCP Internal Medicine; Referring Provider Internal Medicine; Visit Provider Nurse Practitioner Family | DX: Z45.018 Encounter for adjustment and management of other part of cardiac pacemaker (principal); I49.5 Sick sinus syndrome; I12.9 Hypertensive chronic kidney disease with stage 1 through stage 4 chronic kidney disease, or unspecified chronic kidney disease; N18.30 Chronic kidney disease, stage 3 unspecified; Z86.73 Personal history of transient ischemic attack (TIA), and cerebral infarction without residual deficits | CPT/HCPCS: 93280; 99212 ==

== ENCOUNTER → 2022-10-22 23:59 | Outpatient (BNV) | payer MEDICARE, SELFPAY ==
--- NOTE | 2022-10-26 14:50 | MHC.OFFVIS ---
Intake Intake Visit Reasons: Remote Device Check- [facility] Allergies No Known Allergies [No Known Allergies*] Allergy (Verified 07/25/22 15:28) [facility] Medical History Benign essential hypertension Bladder outlet obstruction Bradycardia CKD (chronic kidney disease), stage III CVA (cerebral vascular accident) (~2016) Hypertension Incidental pulmonary nodule Left-sided weakness Right inguinal pain Swallowing problem Urinary frequency UTI (urinary tract infection) Vitamin D deficiency Surgical History History of knee replacement History of surgery Social History Household Members: None Housing: Apartment Do you presently have visiting nurse or other home services: Yes Alcohol intake: current Alcohol intake frequency: 0-2 drinks per day Alcohol type: beer Patient Tobacco Use Status: Current someday Tobacco user Tobacco use type: Cigarette Cigarette Packs Per Day: 0.25 Cigarettes Per Day: 5 Years Smoked: 60 +/- e-Cigarette/Vaping Use: Never Used Second Hand Smoke Exposure: Yes Advance Directives Date on File: 06/06/22 service: No Current occupational status: retired Cognitive needs: No Hearing needs: No Vision needs: Yes Office Procedures Cardiac Device Check Cardiac Device Check Details: Remote pacemaker report generated 10/22/2022. Pacemaker function is adequate [id number] Cardiac Device Interrogation, pacemaker Procedure code (CPT) selection complete Coding Level of Care Code Procedure Only Diagnoses CPT Codes Cardiac Device Check - Cardiac Device 12: [id number] Cardiac Device Interrogation, pacemaker ([id number])
== END ==
PROVIDERS: PCP Internal Medicine; Visit Provider Internal Medicine Cardiovascular Disease
DX: I49.5 Sick sinus syndrome (principal); Z95.0 Presence of cardiac pacemaker
CPT/HCPCS: 93294

== ENCOUNTER 2022-11-15 09:19 | Outpatient (AMB) | payer MEDICARE, SELFPAY ==
[2022-11-15 09:30] VITALS: BP 140/100; PULSE 66; O2SAT 99; BMI 22.3
--- NOTE | 2022-11-15 09:30 | MHC.PC.OV ---
Vital Signs 11/15/22 09:30 11/15/22 10:00 Height 5 ft 10 in Weight 155 lb 3.287 oz BMI 22.3 BP 140/100 H 136/86 Blood Pressure Location Lt brachial Lt brachial Position Sitting Sitting Pulse 66 Pulse Source Pulse Oximeter Pulse Oximetry (%) 99 Oxygen Delivery Method Room Air Intake Visit Reasons: sick sinus syndrome, hyperlipidemia, anemia Pillar Worker Required: No Accompanied by: Self / Same As Patient Allergies No Known Allergies [No Known Allergies*] Allergy (Verified 11/15/22 09:57) Medication List - Last Reconciled 11/15/22 by Dontrell Dougherty MD aspirin 81 mg PO DAILY atorvastatin 40 mg PO BEDTIME 90 days cholecalciferol (vitamin D3) 25 mcg PO DAILY fesoterodine ER 8 mg PO DAILY 90 days mirabegron ER (Myrbetriq) 25 mg PO DAILY prazosin 5 mg PO BID Tobacco use date assessed: 11/15/22 Fall risk assessment: No Falls in past year Last assessed Fall Risk: 11/15/22 Dental Screening Dental Screen Date: 11/15/22 Did you have a dental visit in the last 12 months?: No Did you have a dental problem in the last 6 months where you did not have access to dental care?: No Was dental information given to patient?: No HPI sick sinus syndrome, hyperlipidemia, anemia HPI Details Patient comes in today for his follow up visit States that he feels okay although he has noticed some decreased hearing lately, especially in his right ear, and would like to see if he can be referred to ENT to get his hearing checked Also reports that his eyesight has been declining lately - has an appointment scheduled with his eye doctor at [facility] on 11/24/22 He denies any headaches or dizziness Denies any chest pains, no increased SOB No nausea/vomiting, no abdominal pain No change in bowel habits noted Was not able to get his follow up labs done prior to coming in today [facility] Medical History (Updated 11/15/22 @ 11:03 by Dontrell Dougherty MD) Anemia Benign essential hypertension Bladder outlet obstruction Bradycardia CKD (chronic kidney disease), stage III CVA (cerebral vascular accident) (~2016) Hypertension Incidental pulmonary nodule Left-sided weakness Pacemaker Right inguinal pain Swallowing problem Urinary frequency UTI (urinary tract infection) Vitamin D deficiency Surgical History History of knee replacement History of surgery Social History Household Members: None Housing: Apartment Do you presently have visiting nurse or other home services: Yes Alcohol intake: current Alcohol intake frequency: 0-2 drinks per day Alcohol type: beer Patient Tobacco Use Status: Current someday Tobacco user Tobacco use type: Cigarette Cigarette Packs Per Day: 0.25 Cigarettes Per Day: 5 Years Smoked: 60 +/- e-Cigarette/Vaping Use: Never Used Second Hand Smoke Exposure: Yes Advance Directives Date on File: 06/06/22 service: No Current occupational status: retired Cognitive needs: No Hearing needs: No Vision needs: Yes Questionnaire PHQ-9 Over the last 2 weeks, how often have you been bothered by any of the following problems? 1. Little interest or pleasure in doing things: several days 2. Feeling down, depressed, or hopeless: several days 3. Trouble falling or staying asleep, or sleeping too much: not at all 4. Feeling tired or having little energy: not at all 5. Poor appetite or overeating: not at all 6. Feeling bad about yourself - or that you are a failure or have let yourself or your family down: not at all 7. Trouble concentrating on things, such as reading the newspaper or watching television: not at all 8. Moving or speaking so slowly that other people could have noticed. Or the opposite - being so fidgety or restless that you have been moving around a lot more than usual: not at all 9. Thoughts that you would be better off or of hurting yourself in some way: not at all Total score: 2 Depression Screening Interpretation: Negative 51009 - PHQ-9 Billing: Yes Source: Developed by Drs. Meir Fan, Sadia Vázquez, Iglesia Howell and colleagues, with an educational rosangela from [employer]. Thrive Questionnaire Date Thrive assessed: 11/15/22 I am a: Patient What is your living situation today?: I have a steady place to live Within the past 12 months, did the food you bought not last and you didn't have the money to get more?: Never true Within the past 12 months, did you worry whether your food would run out before you got money to buy more?: Never true Do you have trouble paying for medicines?: No Do you have trouble getting transportation to medical appointments?: No Do you have trouble paying your heating and electricity bill?: No Do you have trouble taking care of your child, family member or friend?: No Do you have trouble with day-to-day activities such as bathing, preparing meals, shopping, managing finances, etc.?: No Are you currently unemployed and looking for a job?: No Are you interested in more education?: No Please select the resources that you would like help with: None Currently or been in a relationship where the following occur: no concerns reported AUDIT C Alcohol Use Questionnaire (AUDIT-C) 1. How often do you have a drink containing alcohol?: Never 3. How often do you have six or more drinks on one occasion?: Never Total Score: 0 Score Reviewed/Action Taken: Yes GÓMEZ-7 AMB Questionnaire GÓMEZ-7 Date GÓMEZ - 7 assessed: 11/15/22 Feeling nervous, anxious, or on edge: 0 = Not at all Not being able to stop or control worryin = Not at all Worrying too much about different things: 0 = Not at all Trouble relaxin = Not at all Being so restless that it is hard to sit still: 0 = Not at all Becoming easily annoyed or irritable: 0 = Not at all Feeling afraid as if something awful might happen: 0 = Not at all Total GÓEMZ-7 score (0-4 normal; 5-9 mild; 10-14 moderate; 15-21 severe): 0 Source: Developed by Drs. Meir Fan, Sadia Vázquez, Iglesia Howell and colleagues, with an educational rosangela from [employer]. Review of Systems Const Reports fatigue (mild), Denies fever(s) and Denies headache(s) Eyes Reports blurry vision ENT Denies dysphagia, Denies dizziness, Denies otalgia, Denies headache(s), Reports hearing loss (increasing, especially in the right ear), Denies nasal congestion, Denies odynophagia and Denies sore throat Card Denies chest pain, Denies rapid heart rate, Denies irregular heart rhythm, Denies palpitations and Denies dyspnea Resp Denies cough, Denies dyspnea and Denies wheezing GI Denies abdominal pain, Denies constipation, Denies dysphagia, Denies diarrhea, Denies nausea, Denies odynophagia and Denies vomiting Denies difficulty urinating, Denies dysuria, Reports nocturia (at least twice) and Reports urinary frequency Musc Denies back pain and Denies arthralgias Neuro Denies dizziness and Denies headache(s) Psych Denies anxiety and Denies depression Endo Reports fatigue (mild) and Denies palpitations Aller/Immun Denies wheezing Physical exam (Primary Care) Vital Signs: Last Vital Signs Pulse 66 11/15/22 09:30 BP 140/100 H 11/15/22 09:30 Pulse Ox 99 11/15/22 09:30 Oxygen Delivery Method Room Air 11/15/22 09:30 BMI result Body Mass Index 22.3 Tobacco/Smoking Status: Tobacco use Status Tobacco use date assessed 11/15/22 11/15/22 09:37 Patient Tobacco Use Status Current someday Tobacco 11/15/22 09:37 Tobacco use type Cigarette 11/15/22 09:37 e-Cigarette/Vaping Use Never Used 11/15/22 09:37 PHQ-9: PHQ-9 Score PHQ-9: Total score 2 11/15/22 09:37 Depression Screening Interpretation: Negative Thrive Assessment: Date of Thrive Assessment Date Thrive assessed 11/15/22 11/15/22 09:37 Currently or been in a relationship where the following occur: no concerns reported Const General: no acute distress and alert HENMT Ears: unable to visualize TM (due to excessive cerumen) bilaterally Throat: Yes posterior oropharynx normal and Yes tonsils normal (no TP congestion) Neck Neck: Yes no lymphadenopathy and Yes supple Chest Other: (+) pacemaker on the left upper chest wall Resp Auscultation: clear to auscultation bilaterally, no rales and no wheezes Cardio Rate: regular rate Rhythm: regular rhythm Heart sounds: no murmurs GI Palpation (GI): Soft to palpation and nontender Auscultation: normal bowel sounds Skin Rashes: no rashes Extrem General: Yes no clubbing, cyanosis or edema Assessment and Plan Assessment & Plan (1) CVA (cerebral vascular accident): Onset Date: ~2015 Comment: left thalamic, residual dysarthria Code(s): I63.9 - Cerebral infarction, unspecified Qualifiers: CVA mechanism: unspecified Qualified Code(s): I63.9 - Cerebral infarction, unspecified Plan: Reports no significant neurologic deficits and no recent recurrence of TIA or symptoms Continue Aspirin 81 mg QD Follow up with neurology as scheduled (2) Sick sinus syndrome: Comment: S/P dual chamber pacemaker insertion on 06/21/2022 Code(s): I49.5 - Sick sinus syndrome Plan: Patient states that he has been doing well since his pacemaker insertion in May 2022 and has had no recurrence of his previous symptoms of weakness and dizziness Pacemaker interrogation is being done regularly by cardiology - device has been functioning normally Follow up with cardiology as scheduled (3) Benign essential hypertension: Code(s): I10 - Essential (primary) hypertension Plan: Reinforced low-sodium diet - goal is systolic BP of at least 140-150 mm or less Continue Prazosin 5 mg BID Used to take Amlodipine 5 mg QD but this was discontinued a few months ago (4) Pure hypercholesterolemia: Code(s): E78.00 - Pure hypercholesterolemia, unspecified Plan: Was not able to get his follow up labs done prior to his visit today; is encouraged to try to get these done GEOVANY Reinforced low cholesterol diet Continue Atorvastatin 40 mg QD (5) CKD (chronic kidney disease), stage III: Code(s): N18.30 - Chronic kidney disease, stage 3 unspecified Qualifiers: Chronic kidney disease stage 3 subtype: unspecified whether 3a or 3b Qualified Code(s): N18.30 - Chronic kidney disease, stage 3 unspecified Plan: Will continue to monitor his serum creatinine and GFR regularly (6) Vitamin D deficiency: Code(s): E55.9 - Vitamin D deficiency, unspecified Plan: Continue Vitamin D3 1000 units QD (7) Anemia: Code(s): D64.9 - Anemia, unspecified Qualifiers: Anemia type: unspecified type Qualified Code(s): D64.9 - Anemia, unspecified Plan: H/H was still low at 10.3/30.6 when last checked on 06/22/2022 Will have him go and get his previously ordered labs done GEOVANY - advised that we need to recheck his CBC and if his anemia persists or gets worse, he may need further evaluation to look into this (8) Hearing impairment: Code(s): H91.90 - Unspecified hearing loss, unspecified ear Qualifiers: Hearing loss type: unspecified Laterality: bilateral Qualified Code(s): H91.93 - Unspecified hearing loss, bilateral Plan: Per request, will refer to ENT for further evaluation and management although advised that he currently has excessive amount of cerumen again in his ears and this may also be contributing to his decreased hearing lately (9) Bladder outlet obstruction: Code(s): N32.0 - Bladder-neck obstruction Plan: Follow up with urology as scheduled (10) Urinary frequency: Code(s): R35.0 - Frequency of micturition Plan: Continue Fesoterodine ER 8 mg QD and Myrbetriq 25 mg QD Follow up with urology as scheduled Plan Follow up in 4 month Orders: Orders Comprehensive [place]. Panel Fast 4 Months E78.00 - Pure hypercholesterolemia, unspecified Lipid Panel 4 Months E78.00 - Pure hypercholesterolemia, unspecified Complete Blood Count Auto Diff 4 Months I10 - Essential (primary) hypertension Vitamin B12 and Folate Today D64.9 - Anemia, unspecified, E53.8 - Deficiency of other specified B group vitamins Erythropoietin (EPO) Today D64.9 - Anemia, unspecified IRON PROFILE Today D64.9 - Anemia, unspecified Vitamin D 25-OH Total Today E55.9 - Vitamin D deficiency, unspecified Referrals Ear/Nose/Throat Referral H91.90 - Unspecified hearing loss, unspecified ear Coding Level of Care Code Est Pt Level 4 (79992) Diagnoses CVA (cerebral vascular accident) I63.9 CVA mechanism: unspecified Sick sinus syndrome I49.5 Benign essential hypertension I10 Pure hypercholesterolemia E78.00 CKD (chronic kidney disease), stage III N18.30 Chronic kidney disease stage 3 subtype: unspecified whether 3a or 3b Vitamin D deficiency E55.9 Anemia D64.9 Anemia type: unspecified type Hearing impairment H91.93 Hearing loss type: unspecified Laterality: bilateral Bladder outlet obstruction N32.0 Urinary frequency R35.0
[2022-11-15 10:00] VITALS: BP 136/86
== END 2022-11-15 10:11 | disposition home or self-care (01) ==
PROVIDERS: Visit Provider Internal Medicine
DX: I12.9 Hypertensive chronic kidney disease with stage 1 through stage 4 chronic kidney disease, or unspecified chronic kidney disease (principal); Z86.73 Personal history of transient ischemic attack (TIA), and cerebral infarction without residual deficits; E55.9 Vitamin D deficiency, unspecified; N18.30 Chronic kidney disease, stage 3 unspecified; I49.5 Sick sinus syndrome; E78.00 Pure hypercholesterolemia, unspecified; D64.9 Anemia, unspecified; H91.93 Unspecified hearing loss, bilateral; N32.0 Bladder-neck obstruction; R35.0 Frequency of micturition
CPT/HCPCS: 99214

== ENCOUNTER 2022-11-19 06:58 | Outpatient (REF) | payer MEDICARE, SELFPAY ==
[2022-11-19 07:24] LABS: MANUAL DIFF FLAG NO
[2022-11-19 07:34] LABS: Basophils Percent Auto 0.6 % (0-2); Eosinophils Absolute Auto 0.2 X10*3/uL (0.0-0.4); Eosinophils Percent Auto 4.2 % (0-4); Hematocrit 38.6 % (42.0-52.0); Hemoglobin 12.5 g/dl (14.0-18.0); Imm Gran Abs Auto 0.02 X10*3/uL (0.00-0.03); Imm Gran Pct Auto 0.4 % (0.0-0.4); Lymphocytes Percent Auto 19.2 % (20-40); Mean Corpuscular HGB Conc 32.4 g/dl (31.0-36.0); Mean Corpuscular Hemoglobin 31.6 pg (27.0-33.0); Mean Corpuscular Volume 97.7 fL (80.0-98.0); Mean Platelet Volume 10.2 fL (9.4-12.4); Monocytes Absolute Auto 0.3 X10*3/uL (0.1-1.2); Monocytes Percent Auto 5.6 % (2-11); Neutrophils Absolute Auto 3.5 x10*3/uL (2.0-8.3); Platelet Count 142 X10*3/uL (160-400); Red Blood Count 3.95 X10*6/uL (4.60-5.80); Red Cell Distribution Width 14.4 % (11.0-16.0)
[2022-11-19 08:41] LABS: Alanine Aminotransferase 14 U/L (0-40); Albumin Level 3.9 g/dL (3.5-5.0); Alkaline Phosphatase 102 U/L (39-117); Anion Gap 9 (12-20); Aspartate Amino Transferase 22 U/L (5-37); Bilirubin Total 0.5 mg/dL (0.0-1.0); Blood Urea Nitrogen 24 mg/dL (9-16); Calcium 9.4 mg/dL (8.4-10.2); Carbon Dioxide 29 mmol/L (22-29); Chloride 108 mmol/L (96-108); Cholesterol 116 mg/dL (<200); Estimated Glomerular Filt Rate 45; Glucose Fasting 89 mg/dL (60-99); HDL Cholesterol 56 mg/dL (>40); Iron 69 mcg/dL (45-160); LDL Cholesterol Calculated 52 mg/dL (<100); Percent Iron Saturation 33 % (15-50); Potassium 4.4 mmol/L (3.3-5.1); Sodium 142 mmol/L (135-145); Total Iron Binding Capacity 206 mcg/dL (228-428); Triglycerides 42 mg/dL (<150); Unsaturated Iron Binding 137 ug/dL
[2022-11-19 08:56] LABS: Vitamin D 25-OH Total 38.4 ng/mL (>30)
[2022-11-19 09:09] LABS: Folate 5.5 ng/mL (> or = 4.0); Vitamin B12 474 pg/mL (200-900)
== END 2022-11-19 06:59 | disposition home or self-care (01) ==
LOC: HO.LAB 06:58
PROVIDERS: Absent Provider Urology; PCP Internal Medicine; Visit Provider Internal Medicine
DX: D64.9 Anemia, unspecified (principal); E53.8 Deficiency of other specified B group vitamins; E55.9 Vitamin D deficiency, unspecified; I10 Essential (primary) hypertension; E78.00 Pure hypercholesterolemia, unspecified
CPT/HCPCS: 36415; 80053; 80061; 82306; 82607; 82668; 82746; 83540; 85025

== ENCOUNTER → 2023-01-21 23:59 | Outpatient (BNV) | payer MEDICARE, SELFPAY ==
--- NOTE | 2023-01-23 13:42 | MHC.OFFVIS ---
Intake Intake Visit Reasons: Remote Device Check- [facility] Allergies No Known Allergies [No Known Allergies*] Allergy (Verified 11/15/22 09:57) [facility] Medical History (Updated 11/15/22 @ 11:03 by Dontrell Dougherty MD) Anemia Pacemaker UTI (urinary tract infection) Swallowing problem Incidental pulmonary nodule Left-sided weakness Vitamin D deficiency Benign essential hypertension CVA (cerebral vascular accident) (~2016) Bradycardia CKD (chronic kidney disease), stage III Right inguinal pain Hypertension Urinary frequency Bladder outlet obstruction Surgical History History of surgery History of knee replacement Social History Household Members: None Housing: Apartment Do you presently have visiting nurse or other home services: Yes Alcohol intake: current Alcohol intake frequency: 0-2 drinks per day Alcohol type: beer Patient Tobacco Use Status: Current someday Tobacco user Tobacco use type: Cigarette Cigarette Packs Per Day: 0.25 Cigarettes Per Day: 5 Years Smoked: 60 +/- e-Cigarette/Vaping Use: Never Used Second Hand Smoke Exposure: Yes Advance Directives Date on File: 06/06/22 service: No Current occupational status: retired Cognitive needs: No Hearing needs: No Vision needs: Yes Office Procedures Cardiac Device Check Cardiac Device Check Details: remote pacemaker report generated 01/21/2023. Pacemaker function is adequate [id number] Cardiac Device Interrogation, pacemaker Procedure code (CPT) selection complete Coding Level of Care Code Procedure Only CPT Codes Cardiac Device Check - Cardiac Device 12: [id number] Cardiac Device Interrogation, pacemaker ([id number])
== END ==
PROVIDERS: PCP Internal Medicine; Visit Provider Internal Medicine Cardiovascular Disease
DX: I49.5 Sick sinus syndrome (principal); Z95.0 Presence of cardiac pacemaker
CPT/HCPCS: 93294

== ENCOUNTER 2023-01-30 12:34 | Outpatient (AMB) | payer MEDICARE, SELFPAY ==
[2023-01-30 12:50] VITALS: BP 140/82; PULSE 59; BMI 24.4
--- NOTE | 2023-01-30 12:50 | MHC.OFFVIS ---
Intake Vital Signs 01/30/23 12:50 Height 5 ft 10 in Weight 170 lb BMI 24.4 BP 140/82 H Blood Pressure Location Lt brachial Position Sitting Pulse 59 Pulse Source Pulse Oximeter Intake Visit Reasons: 6 month follow up w/ device check Mobile Application Developer Required: No Assembler Type Bar And Segment: Assembler Type Bar And Segment Present Accompanied by: Unknown Allergies No Known Allergies [No Known Allergies*] Allergy (Verified 01/30/23 12:51) Medication List - Last Reconciled 01/30/23 by Aura Meng NP-C aspirin 81 mg PO DAILY atorvastatin 40 mg PO BEDTIME 90 days cholecalciferol (vitamin D3) 25 mcg PO DAILY fesoterodine ER 8 mg PO DAILY 90 days mirabegron ER (Myrbetriq) 25 mg PO DAILY 90 days prazosin 5 mg PO BID HPI 6 month follow up w/ device check HPI Details Ki is an 87-year-old male with past medical history of hypertension, hyperlipidemia, chronic kidney disease who was admitted to [facility] May 2022 after having a fall at home.? He was noted to have significant bradycardia with heart rates in the 30s, sick sinus syndrome.? He underwent dual-chamber pacemaker placement and now presents for follow-up. Today he reports that he has been mostly sedentary. He has unsteadiness with his legs in ambulates with assistive device. He is sitting in a wheelchair for this visit. He has not had any lightheadedness, presyncope, syncope, falls. He denies chest discomfort at rest or with activity. No shortness of breath, palpitations, PND, orthopnea or edema. He takes his meds as directed. Son is present. FORMERLY [facility], [facility] Medical History Anemia Pacemaker UTI (urinary tract infection) Swallowing problem Incidental pulmonary nodule Left-sided weakness Vitamin D deficiency Benign essential hypertension CVA (cerebral vascular accident) (~2015) Bradycardia CKD (chronic kidney disease), stage III Right inguinal pain Hypertension Urinary frequency Bladder outlet obstruction Surgical History History of surgery History of knee replacement Social History Household Members: None Housing: Apartment Do you presently have visiting nurse or other home services: Yes Alcohol intake: current Alcohol intake frequency: 0-2 drinks per day Alcohol type: beer Patient Tobacco Use Status: Current someday Tobacco user Tobacco use type: Cigarette Cigarette Packs Per Day: 0.25 Cigarettes Per Day: 5 Years Smoked: 60 +/- e-Cigarette/Vaping Use: Never Used Second Hand Smoke Exposure: Yes Advance Directives Date on File: 06/06/22 service: No Current occupational status: retired Cognitive needs: No Hearing needs: No Vision needs: Yes Review of Systems Const All systems reviewed & are unremarkable except as noted in HPI and below ENT Denies dizziness Card Denies chest pain, Denies chest pain at rest, Denies chest pain with activity, Denies rapid heart rate, Denies pedal edema, Denies edema, Denies leg edema, Denies lightheadedness, Denies palpitations, Denies dyspnea, Denies dyspnea on exertion and Denies orthopnea Resp Denies cough, Denies dyspnea and Denies dyspnea on exertion GI Denies hematochezia and Denies change in stool character Musc Reports abnormal gait, Reports limited range of motion, Denies muscle cramps, Reports muscle weakness, Denies numbness, Denies radiating pain into limb, Denies stiffness and Denies tingling Neuro Reports abnormal gait, Denies dizziness, Denies numbness and Denies tingling Endo Denies palpitations Physical Exam Vital Signs: Last Vital Signs Pulse 59 01/30/23 12:50 BP 140/82 H 01/30/23 12:50 BMI result Body Mass Index 24.4 Const Other: Frail elderly male sitting in a wheelchair General: cooperative, comfortable and no acute distress Orientation/consciousness: patient oriented x3 Neck Neck: Yes normal visual inspection Resp Effort & Inspection: normal respiratory effort Auscultation: clear to auscultation bilaterally, no crackles, no rales, no rhonchi and no wheezes Cardio Jugular venous distension: no JVD Rate: regular rate Rhythm: regular rhythm Heart sounds: S1 normal heart sound present, S2 normal heart sound present, no murmurs and no rubs Neuro General: patient oriented x3 Extrem General: Yes normal to inspection Psych Appearance: grossly normal Mental Status: mental status grossly normal Speech and movement: Normal speech and movement present Office Procedures Cardiac Device Check Cardiac Device Check Details: Today, [facility] dual-chamber pacemaker, battery 10 years, DDD mode, low rate 60, RA and RV threshold normal range, a paced 48% of time, V paced less than 1% of time [id number] Cardiac Device Check, pacemaker dual lead Procedure code (CPT) selection complete Assessment & Plan Assessment & Plan (1) Sick sinus syndrome: Comment: S/P dual chamber pacemaker insertion on 06/21/2022 Code(s): I49.5 - Sick sinus syndrome Plan[place] [facility] [place] and reported weakness. Noted to have significant bradycardia with heart rate in the 30s, sick sinus syndrome. Dual-chamber pacemaker placed on 06/21/2022. Patient reports no presyncope, syncope, fall since that time. Pacemaker site benign. Device interrogation today shows it is functioning normally. Next office interrogation and follow-up planned for 6 month from now. (2) Pacemaker: Comment: [facility] dual-chamber pacemaker inserted 06/21/2022, Dr. Fitzpatrick Code(s): Z95.0 - Presence of cardiac pacemaker (3) Hypertension: Code(s): I10 - Essential (primary) hypertension Plan: History of hypertension. Blood pressure elevated today however he says he took his medications just prior to this visit. He is feeling well and taking all his medications as directed. Reviewed low-salt diet, daily med compliance. No med changes made Coding Level of Care Code Est Pt Level 3 (62600) Diagnoses Sick sinus syndrome I49.5 Pacemaker Z95.0 Hypertension I10 CPT Codes Cardiac Device Check - Cardiac Device 2: [id number] Cardiac Device Check, pacemaker dual lead ([id number]) Time Spent (min) 24
== END 2023-01-30 13:31 | disposition home or self-care (01) ==
PROVIDERS: Visit Provider Nurse Practitioner Family
DX: I49.5 Sick sinus syndrome (principal); Z95.0 Presence of cardiac pacemaker
CPT/HCPCS: 93280; 99213

== ENCOUNTER → 2023-01-30 12:34 | Outpatient (BNVA) | payer MEDICARE, SELFPAY | PROVIDERS: Visit Provider Nurse Practitioner Family | DX: I10 Essential (primary) hypertension (principal); Z86.79 Personal history of other diseases of the circulatory system; Z45.018 Encounter for adjustment and management of other part of cardiac pacemaker | CPT/HCPCS: 93280; 99212 ==

== ENCOUNTER 2023-02-01 08:47 | Outpatient (AMB) | payer MEDICARE, SELFPAY ==
--- NOTE | 2023-02-01 08:55 | MHC.OFFVIS ---
Intake Intake Visit Reasons: 1Y PVR(no PSA) Intake Note: Patient is Present for Follow Up PVR Urology Medication: Oxybutynin, terazosin, prazosin, myrbetriq, Fesoterodine Antibiotic Allergies:None Blood Thinners: Aspirin PVR: 0ml Patient has been experiencing alot of nocturia gets up more than twice during the night. Son (Health Proxy) states he gives the medication in the morning and lately patient has been having diarrhea so fluid intake has been higher. Allergies No Known Allergies [No Known Allergies*] Allergy (Verified 02/01/23 09:08) Medication List - Last Reconciled 02/01/23 by Vijay Serna MD aspirin 81 mg PO DAILY atorvastatin 40 mg PO BEDTIME 90 days cholecalciferol (vitamin D3) 25 mcg PO DAILY fesoterodine ER 8 mg PO DAILY 90 days mirabegron ER (Myrbetriq) 25 mg PO DAILY 90 days prazosin 5 mg PO BID terazosin 10 mg PO BEDTIME HPI HPI Comments History of Present Illness Details Ki is a pleasant male. He is a patient of Dr. Dougherty. He is seen for the following urologic issues - lower urinary tract symptoms - prostate cancer Accompanied by son PVR low Happy with urinary control 12 month follow-up Persistent urinary urgency at night time Combination terazosin 10 mg and Toviaz 8 mg Lower urinary tract symptoms Longstanding cyst frequency Current medications terazosin 10g with Toviaz 8 mg Prior medications Flomax Cystoscopy 12/15 small bladder neck, moderate trabeculation with some diverticular Prostate cancer low-grade diagnose 2005 Initial treatment brachytherapy Has detectable PSA but remains low in acceptable range PSA 12/14 0.65, 10/14 0.54, 02/15 0.26 PFSH Medical History Anemia Pacemaker UTI (urinary tract infection) Swallowing problem Incidental pulmonary nodule Left-sided weakness Vitamin D deficiency Benign essential hypertension CVA (cerebral vascular accident) (~2015) Bradycardia CKD (chronic kidney disease), stage III Right inguinal pain Hypertension Urinary frequency Bladder outlet obstruction Surgical History History of surgery History of knee replacement Social History Household Members: None Housing: Apartment Do you presently have visiting nurse or other home services: Yes Alcohol intake: current Alcohol intake frequency: 0-2 drinks per day Alcohol type: beer Patient Tobacco Use Status: Current someday Tobacco user Tobacco use type: Cigarette Cigarette Packs Per Day: 0.25 Cigarettes Per Day: 5 Years Smoked: 60 +/- e-Cigarette/Vaping Use: Never Used Second Hand Smoke Exposure: Yes Advance Directives Date on File: 06/06/22 service: No Current occupational status: retired Cognitive needs: No Hearing needs: No Vision needs: Yes Review of Systems Const Denies chills and Denies fever(s) Card Reports no additional complaints and Denies syncope Resp Denies cough GI Denies abdominal pain and Denies heartburn Reports as per HPI and Denies change in libido Neuro Denies syncope Psych Denies change in libido Endo Denies change in libido Physical Exam Const General: cooperative, healthy appearing, comfortable and no acute distress Orientation/consciousness: patient oriented x3 HEENT Face and sinus: Yes normal facial exam Mouth: moist mucous membranes Neck Neck: Yes normal visual inspection, Yes full ROM and Yes trachea midline Chest Chest palpation & inspection: normal inspection of the chest Resp Effort & Inspection: normal respiratory effort, able to speak in complete sentences and no respiratory distress GI Inspection: Yes normal to inspection Back/Spine/Pelvis Cervical Spine: normal cervical lordosis Thoracic/Lumbar Spine: thoracic and lumbar spine normal to inspection Skin General skin exam: no rashes or lesions noted Neuro General: patient oriented x3, gait normal, tone normal and moves all extremities Extrem General: Yes normal to inspection and Yes capillary refill normal Office Procedures Post Void Residual Post Residual Void Post Void Residual (PVR): 0 01214-Ymlw Void Residual by ultrasound Assessment & Plan Assessment & Plan (1) Bladder outlet obstruction: Code(s): N32.0 - Bladder-neck obstruction (2) Urinary frequency: Code(s): R35.0 - Frequency of micturition (3) Prostate cancer: Comment: PSA 5 Code(s): C61 - Malignant neoplasm of prostate Plan Twelve month follow-up Orders: Orders AMB Post Void Residual by ultrasound Today R35.0 - Frequency of micturition Medications: Refilled mirabegron ER (Myrbetriq) 25 mg PO DAILY 90 tabs 3RF 90 days fesoterodine ER 8 mg PO DAILY 90 tabs 3RF 90 days R35.0 - Frequency of micturition Patient Instructions: Imaging studies, laboratory and physical exam results were discussed and reviewed in detail. No major barriers to patient understanding were identified. An opportunity to ask questions regarding the treatment plan was provided. All questions were answered. The patient expressed understanding and agreement with the above treatment plan. The patient is aware they should contact our office by phone for worsening of their current condition or the appearance of new urologic symptoms. Compliance is encouraged with any medications and followup testing that is ordered. It is a privilege to participate in the urologic care of your patient. If you have any questions or concerns regarding treatment for the above conditions, or other urologic issues, please do not hesitate to contact me. The office telephone contact is [phone]. This note is constructed using voice recognition software. While every effort has been made to ensure accuracy public housing manager errors may have been included. Yours sincerely, Dr Vijay Serna MD, [facility] - Urology Providers of Expert, Compassionate Care for the Genitourinary System Coding Level of Care Code Est Pt Level 3 (25134) Diagnoses Bladder outlet obstruction N32.0 Urinary frequency R35.0 Prostate cancer C61 CPT Codes Post Residual Void - PVR CPT Code: 46348-Vaph Void Residual by ultrasound ([id number])
== END 2023-02-01 09:20 | disposition home or self-care (01) ==
PROVIDERS: Visit Provider Urology
DX: N32.0 Bladder-neck obstruction (principal); R35.0 Frequency of micturition; C61 Malignant neoplasm of prostate
CPT/HCPCS: 99213

== ENCOUNTER → 2023-02-01 08:47 | Outpatient (BNVA) | payer MEDICARE, SELFPAY | PROVIDERS: Visit Provider Urology | DX: N32.0 Bladder-neck obstruction (principal); R35.0 Frequency of micturition; C61 Malignant neoplasm of prostate | CPT/HCPCS: 51798; 99212 ==

== ENCOUNTER 2023-03-26 13:00 | Emergency (ER) | payer MEDICARE, SELFPAY ==
--- NOTE | ~2023-03-26 | XR_ITS ---
EXAMINATION: XR CHEST CLINICAL INFORMATION: Cough. COMPARISON: Most recent chest radiograph dated 06/22/2022. TECHNIQUE: Frontal view of the chest was obtained. FINDINGS: Mild chronic interstitial prominence, unchanged. No new airspace consolidation. No pleural effusion or pneumothorax. Stable cardiac mediastinal silhouette. Left chest wall pacer with its leads in the right heart. XR/XR chest 1V IMPRESSION: No acute cardiopulmonary findings.
[2023-03-26 13:06] VITALS: BP 164/72; PULSE 58; O2SAT 97
[2023-03-26 13:12] VITALS: BP 159/63; PULSE 61; RESP 18; TEMP 36.9; O2SAT 95; BMI 22.9
--- NOTE | 2023-03-26 13:18 | ECG_ITS ---
Test Reason : DYSPNEA Blood Pressure : / mmHG Vent. Rate : 060 BPM Atrial Rate : 060 BPM P-R Int : 140 ms QRS Dur : 126 ms QT Int : 432 ms P-R-T Axes : 064 -69 -74 degrees QTc Int : 432 ms Atrial-paced rhythm Right bundle branch block Left anterior fascicular block Bifascicular block T wave abnormality, consider inferolateral ischemia Abnormal ECG When compared with ECG of 18-JUN-2022 11:36, Electronic atrial pacemaker has replaced Sinus rhythm Referred By: Desiree Garcia Electronically Signed By:MAR DANIEL
--- NOTE | 2023-03-26 13:21 | ED_ITS ---
HPI - SOB/Dyspnea General Chief Complaint: Upper Respiratory Symptoms Stated Complaint: weak,prod cough per ems Time Seen by Provider: 03/26/23 13:07 Source: patient and old records reviewed Mode of arrival: EMS Limitations: no limitations History of Present Illness HPI Narrative: 87 yo male with PMH of anemia, PPM, HLD, HTN, prostate cancer, bladder outlet obstruction, CKD here with c/o 1 week of runny nose nasal congestion and sinus pressure. He reports he is eating and drinking okay. He has no CP/SOB, fevers. He has no n/v/d. He is coughing and has some mucous production. MD elicited complaint: cough Onset (ago): week(s) (1) Context: recent illness Timing: intermittent Severity: moderate Exacerbating factors: coughing Relieving factors: rest Associated symptoms: cough and other (runny nose, sinus congestion) Treatment prior to arrival: none Related Data Home Medications Medication Instructions Recorded Confirmed terazosin 10 mg capsule 10 mg PO BEDTIME 02/01/23 02/01/23 Previous Rx's Medication Instructions Recorded atorvastatin 40 mg tablet 40 mg PO BEDTIME 90 days #90 tabs 09/13/22 cholecalciferol (vitamin D3) 25 25 mcg PO DAILY #90 tabs 09/13/22 mcg (1,000 unit) tablet prazosin 5 mg capsule 5 mg PO BID #180 caps 01/31/23 fesoterodine 8 mg tablet,extended 8 mg PO DAILY 90 days #90 tabs 02/01/23 release 24 hr mirabegron 25 mg tablet,extended 25 mg PO DAILY 90 days #90 tabs 02/01/23 release 24 hr (Myrbetriq) aspirin 81 mg chewable tablet 81 mg PO DAILY #90 tabs 03/10/23 terazosin 10 mg capsule 10 mg PO BEDTIME 90 days #90 caps 03/14/23 fluticasone furoate 27.5 1 spray intranasal DAILY PRN nasal 03/26/23 mcg/actuation nasal congestion #5.9 mL spray,suspension Allergies Allergy/AdvReac Type Severity Reaction Status Date / Time No Known Allergies Allergy Verified 02/01/23 09:08 [No Known Allergies*] Review of Systems 2 Review of Systems: Constitutional : No Fever, No Chills ENT/Mouth : No Hoarseness, No sore throat, pos Rhinorrhea Eyes: No Redness, No Discharge, No Vision Changes Cardiovascular : No Chest Pain, positive SOB, no Dyspnea on Exertion, No Edema Respiratory : positive Cough, pos Sputum, positive Wheezing, Gastrointestinal : No Nausea, No Vomiting, No Diarrhea, No abdominal Pain Genitourinary : No Dysuria, No Hematuria Musculoskeletal : No joint pain, No Myalgias Skin : No rash Neuro : No Weakness, No Numbness, No Headache Psych : No anxiety, depression All other systems reviewed and are negative [facility] Past Medical History Attestation statement: The following information was validated with the patient. Source: old records reviewed Medical History Anemia Pacemaker UTI (urinary tract infection) Swallowing problem Incidental pulmonary nodule Left-sided weakness Vitamin D deficiency Benign essential hypertension CVA (cerebral vascular accident) (~2016) Bradycardia CKD (chronic kidney disease), stage III Right inguinal pain Hypertension Urinary frequency Bladder outlet obstruction Surgical History History of surgery History of knee replacement Social History Social History Household Members: None Housing: Apartment Do you presently have visiting nurse or other home services: Yes Alcohol intake: never Patient Tobacco Use Status: Current someday Tobacco user Tobacco use type: Cigarette Cigarette Packs Per Day: 0.25 Cigarettes Per Day: 5 Years Smoked: 60 +/- Smoked in Last 30 Days: No e-Cigarette/Vaping Use: Never Used Second Hand Smoke Exposure: Yes Use of substances other than those prescribed or required for medical reasons: No Advance Directives: Yes Advance Directives on File: Yes Advance Directives Date on File: 06/06/22 service: No Current occupational status: retired Cognitive needs: No Hearing needs: No Vision needs: Yes Physical Exam 2 Vital Signs: Vital Signs: Last Vital Signs Temp 98.1 F 03/26/23 14:56 Pulse 65 03/26/23 14:56 Resp 16 03/26/23 14:56 BP 154/61 H 03/26/23 14:56 Pulse Ox 94 03/26/23 14:56 O2 Del Method Room Air 03/26/23 14:56 BMI result Body Mass Index 22.9 Appearance: Alert. Oriented X3. No acute distress. Eyes: Pupils equal, round and reactive to light. ENT: Pharynx normal. clear white runny nose Neck: Normal inspection. Neck supple. CVS: Normal heart rate and rhythm. Pulses normal. Respiratory: No respiratory distress. Breath sounds normal. Abdomen: Soft and nontender. Skin: Skin warm and dry. Normal skin color. Normal skin turgor. Extremities: No lower extremity edema. Neuro: Oriented X 3. No motor deficit. No sensory deficit. Medical Decision Making Medical Decision Making [facility] Narrative: 87 yo male with PMH of anemia, PPM, HLD, HTN, prostate cancer, bladder outlet obstruction, CKD here with URI symptoms x 1 week no CP/SOB he has no n/v/d and states he has no fevers and has been eating well at this time will need labs, EKG, CXR, viral panel he is not hypoxic. Possible sinusitis, viral syndrome, bronchitis Differential Diagnosis Differential Diagnoses: The differential diagnosis associated with the presentation includes sinusitis, viral syndrome, bronchitis Admission/Observation Consideration of admission/observation: Escalation of care including admission/observation considered no hypoxia, labs at baseline no dyspnea and hypoxia BNP mildly elevated but no clinical signs of VHF has not needed O2 RSV positive this is viral in nature Lab Data [facility] Lab Attestation statement: I reviewed the patient's lab results. 03/26/23 13:35 03/26/23 13:35 Labs: Lab Results 03/26/23 03/26/23 Range/Units 13:35 13:40 WBC 7.2 (4.8-10.8) X10*3/uL RBC 3.50 L (4.60-5.80) X10*6/uL Hgb 11.5 L (14.0-18.0) g/dl Hct 34.5 L (42.0-52.0) % MCV 98.6 H (80.0-98.0) fL MCH 32.9 (27.0-33.0) pg MCHC 33.3 (31.0-36.0) g/dl RDW 13.5 (11.0-16.0) % Plt Count 139 L (160-400) X10*3/uL MPV 10.3 (9.4-12.4) fL Immature Gran % (Auto) 0.4 (0.0-0.4) % Neut % (Auto) 82.5 H (45-73) % Lymph % (Auto) 10.8 L (20-40) % Dewitt % (Auto) 5.4 (2-11) % Eos % (Auto) 0.6 (0-4) % Baso % (Auto) 0.3 (0-2) % Lymph # (Auto) 0.8 L (1.2-4.9) X10*3/uL Dewitt # (Auto) 0.4 (0.1-1.2) X10*3/uL Eos # (Auto) 0.0 (0.0-0.4) X10*3/uL Baso # (Auto) 0.0 (0.0-0.2) X10*3/uL Abs Immat Gran (auto) 0.03 (0.00-0.03) X10*3/uL Absolute Neuts (auto) 6.0 (2.0-8.3) x10*3/uL Absolute Nucleated RBC 0.000 (0.0-0.012) X10*3/uL Nucleated RBC % (auto) 0.0 (0.0-0.2) /100WBC PT 13.1 (11.1-13.3) SEC INR 1.1 (0.9-1.1) VBG pH 7.40 (7.32-7.43) VBG pCO2 48 mmHg VBG pO2 28 mmHg VBG HCO3 30 H (22-26) mmol/L VBG O2 Saturation 43.0 % VBG Base Excess 4.8 mmol/L Sodium 137 (135-145) mmol/L Potassium 4.0 (3.3-5.1) mmol/L Chloride 102 (96-108) mmol/L Carbon Dioxide 26 (22-29) mmol/L Anion Gap 13 (12-20) BUN 30 H (9-16) mg/dL Creatinine 1.56 H (0.5-1.4) mg/dL Estim Creat Clear Calc 34.7 Estimated GFR 42 Random Glucose 110 (60-115) mg/dL Lactic Acid 1.2 (0.5-2.0) mmol/L Calcium 9.8 (8.4-10.2) mg/dL Magnesium 2.1 (1.6-2.6) mg/dL Total Bilirubin 0.7 (0.0-1.0) mg/dL Direct Bilirubin 0.3 (0.0-0.5) mg/dL AST 46 H (5-37) U/L ALT 19 (0-40) U/L Alkaline Phosphatase 106 (39-117) U/L Troponin I High Sens 29.2 D (<3.5-35.0) ng/L B-Natriuretic Peptide 435 H (<100) pg/mL Total Protein 7.2 (6.5-8.0) g/dL Albumin 4.0 (3.5-5.0) g/dL Lipase 20 (8-78) U/L Procalcitonin 0.11 ng/mL Influenza Type A (PCR) NEGATIVE (Negative) Influenza Type B (PCR) NEGATIVE (Negative) RSV RNA Qual (PCR) POSITIVE A (Negative) SARS-CoV-2 RNA (RT-PCR) NEGATIVE (Negative) Independent Interpretation I performed an independent interpretation of an: EKG and Plain X-Ray (no pneumonia) Interpretation: Rate: 60 Rhythm: atrial paced [place]: left Normal P waves. Normal THEODORA. Normal QRS complex. ST T wave : no RAVINDRA, inverted V3-V6, inf leads T wave inversions, qTC: normal prior studies: no change from prior The study has been interpreted contemporaneously by me. . Radiology Impression Discussion of test interpretation with radiology: I have reviewed the radiologist's reading. Independent Historian Clinical information obtained from an independent historian. History obtained from or confirmed by: EMS External Record Review External record reviewed: Inpatient record Prescription Management I considered prescription management with: Other Discharge Plan Discharge Clinical Impression: Respiratory syncytial virus infection Patient Disposition: Home, Self-Care Instructions: Respiratory Syncytial Virus (ED) Additional Instructions: you had no pneumonia on Chest xray, you tested positive for RSV this is a very - you should improve in the next 4 days but you will have a cough. I have ordered you a nasal spray and some cough medications. return for chest pain, trouble breathing or any other concerns. make sure you are eating. Prescriptions: New fluticasone furoate 27.5 mcg/actuation spray,suspension 1 spray intranasal DAILY PRN (Reason: nasal congestion) Qty: 5.9 0RF Rx Instructions: into each nostril No Action atorvastatin 40 mg tablet 40 mg PO BEDTIME 90 Days Qty: 90 1RF cholecalciferol (vitamin D3) 25 mcg (1,000 unit) tablet 25 mcg PO DAILY Qty: 90 3RF prazosin 5 mg capsule 5 mg PO BID Qty: 180 0RF aspirin 81 mg tablet,chewable 81 mg PO DAILY Qty: 90 1RF terazosin 10 mg capsule 10 mg PO BEDTIME 90 Days Qty: 90 3RF terazosin 10 mg capsule 10 mg PO BEDTIME fesoterodine 8 mg tablet extended release 24 hr 8 mg PO DAILY 90 Days Qty: 90 3RF Myrbetriq 25 mg tablet extended release 24 hr 25 mg PO DAILY 90 Days Qty: 90 3RF
[2023-03-26 13:43] LABS: Basophils Percent Auto 0.3 % (0-2); Eosinophils Percent Auto 0.6 % (0-4); Hematocrit 34.5 % (42.0-52.0); Hemoglobin 11.5 g/dl (14.0-18.0); Imm Gran Abs Auto 0.03 X10*3/uL (0.00-0.03); Imm Gran Pct Auto 0.4 % (0.0-0.4); Lymphocytes Absolute Auto 0.8 X10*3/uL (1.2-4.9); Lymphocytes Percent Auto 10.8 % (20-40); MANUAL DIFF FLAG NO; Mean Corpuscular HGB Conc 33.3 g/dl (31.0-36.0); Mean Corpuscular Hemoglobin 32.9 pg (27.0-33.0); Mean Corpuscular Volume 98.6 fL (80.0-98.0); Mean Platelet Volume 10.3 fL (9.4-12.4); Monocytes Absolute Auto 0.4 X10*3/uL (0.1-1.2); Monocytes Percent Auto 5.4 % (2-11); Neutrophils Percent Auto 82.5 % (45-73); Platelet Count 139 X10*3/uL (160-400); Red Cell Distribution Width 13.5 % (11.0-16.0); White Blood Count 7.2 X10*3/uL (4.8-10.8)
[2023-03-26 13:45] LABS: Venous Blood Gas Refer to POC result
[2023-03-26 13:46] LABS: VBG Base Excess 4.8 mmol/L; VBG HCO3 30 mmol/L (22-26); VBG pCO2 48 mmHg; VBG pO2 28 mmHg
[2023-03-26 13:49] LABS: INTERNATIONAL NORM RATIO 1.1 (0.9-1.1); Prothrombin Time 13.1 SEC (11.1-13.3)
[2023-03-26 14:00] LABS: Lactic Acid 1.2 mmol/L (0.5-2.0)
[2023-03-26 14:11] LABS: Alanine Aminotransferase 19 U/L (0-40); Alkaline Phosphatase 106 U/L (39-117); Anion Gap 13 (12-20); Aspartate Amino Transferase 46 U/L (5-37); Bilirubin Direct 0.3 mg/dL (0.0-0.5); Bilirubin Total 0.7 mg/dL (0.0-1.0); Blood Urea Nitrogen 30 mg/dL (9-16); Calcium 9.8 mg/dL (8.4-10.2); Carbon Dioxide 26 mmol/L (22-29); Chloride 102 mmol/L (96-108); Creatinine Clr Calc Pharmacy 34.7; Estimated Glomerular Filt Rate 42; Glucose Random 110 mg/dL (60-115); Lipase 20 U/L (8-78); Magnesium 2.1 mg/dL (1.6-2.6); Sodium 137 mmol/L (135-145); Total Protein 7.2 g/dL (6.5-8.0)
[2023-03-26 14:13] LABS: Troponin-I High Sensitivity 29.2 ng/L (<3.5-35.0)
[2023-03-26 14:21] LABS: B Type Natriuretic Peptide 435 pg/mL (<100)
[2023-03-26 14:27] LABS: Procalcitonin 0.11 ng/mL
[2023-03-26 14:29] LABS: Influenza A PCR NEGATIVE (Negative); Influenza B PCR NEGATIVE (Negative); Resp Syncy Virus RNA Qual PCR POSITIVE (Negative); SARS COV2 PCR INHOUSE NEGATIVE (Negative)
[2023-03-26 14:56] VITALS: BP 154/61; PULSE 65; RESP 16; TEMP 36.7; O2SAT 93; O2SAT 94
== END 2023-03-26 16:33 | disposition home or self-care (01) ==
PROVIDERS: Emergency Provider Emergency Medicine
DX: R05.9 Cough, unspecified (principal); B97.4 Respiratory syncytial virus as the cause of diseases classified elsewhere; I12.9 Hypertensive chronic kidney disease with stage 1 through stage 4 chronic kidney disease, or unspecified chronic kidney disease; N18.9 Chronic kidney disease, unspecified; Z20.822 Contact with and (suspected) exposure to COVID-19; Z20.828 Contact with and (suspected) exposure to other viral communicable diseases
CPT/HCPCS: 0241U; 71045; 80048; 80076; 82803; 83605; 83690; 83735; 83880; 84145; 84484; 85025; 85610; 87040; 87147; 87205; 93005; 99284; 99285

== ENCOUNTER → 2023-03-26 13:18 | Outpatient (BNV) | payer MEDICARE, SELFPAY | PROVIDERS: Emergency Provider Emergency Medicine; Visit Provider Internal Medicine | DX: I45.2 Bifascicular block (principal) | CPT/HCPCS: 93010 ==

== ENCOUNTER 2023-03-31 16:37 | Inpatient (IN) | payer MEDICARE, SELFPAY ==
[2023-03-31] VITALS (8 sets, daily range): BP systolic 108–162; BP diastolic 48–72; PULSE 71–93; RESP 16–21; TEMP 37.3–38; O2SAT 93–98; BMI 24.0
--- NOTE | 2023-03-31 16:47 | ED.SOB ---
HPI - SOB/Dyspnea General Chief Complaint: Dyspnea Stated Complaint: sob, not feeling well, 88% RA Source: patient, EMS and old records reviewed Mode of arrival: EMS Limitations: no limitations History of Present Illness HPI Narrative: 87 yo male with PMH of anemia, PPM, HLD, HTN, prostate cancer, bladder outlet obstruction, CKD seen here on 03/26 for URI symptoms dx with RSV mostly complained of stuffy nose sent home with nasal spray comes back as he is not eating well or getting better - EMS found him sitting in his recliner with sats 87%. He is normally up walking and able to care for himself. He has a coarse cough. MD elicited complaint: cough Pertinent past history: other (RSV + recently) Onset (ago): week(s) (03/26 RSV +) Context: recent illness Timing: progressively worsening Severity: moderate Exacerbating factors: exertion and coughing Relieving factors: oxygen and rest Associated symptoms: fever, cough and other (anorexia, lack of appetite, weakness) Treatment prior to arrival: oxygen (responded to 2L) Related Data Previous Rx's Medication Instructions Recorded atorvastatin 40 mg tablet 40 mg PO BEDTIME 90 days #90 tabs 09/13/22 cholecalciferol (vitamin D3) 25 25 mcg PO DAILY #90 tabs 09/13/22 mcg (1,000 unit) tablet prazosin 5 mg capsule 5 mg PO BID #180 caps 01/31/23 fesoterodine 8 mg tablet,extended 8 mg PO DAILY 90 days #90 tabs 02/01/23 release 24 hr mirabegron 25 mg tablet,extended 25 mg PO DAILY 90 days #90 tabs 02/01/23 release 24 hr (Myrbetriq) aspirin 81 mg chewable tablet 81 mg PO DAILY #90 tabs 03/10/23 terazosin 10 mg capsule 10 mg PO BEDTIME 90 days #90 caps 03/14/23 fluticasone furoate 27.5 1 spray intranasal DAILY PRN nasal 03/26/23 mcg/actuation nasal congestion #5.9 mL spray,suspension Allergies Allergy/AdvReac Type Severity Reaction Status Date / Time No Known Allergies Allergy Verified 02/01/23 09:08 [No Known Allergies*] Review of Systems Review of Systems: Constitutional : No Fever, pos Chills, pos fatigue ENT/Mouth : No sore throat, No Rhinorrhea, No Swallowing Difficulty Eyes: No Eye Pain, No Swelling, No Redness Cardiovascular : No Chest Pain, positive SOB, No Orthopnea, no Edema Respiratory : pos Cough, No Sputum, No Wheezing, positive dyspnea Gastrointestinal : No Nausea, No Vomiting, No Diarrhea, No abdominal Pain, No Hematochezia, No Melena Genitourinary : No Dysuria, No Urinary Frequency, No Hematuria Musculoskeletal : No joint pain, No Myalgias Skin : No Skin Lesions, No rash Neuro : pos Weakness, No Numbness, No Dizziness, No Headache Psych : No Anxiety/Panic, No Depression All other systems reviewed and are negative [facility] Past Medical History Attestation statement: The following information was validated with the patient. Source: old records reviewed Onset Date is defined in the Problem List Problems that require an onset date and time if occurred within 24 hrs of arrival to the ED Aortic Dissection and Rupture; Neurologic impairment; Cardiopulmonary Arrest; Endotracheal Intubation; Insertion or Replacement of Mechanical Circulatory Assist Device Medical History Anemia Pacemaker UTI (urinary tract infection) Swallowing problem Incidental pulmonary nodule Left-sided weakness Vitamin D deficiency Benign essential hypertension CVA (cerebral vascular accident) (~2016) Bradycardia CKD (chronic kidney disease), stage III Right inguinal pain Hypertension Urinary frequency Bladder outlet obstruction Surgical History History of surgery History of knee replacement Social History Social History Household Members: None Housing: Apartment Do you presently have visiting nurse or other home services: Yes Alcohol intake: never Patient Tobacco Use Status: Current someday Tobacco user Tobacco use type: Cigarette Cigarette Packs Per Day: 0.25 Cigarettes Per Day: 5 Years Smoked: 60 +/- e-Cigarette/Vaping Use: Never Used Second Hand Smoke Exposure: Yes Advance Directives: Yes Advance Directives on File: Yes Advance Directives Date on File: 06/06/22 service: No Current occupational status: retired Cognitive needs: No Hearing needs: No Vision needs: Yes Physical Exam Vital Signs: Vital Signs: Last Vital Signs Temp 100.4 F 03/31/23 16:46 Pulse 78 03/31/23 17:48 Resp 18 03/31/23 17:48 BP 123/67 03/31/23 16:46 Pulse Ox 93 03/31/23 16:46 O2 Del Method Nasal Cannula 03/31/23 16:46 Oxygen Flow Rate 4 03/31/23 16:46 BMI result Body Mass Index 24.0 Appearance: Alert. Oriented X3. No acute distress. Eyes: Pupils equal, round and reactive to light. ENT: Pharynx mildly dry MM Neck: Normal inspection. Neck supple. CVS: Normal heart rate and rhythm. Pulses normal. Respiratory: No respiratory distress. Breath sounds very diminished in both bases Abdomen: Soft and non-tender. Skin: Skin warm and dry. Normal skin color. Normal skin turgor. Extremities: No lower extremity edema. Neuro: Oriented X 3. No motor deficit. No sensory deficit. Medications Administered Discontinued Medications Generic Name Dose Route Start Last Admin Trade Name Freq PRN Reason Stop Dose Admin Acetaminophen 650 mg 03/31/23 16:47 03/31/23 17:18 Acetaminophen 325 Mg Tablet PO 03/31/23 16:48 650 mg ONCE ONE Administration Albuterol Sulfate 2.5 mg/ 0 mg 03/31/23 17:42 03/31/23 17:47 Albuterol/Ipratropium 3 ml INHALE 03/31/23 17:43 1 dose ONCE ONE Administration Sodium Chloride 1,000 mls @ 999 mls/hr 03/31/23 16:45 03/31/23 17:11 Ns IVCONT 03/31/23 17:45 999 mls/hr .Q1H1M BLANCA Administration Ceftriaxone Sodium 1 gm/ 50 mls @ 100 mls/hr 03/31/23 16:45 03/31/23 17:18 Sodium Chloride IV 03/31/23 17:14 100 mls/hr ONCE ONE Administration Medical Decision Making Medical Decision Making MDM Narrative: 87 yo male with PMH of anemia, PPM, HLD, HTN, prostate cancer, bladder outlet obstruction, CKD here with c/o worsening illness and symptoms since RSV dx on 03/26 - fatigue, chills, anorexia, poor PO intake - found to be 87% on RA. At this time will start on IVF, tylenol, empiric ceftriaxone, tylenol, labs, cultures, lactic acid, CXR - possible post viral pneumonia vs UTI vs persistent viral syndrome with new O2 requirement. Differential Diagnosis Differential Diagnoses: The differential diagnosis associated with the presentation includes viral syndrome, pneumonia Admission/Observation Consideration of admission/observation: Escalation of care including admission/observation considered admit given hypoxia and worsening symptoms Consult Healthcare Provider Management of the patient was discussed with: Hospitalist (will admit) Lab Data MDM Lab Attestation statement: I reviewed the patient's lab results. 03/31/23 16:57 03/31/23 16:57 Labs: Lab Results 03/31/23 03/31/23 Range/Units 16:57 17:03 WBC 10.3 (4.8-10.8) X10*3/uL RBC 3.48 L (4.60-5.80) X10*6/uL Hgb 11.2 L (14.0-18.0) g/dl Hct 33.5 L (42.0-52.0) % MCV 96.3 (80.0-98.0) fL MCH 32.2 (27.0-33.0) pg MCHC 33.4 (31.0-36.0) g/dl RDW 13.2 (11.0-16.0) % Plt Count 203 D (160-400) X10*3/uL MPV 9.8 (9.4-12.4) fL Immature Gran % (Auto) Cancelled Neut % (Auto) Cancelled Lymph % (Auto) Cancelled [place] % (Auto) Cancelled Eos % (Auto) Cancelled Baso % (Auto) Cancelled Lymph # (Auto) Cancelled [place] # (Auto) Cancelled Eos # (Auto) Cancelled Baso # (Auto) Cancelled Abs Immat Gran (auto) Cancelled Absolute Neuts (auto) Cancelled Absolute Nucleated RBC 0.000 (0.0-0.012) X10*3/uL Nucleated RBC % (auto) 0.0 (0.0-0.2) /100WBC Neutrophils % (Manual) 88 H (45-73) % Band Neutrophils % 7 H (3-5) % Lymphocytes % (Manual) 3 L (20-40) % Monocytes % (Manual) 2 (2-11) % Abs Neuts (Manual) 9.8 H (2.0-8.3) X10*3/uL Lymphocytes # (Manual) 0.3 L (1.2-4.9) X10*3/uL Monocytes # (Manual) 0.2 (0.1-1.2) X10*3/uL Toxic Vacuolation PRESENT Platelet Estimate NORMAL (NORMAL) Plt Morphology Comment NORMAL RBC Morphology NOTED Polychromasia 1+ (0-2) /OIF Acanthocytes (Spur) 2+ (3-5) /OIF Smear Tech's Comments MANUAL DIFF VBG pH 7.47 H (7.32-7.43) VBG pCO2 31 mmHg VBG pO2 64 mmHg VBG HCO3 23 (22-26) mmol/L VBG O2 Saturation 94.0 % VBG Base Excess 0.6 mmol/L Sodium 137 (135-145) mmol/L Potassium 3.9 (3.3-5.1) mmol/L Chloride 106 (96-108) mmol/L Carbon Dioxide 22 (22-29) mmol/L Anion Gap 13 (12-20) BUN 20 H (9-16) mg/dL Creatinine 1.36 (0.5-1.4) mg/dL Estim Creat Clear Calc 40.2 Estimated GFR 50 Random Glucose 110 (60-115) mg/dL Lactic Acid 0.8 (0.5-2.0) mmol/L Calcium 9.1 D (8.4-10.2) mg/dL Magnesium 1.8 (1.6-2.6) mg/dL Total Bilirubin 0.8 (0.0-1.0) mg/dL Direct Bilirubin 0.4 (0.0-0.5) mg/dL AST 26 (5-37) U/L ALT 20 (0-40) U/L Alkaline Phosphatase 107 (39-117) U/L Troponin I High Sens 7.2 D (<3.5-35.0) ng/L B-Natriuretic Peptide 441 H (<100) pg/mL Total Protein 6.6 (6.5-8.0) g/dL Albumin 3.5 (3.5-5.0) g/dL Lipase 17 (8-78) U/L Procalcitonin 0.65 ng/mL Influenza Type A (PCR) NEGATIVE (Negative) Influenza Type B (PCR) NEGATIVE (Negative) RSV RNA Qual (PCR) POSITIVE A (Negative) SARS-CoV-2 RNA (RT-PCR) NEGATIVE (Negative) Independent Interpretation I performed an independent interpretation of an: EKG and Plain X-Ray (right lower lobe) Interpretation: Rate: 81 Rhythm: NSR [place]: left Normal P waves. Normal [place]. Normal QRS complex. ST T wave : no RAVINDRA, nonspecific ST T wave lateral changes qTC: 485 prior studies: no acute ischemia The study has been interpreted contemporaneously by me. . Radiology Impression Discussion of test interpretation with radiology: I have reviewed the radiologist's reading. Independent Historian Clinical information obtained from an independent historian. History obtained from or confirmed by: EMS External Record Review External record reviewed: Inpatient record Critical Care Time Critical Care Time Critical Care Time: Yes Total Critical Care Time: 35 Attestation: sepsis protocol, admit, review or records I attest to this time spent taking care of the patient Discharge Plan Discharge Clinical Impression: Hypoxia, Acute febrile illness, Bandemia Pneumonia Qualifiers: Pneumonia type: due to unspecified organism Laterality: right Lung location: lower lobe of lung Qualified Code(s): J18.9 - Pneumonia, unspecified organism Patient Disposition: Admitted As Inpatient
[2023-03-31 17:08] LABS: Hematocrit 33.5 % (42.0-52.0); Hemoglobin 11.2 g/dl (14.0-18.0); Mean Corpuscular HGB Conc 33.4 g/dl (31.0-36.0); Mean Corpuscular Hemoglobin 32.2 pg (27.0-33.0); Mean Corpuscular Volume 96.3 fL (80.0-98.0); Mean Platelet Volume 9.8 fL (9.4-12.4); Red Blood Count 3.48 X10*6/uL (4.60-5.80); Red Cell Distribution Width 13.2 % (11.0-16.0)
[2023-03-31 17:32] LABS: Band Neutrophils Percent 7 % (3-5); Lymphocytes Percent Manual 3 % (20-40); Monocytes Percent Manual 2 % (2-11); Neutrophils Percent Manual 88 % (45-73)
[2023-03-31 17:33] LABS: Acanthocytes 2+ (3-5) /OIF; Polychromasia 1+ (0-2) /OIF; RBC Morphology NOTED; Toxic Vacuolation PRESENT
[2023-03-31 17:34] LABS: Lymphocytes Absolute Manual 0.3 X10*3/uL (1.2-4.9); Monocytes Absolute Manual 0.2 X10*3/uL (0.1-1.2); Neutrophils Absolute Manual 9.8 X10*3/uL (2.0-8.3); Platelet Count 203 X10*3/uL (160-400); Platelet Estimate NORMAL (NORMAL); Platelet Morphology Comment NORMAL; White Blood Count 10.3 X10*3/uL (4.8-10.8)
[2023-03-31 17:37] LABS: SLIDE REVIEW MANUAL DIFF
--- NOTE | 2023-03-31 18:22 | PHA.MEDREC ---
Pharmacy Consult ? Medication Reconciliation Pharmacy has completed the medication reconciliation. Jordon Mckenzie reported medications. Reported Amlodpipine although there is no fill history for medications. Aicha Moon, LukasD
--- NOTE | 2023-03-31 18:28 | PM.IMHP ---
History of Present Illness Date of Service: 03/31/23 Chief Complaint: sob 87M PMH COPD, htn, prostate ca, cva with left hemiparesis and dysarthria, CKD III, s/p pacer presented with sob. Patient was in ED 03/26/2023 complaining of 1 week of runny nose, sinus pressure, cough with some mucus production. At that time was diagnosed with RSV and discharged with nasal spray and cough suppressant. At home patient continued to worsening cough, started to have worsening shortness of breath. Denies fever or chills. Noted to have hypoxia on room air to the mid 80s, chest x-ray with right lower lobe opacity. [facility] Medical History Anemia Pacemaker UTI (urinary tract infection) Swallowing problem Incidental pulmonary nodule Left-sided weakness Vitamin D deficiency Benign essential hypertension CVA (cerebral vascular accident) (~2016) Bradycardia CKD (chronic kidney disease), stage III Right inguinal pain Hypertension Urinary frequency Bladder outlet obstruction Surgical History History of surgery History of knee replacement Social History Household Members: None Housing: Apartment Do you presently have visiting nurse or other home services: Yes Alcohol intake: never Patient Tobacco Use Status: Current someday Tobacco user Tobacco use type: Cigarette Cigarette Packs Per Day: 0.25 Cigarettes Per Day: 5 Years Smoked: 60 +/- e-Cigarette/Vaping Use: Never Used Second Hand Smoke Exposure: Yes Advance Directives: Yes Advance Directives on File: Yes Advance Directives Date on File: 06/06/22 service: No Current occupational status: retired Cognitive needs: No Hearing needs: No Vision needs: Yes Meds Allergies Allergy/AdvReac Type Severity Reaction Status Date / Time No Known Allergies Allergy Verified 02/01/23 09:08 [No Known Allergies*] Active Medications: Current Medications Albuterol/Ipratropium (Albuterol/Iprat 2.5/0.5mg 3 Ml Ampul.Neb) 3 ml INHALE RQ4H WHILE AWAKE PRN PRN Reason: sob Aspirin (Aspirin 81 Mg Tab.Chew) 81 mg PO DAILY BLANCA Atorvastatin Calcium (Atorvastatin Calcium 40 Mg Tablet) 40 mg PO BEDTIME BLANCA Enoxaparin Sodium (Enoxaparin Sodium 40 Mg/0.4 Ml Syringe) 40 mg SUBCUT Q24H [facility] Azithromycin 500 mg/ Sodium (Chloride) 250 mls @ 125 mls/hr IV ONCE ONE Stop: 03/31/23 19:27 Last Admin: 03/31/23 18:02 Dose: 125 mls/hr Ceftriaxone Sodium 1 gm/ (Sodium Chloride) 50 mls @ 100 mls/hr IV Q24H [facility] Mirabegron (Mirabegron 25 Mg Tab.Er.24h) 25 mg PO DAILY [facility] Non-Formulary Medication (Fesoterodine) 8 mg PO DAILY [facility] Prazosin HCl (Prazosin Hcl 5 Mg Capsule) 5 mg PO BID BLANCA; Protocol Prednisone (Prednisone 20 Mg Tablet) 40 mg PO DAILY [facility] Sodium Chloride (0.9 % Sodium Chloride Flush 3 Ml Syringe) 3 ml IVFLUSH QSHIFT [facility] Vitamin D (Cholecalciferol (Vitamin D3) 25 Mcg Tablet) 25 mcg PO DAILY [facility] Home Medications Medication Instructions Recorded Confirmed Last Taken Type amlodipine 5 mg tablet 5 mg PO DAILY 03/31/23 03/31/23 03/31/22 History Physical Exam Vital Signs and Narrative: Vital Signs: Last Vital Signs Temp 100.4 F 03/31/23 16:46 Pulse 88 03/31/23 18:04 Resp 16 03/31/23 18:04 BP 113/66 03/31/23 18:04 Pulse Ox 98 03/31/23 18:04 O2 Del Method Nasal Cannula 03/31/23 18:04 O2 Flow Rate 3 03/31/23 18:04 Oxygen Flow Rate 4 03/31/23 16:46 BMI result Body Mass Index 24.0 General: AO X 3, no acute distress Resp: diminished bilateral, no accessory muscles used CVS: S1,S2,RRR GI: soft, non tender, non distended Neuro: dysarthria Psych: appropriate affect, appropriate insight Results Labs 03/31/23 16:57 03/31/23 16:57 Labs: Laboratory Results - last 24 hr 03/31/23 03/31/23 16:57 17:03 MCV 96.3 MCH 32.2 MCHC 33.4 RDW 13.2 Plt Count 203 D MPV 9.8 Immature Gran % (Auto) Cancelled Neut % (Auto) Cancelled Lymph % (Auto) Cancelled [place] % (Auto) Cancelled Eos % (Auto) Cancelled Baso % (Auto) Cancelled Lymph # (Auto) Cancelled [place] # (Auto) Cancelled Eos # (Auto) Cancelled Baso # (Auto) Cancelled Abs Immat Gran (auto) Cancelled Absolute Neuts (auto) Cancelled Absolute Nucleated RBC 0.000 Nucleated RBC % (auto) 0.0 Neutrophils % (Manual) 88 H Band Neutrophils % 7 H Lymphocytes % (Manual) 3 L Monocytes % (Manual) 2 Abs Neuts (Manual) 9.8 H Lymphocytes # (Manual) 0.3 L Monocytes # (Manual) 0.2 Toxic Vacuolation PRESENT Platelet Estimate NORMAL Plt Morphology Comment NORMAL RBC Morphology NOTED Polychromasia 1+ (0-2) Acanthocytes (Spur) 2+ (3-5) Smear Tech's Comments MANUAL DIFF VBG pH 7.47 H VBG pCO2 31 VBG pO2 64 VBG HCO3 23 VBG O2 Saturation 94.0 VBG Base Excess 0.6 Anion Gap 13 Estim Creat Clear Calc 40.2 Estimated GFR 50 Random Glucose 110 Lactic Acid 0.8 Calcium 9.1 D Magnesium 1.8 Total Bilirubin 0.8 Direct Bilirubin 0.4 AST 26 ALT 20 Alkaline Phosphatase 107 B-Natriuretic Peptide 441 H Total Protein 6.6 Albumin 3.5 Lipase 17 Procalcitonin 0.65 Influenza Type A (PCR) NEGATIVE Influenza Type B (PCR) NEGATIVE RSV RNA Qual (PCR) POSITIVE A SARS-CoV-2 RNA (RT-PCR) NEGATIVE Imaging Radiologist's Impressions: Impressions Chest X-Ray 03/31/23 17:24 IMPRESSION: Patchy airspace opacity right lung base concerning for pneumonia. Assessment and Plan (1) Pneumonia: Qualifiers: Laterality: right Lung location: lower lobe of lung Pneumonia type: due to unspecified organism Qualified Code(s): J18.9 - Pneumonia, unspecified organism Status: Acute Plan 87M PMH COPD, htn, prostate ca, cva with left hemiparesis and dysarthria, CKD III, s/p pacer presented with sob. Acute hypoxic respiratory failure secondary to RSV with likely superimposed bacterial pneumonia complicated by COPD with acute decompensation Prednisone, DuoNebs, ceftriaxone and azithromycin, wean O2 as tolerated History of CVA Aspirin and statin Hypertension Holding amlodipine for relative hypotension Prostate CA, bladder outlet obstruction Continue alpha eda CKD 3 Stable DVT prophylaxis with Lovenox Full Code Patient with pneumonia causing hypoxia requiring O2 supplementation, due to underlying frailty, advanced age, COPD expected require at least 2 midnights inpatient Quality Stroke Does the patient have a stroke diagnosis?: No VTE Prior VTE?: No VTE Risk Level:: Medical - moderate - high VTE Device Contraindication: Treatment Not Indicated VTE Drug Contraindication: N/A - Med Ordered
--- NOTE | 2023-03-31 20:20 | PC.NURSE ---
This rewriter assumed care of this Pt at 1900. Pt A&Ox3, denies any pain, speaking in low tone, SpO2 97% on 4L via NC, O2 decrease to 3L, no apparent respiratory distress noted, lung sounds diminished. Pt incontinent of urine, incontinent care provided, inguinal hernia noted, skin intact, warm and dry.
--- NOTE | 2023-03-31 20:39 | PC.NURSE ---
Pt BP 108/48, Prazosin not given. Dr. Varela made aware.
[2023-04-01] VITALS (10 sets, daily range): BP systolic 112–174; BP diastolic 44–76; PULSE 55–71; RESP 12–18; TEMP 36.2–37.2; O2SAT 92–98; BMI 23.7
--- NOTE | 2023-04-01 02:00 | PC.NURSE ---
PO fluids given per request.
--- NOTE | 2023-04-01 06:52 | PC.NURSE ---
Pt reports not having the urge to viod. Bladder scan results 397 mL.
--- NOTE | 2023-04-01 09:12 | PC.NURSE ---
multiple rns tried to strt cath- unable. Intellicyt is looking for coude catheter as none available in ed. 407 bl scan. unable to void at this time. md grace notified
--- NOTE | 2023-04-01 09:22 | PC.NURSE ---
md grace made aware rn's attempted cath multiple times . no sx traujma. tolerated well. also tried coude catheter. unable to obtain urine spec or cath. attempted to reposition and elevate scrotum
--- NOTE | 2023-04-01 09:36 | PC.NURSE ---
md grace placing consult for urology re: retention and inability to straight cath
--- NOTE | 2023-04-01 10:42 | PC.NURSE ---
weston antoine from pharmacy- pharm to bring down
--- NOTE | 2023-04-01 11:35 | HO.PM.IMPN ---
Subjective Subjective Date of Service: 04/01/23 Interval History: about the same Physical Exam Vital Signs: Vital Signs: Last Vital Signs Temp 98.1 F 04/01/23 10:48 Pulse 64 04/01/23 10:48 Resp 13 04/01/23 10:48 BP 115/52 L 04/01/23 10:48 Pulse Ox 97 04/01/23 10:48 O2 Del Method Nasal Cannula 04/01/23 10:48 O2 Flow Rate 2 04/01/23 10:48 Oxygen Flow Rate 4 03/31/23 16:46 BMI result Body Mass Index 24.0 General: AO X 3, no acute distress Resp: diminsihed bilateral, no accessory muscles used CVS: S1,S2,RRR GI: soft, non tender, non distended Neuro: dysarthria Objective Data Active Medications Albuterol/Ipratropium (Albuterol/Iprat 2.5/0.5mg 3 Ml Ampul.Neb) 3 ml INHALE RQ4H WHILE AWAKE PRN PRN Reason: sob Aspirin (Aspirin 81 Mg Tab.Chew) 81 mg PO DAILY [facility] Last Admin: 04/01/23 10:44 Dose: 81 mg Documented By: CESAR Atorvastatin Calcium (Atorvastatin Calcium 40 Mg Tablet) 40 mg PO BEDTIME [facility] Last Admin: 03/31/23 20:36 Dose: 40 mg Documented By: ELIESER Azithromycin (Azithromycin 500 Mg Tablet) 500 mg PO Q24H [facility] Last Admin: 04/01/23 10:44 Dose: 500 mg Documented By: CESAR Enoxaparin Sodium (Enoxaparin Sodium 40 Mg/0.4 Ml Syringe) 40 mg SUBCUT Q24H [facility] Last Admin: 03/31/23 19:39 Dose: 40 mg Documented By: ELIESER Ceftriaxone Sodium 1 gm/ (Sodium Chloride) 50 mls @ 100 mls/hr IV Q24H [facility] Mirabegron (Mirabegron 25 Mg Tab.Er.24h) 25 mg PO DAILY [facility] Non-Formulary Medication (Fesoterodine) 8 mg PO DAILY [facility] Prazosin HCl (Prazosin Hcl 5 Mg Capsule) 5 mg PO BID [facility]; Protocol Last Admin: 04/01/23 10:45 Dose: Not Given Documented By: CESAR Non-Admin Reason: per md grace 115/52(73) Prednisone (Prednisone 20 Mg Tablet) 40 mg PO DAILY [facility] Last Admin: 04/01/23 10:44 Dose: 40 mg Documented By: CESAR Sodium Chloride (0.9 % Sodium Chloride Flush 3 Ml Syringe) 3 ml IVFLUSH QSHIFT [facility] Last Admin: 04/01/23 07:49 Dose: Not Given Documented By: CESAR Non-Admin Reason: not need Vitamin D (Cholecalciferol (Vitamin D3) 25 Mcg Tablet) 25 mcg PO DAILY [facility] Last Admin: 04/01/23 10:44 Dose: 25 mcg Documented By: CESAR Labs 04/01/23 06:46 04/01/23 06:46 Labs: Laboratory Results - last 24 hr 03/31/23 03/31/23 03/31/23 16:57 16:57 16:57 MCV 96.3 Cancelled MCH 32.2 Cancelled MCHC 33.4 RDW Plt Count MPV Immature Gran % (Auto) Neut % (Auto) Lymph % (Auto) [place] % (Auto) Eos % (Auto) Baso % (Auto) Lymph # (Auto) [place] # (Auto) Eos # (Auto) Baso # (Auto) Abs Immat Gran (auto) Absolute Neuts (auto) Absolute Nucleated RBC Nucleated RBC % (auto) Neutrophils % (Manual) Band Neutrophils % Lymphocytes % (Manual) Atypical Lymphs % (Man) Monocytes % (Manual) Eosinophils % (Manual) Basophils % (Manual) Metamyelocytes % Myelocytes % Promyelocytes % Blast Cells % (Manual) Plasma Cell % (Manual) Abs Neuts (Manual) Lymphocytes # (Manual) Atyp Lymphs # (Manual) Monocytes # (Manual) Eosinophils # (Manual) Basophils # (Manual) Metamyelocytes # Myelocytes # Promyelocytes # Blast Cells # Plasma Cell # (Manual) Nucleated RBCs Hypersegmented Neuts Smudge Cells Toxic Granulation Toxic Vacuolation Dohle Bodies Leanna Rods WBC Morphology Comment Platelet Estimate Large Platelets Giant Platelets Plt Morphology Comment RBC Morphology Polychromasia Hypochromasia Basophilic Stippling Microcytosis Macrocytosis Spherocytes Pappenheimer Bodies Sickle Cells Target Cells Tear Drop Cells Ovalocytes Stomatocytes Johnson-Ransom Bodies Gina Cells Acanthocytes (Spur) Rouleaux Schistocytes Smear Tech's Comments VBG pH VBG pCO2 VBG pO2 VBG HCO3 VBG O2 Saturation VBG Base Excess Anion Gap Estim Creat Clear Calc Estimated GFR Random Glucose Fasting Glucose Lactic Acid Calcium Magnesium Total Bilirubin Direct Bilirubin AST ALT Alkaline Phosphatase B-Natriuretic Peptide Total Protein Albumin Lipase Procalcitonin Urine Color Urine Appearance Urine pH Ur Specific [place] Urine Protein Urine Glucose (UA) Urine Ketones Urine Blood Urine Nitrite Ur Leukocyte Esterase Urine RBC Urine WBC Ur Squamous Epith Cells Urine Bacteria Hyaline Casts Influenza Type A (PCR) Influenza Type B (PCR) RSV RNA Qual (PCR) SARS-CoV-2 RNA (RT-PCR) 03/31/23 03/31/23 03/31/23 16:57 16:57 16:57 MCV MCH MCHC Cancelled RDW 13.2 Cancelled Plt Count 203 D Cancelled MPV 9.8 Immature Gran % (Auto) Neut % (Auto) Lymph % (Auto) [place] % (Auto) Eos % (Auto) Baso % (Auto) Lymph # (Auto) [place] # (Auto) Eos # (Auto) Baso # (Auto) Abs Immat Gran (auto) Absolute Neuts (auto) Absolute Nucleated RBC Nucleated RBC % (auto) Neutrophils % (Manual) Band Neutrophils % Lymphocytes % (Manual) Atypical Lymphs % (Man) Monocytes % (Manual) Eosinophils % (Manual) Basophils % (Manual) Metamyelocytes % Myelocytes % Promyelocytes % Blast Cells % (Manual) Plasma Cell % (Manual) Abs Neuts (Manual) Lymphocytes # (Manual) Atyp Lymphs # (Manual) Monocytes # (Manual) Eosinophils # (Manual) Basophils # (Manual) Metamyelocytes # Myelocytes # Promyelocytes # Blast Cells # Plasma Cell # (Manual) Nucleated RBCs Hypersegmented Neuts Smudge Cells Toxic Granulation Toxic Vacuolation Dohle Bodies Leanna Rods WBC Morphology Comment Platelet Estimate Large Platelets Giant Platelets Plt Morphology Comment RBC Morphology Polychromasia Hypochromasia Basophilic Stippling Microcytosis Macrocytosis Spherocytes Pappenheimer Bodies Sickle Cells Target Cells Tear Drop Cells Ovalocytes Stomatocytes Johnson-Ransom Bodies Eighty Four Cells Acanthocytes (Spur) Rouleaux Schistocytes Smear Tech's Comments VBG pH VBG pCO2 VBG pO2 VBG HCO3 VBG O2 Saturation VBG Base Excess Anion Gap Estim Creat Clear Calc Estimated GFR Random Glucose Fasting Glucose Lactic Acid Calcium Magnesium Total Bilirubin Direct Bilirubin AST ALT Alkaline Phosphatase B-Natriuretic Peptide Total Protein Albumin Lipase Procalcitonin Urine Color Urine Appearance Urine pH Ur Specific [place] Urine Protein Urine Glucose (UA) Urine Ketones Urine Blood Urine Nitrite Ur Leukocyte Esterase Urine RBC Urine WBC Ur Squamous Epith Cells Urine Bacteria Hyaline Casts Influenza Type A (PCR) Influenza Type B (PCR) RSV RNA Qual (PCR) SARS-CoV-2 RNA (RT-PCR) 03/31/23 03/31/23 03/31/23 16:57 16:57 16:57 MCV MCH MCHC RDW Plt Count MPV Cancelled Immature Gran % (Auto) Cancelled Neut % (Auto) Cancelled Lymph % (Auto) Cancelled [place] % (Auto) Cancelled Eos % (Auto) Cancelled Baso % (Auto) Cancelled Lymph # (Auto) Cancelled [place] # (Auto) Cancelled Eos # (Auto) Cancelled Baso # (Auto) Cancelled Abs Immat Gran (auto) Cancelled Absolute Neuts (auto) Cancelled Absolute Nucleated RBC 0.000 Cancelled Nucleated RBC % (auto) 0.0 Cancelled Neutrophils % (Manual) 88 H Band Neutrophils % Lymphocytes % (Manual) Atypical Lymphs % (Man) Monocytes % (Manual) Eosinophils % (Manual) Basophils % (Manual) Metamyelocytes % Myelocytes % Promyelocytes % Blast Cells % (Manual) Plasma Cell % (Manual) Abs Neuts (Manual) Lymphocytes # (Manual) Atyp Lymphs # (Manual) Monocytes # (Manual) Eosinophils # (Manual) Basophils # (Manual) Metamyelocytes # Myelocytes # Promyelocytes # Blast Cells # Plasma Cell # (Manual) Nucleated RBCs Hypersegmented Neuts Smudge Cells Toxic Granulation Toxic Vacuolation Dohle Bodies Leanna Rods WBC Morphology Comment Platelet Estimate Large Platelets Giant Platelets Plt Morphology Comment RBC Morphology Polychromasia Hypochromasia Basophilic Stippling Microcytosis Macrocytosis Spherocytes Pappenheimer Bodies Sickle Cells Target Cells Tear Drop Cells Ovalocytes Stomatocytes Johnson-Ransom Bodies Gina Cells Acanthocytes (Spur) Rouleaux Schistocytes Smear Tech's Comments VBG pH VBG pCO2 VBG pO2 VBG HCO3 VBG O2 Saturation VBG Base Excess Anion Gap Estim Creat Clear Calc Estimated GFR Random Glucose Fasting Glucose Lactic Acid Calcium Magnesium Total Bilirubin Direct Bilirubin AST ALT Alkaline Phosphatase B-Natriuretic Peptide Total Protein Albumin Lipase Procalcitonin Urine Color Urine Appearance Urine pH Ur Specific [place] Urine Protein Urine Glucose (UA) Urine Ketones Urine Blood Urine Nitrite Ur Leukocyte Esterase Urine RBC Urine WBC Ur Squamous Epith Cells Urine Bacteria Hyaline Casts Influenza Type A (PCR) Influenza Type B (PCR) RSV RNA Qual (PCR) SARS-CoV-2 RNA (RT-PCR) 03/31/23 03/31/23 03/31/23 16:57 16:57 16:57 MCV MCH MCHC RDW Plt Count MPV Immature Gran % (Auto) Neut % (Auto) Lymph % (Auto) [place] % (Auto) Eos % (Auto) Baso % (Auto) Lymph # (Auto) [place] # (Auto) Eos # (Auto) Baso # (Auto) Abs Immat Gran (auto) Absolute Neuts (auto) Absolute Nucleated RBC Nucleated RBC % (auto) Neutrophils % (Manual) Cancelled Band Neutrophils % 7 H Cancelled Lymphocytes % (Manual) 3 L Cancelled Atypical Lymphs % (Man) Cancelled Monocytes % (Manual) 2 Eosinophils % (Manual) Basophils % (Manual) Metamyelocytes % Myelocytes % Promyelocytes % Blast Cells % (Manual) Plasma Cell % (Manual) Abs Neuts (Manual) Lymphocytes # (Manual) Atyp Lymphs # (Manual) Monocytes # (Manual) Eosinophils # (Manual) Basophils # (Manual) Metamyelocytes # Myelocytes # Promyelocytes # Blast Cells # Plasma Cell # (Manual) Nucleated RBCs Hypersegmented Neuts Smudge Cells Toxic Granulation Toxic Vacuolation Dohle Bodies Leanna Rods WBC Morphology Comment Platelet Estimate Large Platelets Giant Platelets Plt Morphology Comment RBC Morphology Polychromasia Hypochromasia Basophilic Stippling Microcytosis Macrocytosis Spherocytes Pappenheimer Bodies Sickle Cells Target Cells Tear Drop Cells Ovalocytes Stomatocytes Johnson-Ransom Bodies Eighty Four Cells Acanthocytes (Spur) Rouleaux Schistocytes Smear Tech's Comments VBG pH VBG pCO2 VBG pO2 VBG HCO3 VBG O2 Saturation VBG Base Excess Anion Gap Estim Creat Clear Calc Estimated GFR Random Glucose Fasting Glucose Lactic Acid Calcium Magnesium Total Bilirubin Direct Bilirubin AST ALT Alkaline Phosphatase B-Natriuretic Peptide Total Protein Albumin Lipase Procalcitonin Urine Color Urine Appearance Urine pH Ur Specific [place] Urine Protein Urine Glucose (UA) Urine Ketones Urine Blood Urine Nitrite Ur Leukocyte Esterase Urine RBC Urine WBC Ur Squamous Epith Cells Urine Bacteria Hyaline Casts Influenza Type A (PCR) Influenza Type B (PCR) RSV RNA Qual (PCR) SARS-CoV-2 RNA (RT-PCR) 03/31/23 03/31/23 03/31/23 16:57 16:57 16:57 MCV MCH MCHC RDW Plt Count MPV Immature Gran % (Auto) Neut % (Auto) Lymph % (Auto) [place] % (Auto) Eos % (Auto) Baso % (Auto) Lymph # (Auto) [place] # (Auto) Eos # (Auto) Baso # (Auto) Abs Immat Gran (auto) Absolute Neuts (auto) Absolute Nucleated RBC Nucleated RBC % (auto) Neutrophils % (Manual) Band Neutrophils % Lymphocytes % (Manual) Atypical Lymphs % (Man) Monocytes % (Manual) Cancelled Eosinophils % (Manual) Cancelled Basophils % (Manual) Cancelled Metamyelocytes % Cancelled Myelocytes % Cancelled Promyelocytes % Cancelled Blast Cells % (Manual) Cancelled Plasma Cell % (Manual) Cancelled Abs Neuts (Manual) 9.8 H Cancelled Lymphocytes # (Manual) 0.3 L Cancelled Atyp Lymphs # (Manual) Cancelled Monocytes # (Manual) 0.2 Eosinophils # (Manual) Basophils # (Manual) Metamyelocytes # Myelocytes # Promyelocytes # Blast Cells # Plasma Cell # (Manual) Nucleated RBCs Hypersegmented Neuts Smudge Cells Toxic Granulation Toxic Vacuolation Dohle Bodies Leanna Rods WBC Morphology Comment Platelet Estimate Large Platelets Giant Platelets Plt Morphology Comment RBC Morphology Polychromasia Hypochromasia Basophilic Stippling Microcytosis Macrocytosis Spherocytes Pappenheimer Bodies Sickle Cells Target Cells Tear Drop Cells Ovalocytes Stomatocytes Johnson-Ransom Bodies Eighty Four Cells Acanthocytes (Spur) Rouleaux Schistocytes Smear Tech's Comments VBG pH VBG pCO2 VBG pO2 VBG HCO3 VBG O2 Saturation VBG Base Excess Anion Gap Estim Creat Clear Calc Estimated GFR Random Glucose Fasting Glucose Lactic Acid Calcium Magnesium Total Bilirubin Direct Bilirubin AST ALT Alkaline Phosphatase B-Natriuretic Peptide Total Protein Albumin Lipase Procalcitonin Urine Color Urine Appearance Urine pH Ur Specific [place] Urine Protein Urine Glucose (UA) Urine Ketones Urine Blood Urine Nitrite Ur Leukocyte Esterase Urine RBC Urine WBC Ur Squamous Epith Cells Urine Bacteria Hyaline Casts Influenza Type A (PCR) Influenza Type B (PCR) RSV RNA Qual (PCR) SARS-CoV-2 RNA (RT-PCR) 03/31/23 03/31/23 03/31/23 16:57 16:57 16:57 MCV MCH MCHC RDW Plt Count MPV Immature Gran % (Auto) Neut % (Auto) Lymph % (Auto) [place] % (Auto) Eos % (Auto) Baso % (Auto) Lymph # (Auto) [place] # (Auto) Eos # (Auto) Baso # (Auto) Abs Immat Gran (auto) Absolute Neuts (auto) Absolute Nucleated RBC Nucleated RBC % (auto) Neutrophils % (Manual) Band Neutrophils % Lymphocytes % (Manual) Atypical Lymphs % (Man) Monocytes % (Manual) Eosinophils % (Manual) Basophils % (Manual) Metamyelocytes % Myelocytes % Promyelocytes % Blast Cells % (Manual) Plasma Cell % (Manual) Abs Neuts (Manual) Lymphocytes # (Manual) Atyp Lymphs # (Manual) Monocytes # (Manual) Cancelled Eosinophils # (Manual) Cancelled Basophils # (Manual) Cancelled Metamyelocytes # Cancelled Myelocytes # Cancelled Promyelocytes # Cancelled Blast Cells # Cancelled Plasma Cell # (Manual) Cancelled Nucleated RBCs Cancelled Hypersegmented Neuts Cancelled Smudge Cells Cancelled Toxic Granulation Cancelled Toxic Vacuolation PRESENT Cancelled Dohle Bodies Cancelled Leanna Rods Cancelled WBC Morphology Comment Cancelled Platelet Estimate NORMAL Cancelled Large Platelets Cancelled Giant Platelets Cancelled Plt Morphology Comment NORMAL RBC Morphology Polychromasia Hypochromasia Basophilic Stippling Microcytosis Macrocytosis Spherocytes Pappenheimer Bodies Sickle Cells Target Cells Tear Drop Cells Ovalocytes Stomatocytes Johnson-Ransom Bodies Gina Cells Acanthocytes (Spur) Rouleaux Schistocytes Smear Tech's Comments VBG pH VBG pCO2 VBG pO2 VBG HCO3 VBG O2 Saturation VBG Base Excess Anion Gap Estim Creat Clear Calc Estimated GFR Random Glucose Fasting Glucose Lactic Acid Calcium Magnesium Total Bilirubin Direct Bilirubin AST ALT Alkaline Phosphatase B-Natriuretic Peptide Total Protein Albumin Lipase Procalcitonin Urine Color Urine Appearance Urine pH Ur Specific [place] Urine Protein Urine Glucose (UA) Urine Ketones Urine Blood Urine Nitrite Ur Leukocyte Esterase Urine RBC Urine WBC Ur Squamous Epith Cells Urine Bacteria Hyaline Casts Influenza Type A (PCR) Influenza Type B (PCR) RSV RNA Qual (PCR) SARS-CoV-2 RNA (RT-PCR) 03/31/23 03/31/23 03/31/23 16:57 16:57 16:57 MCV MCH MCHC RDW Plt Count MPV Immature Gran % (Auto) Neut % (Auto) Lymph % (Auto) [place] % (Auto) Eos % (Auto) Baso % (Auto) Lymph # (Auto) [place] # (Auto) Eos # (Auto) Baso # (Auto) Abs Immat Gran (auto) Absolute Neuts (auto) Absolute Nucleated RBC Nucleated RBC % (auto) Neutrophils % (Manual) Band Neutrophils % Lymphocytes % (Manual) Atypical Lymphs % (Man) Monocytes % (Manual) Eosinophils % (Manual) Basophils % (Manual) Metamyelocytes % Myelocytes % Promyelocytes % Blast Cells % (Manual) Plasma Cell % (Manual) Abs Neuts (Manual) Lymphocytes # (Manual) Atyp Lymphs # (Manual) Monocytes # (Manual) Eosinophils # (Manual) Basophils # (Manual) Metamyelocytes # Myelocytes # Promyelocytes # Blast Cells # Plasma Cell # (Manual) Nucleated RBCs Hypersegmented Neuts Smudge Cells Toxic Granulation Toxic Vacuolation Dohle Bodies Leanna Rods WBC Morphology Comment Platelet Estimate Large Platelets Giant Platelets Plt Morphology Comment Cancelled RBC Morphology NOTED Cancelled Polychromasia 1+ (0-2) Cancelled Hypochromasia Cancelled Basophilic Stippling Cancelled Microcytosis Cancelled Macrocytosis Cancelled Spherocytes Cancelled Pappenheimer Bodies Cancelled Sickle Cells Cancelled Target Cells Cancelled Tear Drop Cells Cancelled Ovalocytes Cancelled Stomatocytes Cancelled Johnson-Ransom Bodies Cancelled Gina Cells Cancelled Acanthocytes (Spur) 2+ (3-5) Rouleaux Schistocytes Smear Tech's Comments VBG pH VBG pCO2 VBG pO2 VBG HCO3 VBG O2 Saturation VBG Base Excess Anion Gap Estim Creat Clear Calc Estimated GFR Random Glucose Fasting Glucose Lactic Acid Calcium Magnesium Total Bilirubin Direct Bilirubin AST ALT Alkaline Phosphatase B-Natriuretic Peptide Total Protein Albumin Lipase Procalcitonin Urine Color Urine Appearance Urine pH Ur Specific [place] Urine Protein Urine Glucose (UA) Urine Ketones Urine Blood Urine Nitrite Ur Leukocyte Esterase Urine RBC Urine WBC Ur Squamous Epith Cells Urine Bacteria Hyaline Casts Influenza Type A (PCR) Influenza Type B (PCR) RSV RNA Qual (PCR) SARS-CoV-2 RNA (RT-PCR) 03/31/23 03/31/23 04/01/23 16:57 17:03 06:46 MCV 98.8 H MCH 32.2 MCHC 32.6 RDW 13.3 Plt Count 185 MPV 10.2 Immature Gran % (Auto) Neut % (Auto) Lymph % (Auto) [place] % (Auto) Eos % (Auto) Baso % (Auto) Lymph # (Auto) [place] # (Auto) Eos # (Auto) Baso # (Auto) Abs Immat Gran (auto) Absolute Neuts (auto) Absolute Nucleated RBC 0.000 Nucleated RBC % (auto) 0.0 Neutrophils % (Manual) Band Neutrophils % Lymphocytes % (Manual) Atypical Lymphs % (Man) Monocytes % (Manual) Eosinophils % (Manual) Basophils % (Manual) Metamyelocytes % Myelocytes % Promyelocytes % Blast Cells % (Manual) Plasma Cell % (Manual) Abs Neuts (Manual) Lymphocytes # (Manual) Atyp Lymphs # (Manual) Monocytes # (Manual) Eosinophils # (Manual) Basophils # (Manual) Metamyelocytes # Myelocytes # Promyelocytes # Blast Cells # Plasma Cell # (Manual) Nucleated RBCs Hypersegmented Neuts Smudge Cells Toxic Granulation Toxic Vacuolation Dohle Bodies Leanna Rods WBC Morphology Comment Platelet Estimate Large Platelets Giant Platelets Plt Morphology Comment RBC Morphology Polychromasia Hypochromasia Basophilic Stippling Microcytosis Macrocytosis Spherocytes Pappenheimer Bodies Sickle Cells Target Cells Tear Drop Cells Ovalocytes Stomatocytes Johnson-Ransom Bodies Gina Cells Acanthocytes (Spur) Cancelled Rouleaux Cancelled Schistocytes Cancelled Smear Tech's Comments MANUAL DIFF VBG pH 7.47 H VBG pCO2 31 VBG pO2 64 VBG HCO3 23 VBG O2 Saturation 94.0 VBG Base Excess 0.6 Anion Gap 13 11 L Estim Creat Clear Calc 40.2 38.2 Estimated GFR 50 47 Random Glucose 110 Fasting Glucose 92 Lactic Acid 0.8 Calcium 9.1 D 8.5 D Magnesium 1.8 Total Bilirubin 0.8 Direct Bilirubin 0.4 AST 26 ALT 20 Alkaline Phosphatase 107 B-Natriuretic Peptide 441 H Total Protein 6.6 Albumin 3.5 Lipase 17 Procalcitonin 0.65 Urine Color Urine Appearance Urine pH Ur Specific [place] Urine Protein Urine Glucose (UA) Urine Ketones Urine Blood Urine Nitrite Ur Leukocyte Esterase Urine RBC Urine WBC Ur Squamous Epith Cells Urine Bacteria Hyaline Casts Influenza Type A (PCR) NEGATIVE Influenza Type B (PCR) NEGATIVE RSV RNA Qual (PCR) POSITIVE A SARS-CoV-2 RNA (RT-PCR) NEGATIVE 04/01/23 10:35 MCV MCH MCHC RDW Plt Count MPV Immature Gran % (Auto) Neut % (Auto) Lymph % (Auto) [place] % (Auto) Eos % (Auto) Baso % (Auto) Lymph # (Auto) [place] # (Auto) Eos # (Auto) Baso # (Auto) Abs Immat Gran (auto) Absolute Neuts (auto) Absolute Nucleated RBC Nucleated RBC % (auto) Neutrophils % (Manual) Band Neutrophils % Lymphocytes % (Manual) Atypical Lymphs % (Man) Monocytes % (Manual) Eosinophils % (Manual) Basophils % (Manual) Metamyelocytes % Myelocytes % Promyelocytes % Blast Cells % (Manual) Plasma Cell % (Manual) Abs Neuts (Manual) Lymphocytes # (Manual) Atyp Lymphs # (Manual) Monocytes # (Manual) Eosinophils # (Manual) Basophils # (Manual) Metamyelocytes # Myelocytes # Promyelocytes # Blast Cells # Plasma Cell # (Manual) Nucleated RBCs Hypersegmented Neuts Smudge Cells Toxic Granulation Toxic Vacuolation Dohle Bodies Leanna Rods WBC Morphology Comment Platelet Estimate Large Platelets Giant Platelets Plt Morphology Comment RBC Morphology Polychromasia Hypochromasia Basophilic Stippling Microcytosis Macrocytosis Spherocytes Pappenheimer Bodies Sickle Cells Target Cells Tear Drop Cells Ovalocytes Stomatocytes Johnson-Ransom Bodies Gina Cells Acanthocytes (Spur) Rouleaux Schistocytes Smear Tech's Comments VBG pH VBG pCO2 VBG pO2 VBG HCO3 VBG O2 Saturation VBG Base Excess Anion Gap Estim Creat Clear Calc Estimated GFR Random Glucose Fasting Glucose Lactic Acid Calcium Magnesium Total Bilirubin Direct Bilirubin AST ALT Alkaline Phosphatase B-Natriuretic Peptide Total Protein Albumin Lipase Procalcitonin Urine Color Dark Yellow Urine Appearance Clear Urine pH 6.0 Ur Specific [place] 1.025 Urine Protein Trace Urine Glucose (UA) Negative Urine Ketones Trace Urine Blood Negative Urine Nitrite Negative Ur Leukocyte Esterase Trace H Urine RBC 0-2 Urine WBC 6-10 Ur Squamous Epith Cells 0-2 Urine Bacteria Trace Hyaline Casts 0-2 Influenza Type A (PCR) Influenza Type B (PCR) RSV RNA Qual (PCR) SARS-CoV-2 RNA (RT-PCR) Assessment and Plan (1) Pneumonia: Status: Acute Plan 87M PMH COPD, htn, prostate ca, cva with left hemiparesis and dysarthria, CKD III, s/p pacer presented with sob. Acute hypoxic respiratory failure secondary to RSV with likely superimposed bacterial pneumonia complicated by COPD with acute decompensation cotninue Prednisone, DuoNebs, ceftriaxone and azithromycin, wean O2 as tolerated History of CVA Aspirin and statin Hypertension Holding amlodipine for relative hypotension Prostate CA, bladder outlet obstruction Continue alpha eda had 400cc residual, difficult to cath gu eval CKD 3 Stable DVT prophylaxis with Lovenox Full Code reason for continued hospitalization:still hypoxic Quality Stroke Does the patient have a stroke diagnosis?: No VTE Prior VTE?: No VTE Risk Level:: Medical - moderate - high VTE Device Contraindication: Treatment Not Indicated VTE Drug Contraindication: N/A - Med Ordered
--- NOTE | 2023-04-01 12:28 | PC.NURSE ---
PT REPOSITIONED IN BED FOR COMFORT, DENIES PAIN AT THIS TIME. O2 REMOVED, REMAINS 94% ON RA. LS CLEAR THROUGHOUT.
--- NOTE | 2023-04-01 12:29 | PC.NURSE ---
PT HAS HAD ADDITION 125CCS DARK LUZMA URINE OUTPUT. URO CONSULT PENDING.
--- NOTE | 2023-04-01 16:57 | PM.UROCN ---
History of Present Illness Consult details Consult date: 04/01/23 Narrative: CC: urinary retention 87-year-old male. Known to Urology. Prior history prostate cancer with brachytherapy. Admitted through emergency room with 1 week of respiratory weakness. Diagnosed with iris of the and potential bacterial pneumonia Found to have 400 cc of bladder emergency room Has been urinating using urinal Continue with maximal terazosin Stop Myrbetriq Review of Systems Constitutional: Constitutional: Reports as per HPI and Reports no additional constitutional complaints Cardiovascular: Cardiovascular: Reports as per HPI and Reports no additional cardiovascular complaints Respiratory: Respiratory: Reports as per HPI and Reports no additional respiratory complaints Gastrointestinal: Gastrointestinal: Reports as per HPI and Reports no additional gastrointestinal complaints Genitourinary: Genitourinary: Reports as per HPI Musculoskeletal: Musculoskeletal: Reports no additional musculoskeletal complaints and Reports as per HPI Neurologic: Reports system reviewed and no additional complaints, except as documented and Reports as per HPI PMFSH Past Medical History Medical History Anemia Pacemaker UTI (urinary tract infection) Swallowing problem Incidental pulmonary nodule Left-sided weakness Vitamin D deficiency Benign essential hypertension CVA (cerebral vascular accident) (~2016) Bradycardia CKD (chronic kidney disease), stage III Right inguinal pain Hypertension Urinary frequency Bladder outlet obstruction Surgical History Surgical History History of surgery History of knee replacement Social History Social History Household Members: None Housing: Apartment Do you presently have visiting nurse or other home services: Yes Alcohol intake: never Patient Tobacco Use Status: Current everyday Tobacco user Tobacco use type: Cigarette Cigarette Packs Per Day: 0.25 Cigarettes Per Day: 5 Years Smoked: 60 +/- e-Cigarette/Vaping Use: Never Used Second Hand Smoke Exposure: Yes Advance Directives Date on File: 06/06/22 service: No Current occupational status: retired Cognitive needs: No Hearing needs: No Vision needs: Yes Meds Allergies Allergy/AdvReac Type Severity Reaction Status Date / Time No Known Allergies Allergy Verified 02/01/23 09:08 [No Known Allergies*] Active Medications: Current Medications Albuterol/Ipratropium (Albuterol/Iprat 2.5/0.5mg 3 Ml Ampul.Neb) 3 ml INHALE RQ4H WHILE AWAKE PRN PRN Reason: sob Aspirin (Aspirin 81 Mg Tab.Chew) 81 mg PO DAILY [facility] Last Admin: 04/01/23 10:44 Dose: 81 mg Atorvastatin Calcium (Atorvastatin Calcium 40 Mg Tablet) 40 mg PO BEDTIME [facility] Last Admin: 03/31/23 20:36 Dose: 40 mg Azithromycin (Azithromycin 500 Mg Tablet) 500 mg PO Q24H [facility] Last Admin: 04/01/23 10:44 Dose: 500 mg Enoxaparin Sodium (Enoxaparin Sodium 40 Mg/0.4 Ml Syringe) 40 mg SUBCUT Q24H [facility] Last Admin: 03/31/23 19:39 Dose: 40 mg Ceftriaxone Sodium 1 gm/ (Sodium Chloride) 50 mls @ 100 mls/hr IV Q24H [facility] Mirabegron (Mirabegron 25 Mg Tab.Er.24h) 25 mg PO DAILY [facility] Last Admin: 04/01/23 12:09 Dose: 25 mg Non-Formulary Medication (Fesoterodine) 8 mg PO DAILY [facility] Prazosin HCl (Prazosin Hcl 5 Mg Capsule) 5 mg PO BID [facility]; Protocol Last Admin: 04/01/23 10:45 Dose: Not Given Prednisone (Prednisone 20 Mg Tablet) 40 mg PO DAILY [facility] Last Admin: 04/01/23 10:44 Dose: 40 mg Sodium Chloride (0.9 % Sodium Chloride Flush 3 Ml Syringe) 3 ml IVFLUSH QSHIFT [facility] Last Admin: 04/01/23 07:49 Dose: Not Given Vitamin D (Cholecalciferol (Vitamin D3) 25 Mcg Tablet) 25 mcg PO DAILY [facility] Last Admin: 04/01/23 10:44 Dose: 25 mcg Home Medications Medication Instructions Recorded Confirmed Last Taken Type amlodipine 5 mg tablet 5 mg PO DAILY 03/31/23 03/31/23 03/31/22 History Physical Exam Vital Signs: Vital Signs: Last Vital Signs Temp 97.6 F 04/01/23 16:00 Pulse 61 04/01/23 16:00 Resp 18 04/01/23 16:00 BP 171/76 H 04/01/23 16:00 Pulse Ox 98 04/01/23 16:00 O2 Del Method Nasal Cannula 04/01/23 16:00 O2 Flow Rate 2.0 04/01/23 16:00 Oxygen Flow Rate 4 03/31/23 16:46 BMI result Body Mass Index 24.0 Const: General: cooperative, healthy appearing, comfortable and no acute distress Orientation/consciousness: patient oriented x3 HEENT: Face and sinus: Yes normal facial exam Mouth: moist mucous membranes Neck: Neck: Yes normal visual inspection, Yes full ROM and Yes trachea midline Chest: Chest palpation & inspection: normal inspection of the chest Resp: Effort & Inspection: normal respiratory effort, able to speak in complete sentences and no respiratory distress GI: Inspection: Yes normal to inspection Back/Spine/Pelvis: Cervical Spine: normal cervical lordosis Thoracic/Lumbar Spine: thoracic and lumbar spine normal to inspection Skin: General skin exam: no rashes or lesions noted Neuro: General: patient oriented x3, tone normal and moves all extremities Extrem: General: Yes normal to inspection and Yes capillary refill normal Results Labs 04/01/23 06:46 04/01/23 06:46 Labs: Abnormal lab results 03/31/23 03/31/23 04/01/23 Range/Units 16:57 17:03 06:46 RBC 3.48 L 3.23 L (4.60-5.80) X10*6/uL Hgb 11.2 L 10.4 L (14.0-18.0) g/dl Hct 33.5 L 31.9 L (42.0-52.0) % MCV 98.8 H (80.0-98.0) fL Neutrophils % (Manual) 88 H (45-73) % Band Neutrophils % 7 H (3-5) % Lymphocytes % (Manual) 3 L (20-40) % Abs Neuts (Manual) 9.8 H (2.0-8.3) X10*3/uL Lymphocytes # (Manual) 0.3 L (1.2-4.9) X10*3/uL VBG pH 7.47 H (7.32-7.43) Anion Gap 11 L (12-20) BUN 20 H 26 H (9-16) mg/dL Creatinine 1.43 H (0.5-1.4) mg/dL B-Natriuretic Peptide 441 H (<100) pg/mL Ur Leukocyte Esterase (Negative) RSV RNA Qual (PCR) POSITIVE A (Negative) 04/01/23 Range/Units 10:35 RBC (4.60-5.80) X10*6/uL Hgb (14.0-18.0) g/dl Hct (42.0-52.0) % MCV (80.0-98.0) fL Neutrophils % (Manual) (45-73) % Band Neutrophils % (3-5) % Lymphocytes % (Manual) (20-40) % Abs Neuts (Manual) (2.0-8.3) X10*3/uL Lymphocytes # (Manual) (1.2-4.9) X10*3/uL VBG pH (7.32-7.43) Anion Gap (12-20) BUN (9-16) mg/dL Creatinine (0.5-1.4) mg/dL B-Natriuretic Peptide (<100) pg/mL Ur Leukocyte Esterase Trace H (Negative) RSV RNA Qual (PCR) (Negative) Short CBC 03/31/23 03/31/23 03/31/23 Range/Units 16:57 16:57 16:57 WBC 10.3 Cancelled (4.8-10.8) X10*3/uL Hgb 11.2 L Cancelled (14.0-18.0) g/dl Hct 33.5 L (42.0-52.0) % Plt Count (160-400) X10*3/uL 03/31/23 03/31/23 04/01/23 Range/Units 16:57 16:57 06:46 WBC 10.7 (4.8-10.8) X10*3/uL Hgb 10.4 L (14.0-18.0) g/dl Hct Cancelled 31.9 L (42.0-52.0) % Plt Count 203 D Cancelled 185 (160-400) X10*3/uL BMP 03/31/23 04/01/23 16:57 06:46 Sodium 137 136 Potassium 3.9 4.0 Chloride 106 105 Carbon Dioxide 22 24 BUN 20 H 26 H Creatinine 1.36 1.43 H Calcium 9.1 D 8.5 D Liver Function 03/31/23 Range/Units 16:57 Total Bilirubin 0.8 (0.0-1.0) mg/dL Direct Bilirubin 0.4 (0.0-0.5) mg/dL AST 26 (5-37) U/L ALT 20 (0-40) U/L Alkaline Phosphatase 107 (39-117) U/L Albumin 3.5 (3.5-5.0) g/dL Urine 04/01/23 Range/Units 10:35 Urine Color Dark Yellow Urine Appearance Clear Urine pH 6.0 (5.0-9.0) Ur Specific [place] 1.025 (1.005-1.025) Urine Protein Trace (Neg-Trace) mg/dL Urine Glucose (UA) Negative (Negative) mg/dL All other labs normal. Assessment and Plan (1) Bladder outlet obstruction: Status: Acute (2) Urinary frequency: Status: Acute Plan Continue off eda Hold beta agonist Myrbetriq, hold Toviaz Procedures Date of Service Date of Service: 04/01/23
[2023-04-02 06:00] VITALS: BP 113/54; PULSE 50; RESP 20; TEMP 36.4; O2SAT 97
[2023-04-02 07:05] LABS: Anion Gap 10 (12-20); Blood Urea Nitrogen 33 mg/dL (9-16); Carbon Dioxide 25 mmol/L (22-29); Chloride 104 mmol/L (96-108); Creatinine Clr Calc Pharmacy 40.5; Estimated Glomerular Filt Rate 50; Glucose Fasting 114 mg/dL (60-99); Potassium 3.8 mmol/L (3.3-5.1); Sodium 135 mmol/L (135-145)
[2023-04-02 07:58] VITALS: BP 155/74; PULSE 60; RESP 18; TEMP 36.2; O2SAT 98
--- NOTE | 2023-04-02 09:33 | HO.PM.IMPN ---
Subjective Subjective Date of Service: 04/02/23 Interval History: feeling stronger Physical Exam Vital Signs: Vital Signs: Last Vital Signs Temp 97.1 F 04/02/23 07:58 Pulse 60 04/02/23 07:58 Resp 18 04/02/23 07:58 BP 155/74 H 04/02/23 07:58 Pulse Ox 98 04/02/23 07:58 O2 Del Method Nasal Cannula 04/02/23 07:58 O2 Flow Rate 2.0 04/02/23 07:58 Oxygen Flow Rate 4 03/31/23 16:46 BMI result Body Mass Index 23.7 Const: General: cooperative, healthy appearing, comfortable and no acute distress Orientation/consciousness: patient oriented x3 HEENT: Face and sinus: Yes normal facial exam Mouth: moist mucous membranes Neck: Neck: Yes normal visual inspection, Yes full ROM and Yes trachea midline Chest: Chest palpation & inspection: normal inspection of the chest Resp: Effort & Inspection: normal respiratory effort, able to speak in complete sentences and no respiratory distress GI: Inspection: Yes normal to inspection Back/Spine/Pelvis: Cervical Spine: normal cervical lordosis Thoracic/Lumbar Spine: thoracic and lumbar spine normal to inspection Skin: General skin exam: no rashes or lesions noted Neuro: General: patient oriented x3, tone normal and moves all extremities Extrem: General: Yes normal to inspection and Yes capillary refill normal Objective Data Active Medications Albuterol/Ipratropium (Albuterol/Iprat 2.5/0.5mg 3 Ml Ampul.Neb) 3 ml INHALE RQ4H WHILE AWAKE PRN PRN Reason: sob Aspirin (Aspirin 81 Mg Tab.Chew) 81 mg PO DAILY [facility] Last Admin: 04/02/23 08:23 Dose: 81 mg Documented By: ALEJA Atorvastatin Calcium (Atorvastatin Calcium 40 Mg Tablet) 40 mg PO BEDTIME [facility] Last Admin: 04/01/23 21:29 Dose: 40 mg Documented By: ANJELICA Azithromycin (Azithromycin 500 Mg Tablet) 500 mg PO Q24H [facility] Last Admin: 04/02/23 08:23 Dose: 500 mg Documented By: ALEJA Enoxaparin Sodium (Enoxaparin Sodium 40 Mg/0.4 Ml Syringe) 40 mg SUBCUT Q24H [facility] Last Admin: 04/01/23 18:10 Dose: 40 mg Documented By: NAT Ceftriaxone Sodium 1 gm/ (Sodium Chloride) 50 mls @ 100 mls/hr IV Q24H [facility] Last Infusion: 04/01/23 17:59 Dose: Infused Documented By: NAT Prazosin HCl (Prazosin Hcl 5 Mg Capsule) 5 mg PO BID [facility]; Protocol Last Admin: 04/02/23 08:23 Dose: 5 mg Documented By: ALEJA Prednisone (Prednisone 20 Mg Tablet) 40 mg PO DAILY [facility] Last Admin: 04/02/23 08:23 Dose: 40 mg Documented By: ALEJA Sodium Chloride (0.9 % Sodium Chloride Flush 3 Ml Syringe) 3 ml IVFLUSH QSHIFT [facility] Last Admin: 04/02/23 08:23 Dose: 3 ml Documented By: ALEJA Vitamin D (Cholecalciferol (Vitamin D3) 25 Mcg Tablet) 25 mcg PO DAILY [facility] Last Admin: 04/02/23 08:23 Dose: 25 mcg Documented By: ALEJA Labs 04/02/23 06:27 04/02/23 06:27 Labs: Laboratory Results - last 24 hr 04/01/23 04/02/23 10:35 06:27 MCV 98.7 H MCH 32.9 MCHC 33.3 RDW 13.1 Plt Count 208 MPV 10.4 Absolute Nucleated RBC 0.000 Nucleated RBC % (auto) 0.0 Anion Gap 10 L Estim Creat Clear Calc 40.5 Estimated GFR 50 Fasting Glucose 114 H Calcium 9.0 Urine Color Dark Yellow Urine Appearance Clear Urine pH 6.0 Ur Specific [place] 1.025 Urine Protein Trace Urine Glucose (UA) Negative Urine Ketones Trace Urine Blood Negative Urine Nitrite Negative Ur Leukocyte Esterase Trace H Urine RBC 0-2 Urine WBC 6-10 Ur Squamous Epith Cells 0-2 Urine Bacteria Trace Hyaline Casts 0-2 Microbiology Microbiology Results: Microbiology 03/31/23 16:57 Blood Culture - Preliminary Blood - Venous No growth after 24 hours. 03/31/23 16:57 Blood Culture - Preliminary Blood - Venous No growth after 24 hours. Assessment and Plan (1) Pneumonia: Status: Acute Plan 87M PMH COPD, htn, prostate ca, cva with left hemiparesis and dysarthria, CKD III, s/p pacer presented with sob. Acute hypoxic respiratory failure secondary to RSV with likely superimposed bacterial pneumonia complicated by COPD with acute decompensation continue Prednisone, DuoNebs, ceftriaxone and azithromycin, wean O2 as tolerated PT eval History of CVA Aspirin and statin Hypertension Holding amlodipine for relative hypotension Prostate CA, bladder outlet obstruction Continue alpha eda gu appreciated now urinating without catheter CKD 3 Stable DVT prophylaxis with Lovenox Full Code reason for continued hospitalization:still hypoxic, pt eval Quality Stroke Does the patient have a stroke diagnosis?: No VTE Prior VTE?: No VTE Risk Level:: Medical - moderate - high VTE Device Contraindication: Treatment Not Indicated VTE Drug Contraindication: N/A - Med Ordered
--- NOTE | 2023-04-02 12:34 | MHC.CM.PN ---
Interview conducted w/HCP: Pt lives alone; SEASONER several hours daily in am. SEASONER (Jordon Mckenzie) drives him to all of his appts. Pt owns cane, and lives on a second floor apt. Currently, SEASONER has the flu and is unable to be in contact w/Pt. Depending on D/C timeframe, D/C plan would be to return home via SE[employer]ONER (or shuttle), ? w/[facility] services. CM to follow.
[2023-04-02 12:45] VITALS: PULSE 63; O2SAT 93
[2023-04-02 14:00] VITALS: BP 164/72; PULSE 58; RESP 16; TEMP 36.3; O2SAT 96
[2023-04-03 04:20] VITALS: BP 169/80; PULSE 60; RESP 16; TEMP 35.9; O2SAT 93
[2023-04-03 06:00] VITALS: BP 152/74; PULSE 62; RESP 17; TEMP 36.6; O2SAT 92
--- NOTE | 2023-04-03 09:17 | W.MHC.F2F ---
Service Date Service Date: 04/03/23 Encounter Date of encounter: 04/03/23 Reasons for Services Signs and symptoms assessed: weakness post hospital stay Reason for mcfp: medication management, medication treatment and teach disease management Homebound: Leaving the home is medically contraindicated at this time without the asist of a device and/or another person due th the listed conditions above and below. Reason homebound: unsteady gait / fall risk Certification: Based on the above findings, I certify that this patient is confined to the home and needs intermittent mcfp care, physical therapy and/or speech therapy, or continues to need occupational therapy. The patient is under my care, and I have initiated the establishment of the plan of care. The patient will be followed by a physician who will periodically review the plan of care. Time Spent With Patient Time: Total time managing care of this patient today ____ minutes.
--- NOTE | 2023-04-03 09:20 | PM.DS ---
DS: Providers Provider Date of Service: 04/03/23 Date of admission: 03/31/23 18:27 Primary care physician: Dontrell Dougherty MD Consults: 04/01/23 09:35 Consult to Urology Routine Consulting Provider: Vijay Serna Reason for consultation: urinary retention DS: Diagnosis Discharge Diagnosis (1) Pneumonia: Status: Acute DS: Summary Hospital Course Hospital Course: from initial hpi: 87M PMH COPD, htn, prostate ca, cva with left hemiparesis and dysarthria, CKD III, s/p pacer presented with sob. Patient was in ED 03/26/2023 complaining of 1 week of runny nose, sinus pressure, cough with some mucus production. At that time was diagnosed with RSV and discharged with nasal spray and cough suppressant. At home patient continued to worsening cough, started to have worsening shortness of breath. Denies fever or chills. Noted to have hypoxia on room air to the mid 80s, chest x-ray with right lower lobe opacity. hospital course: Patient was admitted for acute hypoxic respiratory failure secondary RSV with likely superimposed bacterial pneumonia complicated by COPD with acute decompensation. He was treated with prednisone, bronchodilators, ceftriaxone and azithromycin. His oxygen was weaned off. Patient was not interested and fdc facility. Will be discharged on 5 more days of prednisone and Ceftin and azithromycin with visiting nurse services. For hypertension amlodipine was held for relative hypotension but will be restarted on discharge. For prostate cancer with bladder outlet obstruction was continued on alpha-eda. Now urinating without catheter. For CKD 3 remained stable. Patient is feeling better will be discharged home. Time Attestation Discharge coordination time: Greater than 30 minutes Quality: Safe Use of Opioids Does Pt have an Active Cancer Diagnosis on the Problem List?: No Quality: Stroke Does the patient have a stroke diagnosis?: No Physical Exam Vital Signs: Vital Signs: Last Vital Signs Temp 98 F 04/03/23 06:00 Pulse 62 04/03/23 06:00 Resp 17 04/03/23 06:00 BP 152/74 H 04/03/23 06:00 Pulse Ox 92 04/03/23 06:00 O2 Del Method Room Air 04/03/23 06:00 O2 Flow Rate 2.0 04/02/23 07:58 Oxygen Flow Rate 4 03/31/23 16:46 BMI result Body Mass Index 23.7 Const: General: cooperative, healthy appearing, comfortable and no acute distress Orientation/consciousness: patient oriented x3 HEENT: Face and sinus: Yes normal facial exam Mouth: moist mucous membranes Neck: Neck: Yes normal visual inspection, Yes full ROM and Yes trachea midline Chest: Chest palpation & inspection: normal inspection of the chest Resp: Effort & Inspection: normal respiratory effort, able to speak in complete sentences and no respiratory distress GI: Inspection: Yes normal to inspection Back/Spine/Pelvis: Cervical Spine: normal cervical lordosis Thoracic/Lumbar Spine: thoracic and lumbar spine normal to inspection Skin: General skin exam: no rashes or lesions noted Neuro: General: patient oriented x3, tone normal and moves all extremities Extrem: General: Yes normal to inspection and Yes capillary refill normal DS: Data Data Completed and Pending Completed studies during hospitalization [Text1]: Procedures Insertion of Pacemaker Lead into Right Atrium, Percutaneous Approach (06/18/22) Insertion of Pacemaker Lead into Right Ventricle, Percutaneous Approach (06/18/22) Insertion of Pacemaker, Dual Chamber into Chest Subcutaneous Tissue and Fascia, Open Approach (06/18/22) Labs on day of discharge: Preliminary micro results at discharge 03/31/23 16:57 Blood Culture - Preliminary Blood - Venous No growth after 48 hours. 03/31/23 16:57 Blood Culture - Preliminary Blood - Venous No growth after 48 hours. Discharge Plan Discharge Anticipated Discharge Date/Time: 04/03/23 09:14 Patient Disposition: Home Health Service Discharge Diagnosis: pneumonia Referrals: Dontrell Dougherty MD [Primary Care Provider] - 1 Week Discharge Medications: New prednisone 20 mg Tablet 40 mg PO DAILY Qty: 10 0RF azithromycin 500 mg Tablet 500 mg PO Q24H Qty: 5 0RF cefuroxime axetil 500 mg tablet 500 mg PO BID Qty: 10 0RF Continued atorvastatin 40 mg tablet 40 mg PO BEDTIME 90 Days Qty: 90 1RF cholecalciferol (vitamin D3) 25 mcg (1,000 unit) tablet 25 mcg PO DAILY Qty: 90 3RF prazosin 5 mg capsule 5 mg PO BID Qty: 180 0RF aspirin 81 mg tablet,chewable 81 mg PO DAILY Qty: 90 1RF terazosin 10 mg capsule 10 mg PO BEDTIME 90 Days Qty: 90 3RF amlodipine 5 mg tablet 5 mg PO DAILY fesoterodine 8 mg tablet extended release 24 hr 8 mg PO DAILY 90 Days Qty: 90 3RF Myrbetriq 25 mg tablet extended release 24 hr 25 mg PO DAILY 90 Days Qty: 90 3RF Discharge Orders: Discharge Order (Routine); Ordered 04/03/23 Ordered By: Ludin Dawson Diet: Advance to usual diet Activity on Discharge: As tolerated Stand Alone Forms: Patient Portal Discharge page Care Plan Goals: recovery Health Concerns: rsv, pna Plan of Treatment: 5 more days steroids and antibiotics Assessment: see above
--- NOTE | 2023-04-03 11:04 | MHC.CM.PN ---
Addendum entered by Yany Alfonso 04/03/23 12:57: WHEN PTS JUNIOR BUYER, JANE LAGUNA ARRIVED, HE STATED HE IS THE CURRENT HCP HOWEVER SOMEONE HAD CALLED THE PREVIOUS HCP UPON PTS ADMISSION CM REVIEWED CHART AND INFORMED HIM THE HCP ON FILE DID NOT NAME HIM THE AGENT PT CONFIRMED HE WANTED JANE TO BE THE HCP NEW HCP COMPLETED PRIOR TO DC Addendum entered by Yany Alfonso 04/03/23 11:56: CM AND RN MET WITH PT WHO REPORTS HIS JUNIOR BUYER CAN TRANSPORT HIM HOME HOWEVER HIS PHONE IS NOT WORKING SO HE CANNOT REACH HIM HE PROVIDED CM WITH HIS JUNIOR BUYER CELL NUMBER [phone]. JUNIOR BUYER WAS CALLED ON SPEAKER WITH PT AND RN PRESENT JUNIOR BUYER, JANE, CONFIRMED HE WILL BE HERE AT 1230 TO TRANSPORT PT. HE WILL COME TO THE UNIT WITH CLOTHES FOR THE PT Original Note: PT WILL DC HOME TODAY HOME HEALTH SERVICES ORDERED [facility] HAS ACCEPTED REFERRAL PENDING VERIFICATION OF PTS INSURANCE AND PCP FAMILY TO TRANSPORT
== END 2023-04-03 12:51 | disposition home health service (06) | DRG 193 ==
LOC: HO.ED 17:19 → HO.EDOVER 18:29 → HO.S3 04-01 15:11
PROVIDERS: Admitting Provider Internal Medicine; Emergency Provider Emergency Medicine; PCP Internal Medicine; Visit Provider Internal Medicine
DX: J15.9 Unspecified bacterial pneumonia (principal); J96.01 Acute respiratory failure with hypoxia; I69.354 Hemiplegia and hemiparesis following cerebral infarction affecting left non-dominant side; J44.1 Chronic obstructive pulmonary disease with (acute) exacerbation; J44.0 Chronic obstructive pulmonary disease with (acute) lower respiratory infection; B97.4 Respiratory syncytial virus as the cause of diseases classified elsewhere; N32.0 Bladder-neck obstruction; I12.9 Hypertensive chronic kidney disease with stage 1 through stage 4 chronic kidney disease, or unspecified chronic kidney disease; C61 Malignant neoplasm of prostate; F17.210 Nicotine dependence, cigarettes, uncomplicated; N18.30 Chronic kidney disease, stage 3 unspecified; Z95.0 Presence of cardiac pacemaker; Z20.822 Contact with and (suspected) exposure to COVID-19; Z79.82 Long term (current) use of aspirin; Z79.899 Other long term (current) drug therapy
CPT/HCPCS: 0241U; 36415; 71045; 80048; 80076; 81001; 82803; 83605; 83690; 83735; 83880; 84145; 84484; 85007; 85027; 87040; 87086; 93005; 94640; 99285; J0456; J0696; J1650; J2405

== ENCOUNTER → 2023-03-31 16:46 | Outpatient (BNV) | payer MEDICARE, SELFPAY | PROVIDERS: Admitting Provider Internal Medicine; Emergency Provider Emergency Medicine; Visit Provider Internal Medicine Cardiovascular Disease | DX: I45.2 Bifascicular block (principal); R94.31 Abnormal electrocardiogram [ECG] [EKG] | CPT/HCPCS: 93010 ==

== ENCOUNTER → 2023-03-31 18:27 | Outpatient (BNV) | payer MEDICARE, SELFPAY | PROVIDERS: Admitting Provider Internal Medicine; Emergency Provider Emergency Medicine; Visit Provider Urology | DX: N32.0 Bladder-neck obstruction (principal); R35.0 Frequency of micturition | CPT/HCPCS: 99222 ==

== ENCOUNTER → 2023-03-31 18:27 | Outpatient (BNV) | payer MEDICARE, SELFPAY | PROVIDERS: Admitting Provider Internal Medicine; Emergency Provider Emergency Medicine; Visit Provider Internal Medicine | DX: J18.9 Pneumonia, unspecified organism (principal); J96.01 Acute respiratory failure with hypoxia; N18.30 Chronic kidney disease, stage 3 unspecified | CPT/HCPCS: 99223; 99232; 99233; 99239; G0180 ==

== ENCOUNTER 2023-05-26 10:26 | Outpatient (REF) | payer MEDICARE, SELFPAY ==
[2023-05-26 10:36] LABS: MANUAL DIFF FLAG NO
[2023-05-26 10:48] LABS: Basophils Percent Auto 0.7 % (0-2); Eosinophils Absolute Auto 0.1 X10*3/uL (0.0-0.4); Eosinophils Percent Auto 2.2 % (0-4); Hematocrit 37.7 % (42.0-52.0); Hemoglobin 12.4 g/dl (14.0-18.0); Imm Gran Abs Auto 0.01 X10*3/uL (0.00-0.03); Imm Gran Pct Auto 0.2 % (0.0-0.4); Lymphocytes Absolute Auto 1.2 X10*3/uL (1.2-4.9); Lymphocytes Percent Auto 21.9 % (20-40); Mean Corpuscular HGB Conc 32.9 g/dl (31.0-36.0); Mean Corpuscular Hemoglobin 32.3 pg (27.0-33.0); Mean Corpuscular Volume 98.2 fL (80.0-98.0); Mean Platelet Volume 10.9 fL (9.4-12.4); Monocytes Absolute Auto 0.2 X10*3/uL (0.1-1.2); Monocytes Percent Auto 4.3 % (2-11); Neutrophils Absolute Auto 3.8 x10*3/uL (2.0-8.3); Neutrophils Percent Auto 70.7 % (45-73); Platelet Count 171 X10*3/uL (160-400); Red Blood Count 3.84 X10*6/uL (4.60-5.80); Red Cell Distribution Width 14.3 % (11.0-16.0); White Blood Count 5.4 X10*3/uL (4.8-10.8)
[2023-05-26 12:02] LABS: Anion Gap 12 (12-20); Blood Urea Nitrogen 21 mg/dL (9-16); Calcium 9.2 mg/dL (8.4-10.2); Carbon Dioxide 23 mmol/L (22-29); Chloride 106 mmol/L (96-108); Cholesterol 126 mg/dL (<200); Estimated Glomerular Filt Rate 52; Glucose Fasting 84 mg/dL (60-99); HDL Cholesterol 54 mg/dL (>40); LDL Cholesterol Calculated 58 mg/dL (<100); Magnesium 2.2 mg/dL (1.6-2.6); Potassium 3.7 mmol/L (3.3-5.1); Sodium 137 mmol/L (135-145); Triglycerides 72 mg/dL (<150)
[2023-05-26 12:11] LABS: Free T4 (Free Thyroxine) 1.24 ng/dL (0.71-1.85); Thyroid Stimulating Hormone 1.15 uIU/mL (0.32-4.0)
== END 2023-05-26 10:27 | disposition home or self-care (01) ==
LOC: HO.HVNA 10:26
PROVIDERS: Visit Provider Internal Medicine
DX: E78.00 Pure hypercholesterolemia, unspecified (principal); E83.42 Hypomagnesemia; E55.9 Vitamin D deficiency, unspecified; R30.0 Dysuria
CPT/HCPCS: 36415; 80048; 80061; 82306; 83735; 84439; 84443; 85025

== ENCOUNTER 2023-05-27 12:10 | Outpatient (REF) | payer MEDICARE, SELFPAY ==
[2023-05-27 12:21] LABS: Appearance Urine Clear; Color Urine Yellow; Glucose Urine UA Negative (Negative); Leukocyte Esterase Urine Negative (Negative); Nitrite Urine Negative (Negative); Specific Gravity - Urine 1.015 (1.005-1.025); Urine Blood Negative (Negative); Urine Ketones Negative (Negative); Urine Protein Negative (Neg-Trace)
== END 2023-05-27 12:11 | disposition home or self-care (01) ==
LOC: HO.HVNA 12:10
PROVIDERS: Visit Provider Internal Medicine
DX: R30.0 Dysuria (principal)
CPT/HCPCS: 81003; 87086

== ENCOUNTER 2023-06-19 15:09 | Outpatient (AMB) | payer MEDICARE, SELFPAY ==
--- NOTE | 2023-06-19 15:11 | A.OFFPC_ITS ---
Vital Signs 06/19/23 15:14 Height 5 ft 10.5 in BMI Reason not done Patient refused/unable BP 142/76 H Pulse 65 Pulse Source Pulse Oximeter Pulse Oximetry (%) 98 Oxygen Delivery Method Room Air Intake Visit Reasons: hyperlipidemia, CKD, BPH Intake Note: Patient is here to follow up on CKD,BPH, Hyperlipidemia. Meal Cook Required: No Manufacturing Executive: Not Required per policy Accompanied by: Self / Same As Patient Allergies No Known Allergies [No Known Allergies*] Allergy (Verified 06/19/23 15:44) Medication List - Last Reconciled 06/19/23 by Dontrell Dougherty MD amlodipine 5 mg PO DAILY aspirin 81 mg PO DAILY atorvastatin 40 mg PO BEDTIME 90 days azithromycin 500 mg PO Q24H [BEDSIDE COMMODE As directed] cefuroxime axetil 500 mg PO BID cholecalciferol (vitamin D3) 25 mcg PO DAILY fesoterodine ER 8 mg PO DAILY 90 days prazosin 5 mg PO BID prednisone 40 mg (2 x 20 mg) PO DAILY solifenacin (Vesicare) 5 mg PO DAILY 30 days terazosin 10 mg PO BEDTIME 90 days Tobacco use date assessed: 06/19/23 Fall risk assessment: No Falls in past year Last assessed Fall Risk: 06/19/23 Dental Screening Dental Screen Date: 06/19/23 Did you have a dental visit in the last 12 months?: Yes Did you have a dental problem in the last 6 months where you did not have access to dental care?: No Was dental information given to patient?: Patient has dentist HPI hyperlipidemia, CKD, BPH HPI Details Patient comes in today for his follow up visit He continues to complain of increased right knee weakness and feels frustrated by this as he feels that this is significantly impacting his mobility He is currently still going to physical therapy for his knee but he feels that physical therapy has not really been helping much Is looking to get some cortisone injection, which he feels may help with his knee - recalls getting it from an unrecalled doctor years ago States that he feels okay otherwise He denies any headaches or dizziness Denies any chest pains, no increased SOB No nausea/vomiting, no abdominal pain No change in bowel habits noted Needs a couple of his Rx refilled Had his follow up labs done a few weeks ago - to discuss his results [facility] Medical History Left-sided weakness Anemia Pacemaker UTI (urinary tract infection) Swallowing problem Incidental pulmonary nodule Vitamin D deficiency Benign essential hypertension CVA (cerebral vascular accident) (~2016) Bradycardia CKD (chronic kidney disease), stage III Right inguinal pain Hypertension Urinary frequency Bladder outlet obstruction Surgical History History of surgery History of knee replacement Social History Household Members: None Housing: Apartment Do you presently have visiting nurse or other home services: No Alcohol intake: never Patient Tobacco Use Status: Current someday Tobacco user Tobacco use type: Cigarette Cigarette Packs Per Day: 0.25 Cigarettes Per Day: 5 Years Smoked: 60 +/- e-Cigarette/Vaping Use: Never Used Second Hand Smoke Exposure: No Advance Directives Date on File: 06/06/22 service: No Current occupational status: retired Cognitive needs: Yes (wheelchair) Hearing needs: No Vision needs: Yes Questionnaire PHQ-9 Over the last 2 weeks, how often have you been bothered by any of the following problems? 1. Little interest or pleasure in doing things: not at all 2. Feeling down, depressed, or hopeless: not at all 3. Trouble falling or staying asleep, or sleeping too much: not at all 4. Feeling tired or having little energy: not at all 5. Poor appetite or overeating: not at all 6. Feeling bad about yourself - or that you are a failure or have let yourself or your family down: not at all 7. Trouble concentrating on things, such as reading the newspaper or watching television: not at all 8. Moving or speaking so slowly that other people could have noticed. Or the opposite - being so fidgety or restless that you have been moving around a lot more than usual: not at all 9. Thoughts that you would be better off or of hurting yourself in some way: not at all Total score: 0 Depression Screening Interpretation: Negative Depression Screening Done: Yes 53066 - PHQ-9 Billing: Yes Source: Developed by Drs. Meir Fan, Sadia VázquezIglesia and colleagues, with an educational rosangela from [employer]. Thrive Questionnaire Date Thrive assessed: 06/19/23 I am a: Patient What is your living situation today?: I have a steady place to live Within the past 12 months, did the food you bought not last and you didn't have the money to get more?: Never true Within the past 12 months, did you worry whether your food would run out before you got money to buy more?: Never true Do you have trouble paying for medicines?: No Do you have trouble getting transportation to medical appointments?: No Do you have trouble paying your heating and electricity bill?: No Do you have trouble taking care of your child, family member or friend?: No Do you have trouble with day-to-day activities such as bathing, preparing meals, shopping, managing finances, etc.?: No Are you currently unemployed and looking for a job?: No Are you interested in more education?: No Please select the resources that you would like help with: None Currently or been in a relationship where the following occur: no concerns reported THRIVE Score: 0 AUDIT C Alcohol Use Questionnaire (AUDIT-C) 1. How often do you have a drink containing alcohol?: Never Total Score: 0 Score Reviewed/Action Taken: Yes GÓMEZ-7 AMB Questionnaire GÓMEZ-7 Date GÓMEZ - 7 assessed: 06/19/23 Feeling nervous, anxious, or on edge: 0 = Not at all Not being able to stop or control worryin = Not at all Worrying too much about different things: 0 = Not at all Trouble relaxin = Not at all Being so restless that it is hard to sit still: 0 = Not at all Becoming easily annoyed or irritable: 0 = Not at all Feeling afraid as if something awful might happen: 0 = Not at all Total GÓMEZ-7 score (0-4 normal; 5-9 mild; 10-14 moderate; 15-21 severe): 0 Source: Developed by Drs. Meir Fan, Sadia Vázquez, Iglesia Howell and colleagues, with an educational rosangela from [employer]. Review of Systems Const Denies chills, Reports fatigue (mild), Denies fever(s) and Denies headache(s) ENT Denies dysphagia, Denies dizziness, Denies otalgia, Denies headache(s), Reports hearing loss (increasing, especially in the right ear), Denies odynophagia and Denies sore throat Card Denies chest pain, Denies rapid heart rate, Denies irregular heart rhythm, Denies palpitations and Denies dyspnea Resp Denies cough, Denies dyspnea and Denies wheezing GI Denies abdominal pain, Denies constipation, Denies dysphagia, Denies diarrhea, Denies nausea, Denies odynophagia and Denies vomiting Denies difficulty urinating, Denies dysuria, Reports nocturia (at least twice) and Reports urinary frequency Musc Denies back pain and Reports arthralgias (right knee - describes symptom as more of a weakness in the knee) Skin/Breast Denies rash Neuro Denies dizziness and Denies headache(s) Psych Denies anxiety and Denies depression Endo Reports fatigue (mild) and Denies palpitations Aller/Immun Denies wheezing Physical exam (Primary Care) Vital Signs: Last Vital Signs Pulse 65 06/19/23 15:14 BP 142/76 H 06/19/23 15:14 Pulse Ox 98 06/19/23 15:14 Oxygen Delivery Method Room Air 06/19/23 15:14 Tobacco/Smoking Status: Tobacco use Status Tobacco use date assessed 06/19/23 06/19/23 15:14 Patient Tobacco Use Status Current someday Tobacco 06/19/23 15:14 Tobacco use type Cigarette 06/19/23 15:14 e-Cigarette/Vaping Use Never Used 06/19/23 15:14 PHQ-9: PHQ-9 Score PHQ-9: Total score 0 06/19/23 15:15 Depression Screening Interpretation: Negative Thrive Assessment: Date of Thrive Assessment Date Thrive assessed 04/02/23 06/19/23 15:14 Currently or been in a relationship where the following occur: no concerns reported Const General: no acute distress and alert HENMT Ears: TM's normal bilaterally and EAC's normal Throat: Yes posterior oropharynx normal and Yes tonsils normal (no TP congestion) Neck Neck: Yes no lymphadenopathy and Yes supple Thyroid: Thyroid normal Chest Other: (+) pacemaker on the left upper chest wall Resp Auscultation: clear to auscultation bilaterally, no rales and no wheezes Cardio Rate: regular rate Rhythm: regular rhythm Heart sounds: no murmurs GI Palpation (GI): Soft to palpation and nontender Auscultation: normal bowel sounds General: Yes no CVA tenderness Back/Spine/Pelvis Back: no CVA tenderness Skin Rashes: no rashes Extrem General: Yes no clubbing, cyanosis or edema Right lower extremity: knee Details: tenderness (minimal) Location: of the pre- patellar area and normal ROM; no swelling Results Reviewed Results Reviewed: Laboratory Tests 03/31/23 05/26/23 05/26/23 16:57 09:15 09:15 WBC 5.4 Hgb 12.4 L Hct 37.7 L D Plt Count 171 Sodium 137 Potassium 3.7 Creatinine 1.30 Estimated GFR 52 Fasting Glucose 84 Calcium 9.2 Magnesium 2.2 AST 26 ALT 20 Triglycerides Cholesterol 126 LDL Cholesterol, Calc 58 HDL Cholesterol 54 25-OH Vitamin D Total 28.0 L TSH 1.15 Free T4 1.24 Ur Specific [place] Urine Protein Urine Glucose (UA) Urine Blood Urine Nitrite Ur Leukocyte Esterase 05/26/23 05/27/23 09:15 08:00 WBC Hgb Hct Plt Count Sodium Potassium Creatinine Estimated GFR Fasting Glucose Calcium Magnesium AST ALT Triglycerides 72 Cholesterol LDL Cholesterol, Calc HDL Cholesterol 25-OH Vitamin D Total TSH Free T4 Ur Specific [place] 1.015 Urine Protein Negative Urine Glucose (UA) Negative Urine Blood Negative Urine Nitrite Negative Ur Leukocyte Esterase Negative Assessment and Plan Assessment & Plan (1) Recurrent right knee instability: Code(s): M23.51 - Chronic instability of knee, right knee Plan: Patient is currently still going to physical therapy for his right knee issues - to continue PT as scheduled X-rays of the right knee done back in 2018 came out normal He reportedly had knee replacement surgery done at [facility] back in 2018 Will send him for repeat right knee x-rays GEOVANY for further evaluation Will also refer him to [facility] for further evaluation and management Patient is again looking for cortisone injections - have advised him that if his main complaint is knee instability / weakness, a cortisone injection may not necessarily be appropriate or helpful but I will leave it up to orthopedics to determine whether it is an appropriate option or not (2) CVA (cerebral vascular accident): Onset Date: ~2015 Comment: left thalamic, residual dysarthria Code(s): I63.9 - Cerebral infarction, unspecified Qualifiers: CVA mechanism: unspecified Qualified Code(s): I63.9 - Cerebral infarction, unspecified Plan: Reports no significant neurologic deficits and no recent recurrence of TIA or symptoms Continue Aspirin 81 mg QD - Rx refilled Follow up with neurology as scheduled (3) Sick sinus syndrome: Comment: S/P dual chamber pacemaker insertion on 06/21/2022 Code(s): I49.5 - Sick sinus syndrome Plan: Patient states that he has been doing well since his pacemaker insertion in May 2022 and he's had no recurrence of his previous symptoms of weakness and dizziness Pacemaker interrogation is being done regularly by cardiology - device has been functioning normally Follow up with cardiology as scheduled (4) Benign essential hypertension: Code(s): I10 - Essential (primary) hypertension Plan: Reinforced low-sodium diet - goal is systolic BP of at least 140-150 mm or less Continue Prazosin 5 mg BID He used to also take Amlodipine 5 mg QD but this was discontinued last year (5) Pure hypercholesterolemia: Code(s): E78.00 - Pure hypercholesterolemia, unspecified Plan: Results of his labs done a few weeks ago reviewed and discussed with patient Reinforced low cholesterol diet Continue Atorvastatin 40 mg QD Will recheck his labs and fasting lipids in 4 months for follow up (6) CKD (chronic kidney disease), stage III: Code(s): N18.30 - Chronic kidney disease, stage 3 unspecified Qualifiers: Chronic kidney disease stage 3 subtype: unspecified whether 3a or 3b Qualified Code(s): N18.30 - Chronic kidney disease, stage 3 unspecified Plan: Appears stable We will continue to monitor his serum creatinine and GFR regularly (7) Vitamin D deficiency: Code(s): E55.9 - Vitamin D deficiency, unspecified Plan: Continue Vitamin D3 1000 units QD (8) Anemia: Code(s): D64.9 - Anemia, unspecified Qualifiers: Anemia type: unspecified type Qualified Code(s): D64.9 - Anemia, unspecified Plan: H/H was still slightly low at 12.4/37.7 when last checked a few weeks ago but this has improved from previous Will continue to monitor his CBC regularly (9) Bladder outlet obstruction: Code(s): N32.0 - Bladder-neck obstruction Plan: Follow up with urology as scheduled (10) Urinary frequency: Code(s): R35.0 - Frequency of micturition Plan: Continue Fesoterodine ER 8 mg QD and Myrbetriq 25 mg QD Follow up with urology as scheduled Plan Follow up in 4 month Orders: Orders Comprehensive [place]. Panel Fast 4 Months E78.00 - Pure hypercholesterolemia, unspecified UA CC w/rflx Micro + Cult 4 Months R30.0 - Dysuria Vitamin B12 and Folate 4 Months E53.8 - Deficiency of other specified B group vitamins XR knee RT 4V Today M23.51 - Chronic instability of knee, right knee, M25.561 - Pain in right knee Complete Blood Count Auto Diff 4 Months D64.9 - Anemia, unspecified Lipid Panel 4 Months E78.00 - Pure hypercholesterolemia, unspecified TSH reflex Free T4 4 Months E78.00 - Pure hypercholesterolemia, unspecified Vitamin D 25-OH Total 4 Months E55.9 - Vitamin D deficiency, unspecified Referrals Orthopedics Referral M23.51 - Chronic instability of knee, right knee, M25.561 - Pain in right knee Medications: Refilled cholecalciferol (vitamin D3) 25 mcg PO DAILY 90 tabs 3RF aspirin 81 mg PO DAILY 90 tabs 1RF Coding Level of Care Code Est Pt Level 4 (06508) Diagnoses Recurrent right knee instability M23.51 Cerebrovascular accident (CVA), unspecified mechanism I63.9 CVA mechanism: unspecified Sick sinus syndrome I49.5 Benign essential hypertension I10 Pure hypercholesterolemia E78.00 Stage 3 chronic kidney disease, unspecified whether stage 3a or 3b CKD N18.30 Chronic kidney disease stage 3 subtype: unspecified whether 3a or 3b Vitamin D deficiency E55.9 Anemia, unspecified type D64.9 Anemia type: unspecified type Bladder outlet obstruction N32.0 Urinary frequency R35.0
[2023-06-19 15:14] VITALS: BP 142/76; PULSE 65; O2SAT 98
== END 2023-06-19 15:59 | disposition home or self-care (01) ==
PROVIDERS: PCP Internal Medicine; Visit Provider Internal Medicine
DX: I12.9 Hypertensive chronic kidney disease with stage 1 through stage 4 chronic kidney disease, or unspecified chronic kidney disease (principal); N18.30 Chronic kidney disease, stage 3 unspecified; M23.51 Chronic instability of knee, right knee; E78.00 Pure hypercholesterolemia, unspecified; E55.9 Vitamin D deficiency, unspecified; D64.9 Anemia, unspecified; N32.0 Bladder-neck obstruction; R35.0 Frequency of micturition
CPT/HCPCS: 99214

== ENCOUNTER 2023-07-06 09:14 | Outpatient (REF) | payer MEDICARE, SELFPAY | END 2023-07-06 09:15 | disposition home or self-care (01) | LOC: HO.HOSX 09:14 | PROVIDERS: Visit Provider Orthopaedic Surgery | DX: Z13.89 Encounter for screening for other disorder (principal) ==

== ENCOUNTER 2023-07-11 09:25 | Outpatient (AMB) | payer MEDICARE, SELFPAY ==
[2023-07-11 09:27] VITALS: BMI 23.7
--- NOTE | 2023-07-11 09:27 | A.OFFVIS_ITS ---
Intake Vital Signs 07/11/23 09:27 Height 5 ft 10 in Weight 165 lb BMI 23.7 Intake Visit Reasons: N/P chronic right knee pain Intake Note: Ki is a 87 year old male who presents as a new patient with his niegfrancoor Jordon to reestablish care with Dr. Mckinley with Right knee pain. The patient did undergo right total knee replacement surgery in June of 2017. States that over the last few years he has had multiple falls. He has just completed physical therapy addressing his balance. He reports mild discomfort in his right knee. He denies any fevers or chills. He has tried wearing a knee brace which gives him mild relief. He continues to walk with a cane. Allergies No Known Allergies [No Known Allergies*] Allergy (Verified 07/11/23 10:16) Medication List - Last Reconciled 07/11/23 by Victorino Mckinley MD amlodipine 5 mg PO DAILY aspirin 81 mg PO DAILY atorvastatin 40 mg PO BEDTIME 90 days azithromycin 500 mg PO Q24H [BEDSIDE COMMODE As directed] cefuroxime axetil 500 mg PO BID cholecalciferol (vitamin D3) 25 mcg PO DAILY fesoterodine ER 8 mg PO DAILY 90 days prazosin 5 mg PO BID prednisone 40 mg (2 x 20 mg) PO DAILY solifenacin (Vesicare) 5 mg PO DAILY 30 days terazosin 10 mg PO BEDTIME 90 days [facility] Medical History Left-sided weakness Anemia Pacemaker UTI (urinary tract infection) Swallowing problem Incidental pulmonary nodule Vitamin D deficiency Benign essential hypertension CVA (cerebral vascular accident) (~2016) Bradycardia CKD (chronic kidney disease), stage III Right inguinal pain Hypertension Urinary frequency Bladder outlet obstruction Surgical History History of surgery History of knee replacement Social History Household Members: None Housing: Apartment Do you presently have visiting nurse or other home services: No Alcohol intake: never Patient Tobacco Use Status: Current someday Tobacco user Tobacco use type: Cigarette Cigarette Packs Per Day: 0.25 Cigarettes Per Day: 5 Years Smoked: 60 +/- e-Cigarette/Vaping Use: Never Used Second Hand Smoke Exposure: No Advance Directives Date on File: 06/06/22 service: No Current occupational status: retired Cognitive needs: Yes (wheelchair) Hearing needs: No Vision needs: Yes Physical Exam Vital Signs: BMI result Body Mass Index 23.7 Const Other: Well-nourished well-developed very friendly male awake alert and oriented x3 in no acute distress Extrem Other: Bilateral lower extremity examination shows good capillary refill, no skin lesions noted, normal sensation light touch Right knee examination shows that the surgical incision is well healed, no erythema, full active extension and flexion to 120 degrees, his patella tracks well Results Reviewed Results Reviewed: X-rays of the patient's right knee taken today show a total knee arthroplasty in good position with no signs of loosening, no acute bony abnormalities Assessment & Plan Assessment & Plan (1) Right knee pain: Code(s): M25.561 - Pain in right knee Qualifiers: Chronicity: unspecified Qualified Code(s): M25.561 - Pain in right knee Plan Mr. Jordan presents with bilateral leg weakness most likely due to generalized deconditioning. At this point he does not appear to have anything mechanical wrong with his right total knee arthroplasty. Activity modifications were discussed at length with the patient. The patient will continue with his home exercise program. He will follow up with me on an as-needed basis should symptoms worsen prior to his annual follow-up appointment. Feel free to call me at any time should questions regarding his orthopedic management arise. I spent 22 minutes in reviewing the patient's records and imaging studies, seeing the patient and documenting in the medical record. Orders: Orders XR knee RT 3V 07/06/23 M25.561 - Pain in right knee XR knee RT 3V Today M25.561 - Pain in right knee Coding Level of Care Code Est Pt Level 2 (98592) Diagnoses Right knee pain, unspecified chronicity M25.561 Chronicity: unspecified
== END 2023-07-11 10:39 | disposition home or self-care (01) ==
PROVIDERS: PCP Internal Medicine; Visit Provider Orthopaedic Surgery
DX: M25.561 Pain in right knee (principal)
CPT/HCPCS: 99213

== ENCOUNTER 2023-07-11 14:25 | Outpatient (REF) | payer MEDICARE, SELFPAY ==
--- NOTE | ~2023-07-11 | XR_ITS ---
EXAMINATION: XR KNEE, RIGHT CLINICAL INFORMATION: Pain in right knee. COMPARISON: 01/30/2016 TECHNIQUE: Three views of the right knee. FINDINGS: Status post total knee arthroplasty. Hardware appears intact. Small joint effusion. Extensive vascular calcifications. XR/XR knee RT 3V IMPRESSION: Status post total knee arthroplasty. Hardware appears intact. Small joint effusion.
== END 2023-07-11 14:26 | disposition home or self-care (01) ==
LOC: HO.HOSX 14:25
PROVIDERS: Visit Provider Orthopaedic Surgery
DX: M25.561 Pain in right knee (principal)
CPT/HCPCS: 73562; 99212

== ENCOUNTER → 2023-07-22 23:59 | Outpatient (BNV) | payer MEDICARE, SELFPAY ==
--- NOTE | 2023-07-26 13:10 | MHC.OFFVIS ---
Intake Visit Reasons: Remote device check- [facility] [employer] Allergies No Known Allergies [No Known Allergies*] Allergy (Verified 07/11/23 10:16) PFSH Medical History Left-sided weakness Anemia Pacemaker UTI (urinary tract infection) Swallowing problem Incidental pulmonary nodule Vitamin D deficiency Benign essential hypertension CVA (cerebral vascular accident) (~2016) Bradycardia CKD (chronic kidney disease), stage III Right inguinal pain Hypertension Urinary frequency Bladder outlet obstruction Surgical History History of surgery History of knee replacement Social History Household Members: None Housing: Apartment Do you presently have visiting nurse or other home services: No Alcohol intake: never Patient Tobacco Use Status: Current someday Tobacco user Tobacco use type: Cigarette Cigarette Packs Per Day: 0.25 Cigarettes Per Day: 5 Years Smoked: 60 +/- e-Cigarette/Vaping Use: Never Used Second Hand Smoke Exposure: No Advance Directives Date on File: 06/06/22 service: No Current occupational status: retired Cognitive needs: Yes (wheelchair) Hearing needs: No Vision needs: Yes Office Procedures Cardiac Device Check Cardiac Device Check Details: Remote pacemaker report generated 07/22/2023. Pacemaker function is adequate. One episode of high ventricular rate consistent with SVT [id number] Cardiac Device Interrogation, pacemaker Procedure code (CPT) selection complete Assessment & Plan Assessment & Plan (1) Pacemaker: Comment: [employer] dual-chamber pacemaker inserted 06/21/2022, Dr. Fitzpatrick Code(s): Z95.0 - Presence of cardiac pacemaker Category: Medical Plan: See above Coding Level of Care Code Procedure Only Diagnoses Pacemaker Z95.0 CPT Codes Cardiac Device Check - Cardiac Device 12: [id number] Cardiac Device Interrogation, pacemaker ([id number])
== END ==
PROVIDERS: PCP Internal Medicine; Visit Provider Internal Medicine Cardiovascular Disease
DX: I47.10 Supraventricular tachycardia, unspecified (principal); Z95.0 Presence of cardiac pacemaker
CPT/HCPCS: 93294

== ENCOUNTER → 2023-10-21 23:59 | Outpatient (BNV) | payer MEDICARE, SELFPAY ==
--- NOTE | 2023-10-25 14:12 | MHC.OFFVIS ---
Intake Visit Reasons: Remote device check- [facility] [employer] Allergies No Known Allergies [No Known Allergies*] Allergy (Verified 10/23/23 09:12) PFSH Medical History Left-sided weakness Anemia Pacemaker UTI (urinary tract infection) Swallowing problem Incidental pulmonary nodule Vitamin D deficiency Benign essential hypertension CVA (cerebral vascular accident) (~2016) Bradycardia CKD (chronic kidney disease), stage III Right inguinal pain Hypertension Urinary frequency Bladder outlet obstruction Surgical History History of surgery History of knee replacement Social History Household Members: None Housing: Apartment Do you presently have visiting nurse or other home services: No Alcohol intake: never Patient Tobacco Use Status: Current someday Tobacco user Tobacco use type: Cigarette Cigarette Packs Per Day: 0.25 Cigarettes Per Day: 5 Years Smoked: 60 +/- e-Cigarette/Vaping Use: Never Used Second Hand Smoke Exposure: No Advance Directives Date on File: 06/06/22 service: No Current occupational status: retired Cognitive needs: Yes (wheelchair) Hearing needs: No Vision needs: Yes Office Procedures Cardiac Device Check Cardiac Device Check Details: Remote pacemaker report generated 10/21/2023. Pacemaker function is adequate [id number] Cardiac Device Interrogation, pacemaker Procedure code (CPT) selection complete Assessment & Plan Assessment & Plan (1) Pacemaker: Comment: [employer] dual-chamber pacemaker inserted 06/21/2022, Dr. Fitzpatrick Code(s): Z95.0 - Presence of cardiac pacemaker Category: Medical Plan: See above Coding Level of Care Code Procedure Only Diagnoses Pacemaker Z95.0 CPT Codes Cardiac Device Check - Cardiac Device 12: [id number] Cardiac Device Interrogation, pacemaker ([id number])
== END ==
PROVIDERS: PCP Internal Medicine; Visit Provider Internal Medicine Cardiovascular Disease
DX: Z45.018 Encounter for adjustment and management of other part of cardiac pacemaker (principal)
CPT/HCPCS: 93294

== ENCOUNTER 2023-10-23 08:59 | Outpatient (AMB) | payer MEDICARE, SELFPAY ==
[2023-10-23 09:02] VITALS: BP 148/86; PULSE 52; O2SAT 98; BMI 20.9
--- NOTE | 2023-10-23 09:02 | MHC.PC.OV ---
Vital Signs 10/23/23 09:02 Height 5 ft 10 in Weight 145 lb 8.081 oz BMI 20.9 BP 148/86 H Blood Pressure Location Lt brachial Position Sitting Pulse 52 Pulse Source Pulse Oximeter Pulse Oximetry (%) 98 Oxygen Delivery Method Room Air Intake Visit Reasons: 4mth f/u Intake Note: Patient is here to follow up Refrigeration Tech Required: No Allergies No Known Allergies [No Known Allergies*] Allergy (Verified 10/23/23 09:12) Medication List - Last Reconciled 10/23/23 by Dontrell Dougherty MD amlodipine 5 mg PO DAILY aspirin 81 mg PO DAILY atorvastatin 40 mg PO BEDTIME 90 days [BEDSIDE COMMODE As directed] cholecalciferol (vitamin D3) 25 mcg PO DAILY fesoterodine ER 8 mg PO DAILY 90 days prazosin 5 mg PO BID solifenacin (Vesicare) 5 mg PO DAILY 30 days terazosin 10 mg PO BEDTIME 90 days Tobacco use date assessed: 06/19/23 Fall risk assessment: No Falls in past year Last assessed Fall Risk: 10/23/23 Dental Screening Dental Screen Date: 06/19/23 [facility] HPI Details Patient comes in today for his follow up visit States that he feels okay He continues to experience bilateral knee pain and weakness of his lower extremities, making it difficult for him to walk and move around easily He was seen by orthopedics a few months ago and was advised that his knees were fine and that his weakness was mostly due to his legs (muscles) and not directly the result of his knee issues X-rays of the knees done in July 2023 show (+) intact hardware Patient states that he has also completed PT with some improvement but he was expecting more than what he got Adds that he has a mass over his right upper arm that has been present for a while - patient is unable to tell exactly how long the mass has been there but his neighbor (who helps him and checks in on him frequently) states that he did not notice this a few months ago Patient states that the mass on his right upper arm does not hurt and does not seem to be causing any other problems for him (his arm is not weak and has no limitation in movement and activity) but has gotten bigger lately He denies any headaches or dizziness Denies any chest pains, no increased SOB No nausea/vomiting, no abdominal pain No change in bowel habits noted Needs his Atorvastatin Rx refilled He was not able to get his follow up labs done prior to his appointment today [facility] Medical History Left-sided weakness Anemia Pacemaker UTI (urinary tract infection) Swallowing problem Incidental pulmonary nodule Vitamin D deficiency Benign essential hypertension CVA (cerebral vascular accident) (~2016) Bradycardia CKD (chronic kidney disease), stage III Right inguinal pain Hypertension Urinary frequency Bladder outlet obstruction Surgical History History of surgery History of knee replacement Social History Household Members: None Housing: Apartment Do you presently have visiting nurse or other home services: No Alcohol intake: never Patient Tobacco Use Status: Current someday Tobacco user Tobacco use type: Cigarette Cigarette Packs Per Day: 0.25 Cigarettes Per Day: 5 Years Smoked: 60 +/- e-Cigarette/Vaping Use: Never Used Second Hand Smoke Exposure: No Advance Directives Date on File: 06/06/22 service: No Current occupational status: retired Cognitive needs: Yes (wheelchair) Hearing needs: No Vision needs: Yes Questionnaire Thrive Questionnaire Date Thrive assessed: 06/19/23 AUDIT C Alcohol Use Questionnaire (AUDIT-C) 1. How often do you have a drink containing alcohol?: Never 3. How often do you have six or more drinks on one occasion?: Never Total Score: 0 Score Reviewed/Action Taken: Yes GÓMEZ-7 AMB Questionnaire GÓMEZ-7 Date GÓMEZ - 7 assessed: 06/19/23 Source: Developed by Drs. Meir Fan, Sadia Vázquez, Iglesia Howell and colleagues, with an educational rosangela from [employer]. Review of Systems Const Denies chills, Reports fatigue (mild), Denies fever(s) and Denies headache(s) ENT Denies dysphagia, Denies dizziness, Denies otalgia, Denies headache(s), Reports hearing loss (increasing, especially in the right ear), Denies neck pain, Denies odynophagia and Denies sore throat Card Denies chest pain, Denies rapid heart rate, Denies irregular heart rhythm, Denies palpitations and Denies dyspnea Resp Denies cough, Denies dyspnea and Denies wheezing GI Denies abdominal pain, Denies constipation, Denies dysphagia, Denies diarrhea, Denies nausea, Denies odynophagia and Denies vomiting Denies difficulty urinating, Denies dysuria, Reports nocturia (at least twice) and Reports urinary frequency Musc Details: (+) large fluctuant mass over the right upper arm laterally Denies back pain, Reports arthralgias (right knee - describes symptom as more of a weakness in the knee) and Denies neck pain Skin/Breast Denies rash Neuro Denies dizziness and Denies headache(s) Psych Denies anxiety and Denies depression Endo Reports fatigue (mild) and Denies palpitations Aller/Immun Denies wheezing Physical exam (Primary Care) Vital Signs: Last Vital Signs Pulse 52 10/23/23 09:02 BP 148/86 H 10/23/23 09:02 Pulse Ox 98 10/23/23 09:02 Oxygen Delivery Method Room Air 10/23/23 09:02 BMI result Body Mass Index 20.9 Tobacco/Smoking Status: Tobacco use Status Tobacco use date assessed 06/19/23 10/23/23 09:10 Patient Tobacco Use Status Current someday Tobacco 10/23/23 09:10 Tobacco use type Cigarette 10/23/23 09:10 e-Cigarette/Vaping Use Never Used 10/23/23 09:10 Thrive Assessment: Date of Thrive Assessment Date Thrive assessed 06/19/23 10/23/23 09:10 Const General: no acute distress and alert HENMT Ears: TM's normal bilaterally and EAC's normal Throat: Yes posterior oropharynx normal and Yes tonsils normal (no TP congestion) Neck Neck: Yes no lymphadenopathy and Yes supple Thyroid: Thyroid normal Chest Other: (+) pacemaker on the left upper chest wall Resp Auscultation: clear to auscultation bilaterally, no rales and no wheezes Cardio Rate: regular rate Rhythm: regular rhythm Heart sounds: no murmurs GI Palpation (GI): Soft to palpation and nontender Auscultation: normal bowel sounds General: Yes no CVA tenderness Back/Spine/Pelvis Back: no CVA tenderness Thoracic/Lumbar Spine: No lumbar spinal tenderness Skin Rashes: no rashes Extrem Other: (+) large, fluctuant, non-tender mass over the lateral aspect of the right upper arm General: Yes no clubbing, cyanosis or edema Right lower extremity: knee Details: tenderness (minimal) Location: of the pre-patellar area and normal ROM; no swelling Assessment and Plan Assessment & Plan (1) Subcutaneous mass of right upper extremity: Code(s): R22.31 - Localized swelling, mass and lump, right upper limb Plan: Will send patient for a soft tissue US of the right upper arm for further evaluation of the right upper arm mass Will also refer him to surgery for further evaluation and consideration for excision or aspiration of the mass, whichever is appropriate (2) Recurrent right knee instability: Code(s): M23.51 - Chronic instability of knee, right knee Plan: S/P knee replacement surgery done at [facility] with Dr. Glenn Mckinley back in 2017 Patient completed physical therapy for his right knee issues a couple of months ago, with some improvement of his right knee/leg weakness X-rays of the right knee done back in 2017 and more recently in July 2023 came out normal, with only mild knee effusion noted at the time. The orthopedic hardware in his knee appears intact on x-rays Follow up with orthopedics (Dr. Mckinley) at [facility] as scheduled (3) CVA (cerebral vascular accident): Onset Date: ~2015 Comment: left thalamic, residual dysarthria Code(s): I63.9 - Cerebral infarction, unspecified Qualifiers: CVA mechanism: unspecified Qualified Code(s): I63.9 - Cerebral infarction, unspecified Plan: Reports no significant neurologic deficits and no recent recurrence of TIA or symptoms Continue Aspirin 81 mg QD Follow up with neurology as scheduled (4) Sick sinus syndrome: Comment: S/P dual chamber pacemaker insertion on 06/21/2022 Code(s): I49.5 - Sick sinus syndrome Plan: Patient has reportedly been doing well since his pacemaker insertion in May 2022 and he's had no recurrence of his previous symptoms of weakness and dizziness Pacemaker interrogation is being done regularly by cardiology - device has been functioning normally Follow up with cardiology as scheduled (5) Benign essential hypertension: Code(s): I10 - Essential (primary) hypertension Plan: Reinforced low-sodium diet - goal is systolic BP of at least 140-150 mm or less Continue Prazosin 5 mg BID He used to also take Amlodipine 5 mg QD but this was discontinued last year (6) Pure hypercholesterolemia: Code(s): E78.00 - Pure hypercholesterolemia, unspecified Plan: He was not able to get his follow up labs done prior to his visit today Reinforced low cholesterol diet Continue Atorvastatin 40 mg QD - Rx refilled Will recheck his labs and fasting lipids in 4 months for follow up - will just have patient use his current orders (updated) for his next lab draw (7) CKD (chronic kidney disease), stage III: Code(s): N18.30 - Chronic kidney disease, stage 3 unspecified Qualifiers: Chronic kidney disease stage 3 subtype: unspecified whether 3a or 3b Qualified Code(s): N18.30 - Chronic kidney disease, stage 3 unspecified Plan: Appears stable Will continue to monitor his serum creatinine and GFR regularly (8) Vitamin D deficiency: Code(s): E55.9 - Vitamin D deficiency, unspecified Plan: Continue Vitamin D3 1000 units QD (9) Anemia: Code(s): D64.9 - Anemia, unspecified Qualifiers: Anemia type: unspecified type Qualified Code(s): D64.9 - Anemia, unspecified Plan: H/H was still slightly low at 12.4/37.7 when last checked a few months ago but this has improved from previous Will continue to monitor his CBC regularly (10) Bladder outlet obstruction: Code(s): N32.0 - Bladder-neck obstruction Plan: Follow up with urology as scheduled (11) Urinary frequency: Code(s): R35.0 - Frequency of micturition Plan: Continue Fesoterodine ER 8 mg QD and Myrbetriq 25 mg QD Follow up with urology as scheduled Plan Follow up in 4 months Orders: Orders US extremity nonvascular Today R22.31 - Localized swelling, mass and lump, right upper limb Referrals General Surgery Referral R22.31 - Localized swelling, mass and lump, right upper limb Medications: Refilled atorvastatin 40 mg PO BEDTIME 90 days 90 tabs 1RF E78.00 - Pure hypercholesterolemia, unspecified Coding Level of Care Code Est Pt Level 4 (91146) Complex EM visit Add On G2211 Diagnoses Subcutaneous mass of right upper extremity R22.31 Recurrent right knee instability M23.51 Cerebrovascular accident (CVA), unspecified mechanism I63.9 CVA mechanism: unspecified Sick sinus syndrome I49.5 Benign essential hypertension I10 Pure hypercholesterolemia E78.00 Stage 3 chronic kidney disease, unspecified whether stage 3a or 3b CKD N18.30 Chronic kidney disease stage 3 subtype: unspecified whether 3a or 3b Vitamin D deficiency E55.9 Anemia, unspecified type D64.9 Anemia type: unspecified type Bladder outlet obstruction N32.0 Urinary frequency R35.0
== END 2023-10-23 09:27 | disposition home or self-care (01) ==
PROVIDERS: PCP Internal Medicine; Visit Provider Internal Medicine
DX: R22.31 Localized swelling, mass and lump, right upper limb (principal); I49.5 Sick sinus syndrome; I12.9 Hypertensive chronic kidney disease with stage 1 through stage 4 chronic kidney disease, or unspecified chronic kidney disease; N18.30 Chronic kidney disease, stage 3 unspecified; E78.00 Pure hypercholesterolemia, unspecified; D64.9 Anemia, unspecified; N32.0 Bladder-neck obstruction; R35.0 Frequency of micturition
CPT/HCPCS: 99214; G2211

== ENCOUNTER 2023-11-15 08:22 | Outpatient (AMB) | payer MEDICARE, SELFPAY ==
--- NOTE | 2023-11-15 08:28 | A.OFFVIS_ITS ---
Vital Signs 11/15/23 08:42 Height 5 ft 10 in Weight 147 lb BMI 21.1 BP 161/70 H Blood Pressure Location Rt brachial Position Sitting Pulse 68 Intake Visit Reasons: Mass~ Rt upper arm Intake Note: Patient referred by pcp Dr. Dougherty for mass on rt upper arm. Present for yrs. 2nd concerns: growth on rt buttock. Patient c/o: enlarging, painful. Foot Worker Required: No Accompanied by: Jordon KHALIL Allergies No Known Allergies [No Known Allergies*] Allergy (Verified 11/15/23 08:43) HPI Comments Details: Patient presents with a friend who also serves as his transportation for evaluation of a right upper arm mass. He has had this many years time. His increasing in size, become very symptomatic. He would like to have evaluated and a excised. Chart was reviewed and patient evaluated [facility] Medical History Left-sided weakness Anemia Pacemaker UTI (urinary tract infection) Swallowing problem Incidental pulmonary nodule Vitamin D deficiency Benign essential hypertension CVA (cerebral vascular accident) (~2016) Bradycardia CKD (chronic kidney disease), stage III Right inguinal pain Hypertension Urinary frequency Bladder outlet obstruction Surgical History History of surgery History of knee replacement Social History Household Members: None Housing: Apartment Do you presently have visiting nurse or other home services: No Alcohol intake: never Patient Tobacco Use Status: Current someday Tobacco user Tobacco use type: Cigarette Cigarette Packs Per Day: 0.25 Cigarettes Per Day: 5 Years Smoked: 60 +/- e-Cigarette/Vaping Use: Never Used Second Hand Smoke Exposure: No Advance Directives Date on File: 06/06/22 service: No Current occupational status: retired Cognitive needs: Yes (wheelchair) Hearing needs: No Vision needs: Yes Physical Exam Vital Signs: Last Vital Signs Pulse 68 11/15/23 08:42 BP 161/70 H 11/15/23 08:42 BMI result Body Mass Index 21.1 Const Other: Elderly frail appearing man. Was brought up to office in a wheelchair because of his frailty. Chest Other: Chest sounds bilaterally, HS 1 in 2, pacemaker GI Other: Abdomen is soft, benign Extrem Other: Patient has a massive right upper arm lipoma. This measures approximately 18 by 7 cm. Assessment & Plan Assessment & Plan (1) Lipoma of arm: Code(s): D17.20 - Benign lipomatous neoplasm of skin and subcutaneous tissue of unspecified limb Category: Surgical Plan Risks, benefits alternatives of excision of right upper arm massive lipoma reviewed with the patient and included but not limited to bleeding, infection, recurrence, numbness, pain, scarring, seroma formation and the patient wishes to proceed. All questions answered. Arrangements made for this. Coding Level of Care Code New Pt Level 5 (79670) Diagnoses Lipoma of arm D17.20
[2023-11-15 08:42] VITALS: BP 161/70; PULSE 68; BMI 21.1
== END 2023-11-15 08:43 | disposition home or self-care (01) ==
PROVIDERS: PCP Internal Medicine; Referring Provider Internal Medicine; Visit Provider Surgery
DX: D17.20 Benign lipomatous neoplasm of skin and subcutaneous tissue of unspecified limb (principal)
CPT/HCPCS: 99204

== ENCOUNTER → 2023-11-15 08:22 | Outpatient (BNVA) | payer MEDICARE, SELFPAY | PROVIDERS: PCP Internal Medicine; Referring Provider Internal Medicine; Visit Provider Surgery | DX: D17.21 Benign lipomatous neoplasm of skin and subcutaneous tissue of right arm (principal); D49.2 Neoplasm of unspecified behavior of bone, soft tissue, and skin | CPT/HCPCS: 99202 ==

== ENCOUNTER → 2023-11-22 07:39 | Outpatient (REF) | payer MEDICARE, SELFPAY ==
--- NOTE | ~2023-11-22 | NM_ITS ---
Lexiscan Myocardial perfusion study Indication: Coronary artery disease Technique: The patient was brought in for a Lexiscan perfusion study on 11/22/2023 and was injected 0.4 mg of Lexiscan intravenously. Within a minute of this injection 25 mCi of sestamibi was given intravenously. Images were obtained using the SPECT gamma camera interlaced with the gating device. Images were obtained in supine position. Resting perfusion study was performed on 11/24/2023. Patient was administered 25 mCi of sestamibi intravenously at rest. Images were then obtained in supine position. Total DLP 72 mGy-cm. Images were processed with the software and compared side to side in short axis, horizontal long axis and vertical long axis views. Findings: Raw aquisition reviewed. The stress perfusion study showed decreased tracer uptake in the basal to mid inferior septum. Some improvement with CT attenuation correction and hence that could be components of attenuation artifact. There is also adjacent subdiaphragmatic tracer uptake. The gated study shows normal LV systolic function with calculated LVEF of 55%. LV cavity is normal in size. The gated study shows reduced thickening and contractility in the basal to mid septum. Resting study shows decreased tracer uptake in the inferior septum from base to apex. There is improvement with CT attenuation correction and hence could have artifactual component. There is also some adjacent subdiaphragmatic tracer uptake. Gating at rest reveals reduced contractility of the septum as well as mid to distal inferior wall. Gated LVEF 48%. The findings are consistent with fixed perfusion defect involving the basal to mid inferior septum. No clear reversible defects. NM/NM cardiolite stress test Impression: 1. Myocardial perfusion imaging study shows no evidence of ischemia. Fixed basal to mid inferoseptal perfusion defect, could be artifactual but cannot exclude a prior infarct. 2. Gated LVEF is 55% during stress and 48% rest. Correlate with echocardiogram. 3. Transient ischemic dilatation not present. EKG component of the test reported separately. Electronically signed by: London Huff MD 11/28/2023 09:27 AM EDT
--- NOTE | 2023-11-22 07:46 | CA_ITS ---
Transthoracic Echocardiogram Patient (Last, First, Middle): Ki Jordan F Gender: Male Date of : 1935 Age: 88 Procedure Date: 11/22/2023 Procedure Type: Transthoracic Echocardiogram Location: OP Height: 180.34 cm Weight: 68.04 kg BSA: 1.87 m2 Heart Rate: bpm BP: 140 / 80 mmHg Conciliator: COURTNEY Referring MD: Aura Meng INSOLE COVERER-Nimesh Fish Roe Processor: Sebastián Peraza MD Symptoms: I10 - Essential (primary) hypertension Study Quality: Fair ECG Rhythm: Sinus Conclusions: - 1. Technically limited study as patient was not able to tolerate the study 2. Low normal LVEF of 50-55% 3. Cardiac valvular Dopplers within normal limits 4. Normal RV systolic pressure Findings Procedure Information The study quality is limited by the patients inability to tolerate the test. Left Ventricle The left ventricle was not well visualized. Normal left ventricular cavity size. There is normal left ventricular wall thickness. The left ventricular systolic function is low normal. The visually estimated ejection fraction is between 50-55%. Regional wall motion abnormalities can not be excluded due to suboptimal endocardial definition. Spectral Doppler is indicative of an impaired relaxation filling pattern. Right Ventricle The right ventricle was not well visualized. Atria The left atrium was not well visualized. Interatrial shunt cannot be excluded. The right atrium was not well visualized. Aortic Valve There is mild calcification of the aortic valve. There is mild thickening of the aortic valve. There is no aortic valve stenosis. There is no aortic valve regurgitation. Mitral Valve Likely normal mitral valve structure and function. There is trace mitral valve regurgitation. There is no mitral valve stenosis. Pulmonic Valve The pulmonic valve was not well visualized. Tricuspid Valve Likely normal tricuspid valve structure and function. There is trace tricuspid valve regurgitation. The right ventricular systolic pressure is normal. The right ventricular systolic pressure is 29 mmHg. Normal right atrial pressure. There is no evidence of pulmonary hypertension. Great Vessels The aorta was not well visualized. The pulmonary artery was not well visualized. Venous The inferior vena cava is normal in size. Pericardium/Pleural The pericardium was not well visualized. Prior Study Comparison No significant change compared to prior study dated: 06/20/2022. Measurements 2D Linear Measurements IVSd: 0.99 0.6-0.9/0.6-1.0 cm LVIDd: 5.50 3.9-5.3/4.2-5.9 cm LVIDd Index: 2.94 2.4-3.2/2.2-3.1 cm/m2 LVIDs: 3.99 2.0-3.6 cm LVPWd: 0.74 0.7-1.1 cm LA Diam: 3.70 2.7-3.8/3.0-4.0 cm LAIDs Index: 1.98 1.5-2.3 cm/m2 LV Mass: 220.02 67-162/88-224 g LV Mass Index: 117.66 43-95/49-115 g/m2 LVOT Diam: 2.30 3.0+(-)1.3 cm 2D Systolic Function EF 4C: 48.50 >55% EF 2C: 51.40 >55% EF BiP: 50.90 >55% Mitral Valve MV Pk E: 0.48 MV PK A: 0.71 MV Decel Time: 221.00 E/A: 0.70 E'Lateral: 3.92 E'Medial: 2.94 E/E' Med: 16.50 E/E' Lat: 12.30 PHT: 65.00 MVA PHT: 3.38 Decel [place]: 2.19 Aortic Valve AoV Pk Edgar: 1.05 AoV Mn Edgar: 0.76 AoV VTI: 0.25 AoV Pk Grad: 4.00 Aov Mn Grad: 3.00 CHELO Cont.VTI: 3.04 LVOT LVOT Pk Edgar: 0.76 LVOT Mn Edgar: 0.52 LVOT VTI: 0.19 LVOT Pk Grad: 2.00 LVOT Mn Grad: 1.00 LVOT Diam: 2.30 LVOT Area: 4.15 Diastolic Function MV Pk E: 0.48 MV Pk A: 0.71 E/A: 0.70 E'Medial: 2.94 E/E' Med: 16.50 E' Laterial: 3.92 E/E' Lat: 12.30 Right Ventricle TAPSE (mm): 26.90 TVS' Edgar: 11.10 Tricuspid Valve TR Pk Edgar: 2.27 TR Pk Grad: 21.00 RA Press: 8.00 RVSP: 29.00 Great Vessels Aorta Sinus of Valsalva: 3.57 2.0-3.5 cm Updated in Other Vendor System with Status of Final Sebastián Peraza MD electronically signed on 11/22/2023 1:45:01 PM with status of Final
--- NOTE | 2023-11-22 07:46 | CA_ITS ---
Acquisition Time: 2023-11-22 09:35:31 Total Exercise Time: 00:02:00 Test Indications: HTN, SOB Medications: SEE H Protocol: LEXISCAN Max HR: 079 BPM 59% of Pred: 133 BPM Max BP: 178/070 mmHG Max Work Load: 1.0 METS Pharmacological stress test with Lexiscan injection while sitting and kicking his legs, without anginal symptoms, with isolated pVCs, with resting HTN, normotensive response, with nondiagnostic EKGs. Aminophylline 75mg IVP given to reverse Lexiscan. Nuclear images pending. Test reviewed with Dr. Peraza Referred By: Aura Meng Overread By: Cassy Blair
== END ==
LOC: HO.CARD 07:39
PROVIDERS: PCP Internal Medicine; Visit Provider Nurse Practitioner Family
DX: R06.02 Shortness of breath (principal); I10 Essential (primary) hypertension; Z95.0 Presence of cardiac pacemaker
CPT/HCPCS: 78452; 93017; 93306; A9500; J0280; J2785

== ENCOUNTER → 2023-11-22 07:46 | Outpatient (BNV) | payer MEDICARE, SELFPAY | PROVIDERS: PCP Internal Medicine; Visit Provider Internal Medicine Cardiovascular Disease | DX: I25.10 Atherosclerotic heart disease of native coronary artery without angina pectoris (principal) | CPT/HCPCS: 78452; 93016; 93018; 93320; 93325; 93350 ==

== ENCOUNTER 2023-12-01 06:05 | Day surgery (SDC) | payer MEDICARE, SELFPAY ==
[2023-11-28 13:22] VITALS: BMI 21.1
--- NOTE | 2023-11-30 15:21 | MHC.SHP ---
Pre-Procedural Eval Section A - 24 Hr Update-Section A only Date of Service: 12/01/23 The patient is an INPATIENT: No Changes since office visit: No Cold of Flu in the past 2 weeks, No New Medical Problems, No Changes in Medication and No Patient answered all questions Section B - Complete if H&P > 30 days Chief Complaint: Benign lipomatous neoplasm of skin and subcutaneou Allergies: Allergies Allergy/AdvReac Type Severity Reaction Status Date / Time No Known Allergies Allergy Verified 11/15/23 08:43 [No Known Allergies*] Review of Systems Sugical H&P ROS: Negative: Constitution, Cardiovascular, Respiratory, Neurological, Psychiatric, Hem-Onc, Allergic/Immunologic, Gastrointestinal, Genitourinary, Musculoskeletal, Integumentary, Endocrine and Eyes/Ears/Nose/Throat Exam Surgical H&P Exam: Normal: HEENT, Normal: Heart, Normal: Lungs, Normal: Extremities, Normal: Abdomen, Normal: Skin and Normal: Neurological Plan I have reviewed the history and physical and performed a pertinent physical examination on my patient. No changes have occurred unless specified. Time Spent With Patient Time: Total time managing care of this patient today ____ minutes.
[2023-12-01 06:47] VITALS: BP 181/78; PULSE 60; RESP 12; TEMP 527.2; TEMP 981; O2SAT 99
[2023-12-01 06:58] VITALS: BMI 21.4
--- NOTE | 2023-12-01 07:50 | HO.ANESPROP2 ---
Documented by User: Kath Cameron NP 11/30/23 10:07 HPI - Anesthesia Eval Consult details Narrative: 88yo M for Wide Local Excision massive RUE Lipoma Pacer in situ. [place] [facility] [facility] Last seen 01/2023. Optimized per recent testing: Preop for right upper extremity lipoma. Pt may proceed with surgery with an intermediate cardiac risk. Recent testing cant exclude prior AK and shows low normal EF. 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 He is on aspirin which can be held as needed and restarted as soon as cleared to do so. Call/ consult cardiology if needed. [facility] Active Problems Active Problems: All Active Problems (Updated 10/23/23 @ 09:22 by Dontrell Dougherty MD) Lipoma of arm (Acute) Subcutaneous mass of right upper extremity (Acute) Recurrent right knee instability (Acute) Right knee pain (Acute) Frequent falls (Acute) Unsteady gait (Acute) Left-sided weakness (Acute) Pneumonia (Acute) Anemia (Acute) Pacemaker (Acute) Hearing impairment (Acute) Pre-operative clearance (Acute) Macular degeneration of both eyes (Acute) Preoperative examination (Acute) Pure hypercholesterolemia (Acute) Impacted cerumen of both ears (Acute) Fall (Acute) Hypertension (Acute) Bladder outlet obstruction (Acute) Prostate cancer (Acute) Past Medical History Medical History Left-sided weakness Anemia Pacemaker UTI (urinary tract infection) Swallowing problem Incidental pulmonary nodule Vitamin D deficiency Benign essential hypertension CVA (cerebral vascular accident) (~2016) Bradycardia CKD (chronic kidney disease), stage III Right inguinal pain Hypertension Urinary frequency Bladder outlet obstruction Family History Family history of problems with anesthesia: No Surgical History Surgical History History of surgery History of knee replacement History of Problems with Anesthesia: No Social History Social History Household Members: None Housing: Apartment Are you a primary career developer to a significant other at home: No Do you presently have visiting nurse or other home services: No Alcohol intake: never Patient Tobacco Use Status: Current everyday Tobacco user Tobacco use type: Cigarette Cigarette Packs Per Day: 0.25 Cigarettes Per Day: 5 Years Smoked: 60 +/- e-Cigarette/Vaping Use: Never Used Second Hand Smoke Exposure: No Use of substances other than those prescribed or required for medical reasons: No Have you been hit, kicked, punched, or otherwise hurt by someone within the past year? If so, by whom?: No Are you DNR?: No Advance Directives: No Advance Directives Information Provided: Yes Advance Directives Date on File: 06/06/22 Recently lost weight without trying: No Nutrition Risks: No Nutritional Risk Poor oral hygiene: No service: No Current occupational status: retired Cognitive needs: Yes (wheelchair) Hearing needs: No Vision needs: Yes Meds Allergies Allergy/AdvReac Type Severity Reaction Status Date / Time No Known Allergies Allergy Verified 12/01/23 06:50 [No Known Allergies*] Home Medications ?Medication ?Instructions ?Recorded ?Confirmed ?Last Taken ?Type amlodipine 5 mg tablet 5 mg PO DAILY 03/31/23 11/15/23 03/31/22 History Exam Height,Weight and Vital Signs: Height 5 ft 10 in Weight 66.678 kg Pertinent Lab Results Pertinent Lab Results: Laboratory Tests 05/26/23 09:15 WBC 5.4 Hgb 12.4 L Hct 37.7 L D Plt Count 171 Sodium 137 Potassium 3.7 Chloride 106 Carbon Dioxide 23 BUN 21 H Creatinine 1.30 Narrative Narrative: ECHO 10/2023 Conclusions: - 1. Technically limited study as patient was not able to tolerate the study 2. Low normal LVEF of 50-55% 3. Cardiac valvular Dopplers within normal limits 4. Normal RV systolic pressure NM cardiolite stress test 10/2023 Impression: 1. Myocardial perfusion imaging study shows no evidence of ischemia. Fixed basal to mid inferoseptal perfusion defect, could be artifactual but cannot exclude a prior infarct. 2. Gated LVEF is 55% during stress and 48% rest. Correlate with echocardiogram. 3. Transient ischemic dilatation not present. EKG component of the test reported separately. Cardiac Device Check Details: Remote pacemaker report generated 10/21/2023. Pacemaker function is adequate Assessment and Plan Assessment Anesthesia Assessment: Chart Reviewed Final Anesthetic Review Family History of Problems with Anesthesia: No History of Problems with Anesthesia: No Documented by User: Alyson Martin DO 12/01/23 07:53 [facility] Past Medical History Medical History Left-sided weakness Anemia Pacemaker UTI (urinary tract infection) Swallowing problem Incidental pulmonary nodule Vitamin D deficiency Benign essential hypertension CVA (cerebral vascular accident) (~2015) Bradycardia CKD (chronic kidney disease), stage III Right inguinal pain Hypertension Urinary frequency Bladder outlet obstruction Family History Family history of problems with anesthesia: No Surgical History Surgical History History of surgery History of knee replacement History of Problems with Anesthesia: No Social History Social History Household Members: None Housing: Apartment Are you a primary career developer to a significant other at home: No Do you presently have visiting nurse or other home services: No Alcohol intake: never Patient Tobacco Use Status: Current everyday Tobacco user Tobacco use type: Cigarette Cigarette Packs Per Day: 0.25 Cigarettes Per Day: 5 Years Smoked: 60 +/- e-Cigarette/Vaping Use: Never Used Second Hand Smoke Exposure: No Use of substances other than those prescribed or required for medical reasons: No Have you been hit, kicked, punched, or otherwise hurt by someone within the past year? If so, by whom?: No Are you DNR?: No Advance Directives: No Advance Directives Information Provided: Yes Advance Directives Date on File: 06/06/22 Recently lost weight without trying: No Nutrition Risks: No Nutritional Risk Poor oral hygiene: No service: No Current occupational status: retired Cognitive needs: Yes (wheelchair) Hearing needs: No Vision needs: Yes Meds Allergies Allergy/AdvReac Type Severity Reaction Status Date / Time No Known Allergies Allergy Verified 12/01/23 06:50 [No Known Allergies*] Home Medications ?Medication ?Instructions ?Recorded ?Confirmed ?Last Taken ?Type amlodipine 5 mg tablet 5 mg PO DAILY 0111/15/23 03/31/22 History Exam Exam Date and Time: 12/01/23 0750 Height,Weight and Vital Signs: Height 5 ft 10 in Weight 66.678 kg Vital Signs Temperature 981 F H 12/01/23 06:47 Pulse Rate 60 12/01/23 06:47 Respiratory Rate 12 12/01/23 06:47 Blood Pressure 181/78 H 12/01/23 06:47 Pulse Oximetry 99 12/01/23 06:47 Oxygen Delivery Method Room Air 12/01/23 06:47 Temperature 981 F H 12/01/23 06:47 Pulse Rate 60 12/01/23 06:47 Respiratory Rate 12 12/01/23 06:47 Blood Pressure 181/78 H 12/01/23 06:47 Pulse Oximetry 99 12/01/23 06:47 Oxygen Delivery Method Room Air 12/01/23 06:47 Airway Mallampati Class: III (small mouth) TM Dist: >3cm Neck ROM: Limited Loose/Missing/Broken Teeth: Yes (edentulous) Heart: S1S2 Lungs: Diminished bilaterally Assessment and Plan Assessment Anesthesia Assessment: Anesthesia Plan Discussed and Chart Reviewed Final Anesthetic Review Family History of Problems with Anesthesia: No History of Problems with Anesthesia: No NPO: Yes ASA Class: III Final Preanesthetic Review: No Changes in Pt Med Stat, Meds/Allgs Chart Reviewed, Consent Obtained/Reviewed (verbal consent obtained and witnessed by RN - patient is legally blind) and Anes Risks/Benef Reviewed Patient Risk: Intermediate Procedure Risk: Low Anesthetic Plan Anesthetic Plan: MAC: and Agree w/ Assess. and Plan Disposition: Standard PACU
[2023-12-01] MEDS: Lactated Ringers 1,000 ML 100 ML IVCONT (07:52)
--- NOTE | 2023-12-01 07:55 | PC.NURSE ---
RN unable to review medications w/patient. Pt states is legaly blind, [employer] SH[employer]ENER, Jordon Ronquillo manages his medications. Pt reports did not take any medications by mouth today. RN attempted to contact [employer]/HCP via phone. No answer.
[2023-12-01 09:57] VITALS: BP 156/80; PULSE 60; RESP 12; TEMP 36.1; O2SAT 100
--- NOTE | 2023-12-01 10:10 | P.OP_ITS ---
Operative Note Operative Note Date of Service: 12/01/23 Narrative: Preoperative diagnosis: [] Giant lipoma right upper outer arm Postop diagnosis: [] Same Procedure [] wide local excision lipoma right upper arm Surgeon: [] Gagandeep Electrical Designer: [] Ryan Type of Anesthesia: [] MAC Indication for surgery: [] Final dimensions approximately 13 x 10 cm of a very large symptomatic lipoma of right upper outer arm Findings: [] Patient brought to the operating room, placed on operative table in supine position, after an adequate level of MAC anesthesia was induced, patient was appropriately positioned, in the right upper extremity was prepped and draped in usual sterile fashion. Using a longitudinal incision over the mass in question, this carried down through skin, subcutaneous tissue, where medial and lateral skin flaps were developed and a massive lipoma with dimension s as described above was uneventfully excised using Bovie. Lipoma was intimately adhered to the subcutaneous tissue involving each flap. Specimen sent to pathology. Wound was irrigated, secured hemostasis, and closed using interrupted inverted dermal 3-0 Vicryl sutures followed by Steri-Strips and sterile dressings. Wound was infiltrated the beginning and at the end with 0.5% Marcaine/1% lidocaine. Sponge, needle, and instrument counts reported correct. Patient tolerated the procedure well and emerged from anesthesia stable condition. EBL minimal
[2023-12-01 10:12] VITALS: BP 143/85; PULSE 63; RESP 16; O2SAT 98
[2023-12-01 10:27] VITALS: BP 168/87; PULSE 65; RESP 16; TEMP 36.1; O2SAT 98
== END 2023-12-01 11:11 | disposition home or self-care (01) ==
PROVIDERS: PCP Internal Medicine; Visit Provider Surgery
PROC: (CPT 24071; principal; 2023-12-01 08:30)
DX: D17.21 Benign lipomatous neoplasm of skin and subcutaneous tissue of right arm (principal); D64.9 Anemia, unspecified; I49.5 Sick sinus syndrome; Z95.0 Presence of cardiac pacemaker; E78.5 Hyperlipidemia, unspecified; I12.9 Hypertensive chronic kidney disease with stage 1 through stage 4 chronic kidney disease, or unspecified chronic kidney disease; N18.30 Chronic kidney disease, stage 3 unspecified; Z79.82 Long term (current) use of aspirin; Z79.899 Other long term (current) drug therapy; F17.210 Nicotine dependence, cigarettes, uncomplicated; Z86.73 Personal history of transient ischemic attack (TIA), and cerebral infarction without residual deficits; Z98.890 Other specified postprocedural states
CPT/HCPCS: 24071; 88304; J0690; J1100; J1596; J2704; J2795; J3010

== ENCOUNTER → 2023-12-01 06:05 | Outpatient (BNV) | payer MEDICARE, SELFPAY | PROVIDERS: PCP Internal Medicine; Visit Provider Surgery | DX: D17.21 Benign lipomatous neoplasm of skin and subcutaneous tissue of right arm (principal) | CPT/HCPCS: 24071 ==

== ENCOUNTER 2023-12-12 09:29 | Outpatient (AMB) | payer MEDICARE, SELFPAY ==
--- NOTE | 2023-12-12 09:30 | MHC.OFFVIS ---
Intake Visit Reasons: S/P WLE massive RUE lipoma Intake Note: Patient here s/p WLE of lipoma on right upper arm. Reports incision healing well. Patient c/o: itchy, bruising. Taking rx pain meds as needed. Asparagus Buncher Required: No Accompanied by: Jordon drying oven attendant Allergies No Known Allergies [No Known Allergies*] Allergy (Verified 12/12/23 09:30) Medication List - Last Reconciled 12/12/23 by Darrel Donis MD amlodipine 5 mg PO DAILY aspirin 81 mg PO DAILY atorvastatin 40 mg PO BEDTIME 90 days [BEDSIDE COMMODE As directed] cholecalciferol (vitamin D3) 25 mcg PO DAILY fesoterodine ER 8 mg PO DAILY 90 days oxycodone 5 mg PO Q4H PRN prazosin 5 mg PO BID solifenacin (Vesicare) 5 mg PO DAILY 30 days terazosin 10 mg PO BEDTIME 90 days HPI Comments Details: Patient presents with his drying oven attendant. Status post massive right upper arm lipoma excision. He has no wound issues or complaints although he has some bruising. Pathology was benign [facility] Medical History Left-sided weakness Anemia Pacemaker UTI (urinary tract infection) Swallowing problem Incidental pulmonary nodule Vitamin D deficiency Benign essential hypertension CVA (cerebral vascular accident) (~2015) Bradycardia CKD (chronic kidney disease), stage III Right inguinal pain Hypertension Urinary frequency Bladder outlet obstruction Surgical History History of surgery History of knee replacement Social History Household Members: None Housing: Apartment Are you a primary customer care assistant to a significant other at home: No Do you presently have visiting nurse or other home services: No Alcohol intake: never Patient Tobacco Use Status: Current everyday Tobacco user Tobacco use type: Cigarette Cigarette Packs Per Day: 0.25 Cigarettes Per Day: 5 Years Smoked: 60 +/- e-Cigarette/Vaping Use: Never Used Second Hand Smoke Exposure: No Advance Directives Date on File: 06/06/22 service: No Current occupational status: retired Cognitive needs: Yes (wheelchair) Hearing needs: No Vision needs: Yes Physical Exam Extrem Other: Incision is clean dry and intact healing very well. Marked ecchymosis around the incision. There is also a seroma/hematoma which is expected secondary to the large mass which was excised. I offered to aspirate the seroma and the patient agreed. Office Procedures Aspiration of Seroma Details: Risks, benefits, alternatives of aspiration of seroma reviewed the patient and he wished to proceed. Under sterile technique a proximally 30 cc of seroma/hematoma were aspirated. Patient tolerated procedure well. Dressing applied. Aspiration of Seroma: 41623 Seroma Aspiration All charges added?: Procedure code (CPT) selection complete Assessment & Plan Assessment & Plan (1) Lipoma of arm: Code(s): D17.20 - Benign lipomatous neoplasm of skin and subcutaneous tissue of unspecified limb Category: Surgical Plan: Patient and drying oven attendant have been given local instructions, patient otherwise follow-up p.r.n.. All questions answered. (2) Seroma due to trauma: Code(s): T79.2XXA - Traumatic secondary and recurrent hemorrhage and seroma, initial encounter Category: Surgical Plan: See above Orders: Orders AMB Aspiration of Seroma Today D17.20 - Benign lipomatous neoplasm of skin and subcutaneous tissue of unspecified limb, T79.2XXA - Traumatic secondary and recurrent hemorrhage and seroma, initial encounter Coding Level of Care Code Est Pt Level 3 (64645) Global (64548) Diagnoses Lipoma of arm D17.20 Seroma due to trauma T79.2XXA CPT Codes Aspiration of Seroma ([id number])
== END 2023-12-12 09:51 | disposition home or self-care (01) ==
PROVIDERS: PCP Internal Medicine; Visit Provider Surgery
DX: D17.20 Benign lipomatous neoplasm of skin and subcutaneous tissue of unspecified limb (principal); T79.2XXA Traumatic secondary and recurrent hemorrhage and seroma, initial encounter
CPT/HCPCS: 99024

== ENCOUNTER → 2023-12-12 09:29 | Outpatient (BNVA) | payer MEDICARE, SELFPAY | PROVIDERS: PCP Internal Medicine; Visit Provider Surgery | DX: T79.2XXD Traumatic secondary and recurrent hemorrhage and seroma, subsequent encounter (principal); X58.XXXD Exposure to other specified factors, subsequent encounter; Z98.890 Other specified postprocedural states | CPT/HCPCS: 99212 ==

== ENCOUNTER 2024-02-15 08:37 | Outpatient (AMB) | payer MEDICARE, SELFPAY ==
[2024-02-15 08:42] VITALS: BP 126/72; PULSE 68; O2SAT 97; BMI 21.1
--- NOTE | 2024-02-15 08:42 | MHC.PC.OV ---
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 Accompanied by: Self / Same As Patient Allergies No Known Allergies [No Known Allergies*] Allergy (Verified 02/15/24 09:01) Medication List - Last Reconciled 02/15/24 by Dontrell Dougherty MD amlodipine 5 mg PO DAILY aspirin 81 mg PO DAILY atorvastatin 40 mg PO BEDTIME 90 days [BEDSIDE COMMODE As directed] cholecalciferol (vitamin D3) 25 mcg PO DAILY fesoterodine ER 8 mg PO DAILY 90 days oxycodone 5 mg PO Q4H PRN prazosin 5 mg PO BID solifenacin (Vesicare) 5 mg PO DAILY 30 days terazosin 10 mg PO BEDTIME 90 days Tobacco use date assessed: 02/15/24 Fall risk assessment: No Falls in past year Last assessed Fall Risk: 02/15/24 Dental Screening Dental Screen Date: 02/15/24 Did you have a dental visit in the last 12 months?: No Did you have a dental problem in the last 6 months where you did not have access to dental care?: No Was dental information given to patient?: No HPI hyperlipidemia, SSS, OA HPI Details Patient comes in today for his follow up visit He continues to complain of right knee pain and weakness of his right leg States that his right knee pain makes it difficult for him to walk and move around Notes no pain when he is sitting - states that the pain starts up every time he tries to put any weight on his right knee He was seen by orthopedics for this a few months ago and was advised that his knees were fine and that his weakness was mostly due to his legs (muscles) and not a direct result of his knee issues X-rays of the knees done in the orthopedic office in July 2023 showed (+) intact hardware Patient states that he has completed the PT that orthopedics ordered for him a few months ago with some improvement but he was expecting more than what he got as he was still experiencing increased pain in his knee then States that he feels okay otherwise if not for his right knee He denies any headaches or dizziness Denies any chest pains, no increased SOB No nausea/vomiting, no abdominal pain No change in bowel habits noted He again was not able to get his follow up labs done prior to his appointment today He would also like to get his flu shot today [facility] Medical History (Updated 02/15/24 @ 09:35 by Dontrell Dougherty MD) Sick sinus syndrome Vitamin D deficiency Benign essential hypertension CVA (cerebral vascular accident) (~2016) CKD (chronic kidney disease), stage III Urinary frequency Left-sided weakness Anemia Pacemaker UTI (urinary tract infection) Swallowing problem Incidental pulmonary nodule Bradycardia Right inguinal pain Hypertension Bladder outlet obstruction Surgical History (Updated 02/15/24 @ 09:36 by Dontrell Dougherty MD) S/P excision of lipoma History of surgery History of knee replacement Social History Household Members: None Housing: Apartment Are you a primary care companion to a significant other at home: No Do you presently have visiting nurse or other home services: No Alcohol intake: never Patient Tobacco Use Status: Current everyday Tobacco user Tobacco use type: Cigarette Cigarette Packs Per Day: 0.25 Cigarettes Per Day: 5 Years Smoked: 60 +/- e-Cigarette/Vaping Use: Never Used Second Hand Smoke Exposure: No Advance Directives Date on File: 06/06/22 service: No Current occupational status: retired Cognitive needs: Yes (wheelchair) Hearing needs: No Vision needs: Yes Questionnaire PHQ-9 Over the last 2 weeks, how often have you been bothered by any of the following problems? 1. Little interest or pleasure in doing things: not at all 2. Feeling down, depressed, or hopeless: not at all 3. Trouble falling or staying asleep, or sleeping too much: not at all 4. Feeling tired or having little energy: not at all 5. Poor appetite or overeating: not at all 6. Feeling bad about yourself - or that you are a failure or have let yourself or your family down: not at all 7. Trouble concentrating on things, such as reading the newspaper or watching television: not at all 8. Moving or speaking so slowly that other people could have noticed. Or the opposite - being so fidgety or restless that you have been moving around a lot more than usual: not at all 9. Thoughts that you would be better off or of hurting yourself in some way: not at all Total score: 0 Depression Screening Interpretation: Negative Depression Screening Done: Yes 21780 - PHQ-9 Billing: Yes Source: Developed by Drs. Meir Fan, Sadia Vázquez, Iglesia Hwoell and colleagues, with an educational rosangela from [employer]. Thrive Questionnaire Date Thrive assessed: 02/15/24 I am a: Patient What is your living situation today?: I have a steady place to live Within the past 12 months, did the food you bought not last and you didn't have the money to get more?: Never true Within the past 12 months, did you worry whether your food would run out before you got money to buy more?: Never true Do you have trouble paying for medicines?: No Do you have trouble getting transportation to medical appointments?: No Do you have trouble paying your heating and electricity bill?: No Do you have trouble taking care of your child, family member or friend?: No Do you have trouble with day-to-day activities such as bathing, preparing meals, shopping, managing finances, etc.?: No Are you currently unemployed and looking for a job?: No Are you interested in more education?: No Please select the resources that you would like help with: None Currently or been in a relationship where the following occur: No concerns reported THRIVE Score: 0 AUDIT C Alcohol Use Questionnaire (AUDIT-C) 1. How often do you have a drink containing alcohol?: Never 3. How often do you have six or more drinks on one occasion?: Never Total Score: 0 Score Reviewed/Action Taken: Yes GÓMEZ-7 AMB Questionnaire GÓMEZ-7 Date GÓMEZ - 7 assessed: 02/15/24 Feeling nervous, anxious, or on edge: 0 = Not at all Not being able to stop or control worryin = Not at all Worrying too much about different things: 0 = Not at all Trouble relaxin = Not at all Being so restless that it is hard to sit still: 0 = Not at all Becoming easily annoyed or irritable: 0 = Not at all Feeling afraid as if something awful might happen: 0 = Not at all Total GÓMEZ-7 score (0-4 normal; 5-9 mild; 10-14 moderate; 15-21 severe): 0 Source: Developed by Drs. Meir Fan, Sadia Vázquez, Iglesia Howell and colleagues, with an educational rosangela from [employer]. Review of Systems Const Denies chills, Reports fatigue, Denies fever(s) and Denies headache(s) ENT Denies dysphagia, Denies dizziness, Denies otalgia, Denies headache(s), Reports hearing loss (increasing, especially in the right ear), Denies neck pain, Denies odynophagia and Denies sore throat Card Denies chest pain, Denies irregular heart rhythm, Denies palpitations and Denies dyspnea Resp Denies chest congestion, Denies cough and Denies dyspnea GI Denies abdominal pain, Denies constipation, Denies dysphagia, Denies diarrhea, Denies nausea, Denies odynophagia and Denies vomiting Denies difficulty urinating, Denies dysuria, Reports nocturia (at least twice) and Reports urinary frequency Musc Denies back pain, Reports arthralgias (right knee ,with weakness of the right leg) and Denies neck pain Skin/Breast Denies rash Neuro Denies dizziness and Denies headache(s) Psych Denies anxiety and Denies depression Endo Reports fatigue and Denies palpitations Physical exam (Primary Care) Vital Signs: Last Vital Signs Pulse 68 02/15/24 08:42 BP 126/72 02/15/24 08:42 Pulse Ox 97 02/15/24 08:42 Oxygen Delivery Method Room Air 02/15/24 08:42 BMI result Body Mass Index 21.1 Tobacco/Smoking Status: Tobacco use Status Tobacco use date assessed 02/15/24 02/15/24 08:51 Patient Tobacco Use Status Current everyday Tobacco 02/15/24 08:51 Tobacco use type Cigarette 02/15/24 08:51 e-Cigarette/Vaping Use Never Used 02/15/24 08:51 PHQ-9: PHQ-9 Score PHQ-9: Total score 0 02/15/24 09:19 Depression Screening Interpretation: Negative Thrive Assessment: Date of Thrive Assessment Date Thrive assessed 02/15/24 02/15/24 08:51 Currently or been in a relationship where the following occur: No concerns reported Const General: no acute distress and alert HENMT Ears: TM's normal bilaterally and EAC's normal Throat: Yes posterior oropharynx normal and Yes tonsils normal (no TP congestion) Neck Neck: Yes no lymphadenopathy and Yes supple Thyroid: Thyroid normal Chest Other: (+) pacemaker on the left upper chest wall Resp Auscultation: clear to auscultation bilaterally, no rales and no wheezes Cardio Rate: regular rate Rhythm: regular rhythm Heart sounds: no murmurs GI Palpation (GI): Soft to palpation and nontender Auscultation: normal bowel sounds General: Yes no CVA tenderness Back/Spine/Pelvis Back: no CVA tenderness Thoracic/Lumbar Spine: No lumbar spinal tenderness Skin Rashes: no rashes Extrem General: Yes no clubbing, cyanosis or edema Right lower extremity: knee Details: tenderness (minimal) Location: of the pre-patellar area and normal ROM; no swelling Office Procedures Flu Questionnaire Does the patient have a severe egg allergy?: No Does the patient have severe life threatening allergies?: No Does the patient have a fever or illness today?: No Has the patient ever had Guillain-Enterprise Syndrome?: No Has the patient ever had any past reaction to a flu shot?: No Immunizations Fluarix Triv [id number] (PF) 45 mcg (15 mcg x 3)/0.5 mL IM syringe Performing Provider: Dontrell Dougherty MD [facility] Administered by: CORNEL Perez on 02/15/24 09:40 Dose Route Admin Location Dispensed Lot Number Expiration Date [facility] Thoracic Surgeon 0.5 mL IM Right Deltoid 0.5 mL [id number] 09/23/24 54445-861-02 [employer] VIS Given Date VIS Provided VIS Publication Date 02/15/24 Single Vaccine 20 Eligibility Eligibility Date Funding Source Not [facility] Eligible 02/15/24 Private Coding Level of Care Code Est Pt Level 4 (62291) Diagnoses Cerebrovascular accident (CVA), unspecified mechanism I63.9 CVA mechanism: unspecified 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9 - Cerebral infarction, unspecified Category: Medical Qualifiers: CVA mechanism: unspecified Qualified Code(s): I63.9 - Cerebral infarction, unspecified Plan: He reports no significant neurologic deficits and no recent recurrence of TIA or symptoms as a result of his CVA Continue Aspirin 81 mg QD Follow up with neurology as scheduled (2) Recurrent right knee instability: Code(s): M23.51 - Chronic instability of knee, right knee Category: Medical Plan: S/P knee replacement surgery done at [facility] with Dr. Glenn Mckinley back in 2017 Patient completed physical therapy for his right knee a few months ago, with some improvement of his right knee/leg weakness but states that the pain persisted and he is getting frustrated with his knee and his subsequent difficulty walking X-rays of the right knee done back in 2017 and more recently in July 2023 came out normal, with only mild knee effusion noted at the time. The orthopedic hardware in his knee appears intact on x-rays Will start him on some Tramadol 50 mg 1 to 2 times a day only as needed for severe pain - cautioned about potential side effects of Tramadol Will try referring him back to orthopedics (Dr. Mckinley) at [facility] [place] for further evaluation and management (3) Sick sinus syndrome: Code(s): I49.5 - Sick sinus syndrome Plan: Resolved Patient has reportedly been doing well since his pacemaker insertion in May 2022 and he's had no recurrence of his previous symptoms of weakness and dizziness Pacemaker interrogation is being done regularly by cardiology - device has been functioning normally Follow up with cardiology as scheduled (4) Benign essential hypertension: Code(s): I10 - Essential (primary) hypertension Category: Medical Plan: Reinforced low-sodium diet - goal is systolic BP of at least 140-150 mm or less Continue Prazosin 5 mg BID He used to also take Amlodipine 5 mg QD but this was discontinued last year (5) Pure hypercholesterolemia: Code(s): E78.00 - Pure hypercholesterolemia, unspecified Category: Medical Plan: He was again not able to get his follow up labs done prior to his visit today - have advised his friend to help patient get his labs done [facility] (orders are printed out and handed to them to help remind them about this) Reinforced low cholesterol diet Continue Atorvastatin 40 mg QD Will recheck his labs again in 4 months for follow up (6) CKD (chronic kidney disease), stage III: Code(s): N18.30 - Chronic kidney disease, stage 3 unspecified Category: Medical Qualifiers: Chronic kidney disease stage 3 subtype: unspecified whether 3a or 3b Qualified Code(s): N18.30 - Chronic kidney disease, stage 3 unspecified Plan: Appears stable Will continue to monitor his serum creatinine and GFR regularly (7) Vitamin D deficiency: Code(s): E55.9 - Vitamin D deficiency, unspecified Category: Medical Plan: Continue Vitamin D3 1000 units QD (8) Anemia: Code(s): D64.9 - Anemia, unspecified Category: Medical Qualifiers: Anemia type: unspecified type Qualified Code(s): D64.9 - Anemia, unspecified Plan: His H/H was still slightly low at 12.4/37.7 when they were last checked in May 2023 although these are improved from previous Will continue to monitor his CBC regularly (9) Bladder outlet obstruction: Code(s): N32.0 - Bladder-neck obstruction Category: Medical Plan: Follow up with urology as scheduled (10) Urinary frequency: Code(s): R35.0 - Frequency of micturition Category: Medical Plan: Continue Fesoterodine ER 8 mg QD and Myrbetriq 25 mg QD Follow up with urology as scheduled Plan As requested, flu vaccine given to patient today Follow up in 4 months Orders: Orders Comprehensive [place]. Panel Fast 4 Months E78.00 - Pure hypercholesterolemia, unspecified Influenza [id number] Immunization Today Z23 - Encounter for immunization Lipid Panel 4 Months E78.00 - Pure hypercholesterolemia, unspecified Referrals Orthopedics Referral M23.51 - Chronic instability of knee, right knee, M25.561 - Pain in right knee Medications: New tramadol Take once or twice a day only as needed for severe pain 50 mg PO .QD-BID PRN 30 tabs 0RF pain Discontinued oxycodone Partial Fill upon patient request. Discontinued Reason: Patient Completed Course 5 mg PO Q4H PRN 20 caps 0RF pain
== END 2024-02-15 09:40 | disposition home or self-care (01) ==
PROVIDERS: PCP Internal Medicine; Visit Provider Internal Medicine
DX: I12.9 Hypertensive chronic kidney disease with stage 1 through stage 4 chronic kidney disease, or unspecified chronic kidney disease (principal); I63.9 Cerebral infarction, unspecified; I49.5 Sick sinus syndrome; N18.30 Chronic kidney disease, stage 3 unspecified; M23.51 Chronic instability of knee, right knee; E78.00 Pure hypercholesterolemia, unspecified; E55.9 Vitamin D deficiency, unspecified; D64.9 Anemia, unspecified; N32.0 Bladder-neck obstruction; R35.0 Frequency of micturition

== ENCOUNTER → 2024-02-15 08:37 | Outpatient (BNVA) | payer MEDICARE, SELFPAY | PROVIDERS: PCP Internal Medicine; Visit Provider Internal Medicine | DX: Z23 Encounter for immunization (principal); I63.9 Cerebral infarction, unspecified; M23.51 Chronic instability of knee, right knee; I49.5 Sick sinus syndrome; I12.9 Hypertensive chronic kidney disease with stage 1 through stage 4 chronic kidney disease, or unspecified chronic kidney disease; N18.30 Chronic kidney disease, stage 3 unspecified; E78.00 Pure hypercholesterolemia, unspecified; E55.9 Vitamin D deficiency, unspecified; D64.9 Anemia, unspecified; N32.0 Bladder-neck obstruction; R35.0 Frequency of micturition | CPT/HCPCS: 90471; 90656; 96127; 99212 ==

== ENCOUNTER → 2024-02-15 23:59 | Outpatient (BNV) | payer MEDICARE, SELFPAY ==
--- NOTE | 2024-02-19 13:38 | MHC.OFFVIS ---
Intake Visit Reasons: Remote device check- [facility] Allergies No Known Allergies [No Known Allergies*] Allergy (Verified 02/15/24 09:01) PFSH Medical History (Updated 02/15/24 @ 09:35 by Dontrell Dougherty MD) Sick sinus syndrome Vitamin D deficiency Benign essential hypertension CVA (cerebral vascular accident) (~2016) CKD (chronic kidney disease), stage III Urinary frequency Left-sided weakness Anemia Pacemaker UTI (urinary tract infection) Swallowing problem Incidental pulmonary nodule Bradycardia Right inguinal pain Hypertension Bladder outlet obstruction Surgical History (Updated 02/15/24 @ 09:36 by Dontrell Dougherty MD) S/P excision of lipoma History of surgery History of knee replacement Social History Household Members: None Housing: Apartment Are you a primary hospice home care coordinator to a significant other at home: No Do you presently have visiting nurse or other home services: No Alcohol intake: never Patient Tobacco Use Status: Current everyday Tobacco user Tobacco use type: Cigarette Cigarette Packs Per Day: 0.25 Cigarettes Per Day: 5 Years Smoked: 60 +/- e-Cigarette/Vaping Use: Never Used Second Hand Smoke Exposure: No Advance Directives Date on File: 06/06/22 service: No Current occupational status: retired Cognitive needs: Yes (wheelchair) Hearing needs: No Vision needs: Yes Office Procedures Cardiac Device Check Cardiac Device Check Details: Remote pacemaker report generated 02/19/2024. Pacemaker function is adequate. Few high ventricular rate episode noted consistent with [id number] [id number] Cardiac Device Interrogation, pacemaker Procedure code (CPT) selection complete Assessment & Plan Assessment & Plan (1) Pacemaker: Comment: [facility] dual-chamber pacemaker inserted 06/21/2022, Dr. Fitzpatrick Code(s): Z95.0 - Presence of cardiac pacemaker Category: Medical Plan: See above Coding Level of Care Code Procedure Only Diagnoses Pacemaker Z95.0 CPT Codes Cardiac Device Check - Cardiac Device 12: [id number] Cardiac Device Interrogation, pacemaker ([id number])
== END ==
PROVIDERS: PCP Internal Medicine; Visit Provider Internal Medicine Cardiovascular Disease
DX: I47.10 Supraventricular tachycardia, unspecified (principal); Z95.0 Presence of cardiac pacemaker
CPT/HCPCS: 93294

== ENCOUNTER 2024-04-22 15:23 | Outpatient (AMB) | payer MEDICARE, SELFPAY ==
[2024-04-22 15:42] VITALS: BP 122/80; PULSE 61; O2SAT 99; BMI 20.9
--- NOTE | 2024-04-22 15:42 | MHC.PC.OV ---
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 Required: No Accompanied by: Friend Allergies No Known Allergies [No Known Allergies*] Allergy (Verified 04/22/24 16:35) Medication List - Last Reconciled 04/22/24 by Dontrell Dougherty MD aspirin 81 mg PO DAILY atorvastatin 40 mg PO BEDTIME 90 days [BEDSIDE COMMODE As directed] cholecalciferol (vitamin D3) 25 mcg PO DAILY fesoterodine ER 8 mg PO DAILY 90 days metoprolol succinate ER 25 mg PO DAILY prazosin 5 mg PO BID solifenacin (Vesicare) 5 mg PO DAILY 30 days terazosin 10 mg PO BEDTIME 90 days tramadol 50 mg PO .QD-BID PRN Tobacco use date assessed: 04/22/24 Fall risk assessment: 2 + Falls in past year Last assessed Fall Risk: 04/22/24 Dental Screening Dental Screen Date: 04/22/24 Did you have a dental visit in the last 12 months?: No Did you have a dental problem in the last 6 months where you did not have access to dental care?: No Was dental information given to patient?: No HPI follow up HPI Details Patient comes in today for a [id number] evaluation He is in here today with his friend Jordon, who is usually the one helping him get to his appointments for doctor's visits and tests/procedures His friend states that there have been a few times recently wherein even he could not get patient out of the house to get to his appointments or to get his labs done so he has not yet gotten any of his previous labs done States that patient lives on the second floor and there is no elevator or lift access so there is no way to get his wheelchair down to the ground floor Patient is also no longer able to navigate the stairs as he often will stop after taking a few steps and could not move any further due to his increasing right knee pain He is hoping that we would be able to give him a cortisone shot into his knee today to help calm down his knee pain States that they have reached out to [facility] recently and was reportedly advised to have his PCP refer patient to [facility] for evaluation and possible some home PT A referral to [facility] was made out over a week ago and [facility] supposedly wanted a more exact/detailed reason for the referral as well as a recent [id number] evaluation/encounter form Patient states that it is getting harder and harder for him to get out of his apartment, as he is unable to walk due to his right knee pain and weakness, and he is also no longer able to see He supposedly has glaucoma as well as issues with cataracts States that he has been seeing ophthalmology but feels that what they have done for him so far (surgery, injections) have not really helped much His friend states that he tried requesting for a move to a ground floor apartment but his landlord is charging an additional $400 dollars for his rent, which he cannot afford as he is completely tapped out He denies any headaches or dizziness Denies any chest pains, no increased SOB No nausea/vomiting, no abdominal pain No change in bowel habits noted [facility] Medical History (Updated 04/22/24 @ 18:53 by Dontrell Dougherty MD) Sick sinus syndrome Vitamin D deficiency Benign essential hypertension CVA (cerebral vascular accident) (~2016) CKD (chronic kidney disease), stage III Urinary frequency Left-sided weakness Anemia Pacemaker UTI (urinary tract infection) Swallowing problem Incidental pulmonary nodule Bradycardia Right inguinal pain Hypertension Bladder outlet obstruction Surgical History S/P excision of lipoma History of surgery History of knee replacement Social History Household Members: None Housing: Apartment Are you a primary healthcare consulting manager to a significant other at home: No Do you presently have visiting nurse or other home services: No Alcohol intake: never Patient Tobacco Use Status: Current everyday Tobacco user Tobacco use type: Cigarette Cigarette Packs Per Day: 0.25 Cigarettes Per Day: 5 Years Smoked: 60 +/- e-Cigarette/Vaping Use: Never Used Second Hand Smoke Exposure: No Advance Directives Date on File: 06/06/22 service: No Current occupational status: retired Cognitive needs: Yes (wheelchair) Hearing needs: No Vision needs: Yes Questionnaire PHQ-9 Over the last 2 weeks, how often have you been bothered by any of the following problems? 1. Little interest or pleasure in doing things: not at all 2. Feeling down, depressed, or hopeless: not at all 3. Trouble falling or staying asleep, or sleeping too much: not at all 4. Feeling tired or having little energy: not at all 5. Poor appetite or overeating: not at all 6. Feeling bad about yourself - or that you are a failure or have let yourself or your family down: not at all 7. Trouble concentrating on things, such as reading the newspaper or watching television: not at all 8. Moving or speaking so slowly that other people could have noticed. Or the opposite - being so fidgety or restless that you have been moving around a lot more than usual: not at all 9. Thoughts that you would be better off or of hurting yourself in some way: not at all Total score: 0 Depression Screening Interpretation: Negative Depression Screening Done: Yes 34708 - PHQ-9 Billing: Yes Source: Developed by Drs. Meir Fan, Sadia Vázquez, Iglesia Howell and colleagues, with an educational rosangela from [employer]. Thrive Questionnaire Date Thrive assessed: 04/22/24 I am a: Patient What is your living situation today?: I have a steady place to live Within the past 12 months, did the food you bought not last and you didn't have the money to get more?: Never true Within the past 12 months, did you worry whether your food would run out before you got money to buy more?: Never true Do you have trouble paying for medicines?: No Do you have trouble getting transportation to medical appointments?: No Do you have trouble paying your heating and electricity bill?: No Do you have trouble taking care of your child, family member or friend?: No Do you have trouble with day-to-day activities such as bathing, preparing meals, shopping, managing finances, etc.?: No Are you currently unemployed and looking for a job?: No Are you interested in more education?: No Please select the resources that you would like help with: None Currently or been in a relationship where the following occur: No concerns reported THRIVE Score: 0 AUDIT C Alcohol Use Questionnaire (AUDIT-C) 1. How often do you have a drink containing alcohol?: Never 3. How often do you have six or more drinks on one occasion?: Never Total Score: 0 Score Reviewed/Action Taken: Yes GÓMEZ-7 AMB Questionnaire GÓMEZ-7 Date GÓMEZ - 7 assessed: 04/22/24 Feeling nervous, anxious, or on edge: 0 = Not at all Not being able to stop or control worryin = Not at all Worrying too much about different things: 0 = Not at all Trouble relaxin = Not at all Being so restless that it is hard to sit still: 0 = Not at all Becoming easily annoyed or irritable: 0 = Not at all Feeling afraid as if something awful might happen: 0 = Not at all Total GÓMEZ-7 score (0-4 normal; 5-9 mild; 10-14 moderate; 15-21 severe): 0 Source: Developed by Drs. Meir Fan, Sadia Vázquez, Iglesia Howell and colleagues, with an educational rosangela from [employer]. Review of Systems Const Denies chills, Reports fatigue, Denies fever(s), Denies headache(s) and Reports weakness Eyes Reports blurry vision (in both eyes) ENT Denies dysphagia, Denies dizziness, Denies otalgia, Denies headache(s), Reports hearing loss (increasing, especially in the right ear), Denies neck pain, Denies odynophagia and Denies sore throat Card Denies chest pain, Denies irregular heart rhythm, Denies palpitations and Denies dyspnea Resp Denies chest congestion, Denies cough and Denies dyspnea GI Denies abdominal pain, Denies constipation, Denies dysphagia, Denies diarrhea, Denies nausea, Denies odynophagia and Denies vomiting Denies difficulty urinating, Denies dysuria, Reports nocturia (at least twice) and Reports urinary frequency Musc Denies back pain, Reports arthralgias (increasing in the right knee, with weakness of the right leg), Reports muscle weakness, Denies neck pain and Reports stiffness Skin/Breast Denies rash Neuro Denies dizziness, Denies headache(s) and Reports weakness Psych Denies anxiety and Denies depression Endo Reports fatigue and Denies palpitations Physical exam (Primary Care) Vital Signs: Last Vital Signs Pulse 61 04/22/24 15:42 BP 122/80 04/22/24 15:42 Pulse Ox 99 04/22/24 15:42 Oxygen Delivery Method Room Air 04/22/24 15:42 BMI result Body Mass Index 20.9 Tobacco/Smoking Status: Tobacco use Status Tobacco use date assessed 04/22/24 04/22/24 15:46 Patient Tobacco Use Status Current everyday Tobacco 04/22/24 15:46 Tobacco use type Cigarette 04/22/24 15:46 e-Cigarette/Vaping Use Never Used 04/22/24 15:46 Depression Screening Interpretation: Negative Thrive Assessment: Date of Thrive Assessment Date Thrive assessed 04/22/24 04/22/24 16:00 Currently or been in a relationship where the following occur: No concerns reported Const General: no acute distress and alert Limitations: wheelchair HENMT Ears: TM's normal bilaterally and EAC's normal Throat: Yes posterior oropharynx normal and Yes tonsils normal (no TP congestion) Neck Neck: Yes supple and No lymphadenopathy Thyroid: Thyroid normal Chest Other: (+) pacemaker on the left upper chest wall Resp Auscultation: clear to auscultation bilaterally, no rales and no wheezes Cardio Rate: regular rate Rhythm: regular rhythm Heart sounds: no murmurs GI Palpation (GI): Soft to palpation and nontender Auscultation: normal bowel sounds General: Yes no CVA tenderness Back/Spine/Pelvis Back: no CVA tenderness Thoracic/Lumbar Spine: No lumbar spinal tenderness Skin Rashes: no rashes Neuro Gait exam (Neuro): Shuffling gait present and Assistive device used (wheelchair) Extrem General: Yes no clubbing, cyanosis or edema Right lower extremity: knee Details: tenderness (minimal) Location: of the pre-patellar area and abnormal ROM; no swelling Coding Level of Care Code Est Pt Level 3 (86973) Diagnoses 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 There is a small joint effusion noted Patient states that his knee will often tend to lock up on him after taking a few steps, after which he would not be able to walk as the pain in his knee would then go up significantly States that he will end up falling if he forces himself to keep going He is hoping to get a cortisone injection into his knee to help relieve his pain He actually had an appointment with orthopedics last 03/26/2024 but he could not make it to his appointment as he could not get out of his apartment We made out a referral to [facility] about 1 to 2 weeks ago in the hopes that [facility] can at least start him on some home PT and gait training so he can get more mobile and go for his scheduled appointments but they are requiring him to have a more recent [id number] evaluation before they will consider doing so Have advised patient that if he still cannot get the help that he needs, then he may be getting to a point wherein he can no longer be living on his own safely and he will likely need to consider long-term placement soon (2) CVA (cerebral vascular accident): Onset Date: ~2015 Comment: left thalamic, residual dysarthria Code(s): I63.9 - Cerebral infarction, unspecified Category: Medical Qualifiers: CVA mechanism: unspecified Qualified Code(s): I63.9 - Cerebral infarction, unspecified Plan: Patient reports no significant neurologic deficits but his right knee instability and overall weakness may be an offshoot of this Continue Aspirin 81 mg QD (3) Sick sinus syndrome: Comment: Resolved - S/P dual chamber pacemaker insertion on 06/21/2022 Code(s): I49.5 - Sick sinus syndrome Category: Medical Plan: He has a [place] dual-chamber pacemaker inserted on 06/21/2022 He is currently being remotely monitored by cardiology Follow up with cardiology as scheduled Plan Follow up as scheduled in June 2024
--- OUTSIDE RECORDS SUMMARY | 2024-04-22 19:28 | XMS_ITS | Data Portability ---
Author Organization [facility], Main Office Address [address], [address] [place] [address] Care Team Providers Care Home Therapy Clinician Name Role Phone HUMBERTO JIN - 2ND FLOOR OTHER VIRGIL MARIE Primary Care Provider Assessment No assessment recorded. Plan of Treatment Reminders Order Date Submit Date Provider Last Modified By Organization Details Last Modified Time Details Appointments None record ed. Lab None record ed. Referral None record ed. Procedures None record ed. Surgeries None record ed. Imaging None record ed. Medication Orders None record ed. Patient TargetsNo targets recorded. Patient Instructions Encounter Date Encounter Id Patient Instructions Last Modified By Organization Details Last Modified Time 06/24/2022 [id number] Dispo -- home with services when rehab goals are met, likely 5-7 days Total aok-ybqs-iu-face time spent reviewing records today was 33 minutes/2 units. [email or web address] Not available 06/24/2022 15:00:32 Reason for Referral None Reported. Problems Name Problem SNOMED Code Status Onset Date Resolution Date Notes Provider Name and Address Organization Details Recorded Time Sick sinus syndrome 64966285 Active 2022 MICHAEL GUERRA PA-C [address] , [address], [place], [address], [facility] 3 14:50:25 Cardiac pacemaker in situ 360735651 Active 2022 MICHAEL GUERRA PA-C [address] , [address], [place], [address], [facility] 3 14:50:36 Chronic kidney disease stage 3 200791920 Active 2022 MICHAEL GUERRA PA-C [address] , [address], [place], [address], [facility] 3 14:50:45 History of cerebrovascula r accident 133127679 Active 2022 JAZMYN DENNIS-C [address], [place], [address], [facility] 3 14:50:58 Vitamin D deficiency 41230535 Active 2022 JAZMYN DENNIS-C [address], [place], [place], [address], [facility] 3 14:51:23 Recurrent falls 339641030 Active 2022 JAZMYN DENNIS-C [address], [place], [address], [facility] 3 14:51:32 Essential hypertension 23678949 Active 2022 JAZMYN DENNIS-C [address], [place], [address], [facility] 3 14:51:39 Liver enzymes level above reference range 195016860 Active 2022 JAZMYN DENNIS-C [address], [place], [address], [facility] 3 14:51:54 Benign prostatic hyperplasia with outflow obstruction 746181119 Active 2022 JAZMYN DENNIS-C [address], [place], [address], [facility] 3 14:52:06 Dysphagia 12823975 Active 2022 JAZMYN DENNIS-C [address], [place], [address], [facility] 3 14:52:19 Tobacco dependence syndrome 69943248 Active 2022 JAZMYN DENNIS-C [address], [place], [address], [facility] 3 14:52:27 Anemia 262507956 Active 2022 JAZMYN DENNIS-C [address], [place], [address], [facility] 3 14:52:34 Thrombocytopen ic disorder 078295301 Active 2022 MICHAEL GUERRA PA-C [address], [address], [place], [address], [facility] 3 14:53:06 Overactive urinary bladder 648086629 Active 2022 MICHAEL GUERRA PA-C [address], [address], [place], [address], [facility] 3 14:53:14 Urinary incontinence 602890665 Active 2022 MICHAEL GUERRA PA-C [address], [address], [place], [address], [facility] 3 14:53:20 Carcinoma of prostate 888640150 Active 2022 MICHAEL GUERRA PA-C [address], [address], [place], [address], [facility] 3 14:53:38 Diastolic dysfunction 4798854 Active 2022 MICHAEL GUERRA PA-C [address], [place], [address], [facility] 3 14:53:49 Problem Notes None recorded. Medical Equipment None Reported. Allergies No known drug allergies Medications Not known to be on any medication Vitals Date Recorded Body temperature Respiratory rate Heart rate Oxygen saturation Oxygen saturation in Arterial blood by Pulse oximetry Body height Body mass index (BMI) Body weight Systolic blood pressure Diastolic blood pressure Provider Name and Address Organization Details Last Updated DateTime 3 98.2 [degF] 18 /min 77 /min 96 % 96 % 177.8 cm 22.1 kg/m2 55194.2 2 g 153 mm[Hg] 73 mm[Hg] MICHAEL GUERRA PA-C [address], [address], [place], [address], [facility] 3 14:01:19 Date Recorded Body height Body temperature Heart rate Oxygen saturation Oxygen saturation in Arterial blood by Pulse oximetry Systolic blood pressure Diastolic blood pressure Provider Name and Address Organization Details Last Updated DateTime 3 177.8 cm 98.7 [degF] 75 /min 98 % 98 % 136 mm[Hg] 68 mm[Hg] Libby Sorto MD [address] [facility], [address], [place], [address], [facility] 3 05:08:44 Social History Question Answer Notes LastModified by Organizat ion Details LastModified Time Tobacco Smoking Status Current Some Day Smoker MICHAEL GUERRA PA-C [address], [address], [place], [address], [facility] 06/24/2022 14:28:00 Do You Have An Advance Directive? Yes Full Code; All Interventions [email or web address] Information not available 06/24/2022 What Is Your Code Status? Full Code [email or web address] Information not available 06/24/2022 Do You Have A Medical Power Of Motorcycle Police Officer? Yes Valid Copy In PCC, Not Invoked [email or web address] Information not available 06/24/2022 What Was The Date Of Your Most Recent Tobacco Screening? 06/24/2022 [email or web address] Information not available 06/24/2022 Do You Have An Out Of Hospital DNR? No [email or web address] Information not available 06/24/2022 How Much Tobacco Do You Smoke? 0.25 PPD [email or web address] Information not available 06/24/2022 Do You Use Any Illicit Or Recreational Drugs? No [email or web address] Information not available 06/24/2022 Has Tobacco Cessation Counseling Been Provided? Yes [email or web address] Information not available 06/24/2022 On What Date Was Tobacco Cessation Counseling Provided? 06/24/2022 [email or web address] Information not available 06/24/2022 Do You Or Have You Ever Used Any Other Forms Of Tobacco Or Nicotine? No [email or web address] Information not available 06/24/2022 Sex: Unknown Functional Status None recorded. Mental Status None recorded. Family History Nothing Reported. Medical History No medical history recorded. Immunizations Vaccine Type Date Status Note Provider Nam e and Address Organization Details Recorded Time COVID-19, mRNA, LNP-S, bivalent, PF, 50 mcg/0.5 mL or 25mcg/0.25 mL dose 1 completed MATHEW DENNIS , [address], [place], [address], [facility] 06/24/2022 14:18:42 COVID-19, mRNA, LNP-S, bivalent, PF, 50 mcg/0.5 mL or 25mcg/0.25 mL dose 1 completed MATHEW DENNIS [address], [place], [address], [facility] 06/24/2022 14:18:49 COVID-19, mRNA, LNP-S, bivalent, PF, 50 mcg/0.5 mL or 25mcg/0.25 mL dose 1 completed MATHEW DENNIS [facility], [address], [place], [address], [facility] 06/24/2022 14:18:55 COVID-19, mRNA, LNP-S, bivalent, PF, 50 mcg/0.5 mL or 25mcg/0.25 mL dose 2 completed MATHEW DENNIS [facility], [address], [place], [address], [facility] 06/24/2022 14:19:04 Tdap 3 completed MATHEW DENNIS [facility], [address], [place], [address], [facility] 06/24/2022 14:19:18 Pneumococcal conjugate PCV 13 5 completed MATHEW DENNIS [facility], [address], [place], [address], [facility] 06/24/2022 14:19:33 pneumococcal polysaccharide PPV23 6 completed MATHEW DENNIS [facility], [address], [place], [address], [facility] 06/24/2022 14:19:45 Influenza, split virus, quadrivalent, PF 2 completed MATHEW DENNIS [facility], [address], [place], [address], [facility] 06/24/2022 14:19:56 Pneumococcal conjugate PCV 13 3 completed Elida hightower, [facility] 05/11/2023 16:27:11 Past Encounters Encounter ID Performer Location Encounter Start Date Encounter Closed Date Diagnosis/Indication Diagnosis SNOMED-CT Code Diagnosis ICD10 Code Diagnosis Note [id number] [facility] [address] [place] [address] 06/24/2022 13:38:35 06/28/2022 15:38:23 Sick sinus syndrome 81138146 I49.5 s/p pacerNeeds cards f/u with Dr. Ruth harris 2 weeks for pacer Cardiac pa cemaker in situ 948642046 Z95.0 LUE restrictio ns as recommende d in d/c summarycar ds f/u as abovemonit or incision site Recurrent falls 35904255 2 R29.6 BROWNING completed todayPT/OT Liver enzy mes level above reference range 703150732 R74.01 improvedpa ttern suggestive of acute alcoholic hepatitis but pt denies EtOHtrend LFTs History of cerebrovascular accident 319768833 Z86.73 ASA, statin Essential hypertension 26501217 I10 monitor BPs and adjust meds prnmonitor for edema on Norvasc Dysphagia 43604876 R13.1 0 consider [employer] screen although tolerating regular diet Diastolic dysfunction 35 15599 I51.9 euvolemic on exam Chronic ki dney disease stage 3 040702027 N18.30 recent JANET, prob due to vomiting and acute rhabdocaut ion with nephrotoxi c medsfollow labs Carcinoma of prostate 25 5591437 C61 no further details immediatel y availableo utpt f/u with uro prn Benign pro static hyperplasia with outflow obstruction 328848912 N40.1 Ascertain why on both terazosin and prazosin as either can cause hypotensio n/orthosta tic hypotensio n and increase fall risk Anemia 650908312 D64.9 follow CBC Overactive urinary bladder 173862011 N32.81 Clarify getting ER formulatio n of oxybutynin Thrombocyt openic disorder 289808413 D69.6 follow CBC Tobacco de pendence syndrome 38180578 F17.200 counseled 5 minutes on cessation; not interested in quitting; does not feel he smokes enough to warrant NRT but will notify if he changes his mind Urinary incontinence 165 228399 R32 [place] cathconsi er toileting schedule Vitamin D deficiency 347 14215 E55.9 repletingc onsider d/c since likely not conferring much benefit at this age Health Concerns Section Related Observation LastModified by Organization Detai ls LastModified Time None Recorded Concern Status LastModified by Organization Details LastModified Time None Recorded Advance Directives Directive Y: Full code; all interventi ons Payers Encounter Date Sequence Insurance Name Policy Number Policy Florez Covered Member ID Florez Member ID Guarantor Name 06/24/2022 2 [place] [id number] Ki Jordan [id number] Ki Jordan 06/24/2022 1 [place] Gift Card Combo SERVICES Ki Bhavik Nikki [id number] Ki Jordan Notes Date Note Type Note Provider Name and Address Organization Details Recorded Time 06/24/2022 text/html Pt seen today fo r initial review. 86-y/o M admitted from [facility] where he was hospitalized 06/18-06/23/22 for sick sinus syndrome s/p pacer. Has had multiple hospital visits/admits for falls. Seen by PT last week at which time he was recommended for subacute rehab, which he declined. Instead, he went home with VNA. On the day of presentation, he fell while ambulating and lost his balance, striking his head on the bathroom door knob. Since he had fallen and could not get up, he remained on the floor for ~3 hours until his HCP found him and called EMS. Apparently had also had multiple episodes of vomiting. Dx acute JANET, bradycardia into the 30s, acute rhabdo, and elevated Trop. Tx IVF. Underwent pacer placement 06/21/[address] Fitzpatrick without complications. Vomiting self-attributed to bad fish that he had eaten. Elevated trop attributed to leak, JANET, and poor cardiac output from bradycardia. Here for subacute rehab with plan to return home. Parenterals Received Prior to Admit: IVF 06/20/22; IV cefazolin 06/21/22 PMHx: SSS s/p L-sided dual chamber PPM 05/2022; CKD III with hx JANET; Hypertroponinemia; Hx CVA with dysarthria 2015; Hx UTI; Vit D def; Recurrent falls with recent acute rhabdo; HTN; Hx near-syncope; Transaminitis; Pulmonary HTN; RBBB; LAFB; 1st degree AVB; Tricuspid regurg; BPH with bladder outlet obstruction; Lung nodule; Hx TKA; Dysphagia; Tobacco use d/o; Chronic small vessel ischemic disease on brain imaging; Anemia; Cervical disc disease; Bilateral macular degeneration; Hx prostate cancer; Hx thrombocytopenia; Overactive bladder with urinary incontinence, uses [place] catheter; Diastolic dysfunction Healthcare Maintenance: given age, routine screening would not be recommended PPI use: not on a PPI Meds:Terazosin 10 mg po qhsLipitor 40 mg po qhsOxybutynin ER 10 mg po dailyASA 81 mg po dailyPrazosin 5 mg po bidNorvasc 5 mg po dailyVit D3 1000 ux po dailyFesoterodine ER 8 mg po daily Diet: regular, thin liquids Mobility: ambulatory at baseline; NO RAISING L HAND ABOVE SHOULDER LEVEL AND NO REACHING OUT WITH LEFT HAND TO GRAB THINGSContinence: incontinent of urine; continent of stoolFeeding: independent ROS: L chest sore from pacer insertion but generally feels better MICHAEL GUERRA PA-C [address] [facility], [address], [place], [address], [facility] 06/24/2022 15:03:56
--- OUTSIDE RECORDS SUMMARY | 2024-04-22 19:28 | XMS_ITS | Clinical Summary ---
Author Organization [facility] Address [address] [place] [address] Care Team Providers Care Diesel Service Journeyman Name Role Phone Elisabeth Rivas MD Primary Care Provider [phone] Allergies No known active allergies Medications Medication Sig Dispensed Refills Start Date End Date Status amLODIPine (NORVASC) 10 mg tablet Take 1 tablet (10 mg total) by mouth 1 (one) time each day. 04/06/2020 Active atorvastatin (LIPITOR) 10 mg tablet Take 1 Tab by mouth at bedtime for 90 days. 04/06/2020 Active prazosin (MINIPRESS) 5 mg capsule Take 1 Cap by mouth 2 times daily for 90 days. 04/06/2020 Active tamsulosin (Flomax) 0.4 mg 24 hr capsule 11/16/2019 Acti ve Active Problems Problem Noted Date Diagnosed Date Recurrent inguinal hernia of right side without obstruction or gangrene 11/20/2018 BPH (benign prostatic hyperplasia) 05/03/2018 CKD (chronic kidney disease) stage 3, GFR 30-59 ml/min 05/03/2018 Anxiety 04/17/2018 COPD (chronic obstructive pulmonary disease) Femoral condyle fracture 04/17/2018 Overview (03/13/2024): Right, distal. 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 Follows with [facility] Hypertension 04/17/2018 H/O: stroke with residual effects 02/22/2016 Overview (03/13/2024): dysarthria Esophagitis 02/16/2016 Overview (03/13/2024): EGD 2015- Very friable distal esophagitis and erosive gastritis within a 3 cm hiatus hernia sac; questions of short segment of Ramirez's esophagus. Diffuse gastritis of antrum and body. Significant bulbar duodenitis. Naproxen may explain much of this. Rule out H. Pylori (was neg). The esophagitis explains the esophageal thickening seen on CT scan. No esophageal tumor seen. Hip fracture 09/16/2005 Overview (03/13/2024): Left; ORIF Pure hypercholesterolemia 09/16/2005 Immunizations Name Administration Dates Next Due Influenza trivalent, 0.5mL, preservative free (Fluarix; FluLaval; Fluzone) ages 6mo and older (Afluria) 3 years and older 05/10/2011 Pneumococcal conjugate 13 va lent (Prevnar 13, PCV13) 2mo and older 06/03/2014 Pneumococcal polysaccharide 23 valent (Pneumovax 23) 2yo and older 09/16/2005 Td Tetanus diptheria (Tdvax) 7yo and older 04/08 Tdap Tetanus diptheria acell ular pertussis (Boostrix; Adacel) 7yo and older 04/30/2012 Zoster Live 12/21/2011 Surgical History Surgery Date Site/Laterality Comments APPENDECTOMY PROCEDURE: HISTORICAL APPENDECTOMY COLONOSCOPY 12/15/2009 PROCEDURE: DE COLONOSCOPY FLX DX W/COLLJ SPEC WHEN PFRMD; COMMENT: Jeanie to HF ESOPHAGOGASTRODUODENOSCOPY PROCEDURE: DE ESOPHAGOGASTRODUODENOSCOPY TRANSORAL DIAGNOSTIC; COMMENT: duodenitis, gastritis, hiatus hernia, esophageal erosions; question Ramirez's esophagus; neg CLOtest; no Ramirez's on biopsy; no H. pylori on biiopsy Medical History Medical History Date Comments Pure hypercholesterolemia 09/16/2005 DX:Pur e hypercholesterolemia Anxiety 04/17/2018 DX:Anxiety COPD (chronic obstructive pu lmonary disease) ([facility]) 04/17/2018 DX:COPD (chronic obstructive pulmonary disease) ([facility]) Hypertension 04/17/2018 DX:Hypertension History of prostate cancer 09/16/2005 DX:Pa story of prostate cancer; COMMENT: Sees Dr. Yecenia Valadez 09/03, s/p seed implants Esophagitis 02/16/2016 DX:Esophagitis; COMMENT: EGD 2015- Very friable distal esophagitis and erosive gastritis within a 3 cm hiatus hernia sac; questions of short segment of Ramirez's esophagus. Diffuse gastritis of antrum and body. Significant bulbar duodenitis. Naproxen may explain much of this. Rule out H. Pylori (was neg). The esophagitis explains the esophageal thickening seen on CT scan. No esophageal tumor seen. H/O: stroke with residual effects 02/22/2016 DX:H/O: stroke with residual effects; COMMENT: dysarthria Hip fracture ([facility]) 09/16/2005 DX:Hip fr acture ([facility]); COMMENT: Left; ORIF Tobacco abuse 11/23/2015 DX:Tobacco abuse Femoral condyle fracture ([facility]) 04/17/2018 DX:Femoral condyle fracture ([facility]); COMMENT: Right, distal. 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 Follows with [facility] CKD (chronic kidney disease) stage 3, GFR 30-59 ml/min ([facility]) 05/03/2018 DX:CKD (chronic kidney dise ase) stage 3, GFR 30-59 ml/min ([facility]) BPH (benign prostatic hyperplasia) 05/03/2018 DX:BPH (benign prostatic hyperplasia) Family History Medical History Relation Name Comments Prostate cancer Father Stroke Mother Relation Name Status Comments Father Mother Social History Tobacco Use Types Packs/Day Years Used Date Smoking Tobacco: Every Day Cigarettes 0.5 66.1 Started: 03/27/1957 Smokeless Tobacco: Never Alcohol Use Standard Drinks/Week Comments Yes 0 (1 standard drink = 0.6 oz pur e alcohol) Sex and Gender Information Value Date Recorded Sex Assigned at Not on file Gender Identity Not on file Sexual Orientation Not on file Obstetrics History Plan of Treatment Health Maintenance Due Date Last Done Comments COVID-19 Vaccine (#1) 1941 RSV Immunization Patients 60 + Years Old (1 - 1-dose 75+ series) 08/16/2011 Zoster Vaccines (2 of 3) 02/15/2012 12/21/2011 Depression Screening 03/05/2022 Falls Risk Assessment 03/05/2022 Social Influencers of Health Screening 03/05/2022 Hypertension/CHF/CAD Annual BMP Blood Test 03/09/2022 11/27/2019 DTaP,Tdap,and Td Vaccines (3 - Td or Tdap) 04/30/2022 04/30/2012, 04/08/2009 Influenza Vaccine (#1) 2023 05/10/2011 Cholesterol Screening (Lipid Panel) 11/26/2024 11/27/2019 Pneumococcal Vaccine: 65+ Years Completed 06/03/2014, 09/16/2005 HIB Vaccines Aged Out No longer eligi ble based on patient's age to complete this topic HPV Vaccines Aged Out No longer eligi ble based on patient's age to complete this topic Hepatitis A Vaccines Aged Out No long er eligible based on patient's age to complete this topic Hepatitis B Vaccines Aged Out No long er eligible based on patient's age to complete this topic IPV Vaccines Aged Out No longer eligi ble based on patient's age to complete this topic MMR Vaccines Aged Out No longer eligi ble based on patient's age to complete this topic Meningococcal ACWY Vaccine Aged Out N o longer eligible based on patient's age to complete this topic RSV Immunization Patients Under 20 months Aged Out No longer eligible b ased on patient's age to complete this topic Varicella Vaccines Aged Out No longer eligible based on patient's age to complete this topic Procedures Procedure Name Priority Date/Time Associated Diagnosis Comments ANNUAL BMP BLOOD TEST Routine 11/27/2019 LIPID PANEL Routine 11/27/2019 from Last 3 Months or Most Recently Relevant to Health Maintenance Results * Annual BMP Blood Test (11/27/2019) Pathologist [facility] Annual BMP Blood Test abstracted Historical Provider MD SAYRA HERNANDEZ E * Lipid panel (11/27/2019) [facility] LDL/HDL Ratio 3 0 - 4 Triglycerides 78 0 - 150 mg/dL Cholesterol 161 0 - 200 mg/dL HDL 61 40 mg/dL LDL Cholesterol 85 0 - 100 mg/dL Blood Venous blood specimen / Unknown Historical Provider LAB BLOOD ORDERAB LES from Last 3 Months or Most Recently Relevant to Health Maintenance Care Teams Diesel Service Journeyman Relationship Specialty Start Date End Date Elisabeth Rivas MD [address] [place] [address] PCP - General Internal Medicine 02/08/21
--- OUTSIDE RECORDS SUMMARY | 2024-04-22 19:28 | XMS_ITS | Clinical Summary ---
Author Organization [facility] Address [address] [place] [address] Care Team Providers Care Machinist Class B Name Role Phone Ursula Floyd MD Primary Care Provider [phone] Allergies No known active allergies Medications Medication Sig Dispensed Refills Start Date End Date Status amLODIPine (NORVASC) tablet 10 mg TK 1 T PO D 0 03/30/2018 Active atorvastatin (LIPITOR) tablet 10 mg Take 10 mg by mouth daily. 0 03/23/2018 Active hydroCHLOROthiazide (HYDRODIURIL) tablet 25 mg Take 25 mg by mouth daily. 0 03/23/2018 Active prazosin (MINIPRESS) 5 MG capsule Take 5 mg by mouth 2 (two) times a day. 0 03/26/2018 Active tamsulosin (FLOMAX) 0.4 MG CAPS Take 0.4 mg by mouth daily. 0 Active oxybutynin (DITROPAN-XL) 5 MG 24 hr tablet 0 10/08/2019 Active terazosin (HYTRIN) 5 MG capsule Take 10 mg by mouth every night at bedtime. 0 08/10/2021 Active meloxicam (MOBIC) 7.5 MG tablet Take 1 tab daily as needed for pain 30 tablet 2 10/13/2021 Active Active Problems Problem Noted Date Diagnosed Date Arthritis of right knee 04/10/2018 Acute medial meniscus tear of right knee 019 History of smoking 30 or more pack years 019 Social History Tobacco Use Types Packs/Day Years Used Date Smoking Tobacco: Never Assessed Sex and Gender Information Value Date Recorded Sex Assigned at Not on file Gender Identity Not on file Sexual Orientation Not on file Job Start Date Occupation Industry Not on file Not on file Not on file Last Filed Vital Signs Vital Sign Reading Time Taken Comments Blood Pressure - - Pulse - - Temperature - - Respiratory Rate - - Oxygen Saturation - - Inhaled Oxygen Concentration - - Weight 78.9 kg (174 lb) 04/10/2018 2:32 PM EST Height 177.8 cm (5' 10 ) 04/10/2018 2:32 PM EST Body Mass Index 24.97 04/10/2018 2:32 PM EST Plan of Treatment Health Maintenance Due Date Last Done Comments COVID-19 Vaccine (#1) 02/15/1936 Depression Screening 1948 Preventative Health Evaluation 1954 Shingrix-Zoster Vaccine (1 o f 2) 1986 Fall Risk Assessment 2001 RSV Adult > 60+ Yrs or (1 - 1-dose 75+ series) 08/16/2011 DTap / Tdap / Td (2 - Td or Tdap) 04/30/2022 04/30/2012 Influenza Vaccine (#1) 2023 Pneumococcal Vaccine Completed 06/03/2014, 09/16/2005 Hepatitis B Vaccines Aged Out No long er eligible based on patient's age to complete this topic RSV Ped < 20 months Aged Out No longe r eligible based on patient's age to complete this topic Care Teams Machinist Class B Relationship Specialty Start Date End Date Ursula Floyd MD PCP - General Internal Medicine 06/21/18
== END 2024-04-22 16:31 | disposition home or self-care (01) ==
PROVIDERS: PCP Internal Medicine; Visit Provider Internal Medicine
DX: M23.51 Chronic instability of knee, right knee (principal); I63.9 Cerebral infarction, unspecified; I49.5 Sick sinus syndrome

== ENCOUNTER → 2024-04-22 15:23 | Outpatient (BNVA) | payer MEDICARE, SELFPAY | PROVIDERS: PCP Internal Medicine; Visit Provider Internal Medicine | DX: M25.531 Pain in right wrist (principal); I63.9 Cerebral infarction, unspecified; I49.5 Sick sinus syndrome | CPT/HCPCS: 96127; 99212 ==

== ENCOUNTER → 2024-05-18 23:59 | Outpatient (BNV) | payer MEDICARE, SELFPAY ==
--- NOTE | 2024-05-27 13:07 | MHC.OFFVIS ---
Intake Visit Reasons: Remote device check- [facility] Allergies No Known Allergies [No Known Allergies*] Allergy (Verified 04/22/24 16:35) PFSH Medical History (Updated 04/22/24 @ 18:53 by Dontrell Dougherty MD) Sick sinus syndrome Vitamin D deficiency Benign essential hypertension CVA (cerebral vascular accident) (~2016) CKD (chronic kidney disease), stage III Urinary frequency Left-sided weakness Anemia Pacemaker UTI (urinary tract infection) Swallowing problem Incidental pulmonary nodule Bradycardia Right inguinal pain Hypertension Bladder outlet obstruction Surgical History S/P excision of lipoma History of surgery History of knee replacement Social History Household Members: None Housing: Apartment Are you a primary physician assistant primary care to a significant other at home: No Do you presently have visiting nurse or other home services: No Alcohol intake: never Patient Tobacco Use Status: Current everyday Tobacco user Tobacco use type: Cigarette Cigarette Packs Per Day: 0.25 Cigarettes Per Day: 5 Years Smoked: 60 +/- Packs Per Year: 0 Packs per year/per ci.00 e-Cigarette/Vaping Use: Never Used Second Hand Smoke Exposure: No Advance Directives Date on File: 06/06/22 service: No Current occupational status: retired Cognitive needs: Yes (wheelchair) Hearing needs: No Vision needs: Yes Office Procedures Cardiac Device Check Cardiac Device Check Details: Remote pacemaker report generated 05/18/2024. Pacemaker function is adequate. No significant arrhythmias noted [id number] Cardiac Device Interrogation, pacemaker Procedure code (CPT) selection complete Assessment & Plan Assessment & Plan (1) Pacemaker: Comment: [facility] dual-chamber pacemaker inserted 06/21/2022, Dr. Fitzpatrick Code(s): Z95.0 - Presence of cardiac pacemaker Category: Medical Plan: See above Coding Level of Care Code Procedure Only Diagnoses Pacemaker Z95.0 CPT Codes Cardiac Device Check - Cardiac Device 12: [id number] Cardiac Device Interrogation, pacemaker ([id number])
== END ==
PROVIDERS: PCP Internal Medicine; Visit Provider Internal Medicine Cardiovascular Disease
DX: Z45.018 Encounter for adjustment and management of other part of cardiac pacemaker (principal)
CPT/HCPCS: 93294

== ENCOUNTER → 2024-06-26 08:47 | Outpatient (BNVA) | payer MEDICARE, SELFPAY | PROVIDERS: PCP Internal Medicine; Visit Provider Internal Medicine ==

== ENCOUNTER 2024-06-27 09:01 | Outpatient (AMB) | payer MEDICARE, SELFPAY ==
--- NOTE | 2024-06-27 09:01 | MHC.PC.OV ---
Intake Visit Reasons: 4m [phone] Liquor Merchant Required: No Accompanied by: caregiver Allergies No Known Allergies [No Known Allergies*] Allergy (Verified 06/27/24 21:22) Medication List - Last Reconciled 06/27/24 by Dontrell Dougherty MD aspirin 81 mg PO DAILY atorvastatin 40 mg PO BEDTIME 90 days [BEDSIDE COMMODE As directed] cholecalciferol (vitamin D3) 25 mcg PO DAILY fesoterodine ER 8 mg PO DAILY 90 days metoprolol succinate ER 25 mg PO DAILY prazosin 5 mg PO BID solifenacin (Vesicare) 5 mg PO DAILY 30 days terazosin 10 mg PO BEDTIME 90 days tramadol 50 mg PO .QD-BID PRN Tobacco use date assessed: 06/27/24 Fall risk assessment: 2 + Falls in past year Last assessed Fall Risk: 06/27/24 Dental Screening Dental Screen Date: 06/27/24 Did you have a dental visit in the last 12 months?: No Did you have a dental problem in the last 6 months where you did not have access to dental care?: No Was dental information given to patient?: No HPI 4m [id number] HPI Details Patient's follow up visit / consultation today is done over video conference (iPhone/iPad/[employer]) - this is a TELEHEALTH visit Patient's current medications have been reviewed and verified with patient and/or caregiver/proxy and have been updated accordingly in the medication list Today's visit is done primarily through the assistance of patient's friend Jordon, who is usually the one helping him get to his appointments for doctor's visits and tests/procedures, as patient is very hard of hearing and is not able to fully participate in today's visit His friend states that he is no longer able to get patient out of the house to get to his appointments or to get his labs done so he has not yet gotten any of his previous labs done Patient is also no longer able to navigate the stairs (he lives on the second floor of his apartment building that has no elevator access) due to his increasing right knee pain His has tried requesting for a move to a ground floor apartment but his landlord is charging an additional $400 dollars for his rent, which he cannot afford Patient states that other than his knee pain, he feels okay He is hoping to get a cortisone injection in his knee but is again not able to get out of his apartment to see orthopedics for the procedure We have previously [facility] but they require a recent [id number] office visit before they can start their evaluation Patient denies any headaches or dizziness Denies any chest pains, no increased shortness of breath No nausea/vomiting, no abdominal pain No change in bowel habits noted Patient also needs a couple of his Rx refilled as he has been out of these medications for a few weeks now He is also out of his Terazosin and has had increasingly frequent trips to the bathroom lately [facility] Medical History Sick sinus syndrome Vitamin D deficiency Benign essential hypertension CVA (cerebral vascular accident) (~2016) CKD (chronic kidney disease), stage III Urinary frequency Left-sided weakness Anemia Pacemaker UTI (urinary tract infection) Swallowing problem Incidental pulmonary nodule Bradycardia Right inguinal pain Hypertension Bladder outlet obstruction Surgical History S/P excision of lipoma History of surgery History of knee replacement Social History Household Members: None Housing: Apartment Are you a primary life care planner to a significant other at home: No Do you presently have visiting nurse or other home services: No Alcohol intake: never Patient Tobacco Use Status: Current everyday Tobacco user Tobacco use type: Cigarette Cigarette Packs Per Day: 0.5 Cigarettes Per Day: 8 Years Smoked: 60 +/- e-Cigarette/Vaping Use: Never Used Second Hand Smoke Exposure: No Advance Directives Date on File: 06/06/22 service: No Current occupational status: retired Cognitive needs: Yes (wheelchair) Hearing needs: No Vision needs: Yes Questionnaire PHQ-9 Over the last 2 weeks, how often have you been bothered by any of the following problems? 1. Little interest or pleasure in doing things: several days 2. Feeling down, depressed, or hopeless: several days 3. Trouble falling or staying asleep, or sleeping too much: not at all 4. Feeling tired or having little energy: not at all 5. Poor appetite or overeating: not at all 6. Feeling bad about yourself - or that you are a failure or have let yourself or your family down: not at all 7. Trouble concentrating on things, such as reading the newspaper or watching television: not at all 8. Moving or speaking so slowly that other people could have noticed. Or the opposite - being so fidgety or restless that you have been moving around a lot more than usual: not at all 9. Thoughts that you would be better off or of hurting yourself in some way: not at all Total score: 2 Depression Screening Interpretation: Negative Depression Screening Done: Yes 27095 - PHQ-9 Billing: Yes Source: Developed by Drs. Meir Fan, Sadia Vázquez, Iglesia Howell and colleagues, with an educational rosangela from [employer]. Thrive Questionnaire Date Thrive assessed: 06/27/24 I am a: Patient What is your living situation today?: I have a steady place to live Within the past 12 months, did the food you bought not last and you didn't have the money to get more?: Never true Within the past 12 months, did you worry whether your food would run out before you got money to buy more?: Never true Do you have trouble paying for medicines?: No Do you have trouble getting transportation to medical appointments?: No Do you have trouble paying your heating and electricity bill?: No Do you have trouble taking care of your child, family member or friend?: No Do you have trouble with day-to-day activities such as bathing, preparing meals, shopping, managing finances, etc.?: No Are you currently unemployed and looking for a job?: No Are you interested in more education?: No Please select the resources that you would like help with: None Currently or been in a relationship where the following occur: No concerns reported THRIVE Score: 0 AUDIT C Alcohol Use Questionnaire (AUDIT-C) 1. How often do you have a drink containing alcohol?: Never 3. How often do you have six or more drinks on one occasion?: Never Total Score: 0 Score Reviewed/Action Taken: Yes GÓMEZ-7 AMB Questionnaire GÓMEZ-7 Date GÓMEZ - 7 assessed: 06/27/24 Feeling nervous, anxious, or on edge: 0 = Not at all Not being able to stop or control worryin = Not at all Worrying too much about different things: 0 = Not at all Trouble relaxin = Not at all Being so restless that it is hard to sit still: 0 = Not at all Becoming easily annoyed or irritable: 0 = Not at all Feeling afraid as if something awful might happen: 0 = Not at all Total GÓMEZ-7 score (0-4 normal; 5-9 mild; 10-14 moderate; 15-21 severe): 0 Source: Developed by Drs. Meir Fan, Sadia Vázquez, Iglesia Howell and colleagues, with an educational rosangela from [employer]. Review of Systems Const Denies chills, Reports fatigue, Denies fever(s), Denies headache(s) and Reports weakness Eyes Reports blurry vision (in both eyes) ENT Denies dysphagia, Denies dizziness, Denies otalgia, Denies headache(s), Reports hearing loss (increasing, especially in the right ear), Denies neck pain, Denies odynophagia and Denies sore throat Card Denies chest pain, Denies irregular heart rhythm, Denies palpitations and Denies dyspnea Resp Denies chest congestion, Denies cough and Denies dyspnea GI Denies abdominal pain, Denies constipation, Denies dysphagia, Denies diarrhea, Denies nausea, Denies odynophagia and Denies vomiting Denies difficulty urinating, Denies dysuria, Reports nocturia and Reports urinary frequency Musc Denies back pain, Reports arthralgias (increasing in the right knee, with weakness of the right leg), Reports muscle weakness, Denies neck pain and Reports stiffness Skin/Breast Denies rash Neuro Denies dizziness, Denies headache(s) and Reports weakness Psych Denies anxiety and Denies depression Endo Reports fatigue and Denies palpitations Physical exam (Primary Care) Vital Signs: Physical examination is not performed as visit / consultation today is done over videoconference - Telehealth visit All physical findings indicated here, if present, are as per patient's and / or caregivers / proxy's report and visual inspection over videoconference, if appropriate or applicable Tobacco/Smoking Status: Tobacco use Status Tobacco use date assessed 06/27/24 06/27/24 09:04 Patient Tobacco Use Status Current everyday Tobacco 04/03/25 09:04 Tobacco use type Cigarette 06/27/24 09:04 e-Cigarette/Vaping Use Never Used 06/27/24 09:04 PHQ-9: PHQ-9 Score PHQ-9: Total score 2 06/27/24 09:39 Depression Screening Interpretation: Negative Thrive Assessment: Date of Thrive Assessment Date Thrive assessed 06/27/24 06/27/24 09:04 Currently or been in a relationship where the following occur: No concerns reported Telehealth Telehealth Telehealth Platform: Telephone (Android ) Location of provider rendering services: practice address Location of patient: address on file Patient Identification confirmed using: Name, : Yes Telehealth method: video (Android ([employer])) Patient verbally consented to treatment: Yes Patient verbally consented to billing insurance company: Yes Patient informed of any privacy concerns related to visit: Yes Minutes spent on Phone/Video with Pt.: 19 Coding Level of Care Code Tele Est Pt Level 4 (24136) Diagnoses Cerebrovascular accident (CVA), unspecified mechanism I63.9 CVA mechanism: unspecified 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9 - Cerebral infarction, unspecified Category: Medical Qualifiers: CVA mechanism: unspecified Qualified Code(s): I63.9 - Cerebral infarction, unspecified Plan: He reports no significant neurologic deficits and no recent recurrence of TIA or symptoms as a result of his CVA Continue Aspirin 81 mg QD Follow up with neurology as scheduled (2) Recurrent right knee instability: Code(s): M23.51 - Chronic instability of knee, right knee Category: Medical Plan: S/P knee replacement surgery done at [facility] with Dr. Glenn Mckinley back in 2017 Patient completed physical therapy for his right knee last year, with some improvement of his right knee/leg weakness but states that the pain persisted and he is getting frustrated with his knee and his subsequent difficulty walking X-rays of the right knee done in June 2023 revealed (+) status post total knee arthroplasty, with the hardware appearing intact. There is a small joint effusion noted Patient states that his knee still often tends to lock up on him after he takes a couple of steps, after which he would not be able to walk anymore as the pain in his knee would then go up significantly and he fears that he will end up falling if he forces himself to keep going He is hoping to get a cortisone injection into his knee to help relieve his pain but has not been able to get out of his apartment He missed his appointment with orthopedics back on 03/26/2024 for this reason We made out a referral to [facility] a few months ago in the hopes that [facility] can at least start him on some home PT and gait training so he can get more mobile but they are requiring him to have a more recent [id number] evaluation before they will reassess him (3) Sick sinus syndrome: Code(s): I49.5 - Sick sinus syndrome Plan: Resolved Patient has reportedly been doing well since his pacemaker insertion in May 2022 and he's had no recurrence of his previous symptoms of weakness and dizziness Pacemaker interrogation is being done regularly / remotely by cardiology - device has been functioning normally Follow up with cardiology as scheduled (4) Benign essential hypertension: Code(s): I10 - Essential (primary) hypertension Category: Medical Plan: Reinforced low-sodium diet - goal is systolic BP of at least 140-150 mm or less Continue Prazosin 5 mg BID - Rx refilled He used to also take Amlodipine 5 mg QD but this was discontinued last year (5) Pure hypercholesterolemia: Code(s): E78.00 - Pure hypercholesterolemia, unspecified Category: Medical Plan: He has not been able to get his follow up labs done so far as he has been unable to leave his apartment - he has not had any follow up labs done in over a year I will try to reorder his labs and see if [facility] can help him do this or we can look into whether the lab at the hospital still offers home draw services Reinforced low cholesterol diet Continue Atorvastatin 40 mg QD - Rx refilled (6) CKD (chronic kidney disease), stage III: Code(s): N18.30 - Chronic kidney disease, stage 3 unspecified Category: Medical Qualifiers: Chronic kidney disease stage 3 subtype: unspecified whether 3a or 3b Qualified Code(s): N18.30 - Chronic kidney disease, stage 3 unspecified Plan: Will try to recheck his labs and his serum creatinine and GFR GEOVANY (7) Vitamin D deficiency: Code(s): E55.9 - Vitamin D deficiency, unspecified Category: Medical Plan: Continue Vitamin D3 1000 units QD (8) Anemia: Code(s): D64.9 - Anemia, unspecified Category: Medical Qualifiers: Anemia type: unspecified type Qualified Code(s): D64.9 - Anemia, unspecified Plan: His H/H was still slightly low at 12.4/37.7 when they were last checked in May 2023 although these are improved from previous Will try to recheck his CBC GEOVANY (9) Bladder outlet obstruction: Code(s): N32.0 - Bladder-neck obstruction Category: Medical Plan: Follow up with urology as scheduled (10) Urinary frequency: Code(s): R35.0 - Frequency of micturition Category: Medical Plan: Continue Fesoterodine ER 8 mg QD, Vesicare 5 mg QD and Terazosin 10 mg Q HS (Rx refilled) Follow up with urology as scheduled Plan Follow up in 4 months Orders: Orders TSH reflex Free T4 06/27/24 E78.00 - Pure hypercholesterolemia, unspecified Vitamin B12 and Folate 06/27/24 E53.8 - Deficiency of other specified B group vitamins Complete Blood Count Auto Diff 06/27/24 D64.9 - Anemia, unspecified Vitamin D 25-OH Total 06/27/24 E55.9 - Vitamin D deficiency, unspecified Medications: Refilled atorvastatin 40 mg PO BEDTIME 90 days 90 tabs 1RF E78.00 - Pure hypercholesterolemia, unspecified terazosin 10 mg PO BEDTIME 90 days 90 caps 1RF C61 - Malignant neoplasm of prostate prazosin 5 mg PO BID 180 caps 0RF
--- OUTSIDE RECORDS SUMMARY | 2024-06-27 09:14 | XMS_ITS | Clinical Summary ---
Author Organization [facility], [place] Address [address] [place] [address] Care Team Providers Care Engine Cowling Installer Name Role Phone Elisabeth Rivas MD Primary Care Provider [phone] Allergies No known active allergies Medications amLODIPine (NORVASC) 10 mg tablet Take 1 tablet (10 mg total) by mouth 1 (one) time each day. 04/06/2020 Active atorvastatin (LIPITOR) 10 mg tablet Take 1 Tab by mouth at bedtime for 90 days. 04/06/2020 Active prazosin (MINIPRESS) 5 mg capsule Take 1 Cap by mouth 2 times daily for 90 days. 04/06/2020 Active tamsulosin (Flomax) 0.4 mg 24 hr capsule 11/16/2019 Activ e Active Problems Problem Noted Date Diagnosed Date [...] APPENDECTOMY PROCEDURE: HISTORICAL APPENDECTOMY COLONOSCOPY 12/15/2009 PROCEDURE: OR COLONOSCOPY FLX DX W/COLLJ SPEC WHEN PFRMD; COMMENT: Jeanie to HF ESOPHAGOGASTRODUODENOSCOPY PROCEDURE: OR ESOPHAGOGASTRODUODENOSCOPY TRANSORAL DIAGNOSTIC; COMMENT: duodenitis, gastritis, hiatus hernia, esophageal erosions; question Ramirez's esophagus; neg CLOtest; no Ramirez's on biopsy; no H. pylori on biiopsy Medical History Medical History Date Comments Pure hypercholesterolemia 09/16/2005 DX:Pur e hypercholesterolemia Anxiety 04/17/2018 DX:Anxiety COPD (chronic obstructive pu lmonary disease) ([facility]) 04/17/2018 DX:COPD (chronic obstructive pulmonary disease) ([facility]) Hypertension 04/17/2018 DX:Hypertension History of prostate cancer 09/16/2005 DX:Or story of prostate cancer; COMMENT: Sees Dr. [...] with residual effects; COMMENT: dysarthria Hip fracture ([facility]) 09/16/2005 DX:Hip fr acture ([facility]); COMMENT: Left; ORIF Tobacco abuse 11/23/2015 DX:Tobacco abuse Femoral condyle fracture ([facility]) 04/17/2018 DX:Femoral condyle fracture ([facility]); COMMENT: Right, distal. 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 Follows with [facility] CKD (chronic kidney disease) stage 3, GFR 30-59 ml/min ([facility]) 05/03/2018 DX:CKD (chronic kidney dise ase) stage 3, GFR 30-59 ml/min ([facility]) BPH (benign prostatic hyperplasia) 05/03/2018 DX:BPH (benign prostatic hyperplasia) Family History Medical History Relation Name Comments Prostate cancer Father Stroke Mother Relation Name Status Comments Father Mother Social History Tobacco Use Types Packs/Day Years Used Date Smoking Tobacco: Every Day Cigarettes 0.5 66.3 Started: 03/27/1957 Smokeless Tobacco: Never Alcohol Use Standard Drinks/Week Comments Yes 0 (1 standard drink = 0.6 oz pur e alcohol) Sex and Gender Information Value Date Recorded Sex Assigned at Not on file Legal Sex Male 1:12 PM EST Gender Identity Not on file Sexual Orientation Not on file Obstetrics History Plan of Treatment Health Maintenance Due Date Last Done Comments COVID-19 Vaccine (#1) 1940 RSV Immunization Adult Patients (1 - 1-dose 75+ series) 08/16/2011 Zoster Vaccines (2 of 3) 02/15/2012 12/21/2011 Depression Screening 03/05/2022 Falls Risk Assessment 03/05/2022 Social Influencers of Health Screening 03/05/2022 Hypertension/CHF/CAD Annual BMP Blood Test 03/09/2022 11/27/2019 DTaP,Tdap,and Td Vaccines (3 - Td or Tdap) 04/30/2022 04/30/2012, 04/08/2009 Influenza Vaccine (Season Ended) 2024 05/10/2011 Cholesterol Screening (Lipid Panel) 11/26/2024 11/27/2019 Pneumococcal Vaccine: 50+ Years Completed 06/03/2014, 09/16/2005 HIB Vaccines Aged [...] patient's age to complete this topic Meningococcal B Vacine Aged Out No lo nger eligible based on patient's age to complete [...] * Annual BMP Blood Test (11/27/2019) Pathologist [facility] Annual BMP Blood Test abstracted Historical Provider HEALTH MAINTENANCE Final Result * Lipid panel (11/27/2019) Pathologist [facility] LDL/HDL Ratio 3 0 - 4 Triglycerides 78 0 - 150 mg/dL Cholesterol 161 0 - 200 mg/dL HDL 61 >=40 mg/dL LDL Cholesterol 85 0 - 100 mg/dL Blood Venous blood specimen / Unknown Historical Provider LAB BLOOD ORDERABLES Luly l Result from Last 3 Months or Most Recently Relevant to Health Maintenance Care Teams [employer] Cow[employer] Installer Relationship Specialty Start Date End Date Elisabeth Rivas MD [address] [place] [address] PCP - General Internal Medicine 02/08/21
== END 2024-06-27 10:36 | disposition home or self-care (01) ==
LOC: HO.HMCH 09:01
PROVIDERS: PCP Internal Medicine; Visit Provider Internal Medicine
DX: I12.9 Hypertensive chronic kidney disease with stage 1 through stage 4 chronic kidney disease, or unspecified chronic kidney disease (principal); I63.9 Cerebral infarction, unspecified; I49.5 Sick sinus syndrome; N18.30 Chronic kidney disease, stage 3 unspecified; M23.51 Chronic instability of knee, right knee; E78.00 Pure hypercholesterolemia, unspecified; E55.9 Vitamin D deficiency, unspecified; D64.9 Anemia, unspecified; N32.0 Bladder-neck obstruction; R35.0 Frequency of micturition

== ENCOUNTER → 2024-06-27 09:01 | Outpatient (BNVA) | payer MEDICARE, SELFPAY | PROVIDERS: PCP Internal Medicine; Visit Provider Internal Medicine | DX: M23.51 Chronic instability of knee, right knee (principal); I49.5 Sick sinus syndrome; E78.00 Pure hypercholesterolemia, unspecified; N32.0 Bladder-neck obstruction; E55.9 Vitamin D deficiency, unspecified; R35.0 Frequency of micturition; I12.9 Hypertensive chronic kidney disease with stage 1 through stage 4 chronic kidney disease, or unspecified chronic kidney disease; N18.30 Chronic kidney disease, stage 3 unspecified; D63.1 Anemia in chronic kidney disease; Z86.73 Personal history of transient ischemic attack (TIA), and cerebral infarction without residual deficits | CPT/HCPCS: 96127 ==

== ENCOUNTER 2024-08-04 00:21 | Inpatient (IN) | payer MEDICARE, SELFPAY ==
[2024-08-04] VITALS (13 sets, daily range): BP systolic 108–139; BP diastolic 51–84; PULSE 67–92; RESP 14–21; TEMP 36.6–37.7; O2SAT 84–98; BMI 19.4
--- NOTE | 2024-08-04 | ECG_ITS ---
Test Reason : N/V Blood Pressure : */* mmHG Vent. Rate : 87 BPM Atrial Rate : 87 BPM P-R Int : 140 ms QRS Dur : 114 ms QT Int : 414 ms P-R-T Axes : 66 -86 48 degrees QTcB Int : 498 ms Artifact in tracing Sinus rhythm with Premature atrial complexes Left axis deviation Incomplete right bundle branch block Prolonged QT Abnormal ECG When compared with ECG of 31-Mar-2023 17:30, Premature atrial complexes are now Present Nonspecific T wave abnormality no longer evident in Anterolateral leads Referred By: Generic ED Physician Electronically Signed By: MAR DANIEL
--- NOTE | ~2024-08-04 | XR_ITS ---
CLINICAL HISTORY: Shortness a breath 1 view chest x-ray Comparison: CR/NH/SR - XR CHEST 1V - 03/31/23 17:09 EST Findings: Minimal streaky left lower lobe atelectasis. No significant pleural effusion or pneumothorax. Similar prominent/enlarged cardiac silhouette. No acute fracture. Similar position of the left pectoral dual lead chamber pacemaker. Similar clip projecting over the right mid chest. IMPRESSION: Minimal streaky left lower lobe atelectasis. This document has been electronically signed by: Delmer Fitzpatrick MD on 08/04/2024 01:19:16
--- NOTE | ~2024-08-04 | XR_ITS ---
CLINICAL HISTORY: NG tube placement ; image OK'd by for NGT placement. 1 view chest x-ray Comparison: CR - XR CHEST 1V - 08/04/24 00:54 EDT Findings: No consolidation or effusion. Cardiac and mediastinal contours are stable. Left chest pacemaker again noted. No acute fracture. The NG tube courses distally off the image. IMPRESSION: The NG tube courses distally off the image. This document has been electronically signed by: Cain Jackman MD on 08/04/2024 11:35:51
--- NOTE | ~2024-08-04 | CT_ITS ---
CLINICAL HISTORY: Abdominal pain with vomiting CT abdomen and pelvis without contrast Comparison: None Findings: Small hiatal hernia. Fluid-filled esophagus. Emphysema. Ill-defined tree-in-bud nodular consolidations in the right lower lobe concerning for aspiration or pneumonia. Cardiomegaly with small pericardial effusion. Cardiac pacing leads. Distended gallbladder. Bilateral nodular thickening of the ysxfn-qvqymgu-ydhy-left adrenal glands/hyperplasia, nonspecific. Bilateral perinephric stranding, nonspecific. Nonobstructive punctate 2 mm calculus in the left upper pole kidney. Right larger than left bilateral inguinal hernias containing loops of bowel, on the right containing the majority of the ascending colon. There is extensive fluid stranding tracking along the right hernia defect. The left inguinal hernia contains a decompressed loop of small bowel. There is proximal diffuse small bowel dilatation throughout the abdominal cavity with air-fluid levels, concerning for bowel obstruction. Transition point to decompression suspected near the hernia neck of the left lower quadrant. Large rectal stool burden. Colonic diverticulosis without focal diverticulitis. Colon is diffusely decompressed which limits evaluation. Left dynamic hip screw. Osteopenia with diffuse multilevel spondylosis. Diffuse atheromatous plaque disease throughout the aorta and branch vessels, without aneurysmal dilatation. Prostatic seed implants. IMPRESSION: 1. Incarcerated bilateral inguinal hernias with secondary SBO as described. 2. Possible right lower lobe endobronchial pneumonia or aspiration. 3. Nonobstructive punctate 2 mm calculus in the left upper pole kidney. 4. Additional findings as described. This document has been electronically signed by: Delmer Fitzpatrick MD on 08/04/2024 01:39:52
[2024-08-04] MEDS: ondansetron HCL 4 MG/2 ML VIAL IVPUSH ×2 (00:40→10:25)
--- NOTE | 2024-08-04 00:41 | ED.ABDPAIN ---
HPI - Abdominal Pain General Chief Complaint: Nausea/Vomiting/Diarrhea Stated Complaint: NAUSEA/VOMITTING Time Seen by Provider: 08/04/24 00:34 Source: patient Mode of arrival: EMS Limitations: no limitations History of Present Illness ED Provider: HPI narrative: 88M PMH COPD, htn, prostate ca, cva with left hemiparesis and dysarthria, CKD III, s/p pacemaker comes here for nausea vomiting for last 3 days with diffuse abdominal pain unable to hold down any liquids no diarrhea no fever no chills vomiting bile prior to arrival no abdominal distention had moved his bowel yesterday no fever no chills Related Data Previous Rx's ?Medication ?Instructions ?Recorded fesoterodine 8 mg tablet,extended 8 mg PO DAILY 90 days #90 tabs 02/01/23 release 24 hr solifenacin 5 mg tablet (Vesicare) 5 mg PO DAILY 30 days #30 tabs 05/08/23 BEDSIDE COMMODE #1 ea 05/18/23 cholecalciferol (vitamin D3) 25 25 mcg PO DAILY #90 tabs 06/19/23 mcg (1,000 unit) tablet tramadol 50 mg tablet 50 mg PO .QD-BID PRN pain #30 tabs 02/15/24 metoprolol succinate 25 mg 25 mg PO DAILY #30 tabs 02/19/24 tablet,extended release 24 hr aspirin 81 mg chewable tablet 81 mg PO DAILY #90 tabs 04/15/24 atorvastatin 40 mg tablet 40 mg PO BEDTIME 90 days #90 tabs 06/27/24 prazosin 5 mg capsule 5 mg PO BID #180 caps 06/27/24 terazosin 10 mg capsule 10 mg PO BEDTIME 90 days #90 caps 06/27/24 Allergies Allergy/AdvReac Type Severity Reaction Status Date / Time No Known Allergies Allergy Verified 08/04/24 00:31 [No Known Allergies*] Review of Systems Review of Systems Yes all other systems are reviewed and are negative PMFSH Past Medical History Medical History Sick sinus syndrome Vitamin D deficiency Benign essential hypertension CVA (cerebral vascular accident) (~2015) CKD (chronic kidney disease), stage III Urinary frequency Left-sided weakness Anemia Pacemaker UTI (urinary tract infection) Swallowing problem Incidental pulmonary nodule Bradycardia Right inguinal pain Hypertension Bladder outlet obstruction Surgical History S/P excision of lipoma History of surgery History of knee replacement Social History Social History Household Members: None Housing: Apartment Are you a primary customer care representative to a significant other at home: No Do you presently have visiting nurse or other home services: No Alcohol intake: never Patient Tobacco Use Status: Tobacco use Unknown Tobacco use type: Cigarette Cigarette Packs Per Day: 0.5 Cigarettes Per Day: 8 Years Smoked: 60 +/- Smoked in Last 30 Days: No e-Cigarette/Vaping Use: Never Used Second Hand Smoke Exposure: No Use of substances other than those prescribed or required for medical reasons: No Advance Directives: Yes Advance Directives on File: Yes Advance Directives Date on File: 06/06/22 Do you have a plan to hurt others: No Plan Nutrition Risks: No Nutritional Risk service: No Current occupational status: retired Cognitive needs: Yes (wheelchair) Hearing needs: No Vision needs: Yes Physical Exam ED Vital Signs: Vital Signs - 24 hr 08/04/24 00:31 08/04/24 00:47 08/04/24 01:50 Temperature 98.0 F Pulse Rate 87 Respiratory Rate 15 Blood Pressure 133/54 L Pulse Oximetry 90 L 84 L 94 Oxygen Delivery Method Room Air Room Air Nasal Cannula Oxygen Flow Rate 2 BMI result Body Mass Index 19.4 Appearance: Alert. Oriented X3. Mild distress. Bilious vomitus Eyes: No pallor or icterus ENT: Pharynx normal. Oral Mucosa dry Neck: Normal inspection. Neck supple. CVS: Normal heart rate and rhythm. Pulses normal. Respiratory: No respiratory distress. Equal air entry bilateral, no wheezing/rales/rhonchi Abdomen: Soft and mild diffuse tenderness no rebound tenderness. Bowel sounds are present, no mass palpable, no CVA tenderness bilateral inguinal hernia R>L reducible slightly tender Skin: Skin warm and dry. Normal skin color. Normal skin turgor. Extremities: No lower extremity edema. No calf tenderness Neuro: Oriented X 3. Moving all 4 extremities residual left-sided weakness Medical Decision Making Medical Decision Making MDM Narrative: Patient has acute vomiting workup showed bilateral inguinal hernia right more larger in the left with slight tenderness? Incarcerated hernia but is reducible patient's not vomiting in the ER abdominal soft nontender Patient noted to have JANET baseline creatinine is 1.4 today was 3.43 lactic acid level was 3.0 patient has received IV fluids and IV Zosyn antibiotic Case discussed with Dr. Ojeda saw the patient will admit patient possible surgery patient's inguinal hernias reducible and not significantly tender patient is not vomiting in the ER Differential Diagnosis Differential Diagnoses: The differential diagnosis associated with the presentation includes Incarcerated hernia/SBO/gastritis/gastroenteritis Admission/Observation Consideration of admission/observation: Escalation of care including admission/observation considered Consult Healthcare Provider Management of the patient was discussed with: Patient Relations Representative Surgeon Dr. Ojeda Lab Data MDM Lab Attestation statement: I reviewed the patient's lab results. 08/04/24 00:41 08/04/24 00:41 Labs: Lab Results 08/04/24 08/04/24 Range/Units 00:41 02:05 WBC 3.7 L (4.8-10.8) X10*3/uL RBC 3.73 L (4.60-5.80) X10*6/uL Hgb 12.4 L (14.0-18.0) g/dl Hct 37.2 L (42.0-52.0) % MCV 99.7 H (80.0-98.0) fL MCH 33.2 H (27.0-33.0) pg MCHC 33.3 (31.0-36.0) g/dl RDW 13.6 (11.0-16.0) % Plt Count 208 (160-400) X10*3/uL MPV 10.5 (9.4-12.4) fL Immature Gran % (Auto) Cancelled Neut % (Auto) Cancelled Lymph % (Auto) Cancelled [place] % (Auto) Cancelled Eos % (Auto) Cancelled Baso % (Auto) Cancelled Lymph # (Auto) Cancelled [place] # (Auto) Cancelled Eos # (Auto) Cancelled Baso # (Auto) Cancelled Abs Immat Gran (auto) Cancelled Absolute Neuts (auto) Cancelled Absolute Nucleated RBC 0.000 (0.0-0.012) X10*3/uL Nucleated RBC % (auto) 0.0 (0.0-0.2) /100WBC Neutrophils % (Manual) 25 L (45-73) % Band Neutrophils % 53 H (3-5) % Lymphocytes % (Manual) 6 L (20-40) % Monocytes % (Manual) 3 (2-11) % Eosinophils % (Manual) 1 (0-4) % Metamyelocytes % 12 % Abs Neuts (Manual) 2.9 (2.0-8.3) X10*3/uL Lymphocytes # (Manual) 0.2 L (1.2-4.9) X10*3/uL Monocytes # (Manual) 0.1 (0.1-1.2) X10*3/uL Metamyelocytes # 0.4 X10*3/uL Platelet Estimate NORMAL (NORMAL) Plt Morphology Comment NORMAL RBC Morphology NOTED Acanthocytes (Spur) 2+ (3-5) /OIF Hold Blue Top SEE NOTE Sodium 143 (135-145) mmol/L Potassium 4.1 (3.3-5.1) mmol/L Chloride 88 L (96-108) mmol/L Carbon Dioxide 33 H (22-29) mmol/L Anion Gap 26 H (12-20) BUN 54 H (9-16) mg/dL Creatinine 3.45 H (0.5-1.4) mg/dL Estim Creat Clear Calc 13.1 Estimated GFR 17 Random Glucose 147 H (60-115) mg/dL Lactic Acid 3.0 H* (0.5-2.0) mmol/L Calcium 10.4 H D (8.4-10.2) mg/dL Magnesium 2.6 (1.6-2.6) mg/dL Total Bilirubin 1.1 H (0.0-1.0) mg/dL AST 32 (5-37) U/L ALT 23 (0-40) U/L Alkaline Phosphatase 107 (39-117) U/L Troponin I High Sens 29.0 D 32.5 (<3.5-35.0) ng/L Total Protein 7.7 (6.5-8.0) g/dL Albumin 4.3 (3.5-5.0) g/dL Lipase 19 (8-78) U/L Radiology Impression Discussion of test interpretation with radiology: I have reviewed the radiologist's reading. Radiologist Impression: [address] [address] [address] Scan Report Signed with Addenda Patient: Ki Jordan Jr MR#: [id number] : 1935 Acct:[id number] Age/Sex: 88 / M ADM Date: 08/04/24 Loc: HO.ED Attending Dr: Ordering Physician: Giovani Funes MD Date of Service: 08/04/24 Procedure(s): CT abdomen pelvis wo IV con Accession Number(s): [id number] cc: Dontrell Dougherty MD; Giovani Funes MD~ Report Number: [id number]: Total DLP = 559.00 mGy-cm ADDENDUMThis document has been electronically signed by: Delmer Fitzpatrick MD on 08/04/2024 01:39:52 ADDENDUM: This report was discussed with Shantel Stoddard on August 04, 2024 01:44:00 EDT. This document has been electronically signed by: Xin Mac on 08/04/2024 01:44:42 Addendum Dictated By: Delmer Fitzpatrick MD Addendum Signed By: <Electronically signed by Delmer Fitzpatrick MD in OV> 08/04/24145 Addendum Cosigned By: DD/ /18/139 TD/TT: 08/04/2402/19/144 CLINICAL HISTORY: Abdominal pain with vomiting CT abdomen and pelvis without contrast Comparison: None Findings: Small hiatal hernia. Fluid-filled esophagus. Emphysema. Ill-defined tree-in-bud nodular consolidations in the right lower lobe concerning for aspiration or pneumonia. Cardiomegaly with small pericardial effusion. Cardiac pacing leads. Distended gallbladder. Bilateral nodular thickening of the gayld-fecqepv-pfre-left adrenal glands/hyperplasia, nonspecific. Bilateral perinephric stranding, nonspecific. Nonobstructive punctate 2 mm calculus in the left upper pole kidney. Right larger than left bilateral inguinal hernias containing loops of bowel, on the right containing the majority of the ascending colon. There is extensive fluid stranding tracking along the right hernia defect. The left inguinal hernia contains a decompressed loop of small bowel. There is proximal diffuse small bowel dilatation throughout the abdominal cavity with air-fluid levels, concerning for bowel obstruction. Transition point to decompression suspected near the hernia neck of the left lower quadrant. Large rectal stool burden. Colonic diverticulosis without focal diverticulitis. Colon is diffusely decompressed which limits evaluation. Left dynamic hip screw. Osteopenia with diffuse multilevel spondylosis. Diffuse atheromatous plaque disease throughout the aorta and branch vessels, without aneurysmal dilatation. Prostatic seed implants. IMPRESSION: 1. Incarcerated bilateral inguinal hernias with secondary SBO as described. 2. Possible right lower lobe endobronchial pneumonia or aspiration. 3. Nonobstructive punctate 2 mm calculus in the left upper pole kidney. 4. Additional findings as described. This document has been electronically signed by: Delmer Fitzpatrick MD on 08/04/2024 01:39:52 Medications Administered Generic Name Dose Route Start Last Admin Trade Name Freq PRN Reason Stop Dose Admin Dextrose/Lactated Ringer's 1,000 mls @ 125 mls/hr 08/04/24 02:30 08/04/24 03:01 D5lr IVCONT 125 mls/hr .Q8H BLANCA Administration Piperacillin Sod/Tazobactam 50 mls @ 100 mls/hr 08/04/24 03:00 08/04/24 03:24 Sod 2.25 gm/ Sodium Chloride IV Infused Q6H BLANCA Infusion Discontinued Medications Generic Name Dose Route Start Last Admin Trade Name Freq PRN Reason Stop Dose Admin Sodium Chloride 1,000 mls @ 999 mls/hr 08/04/24 00:46 08/04/24 02:35 Ns IV 08/04/24 01:46 Infused .Q1H1M ONE Infusion Ondansetron HCl 4 mg 08/04/24 00:34 08/04/24 00:40 Ondansetron Hcl 4 Mg/2 Ml Vial IVPUSH 08/04/24 00:35 4 mg ONCE ONE Administration Critical Care Time Critical Care Time Critical Care Time: Yes Total Critical Care Time: 55 Attestation: The patient was critically ill with a high probability of imminent or life threatening deterioration. I spent greater than 60???minutes of discontinuous time evaluating the patient,delivering critical care at the bedside, discussing and evaluating pertinent data with consultants. Critical care time does not include time spent performing separately billable procedures or teaching. Total time spent performing critical care was 55???minutes. Discharge Plan Discharge Clinical Impression: Bilateral incarcerated inguinal hernia, Small bowel obstruction Patient Disposition: Admitted As Inpatient
[2024-08-04 00:48] LABS: Hematocrit 37.2 % (42.0-52.0); Hemoglobin 12.4 g/dl (14.0-18.0); Mean Corpuscular HGB Conc 33.3 g/dl (31.0-36.0); Mean Corpuscular Hemoglobin 33.2 pg (27.0-33.0); Mean Corpuscular Volume 99.7 fL (80.0-98.0); Mean Platelet Volume 10.5 fL (9.4-12.4); Platelet Count 208 X10*3/uL (160-400); Red Blood Count 3.73 X10*6/uL (4.60-5.80); Red Cell Distribution Width 13.6 % (11.0-16.0); White Blood Count 3.7 X10*3/uL (4.8-10.8)
--- NOTE | 2024-08-04 00:54 | PC.NURSE ---
pt placed on 2L O2 via NC for O2 of 83% room air. MD mo aware
[2024-08-04 01:09] LABS: Neutrophils Percent Manual 25 % (45-73)
[2024-08-04 01:10] LABS: Alanine Aminotransferase 23 U/L (0-40); Albumin Level 4.3 g/dL (3.5-5.0); Anion Gap 26 (12-20); Aspartate Amino Transferase 32 U/L (5-37); Band Neutrophils Percent 53 % (3-5); Bilirubin Total 1.1 mg/dL (0.0-1.0); Blood Urea Nitrogen 54 mg/dL (9-16); Calcium 10.4 mg/dL (8.4-10.2); Carbon Dioxide 33 mmol/L (22-29); Chloride 88 mmol/L (96-108); Creatinine Clr Calc Pharmacy 13.1; Eosinophils Percent Manual 1 % (0-4); Estimated Glomerular Filt Rate 17; Glucose Random 147 mg/dL (60-115); Lipase 19 U/L (8-78); Lymphocytes Absolute Manual 0.2 X10*3/uL (1.2-4.9); Lymphocytes Percent Manual 6 % (20-40); Magnesium 2.6 mg/dL (1.6-2.6); Metamyelocytes Absolute 0.4 X10*3/uL; Metamyelocytes Percent 12 %; Monocytes Absolute Manual 0.1 X10*3/uL (0.1-1.2); Monocytes Percent Manual 3 % (2-11); Neutrophils Absolute Manual 2.9 X10*3/uL (2.0-8.3); Potassium 4.1 mmol/L (3.3-5.1); Sodium 143 mmol/L (135-145); Total Protein 7.7 g/dL (6.5-8.0)
[2024-08-04 01:11] LABS: Acanthocytes 2+ (3-5) /OIF; Platelet Estimate NORMAL (NORMAL); Platelet Morphology Comment NORMAL; RBC Morphology NOTED
[2024-08-04] MEDS: 0.9 % Sodium Chloride 1,000 ML 999 ML IV (01:27)
[2024-08-04 02:00] LABS: Alkaline Phosphatase 107 U/L (39-117)
--- NOTE | 2024-08-04 02:07 | PC.NURSE ---
this RN obtained first set BC and lactic acid, sent to lab. pct going to draw second set BC now.
--- NOTE | 2024-08-04 02:23 | PC.NURSE ---
wilma in the lab called to say the tube shoot for labs is stuck and therefore he never received the labs that were sent. delay in antibiotic admin due to needing to poke patient once again for blood cultures.
--- NOTE | 2024-08-04 02:43 | PC.NURSE ---
call from pharmacy for dose change on zosyn medication - change to 2.25gm instead of 3.375 d/t kidney function
[2024-08-04 02:49] LABS: Troponin-I High Sensitivity 32.5 ng/L (<3.5-35.0)
[2024-08-04] MEDS: Piperacillin Sodium/Tazobactam 2.25 GM in 0.9 % Sodium Chloride 50 ML IV ×4 (02:54→20:09)
[2024-08-04] MEDS: Dextrose 5 % and Lactated Ring 1,000 ML 125 ML IVCONT ×3 (03:01→19:43)
[2024-08-04 04:24] LABS: Reflex Lactate? Lactic Acid Added
[2024-08-04 05:28] LABS: ~Lactic Acid-LAB USE ONLY 2.8 mmol/L (0.5-2.0)
--- NOTE | 2024-08-04 06:43 | PC.NURSE ---
pt resting comfortably on stretcher in no apparent distress. denies any acute pain or distress. no vomiting or diarrhea. on clinical research monitor, call delgado within reach. d5LR running at 125ml/hr. plan of care continues.
[2024-08-04 07:06] LABS: Reflex Lactate? 2 Y
--- NOTE | 2024-08-04 08:31 | PC.NURSE ---
assumed care of patient at 0700, patient remains asleep. resp even and unlabored. patient VSS at this time, D5LR running 125ml/hr
--- NOTE | 2024-08-04 08:44 | P.HPGS_ITS ---
History of Present Illness History of Present Illness Date of Service: 08/04/24 Chief complaint: incarcerated inguinal hernia, SBO Narrative: Ki Jordan Jr is a 88 year old male presenting to the emergency department with persistent abdominal pain, nausea and vomiting. His past medical history is significant for COPD, hypertension, prostate cancer, previous CVA with left hemiparesis and dysarthria, chronic kidney disease 3, sick sinus syndrome s/p pacemaker placement. He has a long history of bilateral hernias but denied any significant pain associated with the hernias. Workup in the emergency department included laboratories which revealed a normal WBC. A CT abdomen and pelvis was consistent for a large right inguinal hernia and small left inguinal hernia with evidence of incarceration. The hernia was noted on the right side to extend into the scrotal sac. In the emergency department the hernia was easily reduced by the ED physician. The patient now mainly complains of pain in the left groin. The patient's last bowel movement is unclear. He is admitted to the surgical service for possible repair of this right inguinal hernia with a hospitalist consultation for his multiple medical issues. Review of Systems Review of Systems: Yes Unobtainable due to mental condition PMFSH Past Medical History Medical History Sick sinus syndrome Vitamin D deficiency Benign essential hypertension CVA (cerebral vascular accident) (~2016) CKD (chronic kidney disease), stage III Urinary frequency Left-sided weakness Anemia Pacemaker UTI (urinary tract infection) Swallowing problem Incidental pulmonary nodule Bradycardia Right inguinal pain Hypertension Bladder outlet obstruction Surgical History Surgical History S/P excision of lipoma History of surgery History of knee replacement Social History Social History Household Members: None Housing: Apartment Are you a primary care management assistant to a significant other at home: No Do you presently have visiting nurse or other home services: No Alcohol intake: never Patient Tobacco Use Status: Tobacco use Unknown Tobacco use type: Cigarette Cigarette Packs Per Day: 0.5 Cigarettes Per Day: 8 Years Smoked: 60 +/- Smoked in Last 30 Days: No e-Cigarette/Vaping Use: Never Used Second Hand Smoke Exposure: No Use of substances other than those prescribed or required for medical reasons: No Advance Directives: Yes Advance Directives on File: Yes Advance Directives Date on File: 06/06/22 Do you have a plan to hurt others: No Plan Nutrition Risks: No Nutritional Risk service: No Current occupational status: retired Cognitive needs: Yes (wheelchair) Hearing needs: No Vision needs: Yes Meds Allergies Allergy/AdvReac Type Severity Reaction Status Date / Time No Known Allergies Allergy Verified 08/04/24 00:31 [No Known Allergies*] Active Medications: Current Medications Hydromorphone HCl (Hydromorphone Hcl 0.5 Mg/0.5 Ml Syringe) 0.5 mg IVPUSH Q3H PRN; Protocol PRN Reason: Pain, Severe (Pain Scale 7-10) Dextrose/Lactated Ringer's (D5lr) 1,000 mls @ 125 mls/hr IVCONT .Q8H [facility] Last Admin: 08/04/24 03:01 Dose: 125 mls/hr Acetaminophen (Ofirmev) 1,000 mg in 100 mls @ 400 mls/hr IV Q6H PRN PRN Reason: Pain, Mild (Pain Scale 1-3) Piperacillin Sod/Tazobactam (Sod 2.25 gm/ Sodium Chloride) 50 mls @ 100 mls/hr IV Q6H [facility] Last Infusion: 08/04/24 03:24 Dose: Infused Ondansetron HCl (Ondansetron Hcl 4 Mg/2 Ml Vial) 4 mg IVPUSH QID PRN PRN Reason: Nausea Physical Exam Vital Signs: Vital Signs: Last Vital Signs Temp 98 F 08/04/24 06:17 Pulse 81 08/04/24 08:27 Resp 20 08/04/24 08:27 BP 131/65 08/04/24 08:27 Pulse Ox 96 08/04/24 08:27 O2 Del Method Nasal Cannula 08/04/24 08:27 O2 Flow Rate 2 08/04/24 08:27 BMI result Body Mass Index 19.4 Const: General: tired appearing Nutritional Appearance: thin Orientation/consciousness: patient oriented x3 Limitations: other limitations (Left hemiparesis, dysarthria) Resp: Effort & Inspection: normal respiratory effort, no audible wheezes, no cough and no respiratory distress Auscultation: clear to auscultation bilaterally GI: Other: Soft, nondistended, tender in the left groin but no palpable hernia appreciated. The right inguinal hernia is reduced as well. No tenderness noted in the right groin. Neuro: General: patient oriented x3 Extrem: General: No edema Results Results Labs: Short CBC 08/04/24 Range/Units 00:41 WBC 3.7 L (4.8-10.8) X10*3/uL Hgb 12.4 L (14.0-18.0) g/dl Hct 37.2 L (42.0-52.0) % Plt Count 208 (160-400) X10*3/uL BMP 08/04/24 00:41 Sodium 143 Potassium 4.1 Chloride 88 L Carbon Dioxide 33 H BUN 54 H Creatinine 3.45 H Calcium 10.4 H D Liver Function 08/04/24 Range/Units 00:41 Total Bilirubin 1.1 H (0.0-1.0) mg/dL AST 32 (5-37) U/L ALT 23 (0-40) U/L Alkaline Phosphatase 107 (39-117) U/L Albumin 4.3 (3.5-5.0) g/dL Abdomen CT scan report/results: image reviewed CT scan - pelvis: image reviewed Assessment and Plan (1) Bilateral incarcerated inguinal hernia: Status: Acute (2) Small bowel obstruction: Status: Acute Plan 88-year-old male patient with multiple medical problems including hypertension, COPD, previous CVA with left hemiparesis, chronic kidney disease 3, and prostate cancer, now presenting with evidence of an incarcerated right inguinal hernia noted by CT abdomen and pelvis. On examination the hernia is now reduced and the patient has no further nausea or vomiting. CT does reveal a very large hernia extending into the scrotum which almost certainly will recur. I would recommend repair of this large right inguinal hernia although now that is reduced I would suggest consultation of the hospitalist for assessment of his ability to undergo anesthesia. The patient expressed understanding and agrees with the plan. Quality Stroke Does the patient have a stroke diagnosis?: Yes Reason for No Anti-thrombotic by Day Two: N/A - Med Ordered VTE Prior VTE?: No VTE Risk Level:: Surgical - moderate VTE Device Contraindication: N/A - Device Ordered VTE Drug Contraindication: N/A - Med Ordered Procedures Date of Service Date of Service: 08/04/24
[2024-08-04 09:01] LABS: ~Lactic Acid-LAB USE ONLY 2.3 mmol/L (0.5-2.0)
--- NOTE | 2024-08-04 09:18 | PM.EVENT ---
Event Note Date of Service: 08/04/24 Event Note: Lactate level at 2:05 AM 3.0, 5:05 AM 2.8 and 8:39 AM 2.3 WBC 3.7 Vitals: 131/65, 82, 20, 96% on 2L NC Lungs loose rhonchi, clear with cough Abdomen soft, nondistended, no peritoneal signs Right inguinal hernia easily reduced Small left inguinal hernia easily reduced. Skin warm and dry Brisk cap refill. No apparent sepsis, lactate possible related to the reduced hernia. Blood cultures sent, started on Zosyn. Will need gentle hydration, cannot tolerate boluses due to comorbidities, CKDIII. Requested hospitalist consultation. Time Spent With Patient Time: Total time managing care of this patient today ____ minutes.
--- NOTE | 2024-08-04 09:55 | PM.IMCN ---
History of Present Illness Data of Consult Service Date: 08/04/24 Primary Care Provider: Dontrell Dougherty MD HPI Reason for consult: hypoxia, janet 88M PMH COPD, htn, prostate ca, cva with left hemiparesis and dysarthria, CKD III, s/p pacer, presented with diffuse abdominal pain inability to tolerate p.o.. Denies any nausea or vomiting, CT abdomen showed large right inguinal hernia and small left inguinal hernia with evidence of incarceration also noted to be hypoxic and acute kidney injury on CKD 3 Review of Systems Review of Systems: Yes all other systems are reviewed and are negative [facility] Medical History Sick sinus syndrome Vitamin D deficiency Benign essential hypertension CVA (cerebral vascular accident) (~2016) CKD (chronic kidney disease), stage III Urinary frequency Left-sided weakness Anemia Pacemaker UTI (urinary tract infection) Swallowing problem Incidental pulmonary nodule Bradycardia Right inguinal pain Hypertension Bladder outlet obstruction Surgical History S/P excision of lipoma History of surgery History of knee replacement Social History Household Members: None Housing: Apartment Are you a primary rn primary care to a significant other at home: No Do you presently have visiting nurse or other home services: No Alcohol intake: never Patient Tobacco Use Status: Tobacco use Unknown Tobacco use type: Cigarette Cigarette Packs Per Day: 0.5 Cigarettes Per Day: 8 Years Smoked: 60 +/- Smoked in Last 30 Days: No e-Cigarette/Vaping Use: Never Used Second Hand Smoke Exposure: No Use of substances other than those prescribed or required for medical reasons: No Advance Directives: Yes Advance Directives on File: Yes Advance Directives Date on File: 06/06/22 Do you have a plan to hurt others: No Plan Nutrition Risks: No Nutritional Risk service: No Current occupational status: retired Cognitive needs: Yes (wheelchair) Hearing needs: No Vision needs: Yes Meds Allergies Allergy/AdvReac Type Severity Reaction Status Date / Time No Known Allergies Allergy Verified 08/04/24 00:31 [No Known Allergies*] Active Medications: Current Medications Calcium Carbonate (Calcium Carbonate 750 Mg Tab.Chew) 750 mg PO Q4H PRN PRN Reason: Heartburn Enoxaparin Sodium (Enoxaparin Sodium 30 Mg/0.3 Ml Syringe) 30 mg SUBCUT Q24H [facility] Hydromorphone HCl (Hydromorphone Hcl 0.5 Mg/0.5 Ml Syringe) 0.5 mg IVPUSH Q3H PRN; Protocol PRN Reason: Pain, Severe (Pain Scale 7-10) Dextrose/Lactated Ringer's (D5lr) 1,000 mls @ 125 mls/hr IVCONT .Q8H [facility] Last Admin: 08/04/24 03:01 Dose: 125 mls/hr Acetaminophen (Ofirmev) 1,000 mg in 100 mls @ 400 mls/hr IV Q6H PRN PRN Reason: Pain, Mild (Pain Scale 1-3) Piperacillin Sod/Tazobactam (Sod 2.25 gm/ Sodium Chloride) 50 mls @ 100 mls/hr IV Q6H [facility] Last Admin: 08/04/24 09:28 Dose: 100 mls/hr Magnesium Hydroxide (Milk Of Magnesia 30 Ml Oral.Susp) 30 ml PO DAILY PRN PRN Reason: Constipation Melatonin (Melatonin 3 Mg Tablet) 6 mg PO BEDTIME PRN PRN Reason: Insomnia Ondansetron HCl (Ondansetron Hcl 4 Mg/2 Ml Vial) 4 mg IVPUSH QID PRN PRN Reason: Nausea Sodium Chloride (0.9 % Sodium Chloride Flush 3 Ml Syringe) 3 ml IVFLUSH QSHIFT [facility] Last Admin: 08/04/24 09:43 Dose: Not Given Physical Exam Vital Signs and Narrative: Vital Signs: Last Vital Signs Temp 98 F 08/04/24 06:17 Pulse 81 08/04/24 08:27 Resp 20 08/04/24 08:27 BP 131/65 08/04/24 08:27 Pulse Ox 96 08/04/24 08:27 O2 Del Method Nasal Cannula 08/04/24 08:27 O2 Flow Rate 2 08/04/24 08:27 BMI result Body Mass Index 19.4 Alert oriented x3, frail and ill-appearing, accessory muscles used, rhonchi bilateral abdomen soft and nontender Results Labs 08/04/24 00:41 08/04/24 00:41 Labs: Laboratory Results - last 24 hr 08/04/24 08/04/24 08/04/24 00:41 02:05 05:05 MCV 99.7 H MCH 33.2 H MCHC 33.3 RDW 13.6 Plt Count 208 MPV 10.5 Immature Gran % (Auto) Cancelled Neut % (Auto) Cancelled Lymph % (Auto) Cancelled [place] % (Auto) Cancelled Eos % (Auto) Cancelled Baso % (Auto) Cancelled Lymph # (Auto) Cancelled [place] # (Auto) Cancelled Eos # (Auto) Cancelled Baso # (Auto) Cancelled Abs Immat Gran (auto) Cancelled Absolute Neuts (auto) Cancelled Absolute Nucleated RBC 0.000 Nucleated RBC % (auto) 0.0 Neutrophils % (Manual) 25 L Band Neutrophils % 53 H Lymphocytes % (Manual) 6 L Monocytes % (Manual) 3 Eosinophils % (Manual) 1 Metamyelocytes % 12 Abs Neuts (Manual) 2.9 Lymphocytes # (Manual) 0.2 L Monocytes # (Manual) 0.1 Metamyelocytes # 0.4 Platelet Estimate NORMAL Plt Morphology Comment NORMAL RBC Morphology NOTED Acanthocytes (Spur) 2+ (3-5) Hold Blue Top SEE NOTE Anion Gap 26 H Estim Creat Clear Calc 13.1 Estimated GFR 17 Random Glucose 147 H Lactic Acid 3.0 H* Lactic Acid F/U @ 2Hr 2.8 H* Lactic Acid F/U @ 4Hr Calcium 10.4 H D Magnesium 2.6 Total Bilirubin 1.1 H AST 32 ALT 23 Alkaline Phosphatase 107 Total Protein 7.7 Albumin 4.3 Lipase 19 08/04/24 08:39 MCV MCH MCHC RDW Plt Count MPV Immature Gran % (Auto) Neut % (Auto) Lymph % (Auto) [place] % (Auto) Eos % (Auto) Baso % (Auto) Lymph # (Auto) [place] # (Auto) Eos # (Auto) Baso # (Auto) Abs Immat Gran (auto) Absolute Neuts (auto) Absolute Nucleated RBC Nucleated RBC % (auto) Neutrophils % (Manual) Band Neutrophils % Lymphocytes % (Manual) Monocytes % (Manual) Eosinophils % (Manual) Metamyelocytes % Abs Neuts (Manual) Lymphocytes # (Manual) Monocytes # (Manual) Metamyelocytes # Platelet Estimate Plt Morphology Comment RBC Morphology Acanthocytes (Spur) Hold Blue Top Anion Gap Estim Creat Clear Calc Estimated GFR Random Glucose Lactic Acid Lactic Acid F/U @ 2Hr Lactic Acid F/U @ 4Hr 2.3 H* Calcium Magnesium Total Bilirubin AST ALT Alkaline Phosphatase Total Protein Albumin Lipase Assessment and Plan (1) Small bowel obstruction: Status: Acute Plan 88M PMH COPD, htn, prostate ca, cva with left hemiparesis and dysarthria, CKD III, s/p pacer, presented with diffuse abdominal pain inability to tolerate p.o. Bilateral incarcerated hernia with small bowel osbtruction Reduced in ED, management per surgery, would hold off on non emergent surgery for now as fairly high risk given hypoxia, JANET, frailty acute hypoxic respiratory failure due to aspiratoin pneumonia/atelectasis zosyn, wean o2 janet on CKD III hypovolemic ivf, monitor acute lactic acidosis due to incarcerated hernia, not sepsis history of cva would hold antiplatelet for possible surgery
[2024-08-04 10:43] LABS: Hematocrit 34.7 % (42.0-52.0); Hemoglobin 11.6 g/dl (14.0-18.0); Mean Corpuscular HGB Conc 33.4 g/dl (31.0-36.0); Mean Corpuscular Hemoglobin 33.1 pg (27.0-33.0); Mean Corpuscular Volume 99.1 fL (80.0-98.0); Mean Platelet Volume 11.1 fL (9.4-12.4); Platelet Count 178 X10*3/uL (160-400); Red Cell Distribution Width 13.6 % (11.0-16.0)
[2024-08-04 10:47] LABS: Anion Gap 21 (12-20); Blood Urea Nitrogen 61 mg/dL (9-16); Calcium 9.7 mg/dL (8.4-10.2); Carbon Dioxide 36 mmol/L (22-29); Chloride 90 mmol/L (96-108); Creatinine Clr Calc Pharmacy 12.1; Estimated Glomerular Filt Rate 16; Glucose Random 176 mg/dL (60-115); Potassium 4.1 mmol/L (3.3-5.1); Sodium 143 mmol/L (135-145); WBC ABN SCTR FOR CBC 1; White Blood Count 5.4 X10*3/uL (4.8-10.8)
[2024-08-04 10:53] LABS: Band Neutrophils Percent 28 % (3-5); Eosinophils Absolute Manual 0.1 X10*3/uL (0.0-0.4); Eosinophils Percent Manual 1 % (0-4); Lymphocytes Absolute Manual 0.4 X10*3/uL (1.2-4.9); Lymphocytes Percent Manual 7 % (20-40); Monocytes Absolute Manual 0.3 X10*3/uL (0.1-1.2); Monocytes Percent Manual 5 % (2-11); Neutrophils Absolute Manual 4.7 X10*3/uL (2.0-8.3); Neutrophils Percent Manual 59 % (45-73)
[2024-08-04 10:54] LABS: Acanthocytes 1+ (0-2) /OIF; Large Platelet PRESENT; Ovalocytes 1+ (5-14) /OIF; Platelet Estimate NORMAL (NORMAL); Platelet Morphology Comment NOTED; RBC Morphology NOTED; Toxic Vacuolation PRESENT
--- NOTE | 2024-08-04 10:59 | W.ED.CONS.HO ---
Consult Details Consult Details: called to bedside as ED staff could not place NG tube he was vomiting and O2 sats decreased now on oxymask. I ordered topical lidocaine and 1st pass 14Fr into R nares with stable VS and O2. Listened confirmed via auscultation and copious fluids in suction canister. RN to confirm with CXR. Procedures Procedure Narrative Procedure Narrative: R nare topical lidocaine 14F NG tube auscultation and aspiration of contents confirmed placement CXR ordered by RN
[2024-08-04] MEDS: Lidocaine HCl 4 % MPF w/MADgic 5 ML AMPUL 1 APPL TOPICAL (11:23)
--- NOTE | 2024-08-04 11:28 | PC.NURSE ---
patient bing delgado, RN walked in room patient had vomited on self. patient then began to aspirate on vomitus. patient placed on oxymask 10L, patient sat 82%, quickly recovered to 92%. inpatient provider and surgeon notified of patient condition, NGT placed per request. 14fr, verified with CXR. patient remains on 2lNC oxymask. about 800cc brown stomach contents post NGT insertion. suction set to low intermittent. patient full linen change, VSS at this time. patient states he feels better.
--- NOTE | 2024-08-04 12:18 | PHA.MEDREC ---
Addendum entered by India Roberts RP 08/04/24 12:35: reviewed by [facility]. Original Note: Pharmacy Consult ? Medication Reconciliation Pharmacy has completed the medication reconciliation. Attempted to speak with patient to confirm medications. The only one he was able to confirm was baby aspirin. He said to call his healthcare business analyst Jordon Ronquillo however phone number on file is not it service. Used claim history to verify the rest of his medications.
--- NOTE | 2024-08-04 14:36 | PC.NURSE ---
patient resting quietly at this time, awaiting bed placement upstairs. patient is alert and oriented x3, NG on intermittent suction, continues to put put brown stomach contents. patient appears comfortable at this time, denies pain. VSS
[2024-08-04] MEDS: 0.9 % Sodium Chloride Flush 3 ML SYRINGE IVFLUSH (16:32)
--- NOTE | 2024-08-04 23:21 | PC.NURSE ---
Addendum entered by Liz Nicolas RN 08/05/24 05:40: Patient did very good without NGT. No n/v or pain, NPO. Original Note: Assumed care for this patient at 19:00. Upon initial assessment at 19:20 this RN found patient with NGT out of his nose , patient was holding it in his hand , stated it was bothering him. Dr Terry made aware. Patient looks comfortable, no pain, no N/V. Will keep tube out and monitor patient for now.
[2024-08-05 03:39] VITALS: BP 139/65; PULSE 66; RESP 16; TEMP 36.7; O2SAT 97
[2024-08-05] MEDS: Dextrose 5 % and Lactated Ring 1,000 ML 125 ML IVCONT (03:39)
[2024-08-05] MEDS: Piperacillin Sodium/Tazobactam 2.25 GM in 0.9 % Sodium Chloride 50 ML IV ×4 (03:39→22:03)
[2024-08-05 05:40] LABS: Hematocrit 32.3 % (42.0-52.0); Hemoglobin 10.5 g/dl (14.0-18.0); Mean Corpuscular HGB Conc 32.5 g/dl (31.0-36.0); Mean Corpuscular Hemoglobin 32.9 pg (27.0-33.0); Mean Corpuscular Volume 101.3 fL (80.0-98.0); Platelet Count 156 X10*3/uL (160-400); Red Blood Count 3.19 X10*6/uL (4.60-5.80); Red Cell Distribution Width 13.6 % (11.0-16.0); White Blood Count 8.6 X10*3/uL (4.8-10.8)
[2024-08-05 06:10] LABS: Alanine Aminotransferase 14 U/L (0-40); Albumin Level 3.2 g/dL (3.5-5.0); Alkaline Phosphatase 190 U/L (39-117); Anion Gap 19 (12-20); Aspartate Amino Transferase 33 U/L (5-37); Bilirubin Direct 0.4 mg/dL (0.0-0.5); Bilirubin Total 0.9 mg/dL (0.0-1.0); Blood Urea Nitrogen 82 mg/dL (9-16); Calcium 8.9 mg/dL (8.4-10.2); Carbon Dioxide 37 mmol/L (22-29); Chloride 92 mmol/L (96-108); Glucose Random 134 mg/dL (60-115); Magnesium 2.3 mg/dL (1.6-2.6); Potassium 4.2 mmol/L (3.3-5.1); Sodium 144 mmol/L (135-145); Total Protein 5.9 g/dL (6.5-8.0)
[2024-08-05 06:12] LABS: Creatinine Clr Calc Pharmacy 10.6; Estimated Glomerular Filt Rate 13
[2024-08-05 08:00] VITALS: BP 134/62; PULSE 62; RESP 16; TEMP 36.8; O2SAT 99
--- NOTE | 2024-08-05 08:23 | W.MHC.ACPN ---
Advanced Care Planning Note Advanced Care Planning Note Discussed with: patient Time spent (in minutes): 17 Narrative: Discussed with patient at bedside regarding diagnosis of acute kidney injury, small-bowel obstruction, aspiration pneumonitis/pneumonia, discussed goals of care and patient requested to changed from full code to do not resuscitate/do not intubate we will continue other medical interventions. Problems Discussed (1) Small bowel obstruction:
--- NOTE | 2024-08-05 08:44 | P.PNIM_ITS ---
Subjective Subjective Date of Service: 08/05/24 Interval History: feeling weak Physical Exam 2 Vital Signs: Vital Signs: Last Vital Signs Temp 98.2 F 08/05/24 08:00 Pulse 62 08/05/24 08:00 Resp 16 08/05/24 08:00 BP 134/62 08/05/24 08:00 Pulse Ox 99 08/05/24 08:00 O2 Del Method Oxymask 08/05/24 08:00 O2 Flow Rate 2 08/05/24 08:00 BMI result Body Mass Index 19.4 General: AO X 3, frail, ill appearing Resp: Crackles bilateral, no accessory muscles used CVS: S1,S2,RRR GI: soft, non tender, non distended Neuro: motor grossly intact, alert Psych: appropriate affect, appropriate insight Objective Data Active Medications Calcium Carbonate (Calcium Carbonate 750 Mg Tab.Chew) 750 mg PO Q4H PRN PRN Reason: Heartburn Enoxaparin Sodium (Enoxaparin Sodium 30 Mg/0.3 Ml Syringe) 30 mg SUBCUT Q24H [facility] Last Admin: 08/04/24 11:24 Dose: Not Given Documented By: PANKAJ Non-Admin Reason: Med Not Available Hydromorphone HCl (Hydromorphone Hcl 0.5 Mg/0.5 Ml Syringe) 0.5 mg IVPUSH Q3H PRN; Protocol PRN Reason: Pain, Severe (Pain Scale 7-10) Acetaminophen (Ofirmev) 1,000 mg in 100 mls @ 400 mls/hr IV Q6H PRN PRN Reason: Pain, Mild (Pain Scale 1-3) Piperacillin Sod/Tazobactam (Sod 2.25 gm/ Sodium Chloride) 50 mls @ 100 mls/hr IV Q6H [facility] Last Infusion: 08/05/24 04:09 Dose: Infused Documented By: RAJWINDER Sodium Chloride (Ns) 1,000 mls @ 100 mls/hr IVCONT .Q10H [facility] Magnesium Hydroxide (Milk Of Magnesia 30 Ml Oral.Susp) 30 ml PO DAILY PRN PRN Reason: Constipation Melatonin (Melatonin 3 Mg Tablet) 6 mg PO BEDTIME PRN PRN Reason: Insomnia Ondansetron HCl (Ondansetron Hcl 4 Mg/2 Ml Vial) 4 mg IVPUSH QID PRN PRN Reason: Nausea Last Admin: 08/04/24 10:25 Dose: 4 mg Documented By: PANKAJ Sodium Chloride (0.9 % Sodium Chloride Flush 3 Ml Syringe) 3 ml IVFLUSH QSHIFT [facility] Last Admin: 08/05/24 08:40 Dose: Not Given Documented By: LAHSELL Non-Admin Reason: IV Running Labs 08/05/24 05:12 08/05/24 05:12 Labs: Laboratory Results - last 24 hr 08/04/24 08/04/24 08/05/24 08:39 09:46 05:12 MCV 99.1 H 101.3 H MCH 33.1 H 32.9 MCHC 33.4 32.5 RDW 13.6 13.6 Plt Count 178 156 L MPV 11.1 11.0 Immature Gran % (Auto) Cancelled Neut % (Auto) Cancelled Lymph % (Auto) Cancelled [place] % (Auto) Cancelled Eos % (Auto) Cancelled Baso % (Auto) Cancelled Lymph # (Auto) Cancelled [place] # (Auto) Cancelled Eos # (Auto) Cancelled Baso # (Auto) Cancelled Abs Immat Gran (auto) Cancelled Absolute Neuts (auto) Cancelled Absolute Nucleated RBC 0.000 0.000 Nucleated RBC % (auto) 0.0 0.0 Neutrophils % (Manual) 59 Band Neutrophils % 28 H Lymphocytes % (Manual) 7 L Monocytes % (Manual) 5 Eosinophils % (Manual) 1 Abs Neuts (Manual) 4.7 Lymphocytes # (Manual) 0.4 L Monocytes # (Manual) 0.3 Eosinophils # (Manual) 0.1 Toxic Vacuolation PRESENT Platelet Estimate NORMAL Large Platelets PRESENT Plt Morphology Comment NOTED RBC Morphology NOTED Ovalocytes 1+ (5-14) Acanthocytes (Spur) 1+ (0-2) Anion Gap 21 H 19 Estim Creat Clear Calc 12.1 10.6 Estimated GFR 16 13 Random Glucose 176 H 134 H Lactic Acid F/U @ 4Hr 2.3 H* Calcium 9.7 D 8.9 D Magnesium 2.3 Total Bilirubin 0.9 Direct Bilirubin 0.4 AST 33 ALT 14 Alkaline Phosphatase 190 H Total Protein 5.9 L Albumin 3.2 L Microbiology Microbiology Results: Microbiology 08/04/24 02:50 Blood Culture - Preliminary Blood - Venous No growth after 24 hours. 08/04/24 02:20 Blood Culture - Preliminary Blood - Venous No growth after 24 hours. Assessment and Plan (1) CKD (chronic kidney disease), stage III: Status: Acute Plan 88M PMH COPD, htn, prostate ca, cva with left hemiparesis and dysarthria, CKD III, s/p pacer, presented with diffuse abdominal pain inability to tolerate p.o. Bilateral incarcerated hernia with small bowel obstruction Reduced in ED, management per surgery, would hold off on non emergent surgery for now as fairly high risk given hypoxia, JANET, frailty had NGT yesterday with signicant drainage, now pulled out overnight, appears comfortable acute hypoxic respiratory failure due to aspiratoin pneumonia/atelectasis zosyn, wean o2 janet on CKD III worsening, non oiguric hypovolemic ivf - change to NS, monitor nephro eval acute lactic acidosis due to incarcerated hernia, not sepsis history of cva would hold antiplatelet for possible surgery dvt prophylaxis - lovenox DNR/DNI reason for continued hospitalization:janet Quality Stroke Does the patient have a stroke diagnosis?: Yes Reason for No Anti-thrombotic by Day Two: N/A - Med Ordered VTE Prior VTE?: No VTE Risk Level:: Surgical - moderate VTE Device Contraindication: N/A - Device Ordered VTE Drug Contraindication: N/A - Med Ordered
--- NOTE | 2024-08-05 08:47 | PM.PNGS ---
Subjective Subjective Date of Service: 08/05/24 Patient reports: flatus and no bowel movement Interval history: patient reports some mild lower abdominal pain. Denies nausea or vomiting at this time. Endorses some flatus but denies bowel movement. Physical Exam Vital Signs: Vital Signs: Last Vital Signs Temp 98.2 F 08/05/24 08:00 Pulse 62 08/05/24 08:00 Resp 16 08/05/24 08:00 BP 134/62 08/05/24 08:00 Pulse Ox 99 08/05/24 08:00 O2 Del Method Oxymask 08/05/24 08:00 O2 Flow Rate 2 08/05/24 08:00 BMI result Body Mass Index 19.4 Const: General: comfortable and no acute distress Orientation/consciousness: patient oriented x3 GI: Other: Large right inguinal hernia reducible Small left inguinal hernia reducible Inspection: No distended Palpation (GI): Soft to palpation, not firm, Tenderness to palpation present (GI) (mild) in the LLQ, no guarding and not rigid Neuro: General: patient oriented x3 Objective Data Active Medications Calcium Carbonate (Calcium Carbonate 750 Mg Tab.Chew) 750 mg PO Q4H PRN PRN Reason: Heartburn Enoxaparin Sodium (Enoxaparin Sodium 30 Mg/0.3 Ml Syringe) 30 mg SUBCUT Q24H [facility] Last Admin: 08/04/24 11:24 Dose: Not Given Documented By: PANKAJ Non-Admin Reason: Med Not Available Hydromorphone HCl (Hydromorphone Hcl 0.5 Mg/0.5 Ml Syringe) 0.5 mg IVPUSH Q3H PRN; Protocol PRN Reason: Pain, Severe (Pain Scale 7-10) Acetaminophen (Ofirmev) 1,000 mg in 100 mls @ 400 mls/hr IV Q6H PRN PRN Reason: Pain, Mild (Pain Scale 1-3) Piperacillin Sod/Tazobactam (Sod 2.25 gm/ Sodium Chloride) 50 mls @ 100 mls/hr IV Q6H [facility] Last Infusion: 08/05/24 04:09 Dose: Infused Documented By: LYSJennifer Sodium Chloride (Ns) 1,000 mls @ 100 mls/hr IVCONT .Q10H [facility] Magnesium Hydroxide (Milk Of Magnesia 30 Ml Oral.Susp) 30 ml PO DAILY PRN PRN Reason: Constipation Melatonin (Melatonin 3 Mg Tablet) 6 mg PO BEDTIME PRN PRN Reason: Insomnia Ondansetron HCl (Ondansetron Hcl 4 Mg/2 Ml Vial) 4 mg IVPUSH QID PRN PRN Reason: Nausea Last Admin: 08/04/24 10:25 Dose: 4 mg Documented By: PANKAJ Sodium Chloride (0.9 % Sodium Chloride Flush 3 Ml Syringe) 3 ml IVFLUSH QSHIFT [facility] Last Admin: 08/05/24 08:40 Dose: Not Given Documented By: LASHELL Non-Admin Reason: IV Running Labs 08/05/24 05:12 08/05/24 05:12 Labs: Laboratory Results - last 24 hr 08/04/24 08/04/24 08/05/24 08:39 09:46 05:12 MCV 99.1 H 101.3 H MCH 33.1 H 32.9 MCHC 33.4 32.5 RDW 13.6 13.6 Plt Count 178 156 L MPV 11.1 11.0 Immature Gran % (Auto) Cancelled Neut % (Auto) Cancelled Lymph % (Auto) Cancelled [place] % (Auto) Cancelled Eos % (Auto) Cancelled Baso % (Auto) Cancelled Lymph # (Auto) Cancelled [place] # (Auto) Cancelled Eos # (Auto) Cancelled Baso # (Auto) Cancelled Abs Immat Gran (auto) Cancelled Absolute Neuts (auto) Cancelled Absolute Nucleated RBC 0.000 0.000 Nucleated RBC % (auto) 0.0 0.0 Neutrophils % (Manual) 59 Band Neutrophils % 28 H Lymphocytes % (Manual) 7 L Monocytes % (Manual) 5 Eosinophils % (Manual) 1 Abs Neuts (Manual) 4.7 Lymphocytes # (Manual) 0.4 L Monocytes # (Manual) 0.3 Eosinophils # (Manual) 0.1 Toxic Vacuolation PRESENT Platelet Estimate NORMAL Large Platelets PRESENT Plt Morphology Comment NOTED RBC Morphology NOTED Ovalocytes 1+ (5-14) Acanthocytes (Spur) 1+ (0-2) Anion Gap 21 H 19 Estim Creat Clear Calc 12.1 10.6 Estimated GFR 16 13 Random Glucose 176 H 134 H Lactic Acid F/U @ 4Hr 2.3 H* Calcium 9.7 D 8.9 D Magnesium 2.3 Total Bilirubin 0.9 Direct Bilirubin 0.4 AST 33 ALT 14 Alkaline Phosphatase 190 H Total Protein 5.9 L Albumin 3.2 L Microbiology Microbiology Results: Microbiology 08/04/24 02:50 Blood Culture - Preliminary Blood - Venous No growth after 24 hours. 08/04/24 02:20 Blood Culture - Preliminary Blood - Venous No growth after 24 hours. Procedures Date of Service Date of Service: 08/05/24 Progress Note: A&P Assessment and plan (1) Bilateral incarcerated inguinal hernia: Status: Acute Plan 88 year old male with bilateral reducible inguinal hernia, pmhx COPD, htn, prostate ca, cva with left hemiparesis and dysarthria, CKD III, s/p pacer. Abdominal exam largely benign. Mild LLQ tenderness. Large right inguinal hernia reducible, small left inguinal hernia reducible Soft and non distended. Low suspicion for obstruction at this time. Hernias remain reducible at this time. Patients renal function continues to decline, along with additionally comorbidities. Will hold off on surgical intervention at this time. Will follow hospitalist team recommendations for future surgical intervention when concern for hypoxia, decreasing kidney function has improved and patient can be cleared for surgery. We will continue to follow this patient Continue gentle hydration Continue management pneumonia per hospitalist team Pain management as needed Time Spent With Patient Time: Total time managing care of this patient today ____ minutes. Quality Stroke Does the patient have a stroke diagnosis?: Yes Reason for No Anti-thrombotic by Day Two: N/A - Med Ordered VTE Prior VTE?: No VTE Risk Level:: Surgical - moderate VTE Device Contraindication: N/A - Device Ordered VTE Drug Contraindication: N/A - Med Ordered
[2024-08-05] MEDS: 0.9 % Sodium Chloride 1,000 ML 100 ML IVCONT ×2 (08:52→18:06)
--- NOTE | 2024-08-05 09:14 | MHC.CM.PN ---
IMM DELIVERED PT REQUESTS THIS REFRACTORY MANAGER SIGN HE IS TOO WEAK AND LEGALLY BLIND. PT REQUESTS THIS REFRACTORY MANAGER REACH OUT TO FRIEND/CAREGIVER FOR INFORMATION. CM CONTACTED FRIEND/HCP JANE. PER JANE, PT LIVES ALONE AND IS ESSENTIALLY HOMEBOUND. JANE IS BARTACKER FOR PT, CHECKS IN EVERY DAY. PT USES BOTH WALKER/CANE FOR MOBILITY NEEDED. + HCP ON FILE. PCP DR. MARIE DP: PENDING P.T. EVAL. PT IS WILLING TO GO TO REHAB IF NEEDED. TRANSPORT VIA FRIEND VS BLS. CM WILL CONTINUE TO FOLLOW FOR ANY CHANGE TO DC PLAN/NEEDS.
[2024-08-05] MEDS: Enoxaparin Sodium 30 MG/0.3 ML SYRINGE SUBCUT (09:34)
--- NOTE | 2024-08-05 10:20 | PM.CNNEP ---
History of Present Illness Reason for Consult Consult date: 08/05/24 Chief Complaint Chief complaint: incarcerated inguinal hernia, SBO History of Present Illness Narrative: 88 y/o male with a medical history of CKDIII, HTN, prostate CA, CVA with left hemiparesis, s/p pacemaker. presented 08/04 with abdominal pain and inability to tolerate oral intake. bilateral incarcerated hernia with small bowel obstruction on CT. Patient also with hypoxia requiring supplemental O2. Nephrology consulted for JANET. creatinine 3.45 on presentation 08/04; 512 is 4.24 creatinine prior to hospitalization on 05/25/24 was 1.30. lactic acid elevated, metabolic alkalosis patient reports he has been urinating regularly/comfortably, has not noticed any reduction in output reports he is feeling generally weak and tired, no other complaints. states his abdominal pain feels improved, and breathing is comfortable. reports he was taking ibuprofen OTC regularly for some time to help with his abdominal pain. Reports drinks 1 beer/week, smokes 3 cigarettes per day, denies other drug use. Reduced oral intake prior to admission. Review of Systems Constitutional: Reports fatigue and Reports weakness Cardiovascular: Denies chest pain, Denies leg edema and Denies dyspnea Respiratory: Denies cough and Denies dyspnea Gastrointestinal: Reports abdominal pain (reports improving), Denies diarrhea, Denies nausea and Denies vomiting Genitourinary: Denies hematuria, Denies oliguria and Denies dysuria Musculoskeletal: Denies arthralgias and Denies muscle cramps Skin/Breast: Denies rash Denies tremor(s) and Reports weakness Endocrine: Reports fatigue PMFSH Past Medical History Medical History Sick sinus syndrome Vitamin D deficiency Benign essential hypertension CVA (cerebral vascular accident) (~2016) CKD (chronic kidney disease), stage III Urinary frequency Left-sided weakness Anemia Pacemaker UTI (urinary tract infection) Swallowing problem Incidental pulmonary nodule Bradycardia Right inguinal pain Hypertension Bladder outlet obstruction Surgical History Surgical History S/P excision of lipoma History of surgery History of knee replacement Social History Social History Household Members: None Housing: Apartment Housing Other:: 2nd floor Are you a primary rn palliative care to a significant other at home: No Do you presently have visiting nurse or other home services: No Alcohol intake: never Patient Tobacco Use Status: Tobacco use Unknown Tobacco use type: Cigarette Cigarette Packs Per Day: 0.5 Cigarettes Per Day: 8 Years Smoked: 60 +/- e-Cigarette/Vaping Use: Never Used Second Hand Smoke Exposure: No Advance Directives Date on File: 06/06/22 service: No Current occupational status: retired Cognitive needs: Yes (wheelchair) Hearing needs: No Vision needs: Yes Meds Allergies Allergy/AdvReac Type Severity Reaction Status Date / Time No Known Allergies Allergy Verified 08/04/24 00:31 [No Known Allergies*] Active Medications: Current Medications Calcium Carbonate (Calcium Carbonate 750 Mg Tab.Chew) 750 mg PO Q4H PRN PRN Reason: Heartburn Enoxaparin Sodium (Enoxaparin Sodium 30 Mg/0.3 Ml Syringe) 30 mg SUBCUT Q24H [facility] Last Admin: 08/05/24 09:34 Dose: 30 mg Hydromorphone HCl (Hydromorphone Hcl 0.5 Mg/0.5 Ml Syringe) 0.5 mg IVPUSH Q3H PRN; Protocol PRN Reason: Pain, Severe (Pain Scale 7-10) Acetaminophen (Ofirmev) 1,000 mg in 100 mls @ 400 mls/hr IV Q6H PRN PRN Reason: Pain, Mild (Pain Scale 1-3) Piperacillin Sod/Tazobactam (Sod 2.25 gm/ Sodium Chloride) 50 mls @ 100 mls/hr IV Q6H [facility] Last Infusion: 08/05/24 09:33 Dose: Infused Sodium Chloride (Ns) 1,000 mls @ 100 mls/hr IVCONT .Q10H [facility] Last Admin: 08/05/24 08:52 Dose: 100 mls/hr Magnesium Hydroxide (Milk Of Magnesia 30 Ml Oral.Susp) 30 ml PO DAILY PRN PRN Reason: Constipation Melatonin (Melatonin 3 Mg Tablet) 6 mg PO BEDTIME PRN PRN Reason: Insomnia Ondansetron HCl (Ondansetron Hcl 4 Mg/2 Ml Vial) 4 mg IVPUSH QID PRN PRN Reason: Nausea Last Admin: 08/04/24 10:25 Dose: 4 mg Sodium Chloride (0.9 % Sodium Chloride Flush 3 Ml Syringe) 3 ml IVFLUSH QSHIFT [facility] Last Admin: 08/05/24 08:40 Dose: Not Given Physical Exam Vital Signs: Last Vital Signs Temp 98.2 F 08/05/24 08:00 Pulse 62 08/05/24 08:00 Resp 16 08/05/24 08:00 BP 134/62 08/05/24 08:00 Pulse Ox 99 08/05/24 08:00 O2 Del Method Oxymask 08/05/24 08:00 O2 Flow Rate 2 08/05/24 08:00 BMI result Body Mass Index 19.4 Const General: no acute distress, alert and awake Resp Effort & Inspection: normal respiratory effort and able to speak in complete sentences Auscultation: clear to auscultation bilaterally Cardio Heart sounds: S1 normal heart sound present and S2 normal heart sound present GI Palpation (GI): Soft to palpation and nontender General: Yes no CVA tenderness Back/Spine/Pelvis Back: no CVA tenderness Skin Rashes: no rashes Extrem Other: no asterixis Results Lab Results 08/05/24 05:12 08/05/24 05:12 Lab results: Chemistry 08/04/24 08/04/24 08/05/24 00:41 09:46 05:12 Sodium 143 143 144 Potassium 4.1 4.1 4.2 Carbon Dioxide 33 H 36 H 37 H BUN 54 H 61 H 82 H Creatinine 3.45 H 3.72 H 4.24 H* Calcium 10.4 H D 9.7 D 8.9 D Hematology 08/04/24 08/04/24 08/05/24 00:41 09:46 05:12 WBC 3.7 L 5.4 8.6 Hgb 12.4 L 11.6 L 10.5 L Plt Count 208 178 156 L Assessment and Plan (1) CKD (chronic kidney disease), stage III: Qualifiers: Chronic kidney disease stage 3 subtype: unspecified whether 3a or 3b Qualified Code(s): N18.30 - Chronic kidney disease, stage 3 unspecified Status: Acute (2) JANET (acute kidney injury): Status: Acute (3) Hypertension: Qualifiers: Hypertension type: primary hypertension Qualified Code(s): I10 - Essential (primary) hypertension Status: Acute (4) Small bowel obstruction: Status: Acute Plan JANET on CKD likely tubular injury secondary to hypoperfusion in combination with regular NSAID use at home Patient appears hypovolemic, recommend continuing fluids Cannot yet rule out GN, will check UA metabolic alkalosis from to NGT- recommend ABG to assess metabolic alkalosis vs respiratory acidosis with metabolic compensation if persistent recommend daily renal and electrolyte studies recommend close I&O monitoring, regular BP checks recommend avoiding all nephrotoxins including NSAIDs will continue to follow Discussed with Dr Calvert. Procedures Date of Service Date of Service: 08/05/24
[2024-08-05 15:50] VITALS: BP 163/75; PULSE 60; RESP 16; TEMP 36.3; O2SAT 100
[2024-08-05 17:24] VITALS: BP 116/72
[2024-08-05 20:00] VITALS: BP 166/74; PULSE 77; RESP 18; TEMP 36.4; O2SAT 99
[2024-08-06] VITALS (8 sets, daily range): BP systolic 150–169; BP diastolic 70–79; PULSE 60; RESP 12–18; TEMP 36.1–37.1; O2SAT 88–99
[2024-08-06] MEDS: Piperacillin Sodium/Tazobactam 2.25 GM in 0.9 % Sodium Chloride 50 ML IV ×4 (02:49→20:38)
[2024-08-06] MEDS: 0.9 % Sodium Chloride 1,000 ML 100 ML IVCONT (04:42)
[2024-08-06 06:23] LABS: Hematocrit 30.8 % (42.0-52.0); Hemoglobin 9.8 g/dl (14.0-18.0); Mean Corpuscular HGB Conc 31.8 g/dl (31.0-36.0); Mean Corpuscular Volume 103.7 fL (80.0-98.0); Mean Platelet Volume 11.1 fL (9.4-12.4); Platelet Count 149 X10*3/uL (160-400); Red Blood Count 2.97 X10*6/uL (4.60-5.80); Red Cell Distribution Width 13.2 % (11.0-16.0); White Blood Count 9.7 X10*3/uL (4.8-10.8)
[2024-08-06 06:35] LABS: Anion Gap 17 (12-20); Blood Urea Nitrogen 81 mg/dL (9-16); Calcium 8.3 mg/dL (8.4-10.2); Carbon Dioxide 31 mmol/L (22-29); Chloride 103 mmol/L (96-108); Creatinine Clr Calc Pharmacy 13.7; Estimated Glomerular Filt Rate 18; Glucose Random 83 mg/dL (60-115); Magnesium 2.3 mg/dL (1.6-2.6); Potassium 3.8 mmol/L (3.3-5.1); Sodium 147 mmol/L (135-145)
--- NOTE | 2024-08-06 07:56 | PM.PNGS ---
Subjective Subjective Date of Service: 08/06/24 Interval history: Patient denies abdominal pain, nausea or vomiting. Continues with facemask O2 supplement. Physical Exam Vital Signs: Vital Signs: Last Vital Signs Temp 97.0 F 08/06/24 03:10 Pulse 60 08/06/24 03:10 Resp 16 08/06/24 03:10 BP 169/79 H 08/06/24 03:10 Pulse Ox 93 08/06/24 04:50 O2 Del Method Oxymask 08/06/24 04:50 O2 Flow Rate 1 08/06/24 04:50 BMI result Body Mass Index 19.4 Const: General: comfortable and no acute distress Nutritional Appearance: thin Resp: Effort & Inspection: normal respiratory effort GI: Other: Abdomen soft and nondistended, hernias reduced. No tenderness on either side. Objective Data Active Medications Calcium Carbonate (Calcium Carbonate 750 Mg Tab.Chew) 750 mg PO Q4H PRN PRN Reason: Heartburn Enoxaparin Sodium (Enoxaparin Sodium 30 Mg/0.3 Ml Syringe) 30 mg SUBCUT Q24H [facility] Last Admin: 08/05/24 09:34 Dose: 30 mg Documented By: LASHELL Hydromorphone HCl (Hydromorphone Hcl 0.5 Mg/0.5 Ml Syringe) 0.5 mg IVPUSH Q3H PRN; Protocol PRN Reason: Pain, Severe (Pain Scale 7-10) Acetaminophen (Ofirmev) 1,000 mg in 100 mls @ 400 mls/hr IV Q6H PRN PRN Reason: Pain, Mild (Pain Scale 1-3) Piperacillin Sod/Tazobactam (Sod 2.25 gm/ Sodium Chloride) 50 mls @ 100 mls/hr IV Q6H [facility] Last Infusion: 08/06/24 03:21 Dose: Infused Documented By: RAJWINDER Sodium Chloride (Ns) 1,000 mls @ 100 mls/hr IVCONT .Q10H [facility] Last Admin: 08/06/24 04:42 Dose: 100 mls/hr Documented By: RAJWINDER Magnesium Hydroxide (Milk Of Magnesia 30 Ml Oral.Susp) 30 ml PO DAILY PRN PRN Reason: Constipation Melatonin (Melatonin 3 Mg Tablet) 6 mg PO BEDTIME PRN PRN Reason: Insomnia Ondansetron HCl (Ondansetron Hcl 4 Mg/2 Ml Vial) 4 mg IVPUSH QID PRN PRN Reason: Nausea Last Admin: 08/04/24 10:25 Dose: 4 mg Documented By: PANKAJ Sodium Chloride (0.9 % Sodium Chloride Flush 3 Ml Syringe) 3 ml IVFLUSH QSHIFT [facility] Last Admin: 08/06/24 00:29 Dose: Not Given Documented By: RAJWINDER Non-Admin Reason: IV Running Labs 08/06/24 05:52 08/06/24 05:52 Labs: Laboratory Results - last 24 hr 08/06/24 05:52 MCV 103.7 H MCH 33.0 MCHC 31.8 RDW 13.2 Plt Count 149 L MPV 11.1 Absolute Nucleated RBC 0.000 Nucleated RBC % (auto) 0.0 Anion Gap 17 Estim Creat Clear Calc 13.7 Estimated GFR 18 Random Glucose 83 Calcium 8.3 L D Magnesium 2.3 Microbiology Microbiology Results: Microbiology 08/04/24 02:50 Blood Culture - Preliminary Blood - Venous No growth after 48 hours. 08/04/24 02:20 Blood Culture - Preliminary Blood - Venous No growth after 48 hours. Procedures Date of Service Date of Service: 08/06/24 Progress Note: A&P Assessment and plan (1) Bilateral incarcerated inguinal hernia: Status: Acute Plan 88-year-old male patient with bilateral inguinal hernias right greater than left, aspiration pneumonia, CKD 3. Bilateral inguinal hernias remained reduced. Elective repair once patient was stable. Time Spent With Patient Time: Total time managing care of this patient today ____ minutes. Quality Stroke Does the patient have a stroke diagnosis?: Yes Reason for No Anti-thrombotic by Day Two: N/A - Med Ordered VTE Prior VTE?: No VTE Risk Level:: Surgical - moderate VTE Device Contraindication: N/A - Device Ordered VTE Drug Contraindication: N/A - Med Ordered
[2024-08-06] MEDS: 0.9 % Sodium Chloride Flush 3 ML SYRINGE IVFLUSH ×3 (08:13→20:40)
--- NOTE | 2024-08-06 08:15 | P.PNNP_ITS ---
Subjective Subjective Date of Service: 08/06/24 Interval history: 88 y/o male with a medical history of CKDIII, HTN, prostate CA, CVA with left hemiparesis, s/p pacemaker. presented 08/04 with abdominal pain and inability to tolerate oral intake. bilateral incarcerated hernia with small bowel obstruction on CT. Patient also with hypoxia requiring supplemental O2. Nephrology consulted for JANET. creatinine 3.45 on presentation 08/04; 512 is 4.24 creatinine prior to hospitalization on 05/25/24 was 1.30. lactic acid elevated, metabolic alkalosis patient reports he has been urinating regularly/comfortably, has not noticed any reduction in output reports he is feeling generally weak and tired, no other complaints. states his abdominal pain feels improved, and breathing is comfortable. reports he was taking ibuprofen OTC regularly for some time to help with his abdominal pain. Reports drinks 1 beer/week, smokes 3 cigarettes per day, denies other drug use. Reduced oral intake prior to admission. Physical Exam 2 Vital Signs: Vital Signs: Last Vital Signs Temp 98.7 F 08/06/24 08:00 Pulse 60 08/06/24 08:00 Resp 12 08/06/24 08:00 BP 169/75 H 08/06/24 08:00 Pulse Ox 95 08/06/24 08:00 O2 Del Method Oxymask 08/06/24 08:00 O2 Flow Rate 1 08/06/24 08:00 BMI result Body Mass Index 19.4 Objective Data Labs 08/06/24 05:52 08/06/24 05:52 Labs: Laboratory Results - last 24 hr 08/06/24 05:52 WBC 9.7 RBC 2.97 L Hgb 9.8 L Hct 30.8 L MCV 103.7 H MCH 33.0 MCHC 31.8 RDW 13.2 Plt Count 149 L MPV 11.1 Absolute Nucleated RBC 0.000 Nucleated RBC % (auto) 0.0 Sodium 147 H Potassium 3.8 Chloride 103 Carbon Dioxide 31 H Anion Gap 17 BUN 81 H Creatinine 3.29 H Estim Creat Clear Calc 13.7 Estimated GFR 18 Random Glucose 83 Calcium 8.3 L D Magnesium 2.3 Microbiology Microbiology Results: Microbiology 08/04/24 02:50 Blood - Venous Blood Culture - Preliminary No growth after 48 hours. 08/04/24 02:20 Blood - Venous Blood Culture - Preliminary No growth after 48 hours. Procedures Date of Service Date of Service: 08/06/24 Assessment & Plan Assessment and plan (1) CKD (chronic kidney disease), stage III: Status: Acute (2) JANET (acute kidney injury): Status: Acute (3) Hypertension: Status: Acute Plan JANET on CKD likely tubular injury secondary to hypoperfusion in combination with regular NSAID use at home Improving Patient appears hypovolemic, recommend continuing fluids may change from NS to half normal saline given hypernatremia Cannot yet rule out GN, UA pending metabolic alkalosis from to NGT- improving recommend daily renal and electrolyte studies recommend close I&O monitoring, regular BP checks recommend avoiding all nephrotoxins including NSAIDs will continue to follow Discussed with Dr Calvert. Time Spent With Patient Time: Total time managing care of this patient today ____ minutes. Progress Note: Quality Stroke Does the patient have a stroke diagnosis?: Yes Reason for No Anti-thrombotic by Day Two: N/A - Med Ordered
--- NOTE | 2024-08-06 08:25 | HO.PM.IMPN ---
Subjective Subjective Date of Service: 08/06/24 Interval History: intersted in starting liquids, no pain Physical Exam Vital Signs: Vital Signs: Last Vital Signs Temp 97.0 F 08/06/24 03:10 Pulse 60 08/06/24 03:10 Resp 16 08/06/24 03:10 BP 169/79 H 08/06/24 03:10 Pulse Ox 93 08/06/24 04:50 O2 Del Method Oxymask 08/06/24 04:50 O2 Flow Rate 1 08/06/24 04:50 BMI result Body Mass Index 19.4 General: AO X 3, frail, ill appearing Resp: Crackles bilateral, no accessory muscles used CVS: S1,S2,RRR GI: soft, non tender, non distended Neuro: motor grossly intact, alert Psych: appropriate affect, appropriate insight Objective Data Active Medications Calcium Carbonate (Calcium Carbonate 750 Mg Tab.Chew) 750 mg PO Q4H PRN PRN Reason: Heartburn Enoxaparin Sodium (Enoxaparin Sodium 30 Mg/0.3 Ml Syringe) 30 mg SUBCUT Q24H [facility] Last Admin: 08/05/24 09:34 Dose: 30 mg Documented By: LASHELL Hydromorphone HCl (Hydromorphone Hcl 0.5 Mg/0.5 Ml Syringe) 0.5 mg IVPUSH Q3H PRN; Protocol PRN Reason: Pain, Severe (Pain Scale 7-10) Acetaminophen (Ofirmev) 1,000 mg in 100 mls @ 400 mls/hr IV Q6H PRN PRN Reason: Pain, Mild (Pain Scale 1-3) Piperacillin Sod/Tazobactam (Sod 2.25 gm/ Sodium Chloride) 50 mls @ 100 mls/hr IV Q6H [facility] Last Admin: 08/06/24 08:13 Dose: 100 mls/hr Documented By: JERNASIM Sodium Chloride (Ns) 1,000 mls @ 100 mls/hr IVCONT .Q10H [facility] Last Admin: 08/06/24 04:42 Dose: 100 mls/hr Documented By: RAJWINDER Magnesium Hydroxide (Milk Of Magnesia 30 Ml Oral.Susp) 30 ml PO DAILY PRN PRN Reason: Constipation Melatonin (Melatonin 3 Mg Tablet) 6 mg PO BEDTIME PRN PRN Reason: Insomnia Ondansetron HCl (Ondansetron Hcl 4 Mg/2 Ml Vial) 4 mg IVPUSH QID PRN PRN Reason: Nausea Last Admin: 08/04/24 10:25 Dose: 4 mg Documented By: PANKAJ Sodium Chloride (0.9 % Sodium Chloride Flush 3 Ml Syringe) 3 ml IVFLUSH QSHIFT [facility] Last Admin: 08/06/24 08:13 Dose: 3 ml Documented By: DIANE Labs 08/06/24 05:52 08/06/24 05:52 Labs: Laboratory Results - last 24 hr 08/06/24 05:52 MCV 103.7 H MCH 33.0 MCHC 31.8 RDW 13.2 Plt Count 149 L MPV 11.1 Absolute Nucleated RBC 0.000 Nucleated RBC % (auto) 0.0 Anion Gap 17 Estim Creat Clear Calc 13.7 Estimated GFR 18 Random Glucose 83 Calcium 8.3 L D Magnesium 2.3 Microbiology Microbiology Results: Microbiology 08/04/24 02:50 Blood Culture - Preliminary Blood - Venous No growth after 48 hours. 08/04/24 02:20 Blood Culture - Preliminary Blood - Venous No growth after 48 hours. Assessment and Plan (1) CKD (chronic kidney disease), stage III: Status: Acute Plan 88M PMH COPD, htn, prostate ca, cva with left hemiparesis and dysarthria, CKD III, s/p pacer, presented with diffuse abdominal pain inability to tolerate p.o. Bilateral incarcerated hernia with small bowel obstruction Reduced in ED, management per surgery, would hold off on non emergent surgery for now as fairly high risk given hypoxia, JANET, frailty SBO appears resolved, NGT removed, will try clears today, eventual elective bilateral hernia repair when stable acute hypoxic respiratory failure due to aspiratoin pneumonia/atelectasis zosyn, wean o2 janet on CKD III improving with ivf, continue NS (acute metabolic alkalosis due to upper gi losses) nephro following acute hypernatremia free water deficit, encourage po intake, monitor acute lactic acidosis due to incarcerated hernia, not sepsis history of cva holding antiplatelet for possible surgery dvt prophylaxis - lovenox DNR/DNI reason for continued hospitalization:janet Quality Stroke Does the patient have a stroke diagnosis?: Yes Reason for No Anti-thrombotic by Day Two: N/A - Med Ordered VTE Prior VTE?: No VTE Risk Level:: Surgical - moderate VTE Device Contraindication: N/A - Device Ordered VTE Drug Contraindication: N/A - Med Ordered
--- NOTE | 2024-08-06 09:56 | P.CDIM_ITS ---
PROVIDER RESPONSE TEXT: To clarify, the appropriate diagnosis supported by the clinical indicators: complete SBO QUERY TEXT: PHYSICIAN'S DOCUMENTATION REQUEST Date of Query: 08/06/2024 09:34 AM EDT Patient Name: Ki Jordan Admit Date: 08/04/2024 Dear Ludin Dawson MD, A review of the medical record indicates additional documentation may be needed. Please review below and update the documentation accordingly. Clinical Indicators: patient with diagnosis SBO, incarcerated bilateral inguinal hernias/reduced Per CT abdomen and pelvis 08/04/24: Right larger than left bilateral inguinal hernias containing loops of bowel, on the right containing the majority of the ascending colon. There is extensive fluid stranding tracking along the right hernia defect. The left inguinal hernia contains a decompressed loop of small bowel. There is proximal diffuse small bowel dilatation throughout the abd ominal cavity with air-fluid levels, concerning for bowel obstruction Based on the above, could you clarify the appropriate diagnosis, if significant, that supports the ab ove abnormalities and additional evaluation, monitoring, and/or treatment rendered: complete SBO partial SBO incomplete SBO Other (explain) Clinically unable to determine (explain) Thank you, Ratna Sutherland RN Use of terms such as suspected, likely, concern for, or probable (associated with a specific diagnosi s that is being evaluated, monitored, or treated as if it exists) are acceptable and can be coded in the inpatient se tting, when documented at the time of discharge. Please use your independent medical judgment in providing your response. THIS QUERY IS PART OF THE PERMANENT MEDICAL RECORD
[2024-08-06] MEDS: Enoxaparin Sodium 30 MG/0.3 ML SYRINGE SUBCUT (10:35)
[2024-08-06] MEDS: Sodium Chloride 0.45 % 1,000 ML 100 ML IVCONT ×2 (10:36→20:47)
[2024-08-07] MEDS: Piperacillin Sodium/Tazobactam 2.25 GM in 0.9 % Sodium Chloride 50 ML IV ×4 (03:12→20:32)
[2024-08-07 03:23] VITALS: BP 169/79; PULSE 60; RESP 18; TEMP 36; O2SAT 93
[2024-08-07] MEDS: Sodium Chloride 0.45 % 1,000 ML 100 ML IVCONT ×2 (06:21→15:54)
[2024-08-07 06:42] LABS: Anion Gap 13 (12-20); Blood Urea Nitrogen 61 mg/dL (9-16); Calcium 8.1 mg/dL (8.4-10.2); Carbon Dioxide 30 mmol/L (22-29); Chloride 103 mmol/L (96-108); Creatinine Clr Calc Pharmacy 19.5; Estimated Glomerular Filt Rate 27; Glucose Random 102 mg/dL (60-115); Magnesium 2.3 mg/dL (1.6-2.6); Potassium 3.2 mmol/L (3.3-5.1); Sodium 143 mmol/L (135-145)
[2024-08-07 07:03] VITALS: BP 162/77; PULSE 62; RESP 16; TEMP 36.6; O2SAT 97
[2024-08-07 07:04] LABS: Mean Corpuscular HGB Conc 33.3 g/dl (31.0-36.0); Mean Corpuscular Hemoglobin 33.3 pg (27.0-33.0); Platelet Count 152 X10*3/uL (160-400); Red Cell Distribution Width 12.9 % (11.0-16.0); White Blood Count 8.2 X10*3/uL (4.8-10.8)
--- NOTE | 2024-08-07 08:02 | PM.PNGS ---
Subjective Subjective Date of Service: 08/07/24 Patient reports: no new complaints Interval history: Patient reports he is doing okay this morning. Denies abdominal pain, bloating. He has been tolerating clear liquid diet. Physical Exam Vital Signs: Vital Signs: Last Vital Signs Temp 98 F 08/07/24 07:03 Pulse 62 08/07/24 07:03 Resp 16 08/07/24 07:03 BP 162/77 H 08/07/24 07:03 Pulse Ox 97 08/07/24 07:03 O2 Del Method Nasal Cannula 08/07/24 07:03 O2 Flow Rate 2 08/07/24 07:03 BMI result Body Mass Index 19.4 Const: General: no acute distress GI: Other: large right inguinal hernia, small left inguinal hernia. reducible Inspection: No distended Palpation (GI): Soft to palpation, not firm, nontender, no guarding and not rigid Objective Data Active Medications Calcium Carbonate (Calcium Carbonate 750 Mg Tab.Chew) 750 mg PO Q4H PRN PRN Reason: Heartburn Enoxaparin Sodium (Enoxaparin Sodium 30 Mg/0.3 Ml Syringe) 30 mg SUBCUT Q24H [facility] Last Admin: 08/06/24 10:35 Dose: 30 mg Documented By: DIANE Hydromorphone HCl (Hydromorphone Hcl 0.5 Mg/0.5 Ml Syringe) 0.5 mg IVPUSH Q3H PRN; Protocol PRN Reason: Pain, Severe (Pain Scale 7-10) Piperacillin Sod/Tazobactam (Sod 2.25 gm/ Sodium Chloride) 50 mls @ 100 mls/hr IV Q6H [facility] Last Infusion: 08/07/24 03:42 Dose: Infused Documented By: NATALIA Sodium Chloride (Sodium Chloride 0.45 %) 1,000 mls @ 100 mls/hr IVCONT .Q10H [facility] Last Admin: 08/07/24 06:21 Dose: 100 mls/hr Documented By: NATALIA Magnesium Hydroxide (Milk Of Magnesia 30 Ml Oral.Susp) 30 ml PO DAILY PRN PRN Reason: Constipation Melatonin (Melatonin 3 Mg Tablet) 6 mg PO BEDTIME PRN PRN Reason: Insomnia Ondansetron HCl (Ondansetron Hcl 4 Mg/2 Ml Vial) 4 mg IVPUSH QID PRN PRN Reason: Nausea Last Admin: 08/04/24 10:25 Dose: 4 mg Documented By: PROVENNimesh Sodium Chloride (0.9 % Sodium Chloride Flush 3 Ml Syringe) 3 ml IVFLUSH QSHIFT [facility] Last Admin: 08/06/24 20:40 Dose: 3 ml Documented By: ANILANDV Labs 08/07/24 06:00 08/07/24 06:00 Labs: Laboratory Results - last 24 hr 08/07/24 06:00 MCV 100.0 H MCH 33.3 H MCHC 33.3 RDW 12.9 Plt Count 152 L MPV 11.0 Absolute Nucleated RBC 0.000 Nucleated RBC % (auto) 0.0 Anion Gap 13 Estim Creat Clear Calc 19.5 Estimated GFR 27 Random Glucose 102 Calcium 8.1 L Magnesium 2.3 Microbiology Microbiology Results: Microbiology 08/04/24 02:50 Blood Culture - Preliminary Blood - Venous No growth after 48 hours. 08/04/24 02:20 Blood Culture - Preliminary Blood - Venous No growth after 48 hours. Procedures Date of Service Date of Service: 08/07/24 Progress Note: A&P Assessment and plan (1) Small bowel obstruction: Status: Acute (2) Bilateral incarcerated inguinal hernia: Status: Acute Plan 88-year-old male being followed for bilateral inguinal hernias, possible SBO. Patient improving from our standpoint. Pain is less, abdominal exam is benign, hernias are visible, continue to be reducible. Patient is clinically nonobstucted. Tolerating clear liquid diet. Minimal pain. Recommend full diet as tolerated At this point, given comorbidities, no plan for surgery during this admission. General surgery will sign off. Please reconsult as needed. Time Spent With Patient Time: Total time managing care of this patient today ____ minutes. Quality Stroke Does the patient have a stroke diagnosis?: Yes Reason for No Anti-thrombotic by Day Two: N/A - Med Ordered VTE Prior VTE?: No VTE Risk Level:: Surgical - moderate VTE Device Contraindication: N/A - Device Ordered VTE Drug Contraindication: N/A - Med Ordered
--- NOTE | 2024-08-07 08:15 | P.PNNP_ITS ---
Subjective Subjective Date of Service: 08/07/24 Interval history: Patient seen at bedside. Reports weakness is improving. Denies chest pain, shortness of breath, abdominal pain, LE swelling. States he is continuing to urinate regularly/without difficulty. Denies other concerns/symptoms. Physical Exam 2 Vital Signs: Vital Signs: Last Vital Signs Temp 98 F 08/07/24 07:03 Pulse 62 08/07/24 07:03 Resp 16 08/07/24 07:03 BP 162/77 H 08/07/24 07:03 Pulse Ox 97 08/07/24 07:03 O2 Del Method Nasal Cannula 08/07/24 07:03 O2 Flow Rate 2 08/07/24 07:03 BMI result Body Mass Index 19.4 Const: General: no acute distress, alert and awake Resp: Effort & Inspection: normal respiratory effort and able to speak in complete sentences Auscultation: clear to auscultation bilaterally Cardio: Rate: regular rate Rhythm: regular rhythm Heart sounds: S1 normal heart sound present and S2 normal heart sound present GI: Palpation (GI): Soft to palpation and nontender : General: Yes no CVA tenderness Back/Spine/Pelvis: Back: no CVA tenderness Skin: Rashes: no rashes Extrem: General: No edema Objective Data Labs 08/07/24 06:00 08/07/24 06:00 Labs: Laboratory Results - last 24 hr 08/07/24 06:00 WBC 8.2 RBC 3.00 L Hgb 10.0 L Hct 30.0 L MCV 100.0 H MCH 33.3 H MCHC 33.3 RDW 12.9 Plt Count 152 L MPV 11.0 Absolute Nucleated RBC 0.000 Nucleated RBC % (auto) 0.0 Sodium 143 Potassium 3.2 L Chloride 103 Carbon Dioxide 30 H Anion Gap 13 BUN 61 H Creatinine 2.31 H Estim Creat Clear Calc 19.5 Estimated GFR 27 Random Glucose 102 Calcium 8.1 L Magnesium 2.3 Microbiology Microbiology Results: Microbiology 08/04/24 02:50 Blood - Venous Blood Culture - Preliminary No growth after 48 hours. 08/04/24 02:20 Blood - Venous Blood Culture - Preliminary No growth after 48 hours. Procedures Date of Service Date of Service: 08/07/24 Assessment & Plan Assessment and plan (1) CKD (chronic kidney disease), stage III: Status: Acute (2) JANET (acute kidney injury): Status: Acute (3) Hypertension: Status: Acute Plan JANET on CKD likely tubular injury secondary to hypoperfusion in combination with regular NSAID use at home Improving Patient appears hypovolemic, recommend continuing IVF, encourage oral hydration Cannot yet rule out GN, though less likely given robust response to fluids- UA collected/not run, re-ordered to assess for hematuria, proteinuria metabolic alkalosis from to NGT- improving. blood pressures suboptimal- consider adding amlodipine 5mg daily if HTN persists. recommend daily renal and electrolyte studies recommend close I&O monitoring, regular BP checks recommend avoiding all nephrotoxins including NSAIDs will continue to follow Discussed with Dr Calvert. Time Spent With Patient Time: Total time managing care of this patient today ____ minutes. Progress Note: Quality Stroke Does the patient have a stroke diagnosis?: Yes Reason for No Anti-thrombotic by Day Two: N/A - Med Ordered
--- NOTE | 2024-08-07 08:21 | P.PNIM_ITS ---
Subjective Subjective Date of Service: 08/07/24 Interval History: toleraating liquid, Physical Exam 2 Vital Signs: Vital Signs: Last Vital Signs Temp 98 F 08/07/24 07:03 Pulse 62 08/07/24 07:03 Resp 16 08/07/24 07:03 BP 162/77 H 08/07/24 07:03 Pulse Ox 97 08/07/24 07:03 O2 Del Method Nasal Cannula 08/07/24 07:03 O2 Flow Rate 2 08/07/24 07:03 BMI result Body Mass Index 19.4 General: AO X 3, frail, ill appearing Resp: Crackles bilateral, no accessory muscles used CVS: S1,S2,RRR GI: soft, non tender, non distended Neuro: motor grossly intact, alert Psych: appropriate affect, appropriate insight Objective Data Active Medications Calcium Carbonate (Calcium Carbonate 750 Mg Tab.Chew) 750 mg PO Q4H PRN PRN Reason: Heartburn Enoxaparin Sodium (Enoxaparin Sodium 30 Mg/0.3 Ml Syringe) 30 mg SUBCUT Q24H [facility] Last Admin: 08/06/24 10:35 Dose: 30 mg Documented By: DIANE Hydromorphone HCl (Hydromorphone Hcl 0.5 Mg/0.5 Ml Syringe) 0.5 mg IVPUSH Q3H PRN; Protocol PRN Reason: Pain, Severe (Pain Scale 7-10) Piperacillin Sod/Tazobactam (Sod 2.25 gm/ Sodium Chloride) 50 mls @ 100 mls/hr IV Q6H [facility] Last Infusion: 08/07/24 03:42 Dose: Infused Documented By: NATALIA Sodium Chloride (Sodium Chloride 0.45 %) 1,000 mls @ 100 mls/hr IVCONT .Q10H [facility] Last Admin: 08/07/24 06:21 Dose: 100 mls/hr Documented By: NATALIA Magnesium Hydroxide (Milk Of Magnesia 30 Ml Oral.Susp) 30 ml PO DAILY PRN PRN Reason: Constipation Melatonin (Melatonin 3 Mg Tablet) 6 mg PO BEDTIME PRN PRN Reason: Insomnia Ondansetron HCl (Ondansetron Hcl 4 Mg/2 Ml Vial) 4 mg IVPUSH QID PRN PRN Reason: Nausea Last Admin: 08/04/24 10:25 Dose: 4 mg Documented By: PANKAJ Sodium Chloride (0.9 % Sodium Chloride Flush 3 Ml Syringe) 3 ml IVFLUSH QSHIFT [facility] Last Admin: 08/06/24 20:40 Dose: 3 ml Documented By: NATALIA Labs 08/07/24 06:00 08/07/24 06:00 Labs: Laboratory Results - last 24 hr 08/07/24 06:00 MCV 100.0 H MCH 33.3 H MCHC 33.3 RDW 12.9 Plt Count 152 L MPV 11.0 Absolute Nucleated RBC 0.000 Nucleated RBC % (auto) 0.0 Anion Gap 13 Estim Creat Clear Calc 19.5 Estimated GFR 27 Random Glucose 102 Calcium 8.1 L Magnesium 2.3 Microbiology Microbiology Results: Microbiology 08/04/24 02:50 Blood Culture - Preliminary Blood - Venous No growth after 48 hours. 08/04/24 02:20 Blood Culture - Preliminary Blood - Venous No growth after 48 hours. Assessment and Plan (1) CKD (chronic kidney disease), stage III: Status: Acute Plan 88M PMH COPD, htn, prostate ca, cva with left hemiparesis and dysarthria, CKD III, s/p pacer, presented with diffuse abdominal pain inability to tolerate p.o. Bilateral incarcerated hernia with small bowel obstruction, reduced in the ED. Seen by surgery, would hold off on non emergent surgery for now as fairly high risk given hypoxia, JANET, frailty, SBO appears resolved, NGT removed, will try clears today, eventual elective bilateral hernia repair when stable acute hypoxic respiratory failure due to aspiration pneumonia/atelectasis zosyn, wean o2 janet on CKD III improving with ivf, continue NS (acute metabolic alkalosis due to upper gi losses) nephro following acute hypernatremia, resolved free water deficit, encourage po intake, monitor acute lactic acidosis due to incarcerated hernia, not sepsis history of cva holding antiplatelet for possible surgery dvt prophylaxis - lovenox DNR/DNI reason for continued hospitalization:janet Quality Stroke Does the patient have a stroke diagnosis?: Yes Reason for No Anti-thrombotic by Day Two: N/A - Med Ordered VTE Prior VTE?: No VTE Risk Level:: Surgical - moderate VTE Device Contraindication: N/A - Device Ordered VTE Drug Contraindication: N/A - Med Ordered
[2024-08-07] MEDS: Enoxaparin Sodium 30 MG/0.3 ML SYRINGE SUBCUT (09:30)
[2024-08-07 10:42] VITALS: BMI 19.4
--- NOTE | 2024-08-07 10:49 | MHC.CLN ---
NUTRITION DIET=FULL LIQUIDS. DAY 4 OF NPO, CL OR FL DIET. ADDING ENSURE TID TO PROMOTE NUTRITIONAL INTAKE. SUPPLEMENT PROVIDES 1050 KCALS, 60 G PROTEIN. INTAKE VARIABLE. QUALIFIES MODERATELY MALNOURISHED IN THE CONTEXT OF CHRONIC ILLNESS. FOLLOW FOR DIET ADVANCEMENT AND PO INTAKE. SEE CLINICAL NUTRITION ASSESSMENT 08/07/24.
--- NOTE | 2024-08-07 12:10 | MHC.CM.PN ---
Per MD rounds, not medically cleared for dc at this time. PT eval pending. CM will continue to follow.
[2024-08-07 15:12] VITALS: BP 162/77; PULSE 62; O2SAT 97
[2024-08-07 15:49] VITALS: BP 158/69; PULSE 59; RESP 14; TEMP 36.6; O2SAT 97
[2024-08-07 16:14] LABS: Appearance Urine Cloudy; Color Urine Yellow; Glucose Urine UA Negative (Negative); Leukocyte Esterase Urine Large (3+) (Negative); Nitrite Urine Negative (Negative); Specific Gravity - Urine 1.025 (1.005-1.025); UMIC TRIGGER UA YES; UMIC TRIGGER UACC YES; Urine Blood Trace (Negative); Urine Ketones Negative (Negative); Urine Protein 30 (1+) mg/dL (Neg-Trace)
[2024-08-07 19:37] VITALS: BP 137/71; PULSE 60; RESP 14; TEMP 36.2; O2SAT 92
[2024-08-07 21:45] LABS: Bacteria Urine 3+ (None Seen); Hyaline Casts Urine 0-2 /LPF (0-2); Squamous Epithelial Cell Urine 0-2 /HPF (0-2); UACC Culture Trigger YES
[2024-08-07 21:46] LABS: Other Crystals Urine Present
[2024-08-08] MEDS: Sodium Chloride 0.45 % 1,000 ML 100 ML IVCONT (01:14)
[2024-08-08] MEDS: Piperacillin Sodium/Tazobactam 2.25 GM in 0.9 % Sodium Chloride 50 ML IV ×4 (02:55→20:25)
[2024-08-08 03:01] VITALS: BP 161/76; PULSE 60; RESP 20; TEMP 36.7; O2SAT 95
[2024-08-08 07:55] VITALS: BP 156/76; PULSE 60; RESP 18; TEMP 36.4; O2SAT 96
[2024-08-08] MEDS: Enoxaparin Sodium 30 MG/0.3 ML SYRINGE SUBCUT (09:48)
--- NOTE | 2024-08-08 10:12 | P.PNNP_ITS ---
Subjective Subjective Date of Service: 08/08/24 Interval history: Patient seen at bedside. Reports weakness is improving. Denies chest pain, shortness of breath, abdominal pain, LE swelling. States he is continuing to urinate regularly/without difficulty. Denies other concerns/symptoms. States he wants to go home. Physical Exam 2 Vital Signs: Vital Signs: Last Vital Signs Temp 97.6 F 08/08/24 07:55 Pulse 60 08/08/24 07:55 Resp 18 08/08/24 07:55 BP 156/76 H 08/08/24 07:55 Pulse Ox 96 08/08/24 07:55 O2 Del Method Nasal Cannula 08/08/24 07:55 O2 Flow Rate 2 08/08/24 07:55 BMI result Body Mass Index 19.4 Const: General: no acute distress, alert and awake Resp: Effort & Inspection: normal respiratory effort and able to speak in complete sentences Auscultation: clear to auscultation bilaterally Cardio: Rate: regular rate Rhythm: regular rhythm Heart sounds: S1 normal heart sound present and S2 normal heart sound present GI: Palpation (GI): Soft to palpation and nontender : General: Yes no CVA tenderness Back/Spine/Pelvis: Back: no CVA tenderness Skin: Rashes: no rashes Extrem: General: No edema Objective Data Labs 08/07/24 06:00 08/08/24 10:09 Labs: Laboratory Results - last 24 hr 08/05/24 Unknown Urine Color Yellow Urine Appearance Cloudy Urine pH 6.0 Ur Specific [place] 1.025 Urine Protein 30 (1+) H Urine Glucose (UA) Negative Urine Ketones Negative Urine Blood Trace H Urine Nitrite Negative Ur Leukocyte Esterase Large (3+) H Urine RBC 3-5 H Urine WBC 6-10 H Ur Squamous Epith Cells 0-2 Other Crystals Present Urine Bacteria 3+ Hyaline Casts 0-2 Microbiology Microbiology Results: Microbiology 08/04/24 02:50 Blood - Venous Blood Culture - Preliminary No growth after 48 hours. 08/04/24 02:20 Blood - Venous Blood Culture - Preliminary No growth after 48 hours. Procedures Date of Service Date of Service: 08/08/24 Assessment & Plan Assessment and plan (1) CKD (chronic kidney disease), stage III: Status: Acute (2) JANET (acute kidney injury): Status: Acute (3) Hypertension: Status: Acute Plan JANET on CKD likely tubular injury secondary to hypoperfusion in combination with regular NSAID use at home Improving Continue to encourage oral hydration metabolic alkalosis from to NGT- improving. blood pressures suboptimal- consider adding amlodipine 5mg daily if HTN persists. recommend daily renal and electrolyte studies recommend close I&O monitoring, regular BP checks recommend avoiding all nephrotoxins including NSAIDs Will arrange for outpatient follow up in nephrology office upon discharge. Discussed with Dr Gilliland Time Spent With Patient Time: Total time managing care of this patient today ____ minutes. Progress Note: Quality Stroke Does the patient have a stroke diagnosis?: Yes Reason for No Anti-thrombotic by Day Two: N/A - Med Ordered
[2024-08-08 10:44] LABS: Anion Gap 15 (12-20); Blood Urea Nitrogen 44 mg/dL (9-16); Calcium 7.9 mg/dL (8.4-10.2); Carbon Dioxide 24 mmol/L (22-29); Chloride 104 mmol/L (96-108); Creatinine Clr Calc Pharmacy 28.5; Estimated Glomerular Filt Rate 42; Glucose Random 127 mg/dL (60-115); Potassium 3.9 mmol/L (3.3-5.1); Sodium 139 mmol/L (135-145)
--- NOTE | 2024-08-08 12:37 | P.PNIM_ITS ---
Subjective Subjective Date of Service: 08/08/24 Interval History: Seen and evaluated this morning Moving bowels, tolerating clears Creatinine trending down still on O2 supplement wants to go home Review of Systems Review of Systems: Yes all other systems are reviewed and are negative Physical Exam 2 Vital Signs: Vital Signs: Last Vital Signs Temp 97.6 F 08/08/24 07:55 Pulse 60 08/08/24 07:55 Resp 18 08/08/24 07:55 BP 156/76 H 08/08/24 07:55 Pulse Ox 96 08/08/24 07:55 O2 Del Method Nasal Cannula 08/08/24 07:55 O2 Flow Rate 2 08/08/24 07:55 BMI result Body Mass Index 19.4 Const: Other: Constitutional : Awake, interactive, not in distress Neck : Normal inspection, Supple Cardiovascular : RRR, no JVP, trace lower extremity edema Respiratory : fair bilateral air entry decreased at the basis, no crackles Gastrointestinal: soft, lax, Normal bowel sounds, Non tender Skin : Warm, Dry Neurological : Alert & oriented x3, No focal deficit Objective Data Active Medications Calcium Carbonate (Calcium Carbonate 750 Mg Tab.Chew) 750 mg PO Q4H PRN PRN Reason: Heartburn Enoxaparin Sodium (Enoxaparin Sodium 30 Mg/0.3 Ml Syringe) 30 mg SUBCUT Q24H [facility] Last Admin: 08/08/24 09:48 Dose: 30 mg Documented By: LASHELL Hydromorphone HCl (Hydromorphone Hcl 0.5 Mg/0.5 Ml Syringe) 0.5 mg IVPUSH Q3H PRN; Protocol PRN Reason: Pain, Severe (Pain Scale 7-10) Piperacillin Sod/Tazobactam (Sod 2.25 gm/ Sodium Chloride) 50 mls @ 100 mls/hr IV Q6H [facility] Last Infusion: 08/08/24 10:18 Dose: Infused Documented By: LASHELL Magnesium Hydroxide (Milk Of Magnesia 30 Ml Oral.Susp) 30 ml PO DAILY PRN PRN Reason: Constipation Melatonin (Melatonin 3 Mg Tablet) 6 mg PO BEDTIME PRN PRN Reason: Insomnia Ondansetron HCl (Ondansetron Hcl 4 Mg/2 Ml Vial) 4 mg IVPUSH QID PRN PRN Reason: Nausea Last Admin: 08/04/24 10:25 Dose: 4 mg Documented By: PANKAJ Sodium Chloride (0.9 % Sodium Chloride Flush 3 Ml Syringe) 3 ml IVFLUSH QSHIFT [facility] Last Admin: 08/08/24 07:28 Dose: Not Given Documented By: LASHELL Non-Admin Reason: IV Running Labs 08/07/24 06:00 08/08/24 10:09 Labs: Laboratory Results - last 24 hr 08/05/24 08/08/24 Unknown 10:09 Anion Gap 15 Estim Creat Clear Calc 28.5 Estimated GFR 42 Random Glucose 127 H Calcium 7.9 L Urine Color Yellow Urine Appearance Cloudy Urine pH 6.0 Ur Specific [place] 1.025 Urine Protein 30 (1+) H Urine Glucose (UA) Negative Urine Ketones Negative Urine Blood Trace H Urine Nitrite Negative Ur Leukocyte Esterase Large (3+) H Urine RBC 3-5 H Urine WBC 6-10 H Ur Squamous Epith Cells 0-2 Other Crystals Present Urine Bacteria 3+ Hyaline Casts 0-2 Assessment and Plan (1) JANET (acute kidney injury): Status: Acute (2) Small bowel obstruction: Status: Acute (3) Bilateral incarcerated inguinal hernia: Status: Acute (4) Weakness generalized: Status: Acute Plan 88M PMH COPD, htn, prostate ca, cva with left hemiparesis and dysarthria, CKD III, s/p pacer, presented with diffuse abdominal pain inability to tolerate p.o. Bilateral incarcerated hernia with small bowel obstruction reduced in the ED. Seen by surgery, would hold off on non emergent surgery for now as fairly high risk given hypoxia, JANET, frailty SBO resolved, NGT removed, tolerating clears eventual elective bilateral hernia repair when stable Advance diet to regular surgery following acute hypoxic respiratory failure due to aspiration pneumonia/atelectasis continue zosyn, wean o2 Incentive spirometry janet on CKD III Cr improving to 1.56 DC IVF nephro rec outpatient follow up physical deconditioning PT rec STR acute hypernatremia, resolved encourage po intake, monitor acute lactic acidosis, resolved due to incarcerated hernia, not sepsis history of cva holding antiplatelet for possible surgery dvt prophylaxis - lovenox DNR/DNI reason for continued hospitalization:janet Quality Stroke Does the patient have a stroke diagnosis?: Yes Reason for No Anti-thrombotic by Day Two: N/A - Med Ordered VTE Prior VTE?: No VTE Risk Level:: Surgical - moderate VTE Device Contraindication: N/A - Device Ordered VTE Drug Contraindication: N/A - Med Ordered
[2024-08-08 15:13] VITALS: BP 157/72; PULSE 58; RESP 17; TEMP 36.4; O2SAT 97
[2024-08-08 15:42] VITALS: BP 157/72; PULSE 58; O2SAT 97
[2024-08-08] MEDS: 0.9 % Sodium Chloride Flush 3 ML SYRINGE IVFLUSH ×2 (15:56→20:29)
[2024-08-08 19:09] VITALS: BP 164/72; PULSE 61; RESP 16; TEMP 36.5; O2SAT 97
[2024-08-09] MEDS: Piperacillin Sodium/Tazobactam 2.25 GM in 0.9 % Sodium Chloride 50 ML IV ×2 (02:30→08:26)
[2024-08-09 03:12] VITALS: BP 163/80; PULSE 60; RESP 20; TEMP 36.7; O2SAT 92
[2024-08-09 08:00] VITALS: BP 172/81; PULSE 60; RESP 18; TEMP 36.1; O2SAT 94
[2024-08-09] MEDS: 0.9 % Sodium Chloride Flush 3 ML SYRINGE IVFLUSH (08:28)
--- NOTE | 2024-08-09 10:39 | MHC.CM.PN ---
Per MD rounds patient medically cleared for dc. Patient now agreeable to STR and has accepted a bed @ [facility] on [address]. BLS transport scheduled for 2pm. , RN and friend/HCP aware. IMM delivered.
--- NOTE | 2024-08-09 11:25 | MHC.CLN ---
F/U DIET ADVANCED ON 08/08 TO REGULAR, LOW PHOSPHORUS. INTAKE VARIABLE, 25-75%. CONSIDER ADDING ENSURE TID IF POOR PO. FOLLOW FOR PO INTAKE.
--- NOTE | 2024-08-09 11:53 | PM.DS ---
DS: Providers Provider Date of Service: 08/09/24 Date of admission: 08/04/24 02:30 Date of discharge: 08/09/24 Primary care physician: Dontrell Dougherty MD Consults: 08/04/24 02:30 Consult to Hospitalist Routine Comment: Consulting Provider: [facility] Reason For Exam: Inc inguinal hernia, COPD, CKD, med manag, preop 08/05/24 07:39 Consult to Nephrology Routine Consulting Provider: [facility] Reason for consultation: janet on ckd DS: Diagnosis Discharge Diagnosis (1) JANET (acute kidney injury): Status: Acute (2) Small bowel obstruction: Status: Acute (3) Bilateral incarcerated inguinal hernia: Status: Acute (4) Weakness generalized: Status: Acute (5) Physical deconditioning: Status: Acute (6) Pneumonia: Status: Acute (7) Acute hypernatremia: Status: Acute (8) Acute lactic acidosis: Status: Acute (9) Acute respiratory failure with hypoxia: Status: Acute DS: Summary Hospital Course Hospital Course: Admission note HPI by surgical team Ki Jordan Jr is a 88 year old male presenting to the emergency department with persistent abdominal pain, nausea and vomiting. His past medical history is significant for COPD, hypertension, prostate cancer, previous CVA with left hemiparesis and dysarthria, chronic kidney disease 3, sick sinus syndrome s/p pacemaker placement. He has a long history of bilateral hernias but denied any significant pain associated with the hernias. Workup in the emergency department included laboratories which revealed a normal WBC. A CT abdomen and pelvis was consistent for a large right inguinal hernia and small left inguinal hernia with evidence of incarceration. The hernia was noted on the right side to extend into the scrotal sac. In the emergency department the hernia was easily reduced by the ED physician. The patient now mainly complains of pain in the left groin. The patient's last bowel movement is unclear. He is admitted to the surgical service for possible repair of this right inguinal hernia with a hospitalist consultation for his multiple medical issues. Hospital course # Bilateral incarcerated hernia with small bowel obstruction was reduced in the ED. Seen by surgery who decided to hold off on non emergent surgery for now as fairly high risk given hypoxia, JANET, frailty. SBO resolved and NGT removed, tolerating clears and advanced to regular diet with good tolerance. eventual elective bilateral hernia repair when stable as outpatient. To follow with [facility] Surgery as outpatient. # acute hypoxic respiratory failure due to aspiration pneumonia/atelectasis Treated with IV zosyn and weaned down O2 requirements as tolerated to room air. To continue with Incentive spirometry on discharge. To finish 5 more days of Augmentin and Mucinex. # JANET on CKD III. Creatinine worsened to 3.4 to 4.2 on admission. Improved with IV fluids and resolution of SBO to 1.58 close to baseline at time of discharge. Nephrology followed the patient during hospital stay and will see him in the office as outpatient. # physical deconditioning. PT rec STR # Acute hypernatremia, resolved with IV hypotonic fluids and encouraged po intake. # Acute lactic acidosis due to incarcerated hernia, not sepsis. improved with IV fluids and resolution of SBO. Discharge plan Continue Augmentin for 5 more days Increase fluid intake and avoid dehydration Physical therapy as tolerated follow with [facility] Surgery as outpatient Time Attestation Discharge Coordination Time (in mins): 46 Quality: Safe Use of Opioids Does Pt have an Active Cancer Diagnosis on the Problem List?: No Quality: Stroke Does the patient have a stroke diagnosis?: No Physical Exam Vital Signs: Vital Signs: Last Vital Signs Temp 97.0 F 08/09/24 08:00 Pulse 60 08/09/24 08:00 Resp 18 08/09/24 08:00 BP 172/81 H 08/09/24 08:00 Pulse Ox 94 08/09/24 08:00 O2 Del Method Room Air 08/09/24 08:00 O2 Flow Rate 2 08/08/24 15:13 BMI result Body Mass Index 19.4 Const: Other: Constitutional : Awake, interactive, not in distress Neck : Normal inspection, Supple Cardiovascular : RRR, no JVP, trace lower extremity edema Respiratory : fair bilateral air entry decreased at the basis, no crackles Gastrointestinal: soft, lax, Normal bowel sounds, Non tender Skin : Warm, Dry Neurological : Alert & oriented x3, No focal deficit DS: Data Data Completed and Pending Completed studies during hospitalization [Text1]: Procedures Insertion of Pacemaker Lead into Right Atrium, Percutaneous Approach (06/18/22) Insertion of Pacemaker Lead into Right Ventricle, Percutaneous Approach (06/18/22) Insertion of Pacemaker, Dual Chamber into Chest Subcutaneous Tissue and Fascia, Open Approach (06/18/22) Discharge Plan Discharge Anticipated Discharge Date/Time: 08/09/24 11:47 Patient Disposition: Xfer SNF Discharge Diagnosis: Acute kidney injury Incarcerated inguinal hernia small bowel obstruction aspiration pneumonia Referrals: [facility] [Outside] - 1 Day (short term rehab) Dontrell Dougherty MD [Primary Care Provider] - 1 Week Discharge Medications: New guaifenesin [Mucinex] 600 mg tablet extended release 12hr 600 mg PO BID Qty: 14 0RF amoxicillin-pot clavulanate 400-57 mg/5 mL suspension for reconstitution 10 ml PO BID Qty: 100 0RF Continued (DME) BEDSIDE COMMODE See Rx Instructions .Route .MEDSUPPLY Qty: 1 0RF Rx Instructions: As directed aspirin 81 mg tablet,chewable 81 mg PO DAILY Qty: 90 1RF cholecalciferol (vitamin D3) 25 mcg (1,000 unit) tablet 25 mcg PO DAILY Qty: 90 3RF atorvastatin 40 mg tablet 40 mg PO BEDTIME 90 Days Qty: 90 1RF prazosin 5 mg capsule 5 mg PO BID Qty: 180 0RF terazosin 10 mg capsule 10 mg PO BEDTIME 90 Days Qty: 90 1RF Discharge Orders: Discharge Order (Routine); Ordered 08/09/24 Ordered By: Mack Jones Diet: Advance to usual diet Activity on Discharge: As tolerated Stand Alone Forms: Patient Portal Discharge page Print Language: Indonesian Care Plan Goals: Continue Augmentin for 5 more days Increase fluid intake and avoid dehydration Physical therapy as tolerated follow with [facility] Surgery as outpatient Health Concerns: Incarcerated hernia Small bowel obstruction Acute kidney injury Aspiration pneumonia Plan of Treatment: Augmentin Physical therapy Assessment: as above
[2024-08-09 14:15] VITALS: BP 133/65; PULSE 94; RESP 17; TEMP 36.6; O2SAT 94
== END 2024-08-09 14:18 | disposition skilled nursing facility (03) | DRG 393 ==
LOC: HO.ED 01:26 → HO.EDOVER 02:39 → HO.S3 14:39
PROVIDERS: Internal Medicine; Nurse Practitioner Family; Admitting Provider Surgery; Emergency Provider Internal Medicine; PCP Internal Medicine; Visit Provider Student in an Organized Health Care Education/Training Program
DX: K40.00 Bilateral inguinal hernia, with obstruction, without gangrene, not specified as recurrent (principal); J69.0 Pneumonitis due to inhalation of food and vomit; J96.01 Acute respiratory failure with hypoxia; I69.354 Hemiplegia and hemiparesis following cerebral infarction affecting left non-dominant side; N17.9 Acute kidney failure, unspecified; Z66 Do not resuscitate; I12.9 Hypertensive chronic kidney disease with stage 1 through stage 4 chronic kidney disease, or unspecified chronic kidney disease; N18.30 Chronic kidney disease, stage 3 unspecified; Z95.0 Presence of cardiac pacemaker; E86.1 Hypovolemia; Z79.82 Long term (current) use of aspirin; Z79.899 Other long term (current) drug therapy
CPT/HCPCS: 36415; 71045; 74176; 80048; 80053; 80076; 81001; 81003; 83605; 83690; 83735; 84484; 85007; 85027; 87040; 87086; 93005; 97110; 97162; 99285; J1650; J2405; J2543

== ENCOUNTER → 2024-08-04 00:35 | Outpatient (BNV) | payer MEDICARE, SELFPAY | PROVIDERS: Admitting Provider Surgery; Emergency Provider Internal Medicine; PCP Internal Medicine; Visit Provider Internal Medicine | DX: I45.19 Other right bundle-branch block (principal); R94.31 Abnormal electrocardiogram [ECG] [EKG]; R11.2 Nausea with vomiting, unspecified | CPT/HCPCS: 93010 ==

== ENCOUNTER → 2024-08-04 00:46 | Outpatient (BNV) | payer MEDICARE, SELFPAY | PROVIDERS: Emergency Provider Internal Medicine; PCP Internal Medicine; Visit Provider Radiology Diagnostic Radiology | DX: R10.9 Unspecified abdominal pain (principal); R11.10 Vomiting, unspecified | CPT/HCPCS: 71045; 74176 ==

== ENCOUNTER → 2024-08-04 02:30 | Outpatient (BNV) | payer MEDICARE, SELFPAY | PROVIDERS: Admitting Provider Surgery; Emergency Provider Internal Medicine; PCP Internal Medicine; Visit Provider Nurse Practitioner Family | DX: N18.30 Chronic kidney disease, stage 3 unspecified (principal); N17.9 Acute kidney failure, unspecified; I10 Essential (primary) hypertension | CPT/HCPCS: 99222; 99231 ==

== ENCOUNTER → 2024-08-04 02:30 | Outpatient (BNV) | payer MEDICARE, SELFPAY | PROVIDERS: Admitting Provider Surgery; Emergency Provider Internal Medicine; PCP Internal Medicine; Visit Provider Internal Medicine | DX: N18.30 Chronic kidney disease, stage 3 unspecified (principal) | CPT/HCPCS: 99232 ==

== ENCOUNTER → 2024-08-04 02:30 | Outpatient (BNV) | payer MEDICARE, SELFPAY | PROVIDERS: Admitting Provider Surgery; Emergency Provider Internal Medicine; PCP Internal Medicine; Visit Provider Surgery | DX: K40.00 Bilateral inguinal hernia, with obstruction, without gangrene, not specified as recurrent (principal); K56.609 Unspecified intestinal obstruction, unspecified as to partial versus complete obstruction | CPT/HCPCS: 99222; 99232; 99499 ==

== ENCOUNTER → 2024-11-16 23:59 | Outpatient (BNV) | payer MEDICARE, SELFPAY ==
--- NOTE | 2024-12-02 14:08 | MHC.OFFVIS ---
Intake Visit Reasons: REmote device check- [facility] [employer] Allergies No Known Allergies (No Known Allergies*) Allergy (Verified 08/04/24 00:31) PFSH Medical History Sick sinus syndrome Vitamin D deficiency Benign essential hypertension CVA (cerebral vascular accident) (~2016) CKD (chronic kidney disease), stage III Urinary frequency Left-sided weakness Anemia Pacemaker UTI (urinary tract infection) Swallowing problem Incidental pulmonary nodule Bradycardia Right inguinal pain Hypertension Bladder outlet obstruction Surgical History S/P excision of lipoma History of surgery History of knee replacement Social History Household Members: None Housing: Apartment Housing Other:: 2nd floor Are you a primary cattle care worker to a significant other at home: No Do you presently have visiting nurse or other home services: No Alcohol intake: never Patient Tobacco Use Status: Tobacco use Unknown Tobacco use type: Cigarette Cigarette Packs Per Day: 0.5 Cigarettes Per Day: 8 Years Smoked: 60 +/- e-Cigarette/Vaping Use: Never Used Second Hand Smoke Exposure: No Advance Directives Date on File: 06/06/22 service: No Current occupational status: retired Cognitive needs: Yes (wheelchair) Hearing needs: No Vision needs: Yes Office Procedures Cardiac Device Check Cardiac Device Check Details: Remote pacemaker report generated 11/16/2024. Pacemaker function is adequate [id number] Cardiac Device Interrogation, pacemaker Procedure code (CPT) selection complete Assessment & Plan Assessment & Plan (1) Pacemaker: Comment: [employer] dual-chamber pacemaker inserted 06/21/2022, Dr. Fitzpatrick Code(s): Z95.0 - Presence of cardiac pacemaker Category: Medical Plan: See above Coding Level of Care Code Procedure Only Diagnoses Pacemaker Z95.0 CPT Codes Cardiac Device Check - Cardiac Device 12: [id number] Cardiac Device Interrogation, pacemaker ([id number])
== END ==
PROVIDERS: PCP Internal Medicine; Visit Provider Internal Medicine Cardiovascular Disease
DX: Z45.018 Encounter for adjustment and management of other part of cardiac pacemaker (principal)
CPT/HCPCS: 93294

== ENCOUNTER → 2025-03-12 14:11 | Outpatient (BNV) | payer MEDICARE, SELFPAY | PROVIDERS: PCP Internal Medicine; Visit Provider Internal Medicine Cardiovascular Disease | DX: Z45.018 Encounter for adjustment and management of other part of cardiac pacemaker (principal) | CPT/HCPCS: 93294 ==